=== PATIENT | female | born 1955 | race Caucasian/White ===

== ENCOUNTER → 2018-04-03 14:33 | Outpatient (CLI) | payer BC, SELFPAY ==
[2018-04-09 12:17] LABS: HPV Reflexed? NOT INDICATED
== END ==
PROVIDERS: PCP Family Medicine; Visit Provider Obstetrics & Gynecology
DX: Z12.4 Encounter for screening for malignant neoplasm of cervix (principal)
CPT/HCPCS: 88175; G0145

== ENCOUNTER → 2018-04-07 07:03 | Outpatient (CLI) | payer BC, SELFPAY ==
--- NOTE | 2018-04-07 07:07 | BI_ITS ---
MAMMOGRAPHY - BILATERAL SCREENING REASON FOR EXAM: Female, 63 years old. Routine annual screening examination. PERTINENT HISTORY: Non-contributory. TECHNIQUE: Digital bilateral breast qian (3D mammographic acquisition) in the CC and MLO projections. 2-D mediolateral oblique (MLO) and craniocaudad (CC) views of both breasts were obtained. CAD: Full Field Digital Mammography with Computer Added Detection was performed. COMPARISON: Comparison is made with prior study dated March 26, 2017. FINDINGS: Breast Composition: The breasts are almost entirely fatty. There are no dominant masses or suspicious calcifications. Stable 7.8 mm well-defined nodular density in the upper outer aspect of the No other significant abnormalities are identified. There has been no significant change since the prior study. BI/SCREENING MAMM (CAD), BILAT IMPRESSION: Stable bilateral screening mammogram. Yearly follow-up mammogram recommended. (A) ASSESSMENT CATEGORY: BIRADS Category 2: Benign. A letter regarding these results will be sent to the patient by the facility within 30 days. Approximately 10% of breast cancers are not detected by mammography. A normal mammogram should not delay biopsy of a clinically suspicious abnormality. [id number] Electronically Signed: Wicho Kay MD at 9:47 EST Tel [phone], Service support ,
== END ==
PROVIDERS: Family Provider Family Medicine; PCP Family Medicine; Referring Provider Family Medicine; Visit Provider Family Medicine
DX: Z12.31 Encounter for screening mammogram for malignant neoplasm of breast (principal)
CPT/HCPCS: 77063; 77067

== ENCOUNTER → 2018-04-18 13:27 | Outpatient (CLI) | payer BC, SELFPAY ==
[2018-04-18 14:21] LABS: Anion Gap 10 (5-15); BUN 22 mg/dL (7-18); BUN/Creat Ratio 24.7 RATIO (10-20); Calcium,Total 9.1 mg/dL (8.5-10.1); Chloride 105 mmol/L (98-107); Creatinine, Serum 0.89 mg/dL (0.55-1.02); EST Glomerular Filtration Rate 69 mL/min (>60); Est Glom Filt Rate - Afr Amer 83 mL/min (>60); Glucose 89 mg/dL (74-106); Potassium 4.7 mmol/L (3.5-5.1); Sodium Level 141 mmol/L (136-145); T4 Free Direct 1.08 ng/dL (0.76-1.46)
[2018-04-18 14:31] LABS: Vitamin D,25 Hydroxy 16.4 ng/mL (29.95-100.01)
[2018-04-19 11:48] LABS: Hep C Antibodies <0.1 s/co ratio (0.0-0.9)
== END ==
PROVIDERS: PCP Family Medicine; Visit Provider Family Medicine
DX: E03.9 Hypothyroidism, unspecified (principal); I10 Essential (primary) hypertension; Z82.62 Family history of osteoporosis; Z11.59 Encounter for screening for other viral diseases
CPT/HCPCS: 36415; 80048; 82306; 84439; 84443; 86803

== ENCOUNTER → 2019-03-02 | Outpatient (CLI) | payer OTHER, SELFPAY ==
[2019-03-02 13:07] LABS: Vitamin D,25 Hydroxy 24.6 ng/mL (29.95-100.01)
[2019-03-02 13:13] LABS: Anion Gap 7 (5-15); BUN 16 mg/dL (7-18); BUN/Creat Ratio 18.8 RATIO (10-20); Calcium,Total 9.1 mg/dL (8.5-10.1); Chloride 105 mmol/L (98-107); Cholesterol 184 mg/dL (200); Creatinine, Serum 0.85 mg/dL (0.55-1.02); EST Glomerular Filtration Rate 72 mL/min (>60); Est Glom Filt Rate - Afr Amer 87 mL/min (>60); Glucose 85 mg/dL (74-106); High Density Lipoprotein 52 mg/dL; Sodium Level 139 mmol/L (136-145); Thyroid Stim Hormone (TSH) 6.94 uIU/mL (0.358-3.74); Triglycerides 97 mg/dL; Very Low Density Lipoprotein 19 mg/dL (5-40)
== END | disposition home or self-care (01) ==
LOC: MFPLAB 10:22
PROVIDERS: Family Provider Family Medicine; PCP Family Medicine; Referring Provider Family Medicine; Visit Provider Family Medicine
DX: I10 Essential (primary) hypertension (principal); E55.9 Vitamin D deficiency, unspecified; E03.9 Hypothyroidism, unspecified
CPT/HCPCS: 36415; 80048; 80061; 82306; 84439; 84443

== ENCOUNTER → 2020-03-09 | Outpatient (CLI) | payer OTHER, SELFPAY ==
[2020-03-09 10:15] LABS: Vitamin D,25 Hydroxy 38.7 ng/mL
[2020-03-09 10:19] LABS: ALB/GLOB Ratio 0.9 RATIO (0.9-2.4); AST(SGOT) 16 U/L (15-37); Alanine Aminotransfer ALT/SGPT 23 U/L (13-56); Albumin, Serum 3.5 g/dL (3.2-5.0); Alkaline Phosphatase 101 U/L (45-117); Anion Gap 3 (5-15); BUN 14 mg/dL (7-18); BUN/Creat Ratio 18.6 RATIO (10-20); Chloride 109 mmol/L (98-107); Cholesterol 167 mg/dL (200); Creatinine, Serum 0.75 mg/dL (0.55-1.02); EST Glomerular Filtration Rate 83 mL/min (>60); Est Glom Filt Rate - Afr Amer 100 mL/min (>60); Globulin 3.7 g/dL (2.2-4.2); Glucose 89 mg/dL (74-106); High Density Lipoprotein 53 mg/dL; Potassium 4.3 mmol/L (3.5-5.1); Protein, Total 7.2 g/dL (6.4-8.2); Sodium Level 140 mmol/L (136-145); T4 Free Direct 0.95 ng/dL (0.76-1.46); Triglycerides 77 mg/dL; Very Low Density Lipoprotein 15 mg/dL (5-40)
== END | disposition home or self-care (01) ==
PROVIDERS: PCP Family Medicine; Referring Provider Family Medicine; Visit Provider Family Medicine
DX: Z00.00 Encounter for general adult medical examination without abnormal findings (principal); E03.9 Hypothyroidism, unspecified
CPT/HCPCS: 36415; 80053; 80061; 82306; 84439; 84443

== ENCOUNTER → 2020-03-23 | Outpatient (CLI) | payer OTHER, SELFPAY ==
--- NOTE | 2020-03-23 07:57 | BI_ITS ---
MAMMOGRAPHY - BILATERAL SCREENING REASON FOR EXAM: Female, 65 years old. Routine annual screening examination. PERTINENT HISTORY: Non-contributory. TECHNIQUE: Digital bilateral breast jarrett (3D mammographic acquisition) in the CC and MLO projections. 2-D mediolateral oblique (MLO) and craniocaudad (CC) views of both breasts were obtained. CAD: Full Field Digital Mammography with Computer Added Detection was performed. COMPARISON: Comparison is made with prior study dated 04/07/2018 and 03/26/2017. FINDINGS: Breast Composition: The breasts are almost entirely fatty. There are no dominant masses or suspicious calcifications. Stable 7.5 mm well-defined nodule in the upper lateral aspect of the right breast. This most likely represents a small lymph node. No other significant abnormalities are identified. There has been no significant change since the prior study. BI/SCREEN MAMM (CAD) W/JARRETT BILAT IMPRESSION: Stable bilateral screening mammogram. Yearly follow-up mammogram recommended. (A) ASSESSMENT CATEGORY: BIRADS Category 2: Benign. A letter regarding these results will be sent to the patient by the facility within 30 days. Approximately 10% of breast cancers are not detected by mammography. A normal mammogram should not delay biopsy of a clinically suspicious abnormality. [id number] Electronically Signed: Wicho Kay, at 10:05 EDT , Service support ,
== END | disposition home or self-care (01) ==
LOC: OPBI 07:55
PROVIDERS: PCP Family Medicine; Referring Provider Family Medicine; Visit Provider Family Medicine
DX: Z12.31 Encounter for screening mammogram for malignant neoplasm of breast (principal)
CPT/HCPCS: 77063; 77067

== ENCOUNTER → 2021-03-14 09:51 | Outpatient (CLI) | payer OTHER, SELFPAY ==
[2021-03-14 12:59] LABS: Vitamin D,25 Hydroxy 51.3 ng/mL
[2021-03-14 13:06] LABS: Anion Gap 7 (5-15); BUN 20 mg/dL (7-18); BUN/Creat Ratio 19.8 RATIO (10-20); Calcium,Total 9.4 mg/dL (8.5-10.1); Chloride 105 mmol/L (98-107); Cholesterol 198 mg/dL (200); Creatinine, Serum 1.01 mg/dL (0.55-1.02); EST Glomerular Filtration Rate 59 mL/min (>60); Est Glom Filt Rate - Afr Amer 71 mL/min (>60); Glucose 85 mg/dL (74-106); High Density Lipoprotein 53 mg/dL; Potassium 4.4 mmol/L (3.5-5.1); Sodium Level 140 mmol/L (136-145); T4 Free Direct 1.11 ng/dL (0.76-1.46); Thyroid Stim Hormone (TSH) 3.01 uIU/mL (0.358-3.74); Triglycerides 76 mg/dL; Very Low Density Lipoprotein 15 mg/dL (5-40)
== END ==
PROVIDERS: PCP Family Medicine; Referring Provider Family Medicine; Visit Provider Family Medicine
DX: Z00.00 Encounter for general adult medical examination without abnormal findings (principal); I10 Essential (primary) hypertension; E55.9 Vitamin D deficiency, unspecified; E03.9 Hypothyroidism, unspecified
CPT/HCPCS: 36415; 80048; 80061; 82306; 84439; 84443

== ENCOUNTER → 2021-03-24 08:44 | Outpatient (CLI) | payer OTHER, SELFPAY ==
--- NOTE | 2021-03-24 08:45 | BI_ITS ---
MAMMOGRAPHY - BILATERAL SCREENING REASON FOR EXAM: Female, 66 years old. Routine annual screening examination. PERTINENT HISTORY: Non-contributory. TECHNIQUE: Digital bilateral breast jarrett (3D mammographic acquisition) in the CC and MLO projections. 2-D mediolateral oblique (MLO) and craniocaudad (CC) views of both breasts were obtained. CAD: Full Field Digital Mammography with Computer Added Detection was performed. COMPARISON: Comparison is made with prior study dated 03/23/2020 and 04/07/2018. FINDINGS: Breast Composition: The breasts are almost entirely fatty. There are no dominant masses or suspicious calcifications. Stable 7 mm well-defined nodule in the upper lateral aspect of the right breast. This most likely represents a small lymph node. No other significant abnormalities are identified. There has been no significant change since the prior study. BI/SCRN MAMM (CAD)W/JARRETT BILAT IMPRESSION: Stable bilateral screening mammogram. Yearly follow-up mammogram recommended. (A) ASSESSMENT CATEGORY: BIRADS Category 2: Benign. A letter regarding these results will be sent to the patient by the facility within 30 days. Approximately 10% of breast cancers are not detected by mammography. A normal mammogram should not delay biopsy of a clinically suspicious abnormality. [id number] Electronically Signed: Wicho Kay MD at 9:41 EDT , Service support ,
== END ==
PROVIDERS: PCP Family Medicine; Referring Provider Family Medicine; Visit Provider Family Medicine
DX: Z12.31 Encounter for screening mammogram for malignant neoplasm of breast (principal)
CPT/HCPCS: 77063; 77067

== ENCOUNTER 2021-11-06 09:54 | Emergency (ER) | payer OTHER, SELFPAY ==
[2021-11-06 09:57] VITALS: BP 155/84; PULSE 89; RESP 17; TEMP 36.6; O2SAT 98; BMI 40.4
--- NOTE | 2021-11-06 10:21 | EDS_ITS ---
HPI HPI - GI History of Present Illness Chief Complaint: Constipation Informant: patient Abdominal Pain/Flank Pain Onset: Weeks (2) Context: Gradual Onset Timing: Continuous Current Severity: Moderate Maximum Severity: Moderate Worsened by: Nothing Relieved by: Nothing (Tried magnesium citrate and MiraLAX) Nausea/Vomiting/Emesis GI Symptom: Negative for Nausea and Vomiting Diarrhea/Melena/Hematochezia GI Symptom: Negative for Melena and Hematochezia Associated Symptoms Associated Symptoms: Negative for Dysuria, Hematuria and Urgency Narrative Narrative: Patient has had about 2 weeks of significant constipation, last time she had any type of productive bowel movement was over a week ago. She saw her doctor twice in the office, she states that she has tried the above and she was unable to do an enema at home because she is alone and too large to reach around there. She denies having any abdominal pain, nausea, vomiting or other systemic symptoms. [facility] Medical History (Updated 11/06/21 @ 14:[address] Juan A Croft MD) Hypertension Hypothyroidism Home Medications levothyroxine 200 mcg PO MOTUWETHFRSA 11/06/21 [History Last Taken Unknown] levothyroxine 400 mcg PO ROBERTS 11/06/21 [History Last Taken Unknown] lisinopril 20 mg PO BID 11/06/21 [History Last Taken Unknown] Allergy/AdvReac Type Severity Reaction Status Date / Time chlorhexidine Allergy Rash Verified 11/06/21 09:56 Penicillins Allergy CHILDHOOD Verified 11/06/21 09:56 ALLERGY psyllium [From Metamucil] Allergy Shortness Verified 11/06/21 09:56 of breath Social History Smoking Status: Never smoker ROS [facility] ED Constitutional Constitutional ED: Denies chills or fever(s) Eyes Eyes: Denies change in vision or diplopia ENT ENT ED: Denies rhinorrhea or sore throat Cardiovascular Cardiovascular: Denies chest pain or palpitations Respiratory/Chest Respiratory/Chest: Denies cough or dyspnea Gastrointestinal Gastrointestinal: Reports constipation; Denies abdominal pain, diarrhea, nausea or vomiting Genitourinary Genitourinary ED: Denies dysuria or hematuria Musculoskeletal Musculoskeletal: Denies back pain or neck pain Integumentary Denies abscess or rash Neurologic Neurologic: Denies headache(s), paresthesias or weakness Psychiatric Psychiatric: Denies anxiety or suicidal thoughts EXAM Physical Exam Const Vital Signs: 11/06/21 09:57 Temperature 97.9 F Temperature Source Temporal Pulse Rate 89 Respiratory Rate 17 Blood Pressure 155/84 H Blood Pressure Mean 107 Pulse Ox 98 Oxygen Delivery Method Room Air Positive well nourished, well developed and obese General Appearance ED: well developed and NAD Nutritional Appearance: obese HEENT Reports moist mucous membranes normocephalic and atraumatic Eyes PERRL and EOMs intact bilaterally Neck full ROM and supple Resp normal respiratory effort and clear to auscultation bilaterally Cardio regular rate, regular rhythm and no murmurs GI non-tender and non-distended Auscultation: normoactive bowel sounds Palpation: soft Rectal Exam: other Other Details: Obstipated, soft, brown nonbloody Back/Spine no CVA tenderness General Back: other FROM Extremity normal to inspection General Extremety ED: Negative for edema, pulses abnormal or tenderness General Extremity: Negative for edema or pulses abnormal Neuro oriented x3, CN's II-XII intact bilaterally and no sensory deficits noted Sensorium / Orientation: awake and alert Motor Exam: strength 5/5 throughout Skin no rashes or lesions noted and no wounds MDM MDM MDM Narrative Medical decision making narrative: After loosening up her impaction with digital rectal exam, she was given a soapsuds enema and had a large bowel movement and felt much better. I think this was a problem that she was impacted, I advised her to continue the MiraLAX, and follow-up with her doctor. She is comfortable with that plan. Discharge Plan Triage Chief Complaint: Constipation ED Provider: Juan A Croft Dx/Rx/DC Orders Clinical Impression: Fecal impaction Instructions: ED Fecal Impaction, Treated Prescriptions: No Action lisinopril 20 mg tablet 20 mg PO BID RF: 0 levothyroxine 200 mcg tablet 200 mcg PO MOTUWETHFRSA RF: 0 levothyroxine 200 mcg tablet 400 mcg PO ROBERTS RF: 0 Primary Care Provider: Bryan Kay Referrals: Bryan Kay MD [Primary Care Provider] - 1 Week if not improving Activity Restrictions/Additional Instructions: Continue with the MiraLAX, but stop the magnesium citrate unless you get obstipated again. Disposition Disposition: Home, Self Care
== END 2021-11-06 14:20 | disposition home or self-care (01) ==
PROVIDERS: Emergency Provider Emergency Medicine; PCP Family Medicine; Visit Provider Emergency Medicine
DX: K59.00 Constipation, unspecified (principal); Z68.41 Body mass index [BMI] 40.0-44.9, adult; I10 Essential (primary) hypertension; E03.9 Hypothyroidism, unspecified; E66.9 Obesity, unspecified; Z79.899 Other long term (current) drug therapy
CPT/HCPCS: 99284

== ENCOUNTER → 2022-03-28 | Outpatient (CLI) | payer OTHER, SELFPAY ==
--- NOTE | 2022-03-28 07:13 | BI_ITS ---
MAMMOGRAPHY - BILATERAL SCREENING REASON FOR EXAM: Female, 67 years old. Routine annual screening examination. PERTINENT HISTORY: Non-contributory. TECHNIQUE: Digital bilateral breast jarrett (3D mammographic acquisition) in the CC and MLO projections. 2-D mediolateral oblique (MLO) and craniocaudad (CC) views of both breasts were obtained. CAD: Full Field Digital Mammography with Computer Added Detection was performed. COMPARISON: Comparison is made with prior study 03/24/2021 and 03/23/2020. FINDINGS: Breast Composition: The breasts are almost entirely fatty. There are no dominant masses or suspicious calcifications. Stable 7 mm well-defined nodule in the anterior upper lateral aspect of the right breast. No other significant abnormalities are identified. There has been no significant change since the prior study. BI/SCRN MAMM (CAD)W/JARRETT BILAT IMPRESSION: Stable bilateral screening mammogram. Yearly follow-up mammogram recommended. (A) ASSESSMENT CATEGORY: BIRADS Category 2: Benign. A letter regarding these results will be sent to the patient by the facility within 30 days. Approximately 10% of breast cancers are not detected by mammography. A normal mammogram should not delay biopsy of a clinically suspicious abnormality. [id number] Electronically Signed: Wicho Kay MD at 9:13 EDT ,
== END | disposition home or self-care (01) ==
PROVIDERS: PCP Family Medicine; Visit Provider Family Medicine
DX: Z12.31 Encounter for screening mammogram for malignant neoplasm of breast (principal)
CPT/HCPCS: 77063; 77067

== ENCOUNTER 2024-03-26 04:55 | Inpatient (IN) | payer OTHER, MEDICARE, SELFPAY ==
[2024-03-26] VITALS (12 sets, daily range): BP systolic 100–120; BP diastolic 44–84; PULSE 79–94; RESP 15–17; TEMP 35.9–36.9; O2SAT 93–99; BMI 40.6
--- NOTE | 2024-03-26 04:26 | PCM.HP.STD ---
[facility] - General General Date of Admission: 03/26/24 Date of Service: 03/26/24 Chief Complaint: Right-sided Abdominal Pain and Constipation. HPI Narrative BHAVANI HALLMAN, is a 69 F with a past medical history of essential hypertension, hyperlipidemia, hypothyroidism, morbid obesity; with BMI of 40.6 this admission, history of vitamin D deficiency, listed allergy to PCN (rash), listed allergy to Metamucil (SOB), remote history of , history of D&C, history of fecal impaction (2021) and OA who initially presented to [facility] ER complaining of Right-sided abdominal pain and constipation. She informed them her symptoms began ~4-5 days prior to admission with pain in her RUQ that radiated down into her RLQ, epigastric area and upper back. She also admitted to associated nausea and loss of appetite followed by yellowing of her skin with pruritus. She initially attributed her symptoms to pulling weeds in her garden thinking she may have strained her abdominal muscles. She denies a history of similar previous episodes or any known previous problems with her gallbladder. She also admits to a worsening of her symptoms after eating a hoagie her bought for her. She states she did not take any OTC or prescription medications to manage her symptoms. She then under went a CT scan of the abdomen and pelvis that revealed evidence of choledocholithiasis with dilatation of of her CBD ~1.2 cm and a radiolucent stone in the mid common bile duct along with corroborating laboratory evidence of increased LFT's with AST 164 U/L, ALT 351 U/L, Alkaline Phosphatase of 364 U/L with Hyperbilirubinemia of 7.6 mg/dL with a normal lipase and no signs of pancreatic inflammation on CT so a call was placed to arrange transfer here for ERCP. She denies associated fever, chills, vomiting, or diarrhea but she does admit to constipation. She was then admitted to the general medical floor for ongoing care for a stay that is expected to extend beyond 2 midnights. [facility] Medical History Vitamin D deficiency Hypertension Hypothyroidism Home Medications ?Medication ?Instructions ?Recorded ?Last Taken ?Type levothyroxine 200 mcg tablet 200 mcg PO MOTUWETHFRSA thyroid 11/06/21 Unknown History levothyroxine 200 mcg tablet 400 mcg PO ROBERTS thyroid 11/06/21 Unknown History lisinopril 20 mg tablet 20 mg PO BID 11/06/21 Unknown History albuterol sulfate 90 mcg/actuation 2 inh inhalation Q4H PRN sob 03/26/24 Unknown History breath activated powder inhaler (ProAir RespiClick) cholecalciferol (vitamin D3) 125 5,000 unit PO DAILY 03/26/24 Unknown History mcg (5,000 unit) capsule Allergy/AdvReac Type Severity Reaction Status Date / Time chlorhexidine Allergy Rash Verified 11/06/21 09:56 Penicillins Allergy CHILDHOOD Verified 11/06/21 09:56 ALLERGY psyllium (From Metamucil) Allergy Shortness Verified 11/06/21 09:56 of breath Social History Smoking Status: Never smoker ROS ROS Narrative Review of Systems: Constitutional: Patient denies fever or chills. Eyes: Patient denies changes in vision or discharge from eyes. ENT: Patient denies runny nose, sore throat or ear pain. Resp: Patient denies SOB or cough. CV: Patient denies chest pain, palpitations or heart racing. GI: Patient admits to nausea and constipation as per HPI but she denies vomiting. : Patient denies dysuria or hematuria. MSK: Patient denies arthralgias and myalgias. Skin: Patient admits to jaundice and pruritus. Psych: Patient denies symptoms of uncontrolled depression or anxiety. Neuro: Patient denies headache, paresthesias or focal neurologic weakness. Allergy: Patient denies lip swelling, tongue swelling or urticaria. Hematology: Patient denies easy bleeding or easy bruisability. Endocrinology: Patient denies poluuria, polydipsia or polyphagia. 14 point ROS otherwise negative except for positives noted above. Vital Signs Vital Signs Vital Signs: 03/26/24 03:41 03/26/24 03:48 Temperature 98.2 F Temperature Source Oral Pulse Rate 93 Respiratory Rate 17 Respiratory Effort Normal Non-Labored Respiratory Depth Normal Respiratory Pattern Normal Blood Pressure 117/84 H Blood Pressure Mean 95 Blood Pressure Source Monitor Blood Pressure Position Semi-Fowlers Blood Pressure Location Left Forearm Pulse Ox 94 Oxygen Delivery Method Room Air Room Air Weight Weight: 236 lb 8.896 oz Body Mass Index (BMI) 40.6 Physical Exam Const alert, oriented x3, no apparent distress and healthy appearing Constitutional Narrative: Morbidly obese. General Appearance: cooperative HEENT normocephalic, head/scalp atraumatic and hearing grossly normal bilaterally HEENT Narrative: Mucous membranes dry. Eyes PERRL and EOMs intact bilaterally Eyes Narrative: Sclerae are icteric. Neck no lymphadenopathy and supple Resp normal respiratory effort, no retractions, no use of accessory muscles and clear to auscultation bilaterally Cardio regular rate and regular rhythm GI normal to inspection, nondistended, normoactive bowel sounds, soft to palpation and non-distended GI Narrative: TTP in RUQ and epigastrium. Extremity normal to inspection, full ROM and no clubbing, cyanosis or edema Skin Skin Narrative: Patient is jaundiced. Neuro oriented x3, CN's II-XII intact bilaterally, moves all extremities and no focal motor deficits Sensorium / Orientation: awake, alert, oriented to person, oriented to place and oriented to time Speech: speech normal Psych affect normal Results Medical Records Data Attestation: I reviewed the patient's medical records Lab / Micro Data Attestation: I reviewed the patient's lab results. 03/26/24 05:28 03/26/24 05:28 Assessment & Plan Assessment/Plan (1) Choledocholithiasis: (2) Transaminitis: (3) Morbid obesity with BMI of 40.0-44.9, adult: (4) Essential hypertension: PLAN: Plan 1. CT scan of the abdomen and pelvis that revealed evidence of choledocholithiasis with dilatation of of her CBD ~1.2 cm and a radiolucent stone in the mid common bile duct along with corroborating laboratory evidence of increased LFT's with AST 164 U/L, ALT 351 U/L, Alkaline Phosphatase of 364 U/L with Hyperbilirubinemia of 7.6 mg/dL with a normal lipase and no signs of pancreatic inflammation on CT - Admit to general medical floor. Keep strict NPO for impending ERCP. Start Protonix 40 mg IV daily plus give prn IV Zofran for nausea and vomiting. Start empiric IV Levaquin and IV Flagyl with listed allergy to PCN to prophylax against possible cholangitis. Finally, we will consult gastroenterology to see this patient on-rounds in the AM for further recommendations regarding ERCP with help appreciated in advance. 2. Morbid obesity; with BMI of 40.6 this admission complicating #1 - Weight loss will be recommended. Check TSH. This complicates her case and may hamper her recovery. 3. Essential hypertension - Give IV Hydralazine prn for systolic blood pressure > 160 mmHg until her home Lisinopril can be restarted. 4. Hyperlipidemia - Patient not on antihyperlipidemic agent at this time. Check Lipid Profile. 5. Hypothyroidism - Restart Synthroid when safe to do so after ERCP. Check TSH. 6. History of vitamin D deficiency - Noted. 7. Listed allergy to PCN (rash) - Noted. 8. Listed allergy to Metamucil (SOB) - Noted. 9. Remote history of - Noted for the sake of completeness. 10. History of D&C - Noted for the sake of completeness. 11. History of fecal impaction (2021) - Noted. 12. OA - Stable. 13. DVT/GI prophylaxis - SCD's only with impending ERCP. Protonix 40 mg IV daily. Total time: Approximately 55 minutes. Charges/Coding Visit Charges Inpatient E&M: 84263 Init Hosp L2
[2024-03-26 05:35] LABS: Absolute Lymphocyte Count 0.92 X10^3/uL (0.83-4.51); Absolute Neutrophil Count 3.4 X10^3/uL (2.0-7.7); Basophil# 0.05 X10^3/uL; Eosinophil# 0.11 X10^3/uL; Eosinophils% 2.2 % (0-5); Hematocrit 40.3 % (37-47); Hemoglobin 13.1 g/dL (12.0-15.0); Lymphocyte # 0.92 X10^3/ul (0.83-4.51); Lymphocyte % 18.3 % (19-41); Mean Corp Hgb Conc 32.5 g/dL (32-36); Mean Corpuscular Hgb 29.3 pg (27.0-32.0); Mean Corpuscular Volume 90.2 fL (81-99); Mean Platelet Vol. 10.2 fl (6.2-12.0); Monocyte# 0.59 X10^3/uL; Monocyte% 11.7 % (0-10); NRBC Flagged by Analyzer 0 % (0-5); Neutrophil # 3.36 X10^3/uL (2.7-7.7); Neutrophil % 66.6 % (47-70); Platelet Count 195 K/mm3 (150-450); RBC Distribution Width CV 13.7 % (11.6-14.6); RBC Distribution Width SD 45.4 fl (35.1-43.9); Red Blood Count 4.47 M/mm3 (4.2-5.4)
[2024-03-26] MEDS: 0.9% Normal Saline (1000mL) 1,000 ML 100 ML IV (05:49)
[2024-03-26] MEDS: Pantoprazole Sodium 40 MG in 0.9% Normal Saline (100mL MB+) 100 ML 330 MG IV (05:49)
--- NOTE | 2024-03-26 06:00 | EKG12_ITS ---
Test Reason : PRE-OP Blood Pressure : / mmHG Vent. Rate : 086 BPM Atrial Rate : 086 BPM P-R Int : 158 ms QRS Dur : 076 ms QT Int : 334 ms P-R-T Axes : 066 044 059 degrees QTc Int : 399 ms Normal sinus rhythm Normal ECG No previous ECGs available Confirmed by NENO ALMANZAR, VENESSA ([id number]), health editor MAT MARTE ([id number]) on 03/26/2024 2:11:30 PM Referred By: Confirmed By:VENESSA LAZCANO MD
[2024-03-26 06:03] LABS: ALB/GLOB Ratio 0.8 RATIO (0.9-2.4); AST(SGOT) 147 U/L (15-37); Alanine Aminotransfer ALT/SGPT 297 U/L (13-56); Albumin, Serum 3.2 g/dL (3.2-5.0); Alkaline Phosphatase 327 U/L (45-117); Anion Gap 6 (5-15); BUN 21 mg/dL (7-18); BUN/Creat Ratio 19.1 RATIO (10-20); Chloride 106 mmol/L (98-107); EST Glomerular Filtration Rate 53 mL/min (>60); Est Glom Filt Rate - Afr Amer 64 mL/min (>60); Estimated Creatinine Clearance 59.34 ml/min; Globulin 3.9 g/dL (2.2-4.2); Glucose 93 mg/dL (74-106); Potassium 4.1 mmol/L (3.5-5.1); Protein, Total 7.1 g/dL (6.4-8.2); Sodium Level 135 mmol/L (136-145)
[2024-03-26] MEDS: metroNIDAZOLE 500 MG/100 ML BAG 100 MG IV ×3 (06:19→21:12)
[2024-03-26 06:29] LABS: Cholesterol 193 mg/dL (200); High Density Lipoprotein 17 mg/dL; Phosphorus 3.5 mg/dL (2.5-4.9); Triglycerides 159 mg/dL; Very Low Density Lipoprotein 32 mg/dL (5-40)
--- NOTE | 2024-03-26 08:49 | PCM.PN.HOSP ---
Reason for Visit Reason for Visit: Constipation and abdominal pain Subjective Subjective Patient is a 69-year-old white female who presented to the emergency department at an outside hospital on 03/26/2024 early in the morning due to right sided abdominal pain and constipation. She reported the symptoms began about 4 to 5 days prior to presentation with right upper quadrant pain that radiated down to her right lower quadrant, epigastric pain and pain in her upper back. She had some associated nausea and loss of appetite followed by some yellowing of her skin and pruritus. She has not ever had this previously and denies any previous issues with her gallbladder. She admitted to worsening of her symptoms after she ate a hoagie that her got from her several days prior. Vital signs on presentation showed a temperature of 98.2, heart rate 93, respiratory rate 17, blood pressure 117/84, and pulse ox was 94% on room air. CBC was overtly unremarkable other than a mild monocytosis. Chemistry panel showed mild hyponatremia with a sodium of 135, mild serum creatinine elevation with a creatinine of 1.10. Baseline is unknown. Total bilirubin was 7.7 with an AST of 147 and an ALT of 294. Alk phos was 327. These are all new elevations. Triglyceride level was 159. Thyroid level was normal. CT at outside hospital of the abdomen pelvis showed choledocholithiasis with dilation of her common bile duct and a radiolucent stone in the mid common bile duct. She had no evidence of pancreatic inflammation and her lipase was normal. She was transferred here for ERCP. She was started on broad-spectrum antibiotics with upcoming ERCP and concern for possible developing ascending cholangitis. Gastroenterology has been consulted. She was placed on IV fluids and as needed pain medication. She is currently n.p.o. in preparation for ERCP. Patient seen after ERCP. She states she is just really tired but does not have any symptoms at this time. We did discuss possible discharge tomorrow depending on how she does. Objective Data Objective Data Vital Signs: Vital Signs Temp Pulse Resp BP Pulse Ox O2 Del Method 98.2 F 93 17 117/84 H 94 Room Air 03/26/24 03:41 03/26/24 03:41 03/26/24 03:41 03/26/24 03:41 03/26/24 03:41 03/26/24 03:48 Oxygen Delivery Method Room Air Weight: 107.3 kg Body Mass Index (BMI) 40.6 Intake & Output: Intake and Output for Last 24 Hours 03/24/24 03/25/24 03/26/24 23:59 23:59 23:59 Intake Total 210 / 210 Balance 210 / 210 Lab / Micro Data 03/26/24 05:28 03/26/24 05:28 Labs: Laboratory Results - last 24 hr 03/26/24 05:28: WBC 5.0, RBC 4.47, Hgb 13.1, Hct 40.3, MCV 90.2, MCH 29.3, MCHC 32.5, RDW Std Deviation 45.4 H, RDW Coeff of Ja 13.7, Plt Count 195, MPV 10.2, Immature Gran % (Auto) 0.200, Neut % (Auto) 66.6, Lymph % (Auto) 18.3 L, [place] % (Auto) 11.7 H, Eos % (Auto) 2.2, Baso % (Auto) 1.0, Absolute Neuts (auto) 3.4, Absolute Lymphs (auto) 0.92, Nucleated RBC % 0, Sodium 135 L, Potassium 4.1, Chloride 106, Carbon Dioxide 23.0, Anion Gap 6, BUN 21 H, Creatinine 1.10 H, Estim Creat Clear Calc 59.34, Est GFR (MDRD) Af Amer 64, Est GFR (MDRD) Non-Af 53 L, BUN/Creatinine Ratio 19.1, Glucose 93, Calcium 10.0, Phosphorus 3.5, Magnesium 2.0, Total Bilirubin 7.70 H, AST 147 H, ALT 297 H, Alkaline Phosphatase 327 H, Total Protein 7.1, Albumin 3.2, Globulin 3.9, Albumin/Globulin Ratio 0.8 L, Triglycerides 159, Cholesterol 193, LDL Cholesterol 144 H, VLDL Cholesterol 32, HDL Cholesterol 17 L, TSH 1.100 Assessment & Plan Assessment/Plan (1) Transaminitis: (2) Choledocholithiasis: PLAN: Plan Acute transaminitis/hyperbilirubinemia secondary to choledocholithiasis -N.p.o. -Continue IV fluids with normal saline -Continue fluoroquinolone and metronidazole -Continue IV as needed morphine -Continue IV Toradol as long as renal function is stable but monitor closely -Continue as needed antiemetics -Will likely need outpatient follow-up with general surgery for cholecystectomy -Consult pending for GI Abdominal pain/nausea and vomiting -secondary to the above -Should resolve with treatment of choledocholithiasis Hypothyroidism -Continue home levothyroxine Essential hypertension/hyperlipidemia -Restart home lisinopril -Continue as needed hydralazine -Patient has documented history of hyperlipidemia but not on medication -Management per outpatient primary care physician History of asthma -No signs of acute exacerbation -As needed albuterol and restart home albuterol inhaler at discharge Vitamin D deficiency -Continue home vitamin D supplementation Morbid obesity -BMI 40.6 -Recommend weight loss -Complicates treatment, prognosis, outcomes DVT prophylaxis -Start Lovenox tonight after ERCP 40 twice daily CODE STATUS Full code
[2024-03-26] MEDS: Ciprofloxacin 400 MG/200 ML BAG 200 MG IV ×2 (09:44→22:19)
--- NOTE | 2024-03-26 09:45 | CASEMGMT ---
AKASH NORMAN Assessment: Face to Face with pt for initial transition planning/care coordination assessment. RN EMERSON introduced self and role at [facility], pt voices understanding and consents to assessment. Pt is A&O x4 and answers all questions appropriately at this time. Pt sitting on edge of bed with nurse at bedside. Care providers, pharmacy, and demographics verified/updated. Admitting Dx: choledocholithiasis with transaminitis Strata Score: 0 PCP:Eliza Specialists:Denies Preferred Pharmacy:Pt wants rx written out, not sent to a pharmacy as she likes to shop around for the best vanessa. Insurance: [employer] A Prescription Benefit: yes LNOK: Av Burt, ; Carrie Low, sister Living Arrangements: Pt lives with in a two story home with 1 step to enter to the porch and 1/2 step to enter the home. Pt reports she is I in ADLs and denies concerns at home. Transportation: Pt drives self and denies concerns with transportation. DME:Denies HHC/SNF: Denies hx of Pt states no concerns with going home at time of dc. Pt states no further concerns/needs. CM to follow. Advised pt to ask CM if any further question/concerns/needs arise, voices understanding. Pt Goal: Home Plan: Home Handoff given to HIGINIO Orr RN, CM
--- NOTE | 2024-03-26 10:42 | NURSING ---
pot left for endo
[2024-03-26] MEDS: Lactated Ringers 1,000 ML 15 ML IV (10:55)
--- NOTE | 2024-03-26 11:09 | PRE.ANES_ITS ---
ASA Classification* ASA Classification ASA Classification: 3 and E Assessment & Plan Anesthesia* Anesthesia Assessment Anesthesia Assessment: Discussed sedation and/or anesthesia options, risks, benefits, and alternatives with patient/parents/legal guardian/POA. Questions invited. The patient/parents/legal guardian/POA seems to understand and agrees to proceed with anesthesia plan. Reviewed the physical assessment, medical history, allergy history and patient home medications list prior to surgery/procedure/anesthetic and documented any changes. Performed airway and anesthesia risk assessments. Anesthesia Type Anesthesia Type: General (see written pre anesthesia record for full assessment) Anesthesia Focused Assessment* Temperature: 98.1 F Pulse Rate: 91 Blood Pressure: 100/60 Respiratory Rate: 16 Pulse Ox: 95 Airway Assessment Mouth opens: >3 cm Mallampati Score: II Focused Labs Anesthesia Preop lab: CBC WBC 5.0 K/mm3 (4.4-11.0) 03/26/24 05:28 RBC 4.47 M/mm3 (4.2-5.4) 03/26/24 05:28 Hgb 13.1 g/dL (12.0-15.0) 03/26/24 05:28 Hct 40.3 % (37-47) 03/26/24 05:28 Plt Count 195 K/mm3 (150-450) 03/26/24 05:28 CHEMISTRY Potassium 4.1 mmol/L (3.5-5.1) 03/26/24 05:28 Sodium 135 mmol/L (136-145) L 03/26/24 05:28 Magnesium 2.0 mg/dL (1.6-2.6) 03/26/24 05:28 Phosphorus 3.5 mg/dL (2.5-4.9) 03/26/24 05:28 BUN 21 mg/dL (7-18) H 03/26/24 05:28 Creatinine 1.10 mg/dL (0.55-1.02) H 03/26/24 05:28 Glucose 93 mg/dL (74-106) 03/26/24 05:28 TSH 1.100 uIU/mL (0.358-3.740) 03/26/24 05:28 COAG Pre-Assessment Diagnosis/Proposed Procedure Planned Operative Procedure(s): ercp Anesthesia History 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 When Was Last Pacemaker Check QUESTION #4 FULL TEXT: You/Your Family Experience fever (hyperthermia) with Anesthesia Last Oral Intake Last Oral intake: Last Oral Intake NPO since 00:00 03/26/24 09:56 Meds taken in AM with sips of water? Meds patient instructed to take am of surgery PONV PONV - roll line operator: PONV - roll line operator Female HX of Motion Sickness HX of N/V After Surgery Non-Smoker Duration of Surgery greater than 60 minutes Number of Risk Factors PONV Score Height & Weight Height & Weight: Anesthesia: Height & Weight Height 5 ft 4 in 03/26/24 10:30 Weight: 107.3 kg 03/26/24 10:30 Body Mass Index (BMI) 40.6 03/26/24 09:56 Respiratory Assessment Respiratory Assessment - roll line operator: Respiratory Tract Infection Hx - roll line operator Hx Respiratory Tract Infection No 03/26/24 06:20 STOP Sleep Apnea STOP Sleep Apnea - roll line operator: STOP Sleep Apnea - roll line operator Hx Hypertension Yes 03/26/24 03:36 Hx Sleep Apnea No 03/26/24 03:36 CPAP BIPAP Do you snore loudly (louder No 03/26/24 03:36 than talking or can be heard Do you often feel tired/ No 03/26/24 03:36 fatigued/ sleepy during daytime? Has anyone observed you stop No 03/26/24 03:36 breathing during sleep? STOP Results Negative 03/26/24 03:36 QUESTION #5 FULL TEXT : Do you snore loudly (louder than talking or can be heard through closed doors)? 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 Specify any problems Hx of Preganancy in last 3 No 03/26/24 03:36 Months Nurse Filling Out Transfusion DREDICK 03/26/24 03:36 & Questions: Date: 03/26/24 03/26/24 03:36 Time: 03:36 03/26/24 03:36 Patient unable to answer at this time (ie. confused, unrespo /Reproduction History /Reproductive History - roll line operator: /Reproductive Hx- roll line operator Hx Now No 03/26/24 06:20 Gestational Age (in weeks): EDC: Hx Hx Para Hx Section SAB Active Medications Active Medications: Current Medications Generic Name Dose Route Start Last Admin Trade Name Freq PRN Reason Stop Dose Admin Albuterol Sulfate 2.5 mg 03/26/24 05:07 Albuterol 2.5 Mg/3 Ml Vial.Neb. INHALATION Q4H PRN PRN SHORTNESS OF BREATH Enoxaparin Sodium 40 mg 03/26/24 22:00 Enoxaparin 40 Mg/0.4 Ml Syringe SC BID LYRIC Hydralazine HCl 10 mg 03/26/24 05:09 Hydralazine 20 Mg/Ml Vial IV Q6H PRN PRN SBP GREATER THAN 160 Protocol Sodium Chloride 500 mls @ 15 mls/hr 03/26/24 03:31 IV .[id number] PRN Saline Flush Sodium Chloride 500 mls @ 15 mls/hr 03/26/24 03:31 IV .[id number] PRN Additional IVPB Infusion Pantoprazole Sodium 40 mg/ 110 mls @ 330 mls/hr 03/26/24 05:01 03/26/24 06:13 Sodium Chloride IV Infused Q24 LYRIC Infusion Metronidazole 500 mg in 100 mls @ 100 mls/hr 03/26/24 06:00 03/26/24 08:02 Flagyl IV Infused Q8 LYRIC Infusion Sodium Chloride 1,000 mls @ 100 mls/hr 03/26/24 05:01 03/26/24 09:46 IV 03/26/24 15:00 0 mls/hr .Q10H LYRIC Infusion Protocol Ciprofloxacin 400 mg in 200 mls @ 200 mls/hr 03/26/24 10:00 03/26/24 10:53 Cipro IV Infused Q12 LYRIC Infusion Lactated Ringer's 1,000 mls @ 15 mls/hr 03/26/24 11:00 03/26/24 10:55 IV 04/01/24 00:19 15 mls/hr .Q48H LYRIC Administration Protocol Ketorolac Tromethamine 15 mg 03/26/24 05:07 Ketorolac 15 Mg/Ml Vial IV 03/31/24 05:07 Q6H PRN PRN Pain 1-5/10 or Fever Morphine Sulfate 2 mg 03/26/24 05:07 Morphine 2 Mg/Ml Syringe IV Q4H PRN PRN Pain Score 6-10 Ondansetron HCl 4 mg 03/26/24 05:07 Ondansetron 4 Mg/2 Ml Vial IV Q6H PRN PRN NAUSEA/VOMITING Promethazine HCl 25 mg 03/26/24 05:07 Promethazine 25 Mg/Ml Syringe IM Q6H PRN PRN Breakthrough nausea/vomiting Sodium Chloride 10 - 40 ml 03/26/24 03:31 0.9% Saline Lock 10 Ml Syringe IV UD PRN SALINE FLUSH PFSH Medical History Vitamin D deficiency Hypertension Hypothyroidism Home Medications ?Medication ?Instructions ?Recorded ?Last Taken ?Type levothyroxine 200 mcg tablet 200 mcg PO MOTUWETHFRSA thyroid 11/06/21 Unknown History levothyroxine 200 mcg tablet 400 mcg PO ROBERTS thyroid 11/06/21 Unknown History lisinopril 20 mg tablet 20 mg PO BID 11/06/21 Unknown History albuterol sulfate 90 mcg/actuation 2 inh inhalation Q4H PRN sob 03/26/24 Unknown History breath activated powder inhaler (ProAir RespiClick) cholecalciferol (vitamin D3) 125 5,000 unit PO DAILY 03/26/24 Unknown History mcg (5,000 unit) capsule Allergy/AdvReac Type Severity Reaction Status Date / Time chlorhexidine Allergy Rash Verified 11/06/21 09:56 Penicillins Allergy CHILDHOOD Verified 11/06/21 09:56 ALLERGY psyllium (From Metamucil) Allergy Shortness Verified 11/06/21 09:56 of breath Social History Smoking Status: Never smoker Review of Systems (Anesthesia) ROS Narrative System reviewed and no additional complaints, except as documented.
--- NOTE | 2024-03-26 11:59 | CON.PCM.GI_ITS ---
HPI Consult Data Date of Consult: 03/26/24 HPI Narrative Reason for Consultation: Choledocholithiasis HPI Narrative: BHAVANI HALLMAN, is a 69 F with no significant past medical history presented to [facility] ER complaining of Right-sided abdominal pain.She initially attributed her symptoms to pulling weeds in her garden thinking she may have strained her abdominal muscles. She denies a history of similar previous episodes or any known previous problems with her gallbladder. She also admits to a worsening of her symptoms after eating a hoagie her bought for her. She states she did not take any OTC or prescription medications to manage her symptoms. She then under went a CT scan of the abdomen and pelvis that revealed evidence of choledocholithiasis with dilatation of of her CBD ~1.2 cm and a radiolucent stone in the mid common bile duct along with corroborating laboratory evidence of increased LFT's with AST 164 U/L, ALT 351 U/L, Alkaline Phosphatase of 364 U/L with Hyperbilirubinemia of 7.6 mg/dL with a normal lipase and no signs of pancreatic inflammation on CT so a call was placed to arrange transfer here for ERCP. She has a past medical history of essential hypertension, hyperlipidemia, hypothyroidism, morbid obesity, history of fecal impaction and constipation. She informed them her symptoms began ~4-5 days prior to admission with pain in her RUQ that radiated down into her RLQ, epigastric area and upper back. She also admitted to associated nausea and loss of appetite followed by yellowing of her skin with pruritus. [facility] Medical History Vitamin D deficiency Hypertension Hypothyroidism Home Medications ?Medication ?Instructions ?Recorded ?Last Taken ?Type levothyroxine 200 mcg tablet 200 mcg PO MOTUWETHFRSA thyroid 11/06/21 Unknown History levothyroxine 200 mcg tablet 400 mcg PO ROBERTS thyroid 11/06/21 Unknown History lisinopril 20 mg tablet 20 mg PO BID 11/06/21 Unknown History albuterol sulfate 90 mcg/actuation 2 inh inhalation Q4H PRN sob 03/26/24 Unknown History breath activated powder inhaler (ProAir RespiClick) cholecalciferol (vitamin D3) 125 5,000 unit PO DAILY 03/26/24 Unknown History mcg (5,000 unit) capsule Allergy/AdvReac Type Severity Reaction Status Date / Time chlorhexidine Allergy Rash Verified 11/06/21 09:56 Penicillins Allergy CHILDHOOD Verified 11/06/21 09:56 ALLERGY psyllium (From Metamucil) Allergy Shortness Verified 11/06/21 09:56 of breath Social History Smoking Status: Never smoker ROS ROS Narrative Review of Systems: Constitutional: Patient denies fever or chills. Eyes: Patient denies changes in vision or discharge from eyes. ENT: Patient denies runny nose, sore throat or ear pain. Resp: Patient denies SOB or cough. CV: Patient denies chest pain, palpitations or heart racing. GI: Patient admits to nausea and constipation as per HPI but she denies vomiting. : Patient denies dysuria or hematuria. MSK: Patient denies arthralgias and myalgias. Skin: Patient admits to jaundice and pruritus. Psych: Patient denies symptoms of uncontrolled depression or anxiety. Neuro: Patient denies headache, paresthesias or focal neurologic weakness. Allergy: Patient denies lip swelling, tongue swelling or urticaria. Hematology: Patient denies easy bleeding or easy bruisability. Endocrinology: Patient denies poluuria, polydipsia or polyphagia. 14 point ROS otherwise negative except for positives noted above. Physical Exam Const alert, oriented x3, no apparent distress and healthy appearing Constitutional Narrative: Morbidly obese. General Appearance: cooperative HEENT normocephalic, head/scalp atraumatic and hearing grossly normal bilaterally HEENT Narrative: Mucous membranes dry. Eyes PERRL and EOMs intact bilaterally Eyes Narrative: Sclerae are icteric. Neck no lymphadenopathy and supple Resp normal respiratory effort, no retractions, no use of accessory muscles and clear to auscultation bilaterally Cardio regular rate and regular rhythm GI normal to inspection, nondistended, normoactive bowel sounds, soft to palpation and non-distended GI Narrative: TTP in RUQ and epigastrium. Extremity normal to inspection, full ROM and no clubbing, cyanosis or edema Skin Skin Narrative: Patient is jaundiced. Neuro oriented x3, CN's II-XII intact bilaterally, moves all extremities and no focal motor deficits Sensorium / Orientation: awake, alert, oriented to person, oriented to place and oriented to time Speech: speech normal Psych affect normal Lab / Micro Data 03/26/24 05:28 03/26/24 05:28 Labs: Laboratory Results - last 24 hr 03/26/24 05:28: WBC 5.0, RBC 4.47, Hgb 13.1, Hct 40.3, MCV 90.2, MCH 29.3, MCHC 32.5, RDW Std Deviation 45.4 H, RDW Coeff of Ja 13.7, Plt Count 195, MPV 10.2, Immature Gran % (Auto) 0.200, Neut % (Auto) 66.6, Lymph % (Auto) 18.3 L, [place] % (Auto) 11.7 H, Eos % (Auto) 2.2, Baso % (Auto) 1.0, Absolute Neuts (auto) 3.4, Absolute Lymphs (auto) 0.92, Nucleated RBC % 0, Sodium 135 L, Potassium 4.1, Chloride 106, Carbon Dioxide 23.0, Anion Gap 6, BUN 21 H, Creatinine 1.10 H, Estim Creat Clear Calc 59.34, Est GFR (MDRD) Af Amer 64, Est GFR (MDRD) Non-Af 53 L, BUN/Creatinine Ratio 19.1, Glucose 93, Calcium 10.0, Phosphorus 3.5, Magnesium 2.0, Total Bilirubin 7.70 H, AST 147 H, ALT 297 H, Alkaline Phosphatase 327 H, Total Protein 7.1, Albumin 3.2, Globulin 3.9, A lbumin/Globulin Ratio 0.8 L, Triglycerides 159, Cholesterol 193, LDL Cholesterol 144 H, VLDL Cholesterol 32, HDL Cholesterol 17 L, TSH 1.100 Assessment & Plan Assessment/Plan (1) Choledocholithiasis: (2) Transaminitis: (3) Morbid obesity with BMI of 40.0-44.9, adult: (4) Essential hypertension: PLAN: Plan 69-year-old very pleasant woman with acute onset of right upper quadrant pain CT scan of the abdomen and pelvis that revealed evidence of choledocholithiasis with dilatation of of her CBD ~1.2 cm and a radiolucent stone in the mid common bile duct along with corroborating laboratory evidence of increased LFT's with AST 164 U/L, ALT 351 U/L, Alkaline Phosphatase of 364 U/L with Hyperbilirubinemia of 7.6 mg/dL with a normal lipase and no signs of pancreatic inflammation on CT -recommend ERCP. Charges/Coding Visit Charges Inpatient E&M: 26685 Init Hosp L3
--- NOTE | 2024-03-26 13:15 | RAD_ITS ---
EXAM: FL FLUOROSCOPY < 1 HOUR CLINICAL INDICATION: ERCP TECHNIQUE: Fluoroscopic images performed in multiple projections. Fluoroscopic guidance was provided during the procedure. COMPARISON: No relevant prior studies available. FINDINGS: 15 fluoroscopic spot views of the right upper quadrant obtained during ERCP. Subsequent images demonstrate an endobiliary stent catheter in place. See operative note for additional information. Total radiation dose: 345.7mGy. 6 minutes of fluoroscopy time. RAD/ERCP Biliary/Pancreas IMPRESSION: As above. Electronically Signed: Dami Piper MD at 16:54 EDT ,
--- NOTE | 2024-03-26 14:54 | OP.CCLET_ITS ---
03/26/2024 Bryan Kay [address] [place] [address] Re : ERCP procedure for Evonne Carmel Dear Dr. Kay This procedure was performed on March. My impressions and recommendations are as follows: Impressions : - The entire main bile duct and entire biliary tree were moderately dilated, with a stone causing an obstruction. - The entire biliary tree was dilated, with a stone causing an obstruction. - Choledocholithiasis was found. Partial removal was accomplished with biliary sphincterotomy; a stent was inserted. - A biliary sphincterotomy was performed. - The biliary tree was swept. - Lithotripsy was successful. - The biliary tree was swept. - Two temporary stents were placed into the common bile duct. - One temporary stent was placed into the common bile duct. Recommendations : My findings are described in the full procedure note, which is enclosed. If I can be of further assistance, please feel free to contact me at . Sincerely, John Orosco, 03/26/2024 2:54:04 PM This report has been signed electronically.
--- NOTE | 2024-03-26 14:54 | OP.ERCP_ITS ---
Patient Name: Evonne Burt Procedure Date: 03/26/2024 12:38 PM Date of : 1955 Age: 69 Procedure: ERCP Indications: Bile duct stone(s), For therapy of bile duct stone(s), Jaundice Providers: John Orosco DO Medicines: General Anesthesia Patient Profile: This is a 69 year old female. Refer to note in patient chart for documentation of history and physical. Patient has symptoms of acute jaundice. Complications: No immediate complications. Procedure: Pre-Anesthesia Assessment: - Prior to the procedure, a History and Physical was performed, and patient medications and allergies were reviewed. The patient is competent. The risks and benefits of the procedure and the sedation options and risks were discussed with the patient. All questions were answered and informed consent was obtained. Patient identification and proposed procedure were verified by the physician in the pre-procedure area. Mental Status Examination: alert and oriented. Airway Examination: normal oropharyngeal airway and neck mobility. Respiratory Examination: clear to auscultation. CV Examination: normal. ASA Grade Assessment: II - A patient with mild systemic disease. After reviewing the risks and benefits, the patient was deemed in satisfactory condition to undergo the procedure. The anesthesia plan was to use moderate sedation / analgesia (conscious sedation). Immediately prior to administration of medications, the patient was re-assessed for adequacy to receive sedatives. The heart rate, respiratory rate, oxygen saturations, blood pressure, adequacy of pulmonary ventilation, and response to care were monitored throughout the procedure. The physical status of the patient was re-assessed after the procedure. After obtaining informed consent, the scope was passed under direct vision. Throughout the procedure, the patient's blood pressure, pulse, and oxygen saturations were monitored continuously. The Duodenoscope was introduced through the mouth, and advanced to the duodenum and used to inject contrast into the bile duct and ventral pancreatic duct. The ERCP was accomplished without difficulty. The patient tolerated the procedure well. Scope In: 1:13:19 PM Scope Out: 2:41:52 PM Total Procedure Duration Time 1 hour 28 minutes 33 seconds Findings: The technical project coordinator film was normal. The esophagus was successfully intubated under direct vision. The scope was advanced to a normal major papilla in the descending duodenum without detailed examination of the pharynx, larynx and associated structures, and upper GI tract. The upper GI tract was grossly normal. A long 0.025 inch Jagwire was passed into the biliary tree. The short-nosed traction sphincterotome was passed over the guidewire and the bile duct was then deeply cannulated. Contrast was injected. I personally interpreted the bile duct images. There was brisk flow of contrast through the ducts. Image quality was adequate. Contrast extended to the entire biliary tree. Opacification of the entire biliary tree except for the gallbladder, main bile duct and entire biliary tree was successful. The maximum diameter of the ducts was 14 mm. The entire opacified area, common bile duct, left main hepatic duct and right main hepatic duct contained multiple stones, the largest of which was 10 mm in diameter. The main bile duct and entire biliary tree were moderately dilated and diffusely dilated, with a stone causing an obstruction. The largest diameter was 15 mm. A 5 mm biliary sphincterotomy was made with a traction (standard) sphincterotome using ERBE electrocautery. Moderate bleeding from the sphincterotomy stopped within 5 minutes. The biliary tree was swept with a 15 mm balloon starting at the bifurcation, left intrahepatic duct(s), left main hepatic duct, right intrahepatic duct(s) and right main hepatic duct. Sludge was swept from the duct. Many stones were removed. Three stones remained. The bile duct was explored endoscopically using the SpPolimax direct visualization system. The SpyScope was advanced to the right intrahepatic duct(s). Visibility with the scope was good. The entire biliary tree contained multiple stones, the largest of which was 8 mm in diameter. The entire biliary tree was diffusely dilated, with a stone causing an obstruction. The largest diameter was 13 mm. Electrohydraulic lithotripsy was successful. The biliary tree was swept with a 15 mm balloon starting at the bifurcation, left intrahepatic duct(s), right intrahepatic duct(s) and right main hepatic duct. Many stones were removed. Two stones remained. Two 10 Fr by 9 cm temporary stents were placed 5 cm into the common bile duct. Bile flowed through the stents. The stents were in good position. One 7 Fr by 12 cm temporary stent was placed 5 cm into the common bile duct. Bile flowed through the stent. The stent was in good position. Impression: - The entire main bile duct and entire biliary tree were moderately dilated, with a stone causing an obstruction. - The entire biliary tree was dilated, with a stone causing an obstruction. - Choledocholithiasis was found. Partial removal was accomplished with biliary sphincterotomy; a stent was inserted. - A biliary sphincterotomy was performed. - The biliary tree was swept. - Lithotripsy was successful. - The biliary tree was swept. - Two temporary stents were placed into the common bile duct. - One temporary stent was placed into the common bile duct. Procedure Code(s): --- Professional --- 20364, Endoscopic retrograde cholangiopancreatography (ERCP); with placement of endoscopic stent into biliary or pancreatic duct, including pre- and post-dilation and guide wire passage, when performed, including sphincterotomy, when performed, each stent 25620, 59, Endoscopic retrograde cholangiopancreatography (ERCP); with placement of endoscopic stent into biliary or pancreatic duct, including pre- and post-dilation and guide wire passage, when performed, including sphincterotomy, when performed, each stent [id number], 59, Endoscopic retrograde cholangiopancreatography (ERCP); with placement of endoscopic stent into biliary or pancreatic duct, including pre- and post-dilation and guide wire passage, when performed, including sphincterotomy, when performed, each stent [id number], Endoscopic retrograde cholangiopancreatography (ERCP); with destruction of calculi, any method (eg, mechanical, electrohydraulic, lithotripsy) 18521, Endoscopic cannulation of papilla with direct visualization of pancreatic/common bile duct(s) (List separately in addition to code(s) for primary procedure) 21116, 26, Endoscopic catheterization of the biliary ductal system, radiological supervision and interpretation CPT copyright 2021 [employer]. All rights reserved. The codes documented in this report are preliminary and upon front desk worker review may be revised to meet current compliance requirements. John Orosco DO 03/26/2024 2:54:04 PM This report has been signed electronically. Number of Addenda: 0 Note Initiated On: 03/26/2024 12:38 PM
--- NOTE | 2024-03-26 15:01 | PCM.POST.ANE ---
Anesthesia: Postop Eval I Current Vital Signs Temperature: 97 F Pulse Rate: 84 Blood Pressure: 120/78 Respiratory Rate: 16 Pulse Ox: 95 Oxygen Delivery Method: Room Air Assessment Airway patent: Yes Spontaneous unlabored respirations: Yes Mental status: Awake nausea: No Vomiting: No Anesthesia Complication: No Fluid Hydration Crystalloid volume administer (ml): 400 Total IV fluid infused: 400 Progress Note Anesthesia document: Postop Eval 1 completed: Yes
--- NOTE | 2024-03-26 15:27 | PCM.POSTANE2 ---
Anesthesia Postop Eval I Sum Postop Eval Completion status Anesthesia document: Postop Eval 1 completed: Yes Anesthesia Postop Eval I Summary Anesthesia Postop Eval I Summary: Anesthesia Postop Eval I: Assessment Summary Airway patent Yes 03/26/24 15:02 [email or web address] Spontaneous unlabored Yes 03/26/24 15:02 [email or web address] respirations Mental status Awake 03/26/24 15:02 [email or web address] nausea No 03/26/24 15:02 [email or web address] Vomiting No 03/26/24 15:02 [email or web address] Anesthesia Postop Eval I: Fluid Summary Crystalloid volume administer 400 03/26/24 15:02 [email or web address] (ml) Colloids volume administered ( ml) Blood Product volume administered (ml) Total IV fluid infused 400 03/26/24 15:02 [email or web address] Anesthesia Postop Eval I: Summary Notes Anesthesia Complication No 03/26/24 15:02 [email or web address] Anesthesia Complication Comment: Post-operative progress note Anesthesia: Postop Eval II Evaluation Mental status: Awake Pain Level: 0 nausea: No Vomiting: No
--- NOTE | 2024-03-26 18:03 | US_ITS ---
STUDY: ABDOMINAL ULTRASOUND - RIGHT UPPER QUADRANT REASON FOR VISIT: Female, 69 years old right upper quadrant pain TECHNIQUE: Ultrasound evaluation of the right upper quadrant was performed with real-time and static bashir-scale imaging. TECHNICAL QUALITY: Adequate. COMPARISON: None. FINDINGS: Liver: The liver measures 14.3 cm. There is increased echogenicity consistent with fatty infiltration. The bile ducts are within normal limits. There is hepatic color flow. The direction of portal flow is hepatopetal. There is no demonstrated mass lesion. Gallbladder: Normal distended gallbladder. The gallbladder wall measures 2 mm. There is a negative sonographic Justin''s sign. There is no pericholecystic fluid. There are multiple echogenic structures within the gallbladder, consistent with multiple gallstones. Common Bile Duct (C.B.D.): The common bile duct measures 8 mm. Pancreas: Normal size of the head, body and tail of the pancreas. There is increased echogenicity of the pancreas. There is no demonstrated pancreatic mass or cyst. Right Kidney: Normal size of the right kidney. The right kidney measures 8.7 x 5.0 x 4.2 cm. Normal renal cortex. The right cortex measures 1.5 cm. There is no demonstrated renal mass or cyst. There is no right hydronephrosis. US/Gallbladder IMPRESSION: Fatty liver, no discrete lesion Echogenic gallstones without gallbladder wall thickening or pericholecystic fluid. There is mild biliary dilatation at 8 mm Nonspecific echogenic pancreas Electronically Signed: Clint Mehta MD at 20:32 EDT ,
[2024-03-26] MEDS: Ondansetron 4 MG/2 ML Vial IV (19:03)
[2024-03-26] MEDS: Enoxaparin 40 MG/0.4 ML Syringe SC (22:18)
[2024-03-27] MEDS: 0.9% Saline Lock 10 ML Syringe IV ×3 (00:56→23:39)
[2024-03-27] MEDS: Ketorolac 15 MG/ML Vial IV ×2 (00:56→07:36)
[2024-03-27] MEDS: Ondansetron 4 MG/2 ML Vial IV ×2 (01:03→07:36)
[2024-03-27 03:00] VITALS: BP 116/68; PULSE 80; RESP 15; TEMP 37.2; O2SAT 93
[2024-03-27 05:22] VITALS: BMI 42.2
[2024-03-27 05:22] LABS: Absolute Lymphocyte Count 0.74 X10^3/uL (0.83-4.51); Absolute Neutrophil Count 7.2 X10^3/uL (2.0-7.7); Basophil# 0.02 X10^3/uL; Basophil% 0.2 % (0-1); Hematocrit 38.8 % (37-47); Hemoglobin 12.3 g/dL (12.0-15.0); Lymphocyte # 0.74 X10^3/ul (0.83-4.51); Lymphocyte % 8.4 % (19-41); Mean Corp Hgb Conc 31.7 g/dL (32-36); Mean Corpuscular Hgb 28.4 pg (27.0-32.0); Mean Corpuscular Volume 89.6 fL (81-99); Mean Platelet Vol. 10.8 fl (6.2-12.0); Monocyte# 0.86 X10^3/uL; Monocyte% 9.8 % (0-10); NRBC Flagged by Analyzer 0 % (0-5); Neutrophil # 7.16 X10^3/uL (2.7-7.7); Neutrophil % 81.3 % (47-70); Platelet Count 199 K/mm3 (150-450); RBC Distribution Width CV 13.7 % (11.6-14.6); RBC Distribution Width SD 45.2 fl (35.1-43.9); Red Blood Count 4.33 M/mm3 (4.2-5.4); White Blood Count 8.8 K/mm3 (4.4-11.0)
[2024-03-27 06:15] LABS: ALB/GLOB Ratio 0.8 RATIO (0.9-2.4); AST(SGOT) 141 U/L (15-37); Alanine Aminotransfer ALT/SGPT 271 U/L (13-56); Albumin, Serum 2.9 g/dL (3.2-5.0); Alkaline Phosphatase 321 U/L (45-117); Anion Gap 7 (5-15); BUN 27 mg/dL (7-18); BUN/Creat Ratio 20.3 RATIO (10-20); Calcium,Total 9.8 mg/dL (8.5-10.1); Chloride 105 mmol/L (98-107); Creatinine, Serum 1.33 mg/dL (0.55-1.02); EST Glomerular Filtration Rate 42 mL/min (>60); Est Glom Filt Rate - Afr Amer 51 mL/min (>60); Estimated Creatinine Clearance 50.19 ml/min; Globulin 3.8 g/dL (2.2-4.2); Glucose 162 mg/dL (74-106); Potassium 4.2 mmol/L (3.5-5.1); Protein, Total 6.7 g/dL (6.4-8.2); Sodium Level 134 mmol/L (136-145)
[2024-03-27] MEDS: metroNIDAZOLE 500 MG/100 ML BAG 100 MG IV ×3 (06:40→22:17)
[2024-03-27 08:11] VITALS: BP 114/65; PULSE 79; RESP 16; TEMP 36.4; O2SAT 94
[2024-03-27] MEDS: Pantoprazole Sodium 40 MG in 0.9% Normal Saline (100mL MB+) 100 ML 330 MG IV (09:10)
[2024-03-27 09:28] LABS: Lipase > 5000 U/L (13-75)
[2024-03-27] MEDS: Ciprofloxacin 400 MG/200 ML BAG 200 MG IV ×2 (09:41→21:09)
--- NOTE | 2024-03-27 10:20 | EX.PCM.CON.S ---
Assessment & Plan Assessment/Plan (1) Choledocholithiasis: (2) Pancreatitis: QUALIFIERS: Pancreatitis type: biliary Qualified Code(s): K85.10 - Biliary acute pancreatitis without necrosis or infection PLAN: The patient is a 69-year-old female who presented with biliary obstruction secondary to choledocholithiasis. She really did not have any significant history of symptomatic cholelithiasis prior to this admission. Patient underwent ERCP and stent placement yesterday with successful extraction of obstructing stones. Patient however has pancreatitis as evidenced by elevated lipase, and still has persistent elevated bilirubin. She would certainly benefit from cholecystectomy in the near future given the presence of gallstones. I would however recommend delaying surgery until after pancreatitis has resolved, and once her biliary tree has been had the opportunity to decompress further. Ultrasound reveals no evidence of acute cholecystitis. Would recommend continued supportive measures and antibiotics. Timing of cholecystectomy will be based on her clinical improvement. This could be performed either while hospitalized versus performed as an outpatient in the near future. HPI Consult Data Date of Consult: 03/27/24 HPI Narrative Reason for Consultation: Choledocholithiasis/cholelithiasis HPI Narrative: BHAVANI HALLMAN, is a 69 F who presents yesterday to [facility] with complaints of right-sided abdominal pain. She states that this pain was going on for several days prior to presenting to the emergency department. She stated the pain was right lower quadrant and right upper quadrant as well as upper back pain on the right. Her symptoms were also associated with nausea and decreased appetite. It was also noted that she developed some yellowing of her skin, generalized itching and she also noticed that her urine color became considerably darker. All these factors contributed to her presentation to the outside emergency department yesterday. She denied any previous issues with her gallbladder and denied any previous episodes of postprandial abdominal pain. Workup at the outside emergency department revealed significant elevation of her total bilirubin which was 7.7. AST and ALT were also elevated in the 200-300 range. Alkaline phosphatase was around 330. White count was normal. She also underwent a CT scan at the outside hospital which showed evidence of choledocholithiasis with dilatation of her common bile duct. Lipase at that time was normal. She was transferred to [facility] for ERCP. She was placed on antibiotics for treatment of potential cholangitis. GI was consulted and an ERCP was performed yesterday. Several stones were extracted. A stent was also placed. A general surgery consult was obtained. I spoke with Dr. Orosco last evening. This morning patient complains of more central abdominal pain. She admits that this seems different than her initial right sided abdominal pain. She really denies any right upper quadrant pain per se at the current time. She also admits to nausea and emesis this morning. Morning labs today show persistently elevated bilirubin at 7.9. Alkaline phosphatase is also still elevated. In order to further evaluate this new central abdominal pain, lipase was ordered and revealed a lipase greater than 5000 indicating pancreatitis. A right upper quadrant ultrasound was also performed last evening and showed no evidence of gallbladder wall thickening or pericholecystic fluid at this time. Certainly stones were noted within the gallbladder. [facility] Medical History (Updated 03/27/24 @ 10:[address] Husam Parra MD) Pancreatitis Vitamin D deficiency Hypertension Hypothyroidism Home Medications ?Medication ?Instructions ?Recorded ?Last Taken ?Type levothyroxine 200 mcg tablet 200 mcg PO MOTUWETHFRSA thyroid 11/06/21 Unknown History levothyroxine 200 mcg tablet 400 mcg PO ROBERTS thyroid 11/06/21 Unknown History lisinopril 20 mg tablet 20 mg PO BID 11/06/21 Unknown History albuterol sulfate 90 mcg/actuation 2 inh inhalation Q4H PRN sob 03/26/24 Unknown History breath activated powder inhaler (ProAir RespiClick) cholecalciferol (vitamin D3) 125 5,000 unit PO DAILY 03/26/24 Unknown History mcg (5,000 unit) capsule Allergy/AdvReac Type Severity Reaction Status Date / Time chlorhexidine Allergy Rash Verified 11/06/21 09:56 Penicillins Allergy CHILDHOOD Verified 11/06/21 09:56 ALLERGY psyllium (From Metamucil) Allergy Shortness Verified 11/06/21 09:56 of breath Social History Smoking Status: Never smoker ROS Eyes Eyes: Reports systems reviewed and no addt'l complaints, except as documented ENT HEENT: Reports systems reviewed and no addt'l complaints, except as documented Cardiovascular Cardiovascular: Reports systems reviewed and no addt'l complaints, except as documented Respiratory/Chest Respiratory/Chest: Reports systems reviewed and no addt'l complaints, except as documented Gastrointestinal Gastrointestinal: Reports systems reviewed and no addt'l complaints, except as documented Musculoskeletal Musculoskeletal: Reports systems reviewed and no addt'l complaints, except as documented Physical Exam Const alert, oriented x3 and no apparent distress General Appearance: cooperative Nutritional Appearance: obese HEENT normocephalic Eyes PERRL Resp normal respiratory effort GI GI Narrative: Examination of the abdomen reveals some mild central abdominal discomfort as well as some tenderness across the left upper quadrant. Really no significant tenderness to palpation in the right upper quadrant. Abdomen is obese. No rebound or guarding or other peritoneal signs. Lab / Micro Data 03/27/24 04:44 03/27/24 04:44 Labs: Laboratory Results - last 24 hr 03/27/24 04:44: WBC 8.8, RBC 4.33, Hgb 12.3, Hct 38.8, MCV 89.6, MCH 28.4, MCHC 31.7 L, RDW Std Deviation 45.2 H, RDW Coeff of Ja 13.7, Plt Count 199, MPV 10.8, Immature Gran % (Auto) 0.300, Neut % (Auto) 81.3 H, Lymph % (Auto) 8.4 L, [place] % (Auto) 9.8, Eos % (Auto) 0.0, Baso % (Auto) 0.2, Absolute Neuts (auto) 7.2, Absolute Lymphs (auto) 0.74 L, Nucleated RBC % 0, Sodium 134 L, Potassium 4.2, Chloride 105, Carbon Dioxide 22.0, Anion Gap 7, BUN 27 H, Creatinine 1.33 H, Estim Creat Clear Calc 50.19, Est GFR (MDRD) Af Amer 51 L, Est GFR (MDRD) Non-Af 42 L, BUN/Creatinine Ratio 20.3 H, Glucose 162 H, Calcium 9.8, Total Bilirubin 7.90 H, AST 141 H, ALT 271 H, Alkaline Phosphatase 321 H, Total Protein 6.7, Albumin 2.9 L, Globulin 3.8, Albumin/Globulin Ratio 0.8 L, Lipase > 5000 H Imaging Radiology Impression Endo Retro Cholangiopancreatogram 03/26/24 13:15 IMPRESSION: As above. Electronically Signed: Dami Piper MD at 16:54 EDT , Gallbladder Ultrasound 03/26/24 18:03 IMPRESSION: Fatty liver, no discrete lesion Echogenic gallstones without gallbladder wall thickening or pericholecystic fluid. There is mild biliary dilatation at 8 mm Nonspecific echogenic pancreas Electronically Signed: Clint Mehta MD at 20:32 EDT , Charges/Coding Visit Charges Inpatient E&M: 00462 Init Hosp L3
[2024-03-27] MEDS: Lactated Ringers 1,000 ML 200 ML IV (11:02)
[2024-03-27 11:18] VITALS: BP 98/51; PULSE 74; RESP 16; TEMP 36.5; O2SAT 92
[2024-03-27] MEDS: Enoxaparin 40 MG/0.4 ML Syringe SC ×2 (13:50→22:14)
[2024-03-27 15:06] VITALS: BP 109/72; PULSE 83; RESP 16; TEMP 36.6; O2SAT 94
[2024-03-27 16:08] LABS: Absolute Lymphocyte Count 0.91 X10^3/uL (0.83-4.51); Absolute Neutrophil Count 8.5 X10^3/uL (2.0-7.7); Basophil# 0.02 X10^3/uL; Basophil% 0.2 % (0-1); Erythrocyte Sedimentation Rate 42 mm/hr (0-30); Hematocrit 37.7 % (37-47); Hemoglobin 12.3 g/dL (12.0-15.0); Lymphocyte # 0.91 X10^3/ul (0.83-4.51); Lymphocyte % 8.8 % (19-41); Mean Corp Hgb Conc 32.6 g/dL (32-36); Mean Corpuscular Hgb 29.5 pg (27.0-32.0); Mean Corpuscular Volume 90.4 fL (81-99); Mean Platelet Vol. 10.7 fl (6.2-12.0); Monocyte# 0.88 X10^3/uL; Monocyte% 8.5 % (0-10); NRBC Flagged by Analyzer 0 % (0-5); Neutrophil # 8.52 X10^3/uL (2.7-7.7); Platelet Count 202 K/mm3 (150-450); RBC Distribution Width CV 13.9 % (11.6-14.6); RBC Distribution Width SD 46.5 fl (35.1-43.9); Red Blood Count 4.17 M/mm3 (4.2-5.4); White Blood Count 10.4 K/mm3 (4.4-11.0)
[2024-03-27] MEDS: Lactated Ringers 1,000 ML 300 ML IV ×2 (16:09→19:15)
[2024-03-27 16:19] LABS: Lactic Acid 0.9 mmol/L (0.4-1.9)
--- NOTE | 2024-03-27 16:25 | EX.PCM.PN.GI ---
Subjective Subjective Patient was noted to have nausea and vomiting this morning. She is doing little bit better currently. She is on 200 mL of lactated Ringer's per hour. Objective Data Objective Data Vital Signs: Vital Signs Temp Pulse Resp BP Pulse Ox O2 Del Method 97.8 F 83 16 109/72 94 Room Air 03/27/24 15:06 03/27/24 15:06 03/27/24 15:06 03/27/24 15:06 03/27/24 15:06 03/27/24 15:06 Oxygen Delivery Method Room Air Weight: 246 lb 0.574 oz Body Mass Index (BMI) 42.2 Intake & Output: Intake and Output for Last 24 Hours 03/25/24 03/26/24 03/27/24 23:59 23:59 23:59 Intake Total 2030 1691.67 / 1691.67 Balance 2030 1691.67 / 1691.67 Lab / Micro Data 03/27/24 15:35 03/27/24 04:44 Labs: Laboratory Results - last 24 hr 03/27/24 04:44: WBC 8.8, RBC 4.33, Hgb 12.3, Hct 38.8, MCV 89.6, MCH 28.4, MCHC 31.7 L, RDW Std Deviation 45.2 H, RDW Coeff of Ja 13.7, Plt Count 199, MPV 10.8, Immature Gran % (Auto) 0.300, Neut % (Auto) 81.3 H, Lymph % (Auto) 8.4 L, [place] % (Auto) 9.8, Eos % (Auto) 0.0, Baso % (Auto) 0.2, Absolute Neuts (auto) 7.2, Absolute Lymphs (auto) 0.74 L, Nucleated RBC % 0, Sodium 134 L, Potassium 4.2, Chloride 105, Carbon Dioxide 22.0, Anion Gap 7, BUN 27 H, Creatinine 1.33 H, Estim Creat Clear Calc 50.19, Est GFR (MDRD) Af Amer 51 L, Est GFR (MDRD) Non-Af 42 L, BUN/Creatinine Ratio 20.3 H, Glucose 162 H, Calcium 9.8, Total Bilirubin 7.90 H, AST 141 H, ALT 271 H, Alkaline Phosphatase 321 H, Total Protein 6.7, Albumin 2.9 L, Globulin 3.8, Albumin/Globulin Ratio 0.8 L, Lipase > 5000 H 03/27/24 15:35: WBC 10.4, RBC 4.17 L, Hgb 12.3, Hct 37.7, MCV 90.4, MCH 29.5, MCHC 32.6, RDW Std Deviation 46.5 H, RDW Coeff of Ja 13.9, Plt Count 202, MPV 10.7, Immature Gran % (Auto) 0.500, Neut % (Auto) 82.0 H, Lymph % (Auto) 8.8 L, [place] % (Auto) 8.5, Eos % (Auto) 0.0, Baso % (Auto) 0.2, Absolute Neuts (auto) 8.5 H, Absolute Lymphs (auto) 0.91, Nucleated RBC % 0, ESR 42 H, Lactic Acid 0.9 Radiography Diagnostic Testing: Radiology Impression Endo Retro Cholangiopancreatogram 03/26/24 13:15 IMPRESSION: As above. Electronically Signed: Dami Piper MD at 16:54 EDT , Gallbladder Ultrasound 03/26/24 18:03 IMPRESSION: Fatty liver, no discrete lesion Echogenic gallstones without gallbladder wall thickening or pericholecystic fluid. There is mild biliary dilatation at 8 mm Nonspecific echogenic pancreas Electronically Signed: Clint Mehta MD at 20:32 EDT , Physical Exam Const alert, oriented x3, no apparent distress and healthy appearing Constitutional Narrative: Morbidly obese. General Appearance: cooperative HEENT normocephalic, head/scalp atraumatic and hearing grossly normal bilaterally HEENT Narrative: Mucous membranes dry. Eyes PERRL and EOMs intact bilaterally Eyes Narrative: Sclerae are icteric. Neck no lymphadenopathy and supple Resp normal respiratory effort, no retractions, no use of accessory muscles and clear to auscultation bilaterally Cardio regular rate and regular rhythm GI normal to inspection, nondistended, normoactive bowel sounds, soft to palpation and non-distended GI Narrative: TTP in RUQ and epigastrium. Extremity normal to inspection, full ROM and no clubbing, cyanosis or edema Skin Skin Narrative: Patient is jaundiced. Neuro oriented x3, CN's II-XII intact bilaterally, moves all extremities and no focal motor deficits Sensorium / Orientation: awake, alert, oriented to person, oriented to place and oriented to time Speech: speech normal Psych affect normal Assessment & Plan Assessment/Plan (1) Pancreatitis: QUALIFIERS: Pancreatitis type: biliary Qualified Code(s): K85.10 - Biliary acute pancreatitis without necrosis or infection PLAN: Patient currently with pancreatitis status post ERCP with stone removal and stent placement postop day 1. I will increase her fluids to 300 mL an hour. I will also change her Toradol to 30 mL schedule. I would like to get a CT scan abdomen pelvis to help with the severity of the pancreatitis. I will repeat her amylase lipase tonight and also check ESR, CRP, lactate. She has been afebrile. I will advance her to full liquid diet. (2) Transaminitis: (3) Choledocholithiasis: PLAN: Patient had multiple stones removed. She had 2 stents placed yesterday. I suspect she still has stones in her bile duct. She will need repeat ERCP with lithotripsy. She has 2 stents placed. Hopefully her LFTs will start to come down. Charges/Coding Visit Charges Inpatient E&M: 57006 Subs Hosp L3
[2024-03-27 16:51] LABS: Amylase 1725 U/L (25-115); Lipase 3934 U/L (13-75)
[2024-03-27] MEDS: Ketorolac 30 MG/ML Syringe IV ×2 (17:05→23:39)
[2024-03-27] MEDS: Metoclopramide 10 MG/2 ML Vial 5 MG IV ×2 (17:06→23:41)
--- NOTE | 2024-03-27 17:57 | PN.HOSP_ITS ---
Reason for Visit Reason for Visit: Abdominal pain/nausea and vomiting Subjective Subjective Patient states she had a rough night with worsening abdominal pain lower in her abdomen and nausea and vomiting that recurred. She states she feels worse than she did before. Denies any specific epigastric tenderness or radiation to her back however her lipase is greater than 5000 and highly suspect post ERCP pancreatitis. Objective Data Objective Data Vital Signs: Vital Signs Temp Pulse Resp BP Pulse Ox O2 Del Method 97.8 F 83 16 109/72 94 Room Air 03/27/24 15:06 03/27/24 15:06 03/27/24 15:06 03/27/24 15:06 03/27/24 15:06 03/27/24 15:06 Oxygen Delivery Method Room Air Weight: 111.6 kg Body Mass Index (BMI) 42.2 Intake & Output: Intake and Output for Last 24 Hours 03/25/24 03/26/24 03/27/24 23:59 23:59 23:59 Intake Total 2030 1791.67 / 1791.67 Balance 2030 1791.67 / 1791.67 Lab / Micro Data 03/27/24 15:35 03/27/24 04:44 Labs: Laboratory Results - last 24 hr 03/27/24 04:44: WBC 8.8, RBC 4.33, Hgb 12.3, Hct 38.8, MCV 89.6, MCH 28.4, MCHC 31.7 L, RDW Std Deviation 45.2 H, RDW Coeff of Ja 13.7, Plt Count 199, MPV 10.8, Immature Gran % (Auto) 0.300, Neut % (Auto) 81.3 H, Lymph % (Auto) 8.4 L, [place] % (Auto) 9.8, Eos % (Auto) 0.0, Baso % (Auto) 0.2, Absolute Neuts (auto) 7.2, Absolute Lymphs (auto) 0.74 L, Nucleated RBC % 0, Sodium 134 L, Potassium 4.2, Chloride 105, Carbon Dioxide 22.0, Anion Gap 7, BUN 27 H, Creatinine 1.33 H , Estim Creat Clear Calc 50.19, Est GFR (MDRD) Af Amer 51 L, Est GFR (MDRD) Non- Af 42 L, BUN/Creatinine Ratio 20.3 H, Glucose 162 H, Calcium 9.8, Total Bilirubin 7.90 H, AST 141 H, ALT 271 H, Alkaline Phosphatase 321 H, Total Protein 6.7, Albumin 2.9 L, Globulin 3.8, Albumin/Globulin Ratio 0.8 L, Lipase > 5000 H 03/27/24 15:35: WBC 10.4, RBC 4.17 L, Hgb 12.3, Hct 37.7, MCV 90.4, MCH 29.5, MCHC 32.6, RDW Std Deviation 46.5 H, RDW Coeff of Ja 13.9, Plt Count 202, MPV 10.7, Immature Gran % (Auto) 0.500, Neut % (Auto) 82.0 H, Lymph % (Auto) 8.8 L, [place] % (Auto) 8.5, Eos % (Auto) 0.0, Baso % (Auto) 0.2, Absolute Neuts (auto) 8.5 H, Absolute Lymphs (auto) 0.91, Nucleated RBC % 0, ESR 42 H, Lactic Acid 0.9, C-React Prot Ext Range 27.40 H, Amylase 1725 H, Lipase 3934 H Radiography Diagnostic Testing: Radiology Impression Gallbladder Ultrasound 03/26/24 18:03 IMPRESSION: Fatty liver, no discrete lesion Echogenic gallstones without gallbladder wall thickening or pericholecystic fluid. There is mild biliary dilatation at 8 mm Nonspecific echogenic pancreas Electronically Signed: Clint Mehta MD at 20:32 EDT Reading Location ID and State: [address] [place] [address] , Service support , Physical Exam Const alert, oriented x3, no apparent distress and healthy appearing Constitutional Narrative: Morbidly obese, upper middle-aged, white female, lying in bed, appears as if she is not feeling well at all but not toxic General Appearance: cooperative HEENT normocephalic, head/scalp atraumatic and hearing grossly normal bilaterally HEENT Narrative: Mallampati 3, no thrush Resp normal respiratory effort, no retractions, no use of accessory muscles and clear to auscultation bilaterally Cardio regular rate, regular rhythm, S1 normal heart sound, S2 normal heart sound, no murmurs, no rub, no gallops and no clicks GI soft to palpation GI Narrative: No significant right upper quadrant tenderness, mild epigastric tenderness, diffuse lower abdominal tenderness, no distention, bowel sounds are hypoactive Extremity no clubbing, cyanosis or edema Extremity Narrative: Pedal pulses are 2+ Neuro oriented x3, moves all extremities and no focal motor deficits Speech: speech normal Psych Psych Narrative: Affect is somewhat flat today however consistent for current condition Assessment & Plan Assessment/Plan (1) Transaminitis: (2) Choledocholithiasis: PLAN: Plan Acute transaminitis/hyperbilirubinemia secondary to choledocholithiasis -Diet per GI -Transaminases still elevated -Continue IV fluids with LR -Continue fluoroquinolone and metronidazole -Continue IV as needed morphine -Continue IV Toradol as long as renal function is stable but monitor closely -Continue as needed antiemetics -General Surgery has evaluated the patient and we will plan for cholecystectomy in the future either as an inpatient but okay to discharge and follow-up as an outpatient -ERCP done yesterday with lithotripsy and stent placement x 2 -21 stones noted at that time -Highly suspect there may still be stones in the bile duct and will need repeat ERCP with lithotripsy Post ERCP pancreatitis -Restart IV fluids at 200 cc/h -As needed pain medication -Toradol added by GI will need to monitor renal function closely -Continue as needed antiemetics -Diet per GI -Lactic acid is within normal limits Abdominal pain/nausea and vomiting -Treatment as above BRAYDEN -Serum creatinine 1.33 -If trends up any further we will have to discontinue NSAIDs -Aggressive hydration with IV fluids utilizing LR at 300 cc/h Hypothyroidism -Continue home levothyroxine Essential hypertension/hyperlipidemia -Restart home lisinopril -Continue as needed hydralazine -Patient has documented history of hyperlipidemia but not on medication -Management per outpatient primary care physician History of asthma -No signs of acute exacerbation -As needed albuterol and restart home albuterol inhaler at discharge Vitamin D deficiency -Continue home vitamin D supplementation Morbid obesity -BMI 42.2 -Recommend weight loss -Complicates treatment, prognosis, outcomes DVT prophylaxis -Continue Lovenox CODE STATUS Full code Charges/Coding Visit Charges Inpatient E&M: 24001 Subs Hosp L2
[2024-03-27 22:37] VITALS: BP 111/54; PULSE 78; RESP 16; TEMP 36.7; O2SAT 94
[2024-03-28] VITALS (7 sets, daily range): BP systolic 97–129; BP diastolic 52–69; PULSE 78–85; RESP 14–18; TEMP 36.6–37.4; O2SAT 93–95; BMI 42.2
[2024-03-28] MEDS: Lactated Ringers 1,000 ML 300 ML IV ×3 (01:12→12:19)
[2024-03-28] MEDS: metroNIDAZOLE 500 MG/100 ML BAG 100 MG IV ×3 (05:11→20:38)
[2024-03-28 05:41] LABS: Absolute Lymphocyte Count 0.79 X10^3/uL (0.83-4.51); Absolute Neutrophil Count 5.8 X10^3/uL (2.0-7.7); Basophil# 0.03 X10^3/uL; Basophil% 0.4 % (0-1); Eosinophil# 0.05 X10^3/uL; Eosinophils% 0.7 % (0-5); Hematocrit 32.6 % (37-47); Hemoglobin 10.8 g/dL (12.0-15.0); Lymphocyte # 0.79 X10^3/ul (0.83-4.51); Lymphocyte % 10.6 % (19-41); Mean Corp Hgb Conc 33.1 g/dL (32-36); Mean Corpuscular Volume 90.6 fL (81-99); Mean Platelet Vol. 10.9 fl (6.2-12.0); Monocyte# 0.72 X10^3/uL; Monocyte% 9.7 % (0-10); NRBC Flagged by Analyzer 0 % (0-5); Neutrophil # 5.79 X10^3/uL (2.7-7.7); Neutrophil % 78.1 % (47-70); Platelet Count 151 K/mm3 (150-450); RBC Distribution Width CV 14.1 % (11.6-14.6); RBC Distribution Width SD 46.9 fl (35.1-43.9); White Blood Count 7.4 K/mm3 (4.4-11.0)
[2024-03-28 06:17] LABS: Anion Gap 4 (5-15); BUN 27 mg/dL (7-18); BUN/Creat Ratio 24.5 RATIO (10-20); Calcium,Total 9.3 mg/dL (8.5-10.1); Chloride 108 mmol/L (98-107); EST Glomerular Filtration Rate 53 mL/min (>60); Est Glom Filt Rate - Afr Amer 64 mL/min (>60); Estimated Creatinine Clearance 60.69 ml/min; Glucose 95 mg/dL (74-106); Potassium 4.1 mmol/L (3.5-5.1); Sodium Level 136 mmol/L (136-145)
[2024-03-28] MEDS: Metoclopramide 10 MG/2 ML Vial 5 MG IV ×4 (06:29→23:37)
[2024-03-28] MEDS: Ketorolac 30 MG/ML Syringe IV ×4 (06:29→23:38)
--- NOTE | 2024-03-28 09:17 | PN.SURG_ITS ---
Subjective Subjective Patient seen and examined during AM rounds. She is found sitting on the edge of the bed. She is happy to report that her abdominal pain is somewhat improved this morning. She also expresses surprise that she is not urinating as much as she would expect for the amount of fluid that she is being administered. To this end she does deny any shortness of breath or significant swelling. Lastly she reports resolution of her itching (pruritic symptoms). Objective Data Objective Data Vital Signs: Vital Signs Temp Pulse Resp BP Pulse Ox O2 Del Method 98.7 F 80 16 129/69 H 93 Room Air 03/28/24 04:15 03/28/24 08:18 03/28/24 04:15 03/28/24 04:15 03/28/24 04:15 03/28/24 04:15 Oxygen Delivery Method Room Air Weight: 246 lb 0.574 oz Body Mass Index (BMI) 42.2 Intake & Output: Intake and Output for Last 24 Hours 03/26/24 03/27/24 03/28/24 23:59 23:59 23:59 Intake Total 2031 / 2331 3601.67 / 3601.67 1530 / 1530 Output Total 600 / 600 Balance 2031 / 2331 3601.67 / 3301.67 930 / 930 Lab / Micro Data 03/28/24 05:19 03/28/24 05:19 Labs: Laboratory Results - last 24 hr 03/27/24 04:44: Lipase > 5000 H 03/27/24 15:35: WBC 10.4, RBC 4.17 L, Hgb 12.3, Hct 37.7, MCV 90.4, MCH 29.5, MCHC 32.6, RDW Std Deviation 46.5 H, RDW Coeff of Ja 13.9, Plt Count 202, MPV 10.7, Immature Gran % (Auto) 0.500, Neut % (Auto) 82.0 H, Lymph % (Auto) 8.8 L, [place] % (Auto) 8.5, Eos % (Auto) 0.0, Baso % (Auto) 0.2, Absolute Neuts (auto) 8.5 H, Absolute Lymphs (auto) 0.91, Nucleated RBC % 0, ESR 42 H, Lactic Acid 0.9, C-React Prot Ext Range 27.40 H, Amylase 1725 H, Lipase 3934 H 03/28/24 05:19: WBC 7.4, RBC 3.60 L, Hgb 10.8 L, Hct 32.6 L, MCV 90.6, MCH 30.0, MCHC 33.1, RDW Std Deviation 46.9 H, RDW Coeff of Ja 14.1, Plt Count 151, MPV 10.9, Immature Gran % (Auto) 0.500, Neut % (Auto) 78.1 H, Lymph % (Auto) 10.6 L, [place] % (Auto) 9.7, Eos % (Auto) 0.7, Baso % (Auto) 0.4, Absolute Neuts (auto) 5.8, Absolute Lymphs (auto) 0.79 L, Nucleated RBC % 0, Sodium 136, Potassium 4.1, Chloride 108 H, Carbon Dioxide 25.0, Anion Gap 4 L, BUN 27 H, Creatinine 1.10 H, Estim Creat Clear Calc 60.69, Est GFR (MDRD) Af Amer 64, Est GFR (MDRD) Non-Af 53 L, BUN/Creatinine Ratio 24.5 H, Glucose 95, Calcium 9.3 Physical Exam Const oriented x3 and no apparent distress Resp normal respiratory effort GI GI Narrative: Morbidly obese, nondistended, soft, minimally tender to the epigastrium with palpation. Nontender in the right upper quadrant. Negative Justin sign. Assessment & Plan Assessment/Plan (1) Choledocholithiasis: (2) Pancreatitis: QUALIFIERS: Pancreatitis type: biliary Qualified Code(s): K85.10 - Biliary acute pancreatitis without necrosis or infection PLAN: The patient is a 69-year-old female who presented with biliary obstruction secondary to choledocholithiasis. She is 2 days status post ERCP with lithotripsy, stone extraction, and stenting. Unfortunately, GI believes stones may persist in the biliary tree and patient has now developed pancreatitis. The latter appears to be spontaneously resolving with improvements in her pain reporting and a decrease in her lipase. There is no clinical evidence of cholecystitis on exam. Recommend monitoring her respiratory status closely as there seems to be a mismatch between the input of fluids and her urinary output. Would recommend continuing to trend her LFTs daily. Will follow-up GIs plans for repeat ERCP but tentatively looking at same?admission laparoscopic cholecystectomy with Dr. Wilkins on 03/31 or 04/01. Alexx Irvin MD General Surgery Endocrine Surgery Pager: [facility] [address] [place] [address], [facility], [address] [place] [address] Office: [phone] Charges/Coding Visit Charges Inpatient E&M: 41451 Subs Hosp L2
[2024-03-28] MEDS: Pantoprazole Sodium 40 MG in 0.9% Normal Saline (100mL MB+) 100 ML 330 MG IV (09:41)
[2024-03-28] MEDS: Enoxaparin 40 MG/0.4 ML Syringe SC ×2 (09:45→21:56)
[2024-03-28] MEDS: Ciprofloxacin 400 MG/200 ML BAG 200 MG IV ×2 (10:16→21:57)
[2024-03-28 10:55] LABS: ALB/GLOB Ratio 0.8 RATIO (0.9-2.4); AST(SGOT) 83 U/L (15-37); Alanine Aminotransfer ALT/SGPT 188 U/L (13-56); Albumin, Serum 2.5 g/dL (3.2-5.0); Alkaline Phosphatase 253 U/L (45-117); Anion Gap 4 (5-15); BUN 26 mg/dL (7-18); BUN/Creat Ratio 24.1 RATIO (10-20); Calcium,Total 9.3 mg/dL (8.5-10.1); Chloride 107 mmol/L (98-107); Creatinine, Serum 1.08 mg/dL (0.55-1.02); EST Glomerular Filtration Rate 54 mL/min (>60); Est Glom Filt Rate - Afr Amer 65 mL/min (>60); Estimated Creatinine Clearance 61.81 ml/min; Globulin 3.3 g/dL (2.2-4.2); Glucose 90 mg/dL (74-106); Potassium 4.1 mmol/L (3.5-5.1); Protein, Total 5.8 g/dL (6.4-8.2); Sodium Level 136 mmol/L (136-145)
--- NOTE | 2024-03-28 11:53 | PCM.PN.HOSP ---
Reason for Visit Reason for Visit: Nausea/vomiting/abdominal pain Subjective Subjective Patient states she is feeling so much better today than she was yesterday. Still using pain medication for abdominal pain but much improved. Is able to eat today and nausea and vomiting has resolved. Objective Data Objective Data Vital Signs: Vital Signs Temp Pulse Resp BP Pulse Ox O2 Del Method 98.7 F 80 16 129/69 H 93 Room Air 03/28/24 04:15 03/28/24 08:18 03/28/24 04:15 03/28/24 04:15 03/28/24 04:15 03/28/24 04:15 Oxygen Delivery Method Room Air Weight: 111.6 kg Body Mass Index (BMI) 42.2 Intake & Output: Intake and Output for Last 24 Hours 03/26/24 03/27/24 03/28/24 23:59 23:59 23:59 Intake Total 2030 / 2330 3601.67 / 3601.67 2795 / 2795 Output Total 600 / 600 Balance 2030 / 2331 3601.67 / 3301.67 2195 / 2195 Lab / Micro Data 03/28/24 05:19 03/28/24 09:15 Labs: Laboratory Results - last 24 hr 03/27/24 15:35: WBC 10.4, RBC 4.17 L, Hgb 12.3, Hct 37.7, MCV 90.4, MCH 29.5, MCHC 32.6, RDW Std Deviation 46.5 H, RDW Coeff of Ja 13.9, Plt Count 202, MPV 10.7, Immature Gran % (Auto) 0.500, Neut % (Auto) 82.0 H, Lymph % (Auto) 8.8 L, [place] % (Auto) 8.5, Eos % (Auto) 0.0, Baso % (Auto) 0.2, Absolute Neuts (auto) 8.5 H, Absolute Lymphs (auto) 0.91, Nucleated RBC % 0, ESR 42 H, Lactic Acid 0.9, C-React Prot Ext Range 27.40 H, Amylase 1725 H, Lipase 3934 H 03/28/24 05:19: WBC 7.4, RBC 3.60 L, Hgb 10.8 L, Hct 32.6 L, MCV 90.6, MCH 30.0, MCHC 33.1, RDW Std Deviation 46.9 H, RDW Coeff of Ja 14.1, Plt Count 151, MPV 10.9, Immature Gran % (Auto) 0.500, Neut % (Auto) 78.1 H, Lymph % (Auto) 10.6 L, [place] % (Auto) 9.7, Eos % (Auto) 0.7, Baso % (Auto) 0.4, Absolute Neuts (auto) 5.8, Absolute Lymphs (auto) 0.79 L, Nucleated RBC % 0, Sodium 136, Potassium 4.1, Chloride 108 H, Carbon Dioxide 25.0, Anion Gap 4 L, BUN 27 H, Creatinine 1.10 H, Estim Creat Clear Calc 60.69, Est GFR (MDRD) Af Amer 64, Est GFR (MDRD) Non-Af 53 L, BUN/Creatinine Ratio 24.5 H, Glucose 95, Calcium 9.3 03/28/24 09:15: Sodium 136, Potassium 4.1, Chloride 107, Carbon Dioxide 25.0, Anion Gap 4 L, BUN 26 H, Creatinine 1.08 H, Estim Creat Clear Calc 61.81, Est GFR (MDRD) Af Amer 65, Est GFR (MDRD) Non-Af 54 L, BUN/Creatinine Ratio 24.1 H, Glucose 90, Calcium 9.3, Total Bilirubin 7.10 H, AST 83 H, ALT 188 H, Alkaline Phosphatase 253 H, Total Protein 5.8 L, Albumin 2.5 L, Globulin 3.3, Albumin/Globulin Ratio 0.8 L Physical Exam Const alert, oriented x3, no apparent distress and well nourished; Negative for average body habitus or healthy appearing Constitutional Narrative: Morbidly obese, upper middle-aged, white female, sitting up on the edge of the bed, appears as if she is feeling much better today, nontoxic HEENT normocephalic, head/scalp atraumatic and hearing grossly normal bilaterally HEENT Narrative: Mallampati 3, no thrush Eyes Eyes Narrative: Resp normal respiratory effort, no retractions, no use of accessory muscles and clear to auscultation bilaterally Cardio regular rate, regular rhythm, S1 normal heart sound, S2 normal heart sound, no murmurs, no rub, no gallops and no clicks GI normal to inspection, nondistended, normoactive bowel sounds and soft to palpation GI Narrative: Mild epigastric tenderness Extremity no clubbing, cyanosis or edema Extremity Narrative: Pedal pulses are 2+ Neuro oriented x3, moves all extremities and no focal motor deficits Speech: speech normal Psych affect normal Psych Narrative: Very pleasant, interacts appropriately, appears as if she is much better today Assessment & Plan Assessment/Plan (1) Transaminitis: (2) Choledocholithiasis: PLAN: Plan Acute transaminitis/hyperbilirubinemia secondary to choledocholithiasis -Diet per GI -Transaminases still elevated but have now trended down in the last 24 hours -Continue IV fluids with LR with the 4 L at 300 cc/h and then transition to 150 cc -Continue fluoroquinolone and metronidazole -Continue IV as needed morphine -Continue IV Toradol as long as renal function is stable but monitor closely So far renal function is stable - -Continue as needed antiemetics -General Surgery has evaluated the patient and we will plan for cholecystectomy in the future either as an inpatient but okay to discharge and follow-up as an outpatient -ERCP done yesterday with lithotripsy and stent placement x 2 -21 stones noted at that time -Anticipate repeat ERCP with lithotripsy early next week once acute pancreatitis has resolved Post ERCP pancreatitis -Continue current IV fluids as ordered by GI and then transition to LR at 150 cc/h -As needed pain medication -Continue Toradol Renal function stable - -Continue as needed antiemetics -Tolerating full liquid diet at this time without worsening pain Abdominal pain/nausea and vomiting -Resolving BRAYDEN -Baseline serum creatinine appears to run between 0.7 and 1 -Serum creatinine down to 1.08 today -If trends up any further we will have to discontinue NSAIDs -Continue IV fluids but decrease to 150 cc/h after these boluses are completed Acute anemia -Likely related to hemodilution with significant IV fluids being utilized due to pancreatitis -No signs of acute blood loss -Repeat in a.m. for stability Hypothyroidism -Continue home levothyroxine Essential hypertension/hyperlipidemia -Continue home lisinopril -Continue as needed hydralazine -Patient has documented history of hyperlipidemia but not on medication -Management per outpatient primary care physician History of asthma -No signs of acute exacerbation -As needed albuterol and restart home albuterol inhaler at discharge Vitamin D deficiency -Continue home vitamin D supplementation Morbid obesity -BMI 42.2 -Recommend weight loss -Complicates treatment, prognosis, outcomes DVT prophylaxis -Continue Lovenox CODE STATUS Full code Charges/Coding Visit Charges Inpatient E&M: 02842 Subs Hosp L2
[2024-03-28] MEDS: 0.9% Saline Lock 10 ML Syringe IV ×3 (12:24→23:38)
[2024-03-28] MEDS: Lactated Ringers 1,000 ML 150 ML IV ×2 (14:45→20:37)
[2024-03-29 03:29] VITALS: BP 96/59; PULSE 76; RESP 15; TEMP 36.8; O2SAT 94
[2024-03-29 05:40] LABS: Absolute Lymphocyte Count 0.75 X10^3/uL (0.83-4.51); Absolute Neutrophil Count 3.7 X10^3/uL (2.0-7.7); Basophil# 0.03 X10^3/uL; Basophil% 0.6 % (0-1); Eosinophil# 0.15 X10^3/uL; Eosinophils% 2.9 % (0-5); Hematocrit 31.9 % (37-47); Hemoglobin 10.2 g/dL (12.0-15.0); Lymphocyte # 0.75 X10^3/ul (0.83-4.51); Lymphocyte % 14.4 % (19-41); Mean Corpuscular Hgb 29.3 pg (27.0-32.0); Mean Corpuscular Volume 91.7 fL (81-99); Monocyte# 0.53 X10^3/uL; Monocyte% 10.2 % (0-10); NRBC Flagged by Analyzer 0 % (0-5); Neutrophil # 3.74 X10^3/uL (2.7-7.7); Neutrophil % 71.5 % (47-70); Platelet Count 116 K/mm3 (150-450); RBC Distribution Width CV 14.6 % (11.6-14.6); RBC Distribution Width SD 49.3 fl (35.1-43.9); Red Blood Count 3.48 M/mm3 (4.2-5.4); White Blood Count 5.2 K/mm3 (4.4-11.0)
[2024-03-29 06:02] LABS: ALB/GLOB Ratio 0.7 RATIO (0.9-2.4); AST(SGOT) 43 U/L (15-37); Alanine Aminotransfer ALT/SGPT 129 U/L (13-56); Albumin, Serum 2.2 g/dL (3.2-5.0); Alkaline Phosphatase 230 U/L (45-117); Anion Gap 3 (5-15); BUN 22 mg/dL (7-18); BUN/Creat Ratio 21.2 RATIO (10-20); Calcium,Total 8.9 mg/dL (8.5-10.1); Chloride 109 mmol/L (98-107); Creatinine, Serum 1.04 mg/dL (0.55-1.02); EST Glomerular Filtration Rate 56 mL/min (>60); Est Glom Filt Rate - Afr Amer 68 mL/min (>60); Estimated Creatinine Clearance 64.19 ml/min; Globulin 3.2 g/dL (2.2-4.2); Glucose 106 mg/dL (74-106); Magnesium 1.8 mg/dL (1.6-2.6); Phosphorus 2.3 mg/dL (2.5-4.9); Potassium 3.9 mmol/L (3.5-5.1); Protein, Total 5.4 g/dL (6.4-8.2); Sodium Level 137 mmol/L (136-145)
[2024-03-29] MEDS: metroNIDAZOLE 500 MG/100 ML BAG 100 MG IV ×3 (06:16→20:53)
[2024-03-29] MEDS: Metoclopramide 10 MG/2 ML Vial 5 MG IV ×3 (06:16→17:45)
[2024-03-29] MEDS: Ketorolac 30 MG/ML Syringe IV ×3 (06:17→17:45)
[2024-03-29 08:05] VITALS: BP 116/67; PULSE 70; RESP 16; TEMP 36.8; O2SAT 97
[2024-03-29] MEDS: Lactated Ringers 1,000 ML 125 ML IV ×2 (08:11→19:06)
--- NOTE | 2024-03-29 09:41 | PCM.PN.SRG ---
Subjective Subjective Patient seen and examined during AM rounds. She is found sitting out of bed in chair. She states that she continues to do better from a pain standpoint. She reports that she is urinating more freely. She denies any difficulty with tolerating a diet. Objective Data Objective Data Vital Signs: Vital Signs Temp Pulse Resp BP Pulse Ox O2 Del Method 98.2 F 70 16 116/67 97 Room Air 03/29/24 08:05 03/29/24 08:05 03/29/24 08:05 03/29/24 08:05 03/29/24 08:05 03/29/24 08:07 Oxygen Delivery Method Room Air Weight: 246 lb 0.574 oz Body Mass Index (BMI) 42.2 Intake & Output: Intake and Output for Last 24 Hours 03/27/24 03/28/24 03/29/24 23:59 23:59 23:59 Intake Total 3601.67 / 3601.67 4632.5 / 4632.5 997.5 / 997.5 Output Total 600 / 600 Balance 3601.67 / 3301.67 4032.5 / 4032.5 997.5 / 997.5 Lab / Micro Data 03/29/24 05:02 03/29/24 05:02 Labs: Laboratory Results - last 24 hr 03/28/24 09:15: Sodium 136, Potassium 4.1, Chloride 107, Carbon Dioxide 25.0, Anion Gap 4 L, BUN 26 H, Creatinine 1.08 H, Estim Creat Clear Calc 61.81, Est GFR (MDRD) Af Amer 65, Est GFR (MDRD) Non-Af 54 L, BUN/Creatinine Ratio 24.1 H, Glucose 90, Calcium 9.3, Total Bilirubin 7.10 H, AST 83 H, ALT 188 H, Alkaline Phosphatase 253 H, Total Protein 5.8 L, Albumin 2.5 L, Globulin 3.3, Albumin/Globulin Ratio 0.8 L 03/29/24 05:02: WBC 5.2, RBC 3.48 L, Hgb 10.2 L, Hct 31.9 L, MCV 91.7, MCH 29.3, MCHC 32.0, RDW Std Deviation 49.3 H, RDW Coeff of Ja 14.6, Plt Count 116 L, MPV 11.0, Immature Gran % (Auto) 0.400, Neut % (Auto) 71.5 H, Lymph % (Auto) 14.4 L, [place] % (Auto) 10.2 H, Eos % (Auto) 2.9, Baso % (Auto) 0.6, Absolute Neuts (auto) 3.7, Absolute Lymphs (auto) 0.75 L, Nucleated RBC % 0, Sodium 137, Potassium 3.9, Chloride 109 H, Carbon Dioxide 25.0, Anion Gap 3 L, BUN 22 H, Creatinine 1.04 H, Estim Creat Clear Calc 64.19, Est GFR (MDRD) Af Amer 68, Est GFR (MDRD) Non-Af 56 L, BUN/Creatinine Ratio 21.2 H, Glucose 106, Calcium 8.9, Phosphorus 2.3 L, Magnesium 1.8, Total Bilirubin 6.00 H, AST 43 H, ALT 129 H, Alkaline Phosphatase 230 H, Total Protein 5.4 L, Albumin 2.2 L, Globulin 3.2, Albumin/Globulin Ratio 0.7 L Physical Exam Const oriented x3 and no apparent distress Resp normal respiratory effort GI GI Narrative: Nondistended, soft, nontender to palpation of the get the epigastrium and right upper quadrant specifically. Negative Justin sign. Assessment & Plan Assessment/Plan (1) Choledocholithiasis: (2) Pancreatitis: QUALIFIERS: Pancreatitis type: biliary Qualified Code(s): K85.10 - Biliary acute pancreatitis without necrosis or infection PLAN: The patient is a 69-year-old female who presented with biliary obstruction secondary to choledocholithiasis. She is 3 days status post ERCP with lithotripsy, stone extraction, and stenting. Unfortunately, GI believes stones may persist in the biliary tree and patient has now developed pancreatitis. The latter appears to be nearing complete resolution. Once again, there is no clinical evidence of cholecystitis on exam. Patient reporting improved urinary output and her IV fluid rate has been decreased to 125 mL/h. LFTs are slowly downtrending but given the slow rate of downtrend I am suspicious for persistent partial biliary obstruction. Will follow-up GI's plans for repeat ERCP but tentatively looking at same?admission laparoscopic cholecystectomy with Dr. Parra on 03/31 or 04/01. Alexx Irvin MD General Surgery Endocrine Surgery Pager: [facility] [address] [place] [address], [facility], [address] [place] [address] Office: [phone] Charges/Coding Visit Charges Inpatient E&M: 43779 Subs Hosp L2
--- NOTE | 2024-03-29 10:08 | PN.HOSP_ITS ---
Reason for Visit Reason for Visit: Abdominal pain/nausea/vomiting Subjective Subjective Patient without any specific complaints at time. Patient states she was able to eat without any significant increase in abdominal pain. States she has not needed any as needed pain medication and is only receiving the Toradol as ordered by Dr. Orosco. States she has some very mild intermittent nausea and notices it mostly when she gets up out of bed initially and then seems to subside. Objective Data Objective Data Vital Signs: Vital Signs Temp Pulse Resp BP Pulse Ox O2 Del Method 98.2 F 70 16 116/67 97 Room Air 03/29/24 08:05 03/29/24 08:05 03/29/24 08:05 03/29/24 08:05 03/29/24 08:05 03/29/24 08:07 Oxygen Delivery Method Room Air Weight: 111.6 kg Body Mass Index (BMI) 42.2 Intake & Output: Intake and Output for Last 24 Hours 03/27/24 03/28/24 03/29/24 23:59 23:59 23:59 Intake Total 3601.67 / 3601.67 4632.5 / 4632.5 997.5 / 997.5 Output Total 600 / 600 Balance 3601.67 / 3301.67 4032.5 / 4032.5 997.5 / 997.5 Lab / Micro Data 03/29/24 05:02 03/29/24 05:02 Labs: Laboratory Results - last 24 hr 03/28/24 09:15: Sodium 136, Potassium 4.1, Chloride 107, Carbon Dioxide 25.0, A nion Gap 4 L, BUN 26 H, Creatinine 1.08 H, Estim Creat Clear Calc 61.81, Est GFR (MDRD) Af Amer 65, Est GFR (MDRD) Non-Af 54 L, BUN/Creatinine Ratio 24.1 H, Glucose 90, Calcium 9.3, Total Bilirubin 7.10 H, AST 83 H, ALT 188 H, Alkaline Phosphatase 253 H, Total Protein 5.8 L, Albumin 2.5 L, Globulin 3.3, A lbumin/Globulin Ratio 0.8 L 03/29/24 05:02: WBC 5.2, RBC 3.48 L, Hgb 10.2 L, Hct 31.9 L, MCV 91.7, MCH 29.3, MCHC 32.0, RDW Std Deviation 49.3 H, RDW Coeff of Ja 14.6, Plt Count 116 L, MPV 11.0, Immature Gran % (Auto) 0.400, Neut % (Auto) 71.5 H, Lymph % (Auto) 14.4 L, [place] % (Auto) 10.2 H, Eos % (Auto) 2.9, Baso % (Auto) 0.6, Absolute Neuts (auto) 3.7, Absolute Lymphs (auto) 0.75 L, Nucleated RBC % 0, Sodium 137, Potassium 3.9, Chloride 109 H, Carbon Dioxide 25.0, Anion Gap 3 L, BUN 22 H, Creatinine 1.04 H, Estim Creat Clear Calc 64.19, Est GFR (MDRD) Af Amer 68, Est GFR (MDRD) Non-Af 56 L, BUN/Creatinine Ratio 21.2 H, Glucose 106, Calcium 8.9, Phosphorus 2.3 L, Magnesium 1.8, Total Bilirubin 6.00 H, AST 43 H, ALT 129 H, Alkaline Phosphatase 230 H, Total Protein 5.4 L, Albumin 2.2 L, Globulin 3.2, A lbumin/Globulin Ratio 0.7 L Physical Exam Const alert, oriented x3, no apparent distress and well nourished; Negative for average body habitus or healthy appearing Constitutional Narrative: Morbidly obese, upper middle-aged, white female, sitting up in a chair at the bedside eating breakfast, appears well today, nontoxic General Appearance: cooperative HEENT normocephalic, head/scalp atraumatic and hearing grossly normal bilaterally HEENT Narrative: Mallampati 3, no thrush Eyes Eyes Narrative: Resp normal respiratory effort, no retractions, no use of accessory muscles and clear to auscultation bilaterally Cardio regular rate, regular rhythm, S1 normal heart sound, S2 normal heart sound, no murmurs, no rub, no gallops and no clicks GI normal to inspection, nondistended, normoactive bowel sounds and soft to palpation GI Narrative: Very minimal epigastric tenderness Extremity no clubbing, cyanosis or edema Extremity Narrative: Pedal pulses are 2+ Skin Skin Narrative: Patient is jaundiced. Neuro oriented x3, moves all extremities and no focal motor deficits Speech: speech normal Psych affect normal Psych Narrative: Very pleasant, interacts appropriately Assessment & Plan Assessment/Plan (1) Transaminitis: (2) Choledocholithiasis: PLAN: Plan Acute transaminitis/hyperbilirubinemia secondary to choledocholithiasis -Diet per GI -Transaminases still elevated but have now trended down in the last 24 hours -Continue IV fluids with LR with the 4 L at 300 cc/h and then transition to 150 cc -Continue fluoroquinolone and metronidazole -Continue IV as needed morphine -Continue IV Toradol as long as renal function is stable but monitor closely So far renal function is stable - -Continue as needed antiemetics -General Surgery has evaluated the patient and we will plan for cholecystectomy in the future either as an inpatient but okay to discharge and follow-up as an outpatient -ERCP done yesterday with lithotripsy and stent placement x 2 -21 stones noted at that time -Anticipate repeat ERCP with lithotripsy early next week once acute pancreatitis has resolved Post ERCP pancreatitis -Continue current IV fluids as ordered by GI and then transition to LR at 150 cc/h -As needed pain medication -Continue Toradol Renal function stable - -Continue as needed antiemetics -Tolerating full liquid diet at this time without worsening pain Abdominal pain/nausea and vomiting -Resolving BRAYDEN -Baseline serum creatinine appears to run between 0.7 and 1 -Serum creatinine down to 1.08 today -If trends up any further we will have to discontinue NSAIDs -Continue IV fluids but decrease to 150 cc/h after these boluses are completed Acute anemia -Likely related to hemodilution with significant IV fluids being utilized due to pancreatitis -No signs of acute blood loss -Repeat in a.m. for stability Hypothyroidism -Continue home levothyroxine Essential hypertension/hyperlipidemia -Continue home lisinopril -Continue as needed hydralazine -Patient has documented history of hyperlipidemia but not on medication -Management per outpatient primary care physician History of asthma -No signs of acute exacerbation -As needed albuterol and restart home albuterol inhaler at discharge Vitamin D deficiency -Continue home vitamin D supplementation Morbid obesity -BMI 42.2 -Recommend weight loss -Complicates treatment, prognosis, outcomes DVT prophylaxis -Continue Lovenox CODE STATUS Full code Charges/Coding Visit Charges Inpatient E&M: 69835 Subs Hosp L2
[2024-03-29] MEDS: Pantoprazole Sodium 40 MG in 0.9% Normal Saline (100mL MB+) 100 ML 330 MG IV (10:14)
[2024-03-29] MEDS: Enoxaparin 40 MG/0.4 ML Syringe SC ×2 (10:18→20:57)
[2024-03-29] MEDS: Ciprofloxacin 400 MG/200 ML BAG 200 MG IV ×2 (10:53→23:04)
[2024-03-29 17:42] VITALS: BP 121/53; PULSE 73; RESP 17; TEMP 37.1; O2SAT 94
[2024-03-29 19:49] VITALS: BP 96/56; PULSE 75; RESP 14; TEMP 36.8; O2SAT 97
[2024-03-30] VITALS (15 sets, daily range): BP systolic 96–125; BP diastolic 58–80; PULSE 60–81; RESP 16; TEMP 36.1–37.2; O2SAT 92–96; BMI 42.8
[2024-03-30] MEDS: Ketorolac 30 MG/ML Syringe IV ×3 (00:39→17:34)
[2024-03-30] MEDS: Metoclopramide 10 MG/2 ML Vial 5 MG IV ×3 (00:43→17:33)
[2024-03-30] MEDS: metroNIDAZOLE 500 MG/100 ML BAG 100 MG IV ×3 (05:58→22:21)
[2024-03-30 06:43] LABS: Hematocrit 31.2 % (37-47); Hemoglobin 10.2 g/dL (12.0-15.0); Mean Corp Hgb Conc 32.7 g/dL (32-36); Mean Corpuscular Hgb 29.6 pg (27.0-32.0); Mean Corpuscular Volume 90.4 fL (81-99); Mean Platelet Vol. 11.2 fl (6.2-12.0); Platelet Count 158 K/mm3 (150-450); RBC Distribution Width CV 14.8 % (11.6-14.6); RBC Distribution Width SD 49.1 fl (35.1-43.9); Red Blood Count 3.45 M/mm3 (4.2-5.4); White Blood Count 5.1 K/mm3 (4.4-11.0)
[2024-03-30 07:34] LABS: ALB/GLOB Ratio 0.6 RATIO (0.9-2.4); AST(SGOT) 27 U/L (15-37); Alanine Aminotransfer ALT/SGPT 102 U/L (13-56); Albumin, Serum 2.2 g/dL (3.2-5.0); Alkaline Phosphatase 233 U/L (45-117); Anion Gap 8 (5-15); BUN 21 mg/dL (7-18); BUN/Creat Ratio 21.7 RATIO (10-20); Chloride 110 mmol/L (98-107); Creatinine, Serum 0.97 mg/dL (0.55-1.02); EST Glomerular Filtration Rate 61 mL/min (>60); Est Glom Filt Rate - Afr Amer 74 mL/min (>60); Estimated Creatinine Clearance 69.39 ml/min; Globulin 3.5 g/dL (2.2-4.2); Glucose 92 mg/dL (74-106); Protein, Total 5.7 g/dL (6.4-8.2); Sodium Level 142 mmol/L (136-145)
--- NOTE | 2024-03-30 08:06 | PCM.PN.SRG ---
Subjective Subjective Patient is evaluated resting comfortably in her chair. She notes intermittent epigastric discomfort and pain between her shoulder blades. She denies any nausea, vomiting, right upper quadrant pain. She is unsure if she will be going for a repeat ERCP today or not. Objective Data Objective Data Vital Signs: Vital Signs Temp Pulse Resp BP Pulse Ox O2 Del Method 98.2 F 71 16 114/69 95 Room Air 03/30/24 03:00 03/30/24 03:00 03/30/24 03:00 03/30/24 03:00 03/30/24 03:00 03/30/24 03:00 Oxygen Delivery Method Room Air Weight: 249 lb 9.012 oz Body Mass Index (BMI) 42.8 Intake & Output: Intake and Output for Last 24 Hours 03/28/24 03/29/24 03/30/24 23:59 23:59 23:59 Intake Total 4632.5 / 4632.5 3559.59 / 3559.59 935.41 / 935.41 Output Total 600 / 600 400 / 400 600 / 600 Balance 4032.5 / 4032.5 3159.59 / 3159.59 335.41 / 335.41 Lab / Micro Data 03/30/24 06:16 03/30/24 06:16 Labs: Laboratory Results - last 24 hr 03/30/24 06:16: WBC 5.1, RBC 3.45 L, Hgb 10.2 L, Hct 31.2 L, MCV 90.4, MCH 29.6, MCHC 32.7, RDW Std Deviation 49.1 H, RDW Coeff of Ja 14.8 H, Plt Count 158, MPV 11.2, Sodium 142, Potassium 4.0, Chloride 110 H, Carbon Dioxide 24.0, Anion Gap 8, BUN 21 H, Creatinine 0.97, Estim Creat Clear Calc 69.39, Est GFR (MDRD) Af Amer 74, Est GFR (MDRD) Non-Af 61, BUN/Creatinine Ratio 21.7 H, Glucose 92, Calcium 9.0, Total Bilirubin 3.90 H, AST 27, ALT 102 H, Alkaline Phosphatase 233 H, Total Protein 5.7 L, Albumin 2.2 L, Globulin 3.5, Albumin/Globulin Ratio 0.6 L Physical Exam GI GI Narrative: Abdomen- soft, tenderness in the epigastric region. Non-tender in the RUQ. Assessment & Plan Assessment/Plan (1) Pancreatitis: QUALIFIERS: Pancreatitis type: biliary Qualified Code(s): K85.10 - Biliary acute pancreatitis without necrosis or infection (2) Choledocholithiasis: PLAN: Plan I am following this patient in conjunction with Dr. Irvin. No lap dianne scheduled at this time await for pancreatitis to resolve and if Dr. Orosco will be repeating ERCP Will discuss with Dr. Parra upon his return tomorrow about scheduling procedure Labs reviewed. Liver enzymes are decreasing Charges/Coding Visit Charges Inpatient E&M: 29216 Subs Hosp L1
[2024-03-30] MEDS: Pantoprazole Sodium 40 MG in 0.9% Normal Saline (100mL MB+) 100 ML 330 MG IV (08:55)
[2024-03-30] MEDS: Ciprofloxacin 400 MG/200 ML BAG 200 MG IV ×2 (09:22→23:37)
--- NOTE | 2024-03-30 11:23 | NURSING ---
pt to endo
[2024-03-30] MEDS: Lactated Ringers 1,000 ML 15 ML IV (11:38)
--- NOTE | 2024-03-30 11:40 | PCM.PRE.AN2 ---
ASA Classification* ASA Classification ASA Classification: 2 Assessment & Plan Anesthesia* Anesthesia Assessment Anesthesia Assessment: Discussed sedation and/or anesthesia options, risks, benefits, and alternatives with patient/parents/legal guardian/POA. Questions invited. The patient/parents/legal guardian/POA seems to understand and agrees to proceed with anesthesia plan. Reviewed the physical assessment, medical history, allergy history and patient home medications list prior to surgery/procedure/anesthetic and documented any changes. Performed airway and anesthesia risk assessments. Anesthesia Type Anesthesia Type: General History Source History Obtained from:: Patient and Chart Anesthesia Focused Assessment* Temperature: 97.5 F Pulse Rate: 65 Blood Pressure: 116/68 Respiratory Rate: 16 Pulse Ox: 94 Oxygen Delivery Method: Room Air Airway Assessment Mouth opens: >3 cm Mallampati Score: II Teeth Condition: Caps/Crowns (Patient has a couple of crowns on her molars. They are tight) Neck Range of motion (ROM): Limited ROM (Slight decrease in extension) Pertinent Findings EKG Pertinent Findings:: March 26, 2024. Normal sinus rhythm. Focused Labs Anesthesia Preop lab: CBC WBC 5.1 K/mm3 (4.4-11.0) 03/30/24 06:16 RBC 3.45 M/mm3 (4.2-5.4) L 03/30/24 06:16 Hgb 10.2 g/dL (12.0-15.0) L 03/30/24 06:16 Hct 31.2 % (37-47) L 03/30/24 06:16 Plt Count 158 K/mm3 (150-450) 03/30/24 06:16 CHEMISTRY Potassium 4.0 mmol/L (3.5-5.1) 03/30/24 06:16 Sodium 142 mmol/L (136-145) 03/30/24 06:16 Magnesium 1.8 mg/dL (1.6-2.6) 03/29/24 05:02 Phosphorus 2.3 mg/dL (2.5-4.9) L 03/29/24 05:02 BUN 21 mg/dL (7-18) H 03/30/24 06:16 Creatinine 0.97 mg/dL (0.55-1.02) 03/30/24 06:16 Glucose 92 mg/dL (74-106) 03/30/24 06:16 TSH 1.100 uIU/mL (0.358-3.740) 03/26/24 05:28 COAG Pre-Assessment Diagnosis/Proposed Procedure Planned Operative Procedure(s): ercp Anesthesia History Anesthesia History - corporate health consultant: Anesthesia History - corporate health consultant Hx Hospitalization Any Problems With Anesthesia No 03/30/24 08:23 Cholinesterase deficiency No 03/30/24 08:23 You/Your Family Experience No 03/30/24 08:23 fever (hyperthermia) with Relationship Recent Exposure to Contagious No 03/30/24 08:23 Disease Does patient have nerve No 03/30/24 08:23 stimulator Patient instructed to have No 03/30/24 08:23 device shut off --Does patient have Pacemaker No 03/30/24 10:17 or ICD? When Was Last Pacemaker Check QUESTION #4 FULL TEXT: You/Your Family Experience fever (hyperthermia) with Anesthesia Last Oral Intake Last Oral intake: Last Oral Intake NPO since 00:00 03/30/24 10:17 Meds taken in AM with sips of water? Meds patient instructed to take am of surgery PONV PONV - corporate health consultant: PONV - corporate health consultant Female HX of Motion Sickness HX of N/V After Surgery Non-Smoker Duration of Surgery greater than 60 minutes Number of Risk Factors PONV Score Height & Weight Height & Weight: Anesthesia: Height & Weight Height 5 ft 4 in 03/30/24 10:17 Weight: 113.2 kg 03/30/24 10:17 Body Mass Index (BMI) 42.8 03/30/24 10:17 Respiratory Assessment Respiratory Assessment - corporate health consultant: Respiratory Tract Infection Hx - corporate health consultant Hx Respiratory Tract Infection No 03/30/24 08:23 STOP Sleep Apnea STOP Sleep Apnea - corporate health consultant: STOP Sleep Apnea - corporate health consultant Hx Hypertension Yes 03/26/24 03:36 Hx Sleep Apnea No 03/26/24 03:36 CPAP BIPAP Do you snore loudly (louder No 03/26/24 03:36 than talking or can be heard Do you often feel tired/ No 03/26/24 03:36 fatigued/ sleepy during daytime? Has anyone observed you stop No 03/26/24 03:36 breathing during sleep? STOP Results Negative 03/26/24 15:00 QUESTION #5 FULL TEXT : Do you snore loudly (louder than talking or can be heard through closed doors)? Tobacco Use History Tobacco Use History - corporate health consultant: Tobacco Use History - corporate health consultant Tobacco Use Smoking Status Never smoker 03/26/24 03:36 Hx Tobacco Use No 03/26/24 03:36 Years Smoking Packs Smoked per Day Smoking Cessation Date was within the last 15 years Hx Smoking Cessation Date Hx Smoking Cessation Counseling Hematologic Medial History Hematologic Hx - corporate health consultant: Hematologic Medical Hx - community affairs director Hx of Blood Transfusion No 03/26/24 03:36 Hx of Transfusion in last 3 No 03/26/24 03:36 Months Date of Last Transfusion (if within last 3 months) Ever experience any problems No 03/26/24 03:36 with transfusion(s)? Specify any problems Hx of Preganancy in last 3 No 03/26/24 03:36 Months Nurse Filling Out Transfusion DREDICK 03/26/24 03:36 & Questions: Date: 03/26/24 03/26/24 03:36 Time: 03:36 03/26/24 03:36 Patient unable to answer at this time (ie. confused, unrespo /Reproduction History /Reproductive History - corporate health consultant: /Reproductive Hx- corporate health consultant Hx Now No 03/30/24 08:23 Gestational Age (in weeks): EDC: Hx Hx Para Hx Section SAB No 03/30/24 08:23 Active Medications Active Medications: Current Medications Generic Name Dose Route Start Last Admin Trade Name Freq PRN Reason Stop Dose Admin Albuterol Sulfate 2.5 mg 03/26/24 05:07 Albuterol 2.5 Mg/3 Ml Vial.Neb. INHALATION Q4H PRN PRN SHORTNESS OF BREATH Enoxaparin Sodium 40 mg 03/26/24 22:00 03/30/24 08:27 Enoxaparin 40 Mg/0.4 Ml Syringe SC Not Given BID LYRIC Hydralazine HCl 10 mg 03/26/24 05:09 Hydralazine 20 Mg/Ml Vial IV Q6H PRN PRN SBP GREATER THAN 160 Protocol Sodium Chloride 500 mls @ 15 mls/hr 03/26/24 03:31 IV .[id number] PRN Saline Flush Sodium Chloride 500 mls @ 15 mls/hr 03/26/24 03:31 IV .[id number] PRN Additional IVPB Infusion Pantoprazole Sodium 40 mg/ 110 mls @ 330 mls/hr 03/26/24 05:01 03/30/24 09:23 Sodium Chloride IV Infused Q24 LYRIC Infusion Metronidazole 500 mg in 100 mls @ 100 mls/hr 03/26/24 06:00 03/30/24 07:13 Flagyl IV Infused Q8 LYRIC Infusion Ciprofloxacin 400 mg in 200 mls @ 200 mls/hr 03/26/24 10:00 03/30/24 10:26 Cipro IV Infused Q12 LYRIC Infusion Lactated Ringer's 1,000 mls @ 15 mls/hr 03/26/24 11:00 03/30/24 11:38 IV 04/01/24 00:19 15 mls/hr .Q48H LYRIC Administration Protocol Ketorolac Tromethamine 30 mg 03/27/24 18:00 03/30/24 06:05 Ketorolac 30 Mg/Ml Syringe IV 04/01/24 15:19 30 mg Q6 LYRIC Administration Metoclopramide HCl 5 mg 03/27/24 18:00 03/30/24 06:05 Metoclopramide 10 Mg/2 Ml Vial IV 5 mg Q6 LYRIC Administration Morphine Sulfate 2 mg 03/26/24 05:07 Morphine 2 Mg/Ml Syringe IV Q4H PRN PRN Pain Score 6-10 Ondansetron HCl 4 mg 03/26/24 05:07 03/27/24 07:36 Ondansetron 4 Mg/2 Ml Vial IV 4 mg Q6H PRN PRN Administration NAUSEA/VOMITING Promethazine HCl 25 mg 03/26/24 05:07 Promethazine 25 Mg/Ml Syringe IM Q6H PRN PRN Breakthrough nausea/vomiting Sodium Chloride 10 - 40 ml 03/26/24 03:31 03/28/24 23:38 0.9% Saline Lock 10 Ml Syringe IV 10 ml UD PRN Administration SALINE FLUSH [facility] Medical History (Updated 03/27/24 @ 10:[address] Husam Parra MD) Pancreatitis Vitamin D deficiency Hypertension Hypothyroidism Home Medications ?Medication ?Instructions ?Recorded ?Last Taken ?Type levothyroxine 200 mcg tablet 200 mcg PO MOTUWETHFRSA thyroid 11/06/21 Unknown History levothyroxine 200 mcg tablet 400 mcg PO ROBERTS thyroid 11/06/21 Unknown History lisinopril 20 mg tablet 20 mg PO BID 11/06/21 Unknown History albuterol sulfate 90 mcg/actuation 2 inh inhalation Q4H PRN sob 03/26/24 Unknown History breath activated powder inhaler (ProAir RespiClick) cholecalciferol (vitamin D3) 125 5,000 unit PO DAILY 03/26/24 Unknown History mcg (5,000 unit) capsule Allergy/AdvReac Type Severity Reaction Status Date / Time chlorhexidine Allergy Rash Verified 03/30/24 11:37 Penicillins Allergy CHILDHOOD Verified 03/30/24 11:37 ALLERGY psyllium (From Metamucil) Allergy Shortness Verified 03/30/24 11:37 of breath Surgical History (Updated 03/30/24 @ 11:[address] Arsen Jennings MD) S/P ERCP H/O section S/P dilatation and curettage Social History Smoking Status: Never smoker Review of Systems (Anesthesia) ROS Narrative System reviewed and no additional complaints, except as documented.
--- NOTE | 2024-03-30 12:30 | FLU_PTH ---
PATIENT: BHAVANI HALLMAN LOC: MS3 U#:[id number] AGE/SX: 69/F ROOM: MS309 RE03/26/[address]: Dr. Francie Davalos MD : 1955 BED: 1 DIS: 04/02/2024 SPEC #: [id number] RECD: 03/30/24 13:45 STATUS: KEVIN REMadi #: [id number] MILLIE: 03/30/24 12:[address]: Francie Davalos DEPT: CYTOLOGY RECD BY: Thelma Neri ENTERED: 03/31/24 09:58 SP TYPE: Fluid OTHR DR: MD Dr. Brennan Ricardo DO Dr. Kathryn Lee, DO Dr. Steven A Wanek, MD Tissues: Bile duct, NOS Procedures: Special Stain Group II Surgery Specimen Level IV Cytospin Fluid HEADER OPERATION: Balloon dilatation, biliary stent placement PRE-OP DIAGNOSIS: Pancreatitis TISSUE SUBMITTED: Biliary stents for cytology DIAGNOSIS CYTOLOGY Biliary stent fluid for cytology (cytospin and cellblock): Negative for malignant cells. See mayra. 04/01/2024 COMMENT Clinical correlation and appropriate follow up are necessary. CYTOLOGY STUDY Slides are reviewed. CYTOLOGY GROSS Received is one blue stent measuring 12cm in length and 0.3cm in diameter and second blue stent measuring 15cm in length and 0.2cm in diameter. Both stents contain 0.3 ml of yellow cloudy material labeled with the patient's name and and designated per the requisition as Biliary stent. Submitted for cytology preparation including cell block. 03/31/2024 TC:5 CPT: 06666,71040
--- NOTE | 2024-03-30 12:43 | EX.PCM.PN.GI ---
Subjective Subjective Patient is doing well is not having any more abdominal pain. She will be scheduled for repeat ERCP and further stone removal prior to cholecystectomy. Objective Data Objective Data Vital Signs: Vital Signs Temp Pulse Resp BP Pulse Ox O2 Del Method 97.5 F L 65 16 116/68 94 Room Air 03/30/24 11:56 03/30/24 11:56 03/30/24 11:56 03/30/24 11:56 03/30/24 11:56 03/30/24 11:56 Oxygen Delivery Method Room Air Weight: 249 lb 9.012 oz Body Mass Index (BMI) 42.8 Intake & Output: Intake and Output for Last 24 Hours 03/28/24 03/29/24 03/30/24 23:59 23:59 23:59 Intake Total 4632.5 / 4632.5 3559.59 / 3559.59 1245.41 / 1245.41 Output Total 600 / 600 400 / 400 800 / 800 Balance 4032.5 / 4032.5 3159.59 / 3159.59 445.41 / 445.41 Lab / Micro Data 03/30/24 06:16 03/30/24 06:16 Labs: Laboratory Results - last 24 hr 03/30/24 06:16: WBC 5.1, RBC 3.45 L, Hgb 10.2 L, Hct 31.2 L, MCV 90.4, MCH 29.6, MCHC 32.7, RDW Std Deviation 49.1 H, RDW Coeff of Ja 14.8 H, Plt Count 158, MPV 11.2, Sodium 142, Potassium 4.0, Chloride 110 H, Carbon Dioxide 24.0, Anion Gap 8, BUN 21 H, Creatinine 0.97, Estim Creat Clear Calc 69.39, Est GFR (MDRD) Af Amer 74, Est GFR (MDRD) Non-Af 61, BUN/Creatinine Ratio 21.7 H, Glucose 92, Calcium 9.0, Total Bilirubin 3.90 H, AST 27, ALT 102 H, Alkaline Phosphatase 233 H, Total Protein 5.7 L, Albumin 2.2 L, Globulin 3.5, Albumin/Globulin Ratio 0.6 L Physical Exam Const alert, oriented x3, no apparent distress and healthy appearing General Appearance: cooperative HEENT normocephalic, head/scalp atraumatic and hearing grossly normal bilaterally HEENT Narrative: Mucous membranes dry. Eyes PERRL and EOMs intact bilaterally Eyes Narrative: Sclerae are icteric. Neck no lymphadenopathy and supple Resp normal respiratory effort, no retractions, no use of accessory muscles and clear to auscultation bilaterally Cardio regular rate and regular rhythm GI normal to inspection, nondistended, normoactive bowel sounds, soft to palpation and non-distended GI Narrative: TTP in RUQ and epigastrium. Extremity normal to inspection, full ROM and no clubbing, cyanosis or edema Skin Skin Narrative: Patient is jaundiced. Neuro oriented x3, CN's II-XII intact bilaterally, moves all extremities and no focal motor deficits Sensorium / Orientation: awake, alert, oriented to person, oriented to place and oriented to time Speech: speech normal Psych affect normal Assessment & Plan Assessment/Plan (1) Pancreatitis: QUALIFIERS: Pancreatitis type: biliary Qualified Code(s): K85.10 - Biliary acute pancreatitis without necrosis or infection PLAN: Patient currently with pancreatitis status post ERCP with stone removal and stent placement postop day 1. I will increase her fluids to 300 mL an hour. I will also change her Toradol to 30 mL schedule. I would like to get a CT scan abdomen pelvis to help with the severity of the pancreatitis. I will repeat her amylase lipase tonight and also check ESR, CRP, lactate. She has been afebrile. I will advance her to full liquid diet. (2) Transaminitis: (3) Choledocholithiasis: PLAN: Patient had multiple stones removed. She had 2 stents placed yesterday. I suspect she still has stones in her bile duct. She will need repeat ERCP with lithotripsy. She has 2 stents placed. Hopefully her LFTs will start to come down. Charges/Coding Visit Charges Inpatient E&M: 03249 Subs Hosp L3
--- NOTE | 2024-03-30 13:10 | RAD_ITS ---
STUDY: ERCP. REASON FOR EXAM: Female, 69 years old. REPEAT SPYGLASS FLUOROSCOPY TIME (if supplied): ( 1 minute and 36 seconds ) minutes/seconds. 39.7 mGy. 10 fluoroscopic images were obtained. TECHNIQUE: An ERCP was performed by the automobile contract clerk. Fluoroscopic imaging was provided. COMPARISON: Comparison is made with prior study March 26, 2024. FINDINGS: Biliary stent is visualized. RAD/ERCP Biliary/Pancreas IMPRESSION: Fluoroscopic services provided for ERCP. Electronically Signed: Wicho Kay MD at 13:04 EDT ,
--- NOTE | 2024-03-30 13:30 | OP.CCLET_ITS ---
03/30/2024 Bryan Kay [address] [place] [address] Re : ERCP procedure for Evonne Newmangail Dear Dr. Kay This procedure was performed on Saturday, March 30, 2024. My impressions and recommendations are as follows: Impressions : - The entire biliary tree was dilated, with a stone causing an obstruction. - Choledocholithiasis was found. Complete removal was accomplished by biliary sphincterotomy and balloon extraction. - A biliary sphincterotomy was performed. - The biliary tree was swept. - Two stents were removed from the left hepatic duct and the right hepatic duct. - One temporary stent was placed into the left hepatic duct. Recommendations : My findings are described in the full procedure note, which is enclosed. If I can be of further assistance, please feel free to contact me at . Sincerely, John Orosco, 03/30/2024 1:29:55 PM This report has been signed electronically.
--- NOTE | 2024-03-30 13:30 | OP.ERCP_ITS ---
Patient Name: Evonne Burt Procedure Date: 03/30/2024 12:41 PM Date of : 1955 Age: 69 Procedure: ERCP Indications: Bile duct stone(s), Jaundice, Elevated liver enzymes, Acute pancreatitis Providers: John Orosco DO Medicines: General Anesthesia Patient Profile: This is a 69 year old female. Refer to note in patient chart for documentation of history and physical. Patient has symptoms of acute jaundice. Complications: No immediate complications. Procedure: Pre-Anesthesia Assessment: - Prior to the procedure, a History and Physical was performed, and patient medications and allergies were reviewed. The patient is competent. The risks and benefits of the procedure and the sedation options and risks were discussed with the patient. All questions were answered and informed consent was obtained. Patient identification and proposed procedure were verified by the physician in the pre-procedure area. Mental Status Examination: alert and oriented. Airway Examination: normal oropharyngeal airway and neck mobility. Respiratory Examination: clear to auscultation. CV Examination: normal. Prophylactic Antibiotics: The patient does not require prophylactic antibiotics. Prior Anticoagulants: The patient has taken no anticoagulant or antiplatelet agents except for NSAID medication. ASA Grade Assessment: II - A patient with mild systemic disease. After reviewing the risks and benefits, the patient was deemed in satisfactory condition to undergo the procedure. The anesthesia plan was to use general anesthesia. Immediately prior to administration of medications, the patient was re-assessed for adequacy to receive sedatives. The heart rate, respiratory rate, oxygen saturations, blood pressure, adequacy of pulmonary ventilation, and response to care were monitored throughout the procedure. The physical status of the patient was re-assessed after the procedure. After obtaining informed consent, the scope was passed under direct vision. Throughout the procedure, the patient's blood pressure, pulse, and oxygen saturations were monitored continuously. The Duodenoscope was introduced through the mouth, and advanced to the duodenum and used to inject contrast into the bile duct. The ERCP was accomplished without difficulty. The patient tolerated the procedure well. Scope In: 1:08:40 PM Scope Out: 1:21:34 PM Total Procedure Duration Time 0 hours 12 minutes 54 seconds Findings: The meter repair shop supervisor film was normal. A biliary stent was visible on the meter repair shop supervisor film. The esophagus was successfully intubated under direct vision. The scope was advanced to a normal major papilla in the descending duodenum without detailed examination of the pharynx, larynx and associated structures, and upper GI tract. The upper GI tract was grossly normal. A long 0.025 inch Jagwire was passed into the biliary tree. The short-nosed traction sphincterotome was passed over the guidewire and the bile duct was then deeply cannulated. Contrast was injected. I personally interpreted the bile duct images. There was brisk flow of contrast through the ducts. Image quality was adequate. Contrast extended to the entire biliary tree. Opacification of the entire biliary tree except for the cystic duct and gallbladder, entire biliary tree except for the gallbladder and entire biliary tree was successful. The maximum diameter of the ducts was 10 mm. The main bile duct contained multiple stones, the largest of which was 4 mm in diameter. The entire biliary tree was diffusely dilated, with a stone causing an obstruction. The largest diameter was 10 mm. A 5 mm biliary sphincterotomy was made with a traction (standard) sphincterotome using ERBE electrocautery. The sphincterotomy oozed blood. The biliary tree was swept with a 12 mm balloon starting at the bifurcation. All stones were removed. Two stents were removed from the left hepatic duct and the right hepatic duct using a snare and sent for cytology. The stents were found to be patent via the water column test. One 10 Fr by 12 cm transpapillary temporary stent was placed 5 cm into the left hepatic duct. Bile flowed through the stent. The stent was in good position. Impression: - The entire biliary tree was dilated, with a stone causing an obstruction. - Choledocholithiasis was found. Complete removal was accomplished by biliary sphincterotomy and balloon extraction. - A biliary sphincterotomy was performed. - The biliary tree was swept. - Two stents were removed from the left hepatic duct and the right hepatic duct. - One temporary stent was placed into the left hepatic duct. Procedure Code(s): --- Professional --- 46251, Endoscopic retrograde cholangiopancreatography (ERCP); with removal and exchange of stent(s), biliary or pancreatic duct, including pre- and post-dilation and guide wire passage, when performed, including sphincterotomy, when performed, each stent exchanged 90888, Endoscopic retrograde cholangiopancreatography (ERCP); with removal of calculi/debris from biliary/pancreatic duct(s) 68389, 59, Endoscopic retrograde cholangiopancreatography (ERCP); with sphincterotomy/papillotomy 97934, 26, Endoscopic catheterization of the biliary ductal system, radiological supervision and interpretation CPT copyright 2021 [employer]. All rights reserved. The codes documented in this report are preliminary and upon orthopedic coder review may be revised to meet current compliance requirements. John Orosco DO 03/30/2024 1:29:55 PM This report has been signed electronically. Number of Addenda: 0 Note Initiated On: 03/30/2024 12:41 PM
--- NOTE | 2024-03-30 13:41 | PCM.POST.ANE ---
Anesthesia: Postop Eval I Current Vital Signs Temperature: 97.6 F Pulse Rate: 81 Blood Pressure: 117/80 Respiratory Rate: 16 Pulse Ox: 95 Oxygen Delivery Method: Room Air Assessment Airway patent: Yes Spontaneous unlabored respirations: Yes Mental status: Asleep nausea: No Vomiting: No Anesthesia Complication: No Fluid Hydration Crystalloid volume administer (ml): 200 Total IV fluid infused: 200 Progress Note Anesthesia document: Postop Eval 1 completed: Yes
--- NOTE | 2024-03-30 14:33 | PN_ITS ---
Subjective Subjective Patient seen and examined. She had no active complaints. Review of systems is otherwise negative. She has remained hemodynamically stable. She is for EGD today. Objective Data Objective Data Vital Signs: Vital Signs Temp Pulse Resp BP Pulse Ox O2 Del Method 98.5 F 68 16 122/72 H 92 Room Air 03/30/24 14:28 03/30/24 14:28 03/30/24 14:28 03/30/24 14:28 03/30/24 14:28 03/30/24 14:28 Oxygen Delivery Method Room Air Weight: 249 lb 9.012 oz Body Mass Index (BMI) 42.8 Intake & Output: Intake and Output for Last 24 Hours 03/28/24 03/29/24 03/30/24 23:59 23:59 23:59 Intake Total 4632.5 / 4632.5 3559.59 / 3559.59 1288.41 / 1288.41 Output Total 600 / 600 400 / 400 800 / 800 Balance 4032.5 / 4032.5 3159.59 / 3159.59 488.41 / 488.41 Lab / Micro Data 03/30/24 06:16 03/30/24 06:16 Labs: Laboratory Results - last 24 hr 03/30/24 06:16: WBC 5.1, RBC 3.45 L, Hgb 10.2 L, Hct 31.2 L, MCV 90.4, MCH 29.6, MCHC 32.7, RDW Std Deviation 49.1 H, RDW Coeff of Ja 14.8 H, Plt Count 158, MPV 11.2, Sodium 142, Potassium 4.0, Chloride 110 H, Carbon Dioxide 24.0, Anion Gap 8, BUN 21 H, Creatinine 0.97, Estim Creat Clear Calc 69.39, Est GFR (MDRD) Af Amer 74, Est GFR (MDRD) Non-Af 61, BUN/Creatinine Ratio 21.7 H, Glucose 92, Calcium 9.0, Total Bilirubin 3.90 H, AST 27, ALT 102 H, Alkaline Phosphatase 233 H, Total Protein 5.7 L, Albumin 2.2 L, Globulin 3.5, Albumin/Globulin Ratio 0.6 L Physical Exam Const alert, oriented x3 and no apparent distress Constitutional Narrative: obese General Appearance: cooperative and well developed HEENT normocephalic, head/scalp atraumatic, moist oral mucous membranes and oropharynx normal Eyes PERRL and EOMs intact bilaterally Neck no lymphadenopathy, supple and no JVD Lymph Lymphatic: no lymphadenopathy noted and no lymphedema noted Resp normal respiratory effort, normal air movement and clear to auscultation bilaterally Cardio regular rate, regular rhythm, S1 normal heart sound, S2 normal heart sound and no murmurs GI normal to inspection, nondistended, normoactive bowel sounds, soft to palpation, non-tender and non-distended Extremity normal capillary refill, no clubbing, cyanosis or edema and no calf tenderness General Extremity: no tenderness to palpation of joints or extremities Skin General Skin Exam: no breakdown Neuro CN's II-XII intact bilaterally, no focal motor deficits, no sensory deficits noted and deep tendon reflexes 2+ bilaterally Motor Exam: strength 5/5 throughout and general weakness Psych thought process normal, cooperative and affect normal Appearance: appropriate Assessment & Plan Assessment/Plan (1) Pancreatitis: QUALIFIERS: Pancreatitis type: biliary Qualified Code(s): K85.10 - Biliary acute pancreatitis without necrosis or infection (2) Choledocholithiasis: PLAN: Plan #Acute choledocholithiasis * Had elevated liver enzymes but these are trending downwards. Abdominal pain is also improving. * She did have ERCP earlier during this admission with lithotripsy and stent placement x 2. 21 stones were noted at that time. * She did have repeat ERCP today which showed entire biliary tree being dilated with a stone causing an obstruction and there was complete removal of the stones by biliary sphincterotomy and balloon extraction and 2 stents removed from the left hepatic duct and right hepatic duct. 1 temporary stent was placed in the left hepatic duct * Management as per gastroenterology * Continue to trend liver enzymes. IV morphine and IV Toradol as needed. On ciprofloxacin and metronidazole * General surgery on board. For laparoscopic cholecystectomy tomorrow #iatrogenic pancreatitis due to ERCP: Management as above. Continue pain meds * #Transaminitis * Likely due to choledocholithiasis. Total bilirubin is down to 3.9 from 6 yesterday. AST and ALT are trending downwards. ALP is 233. Will continue to trend. And IV Zofran as needed #BRAYDEN: Resolved. Creatinine down to baseline #Hypothyroidism: On Synthroid #Benign essential hypertension: On lisinopril. IV hydralazine as needed #History of asthma: Not in exacerbation. Breathing treatments bronchodilators. #Vitamin D deficiency: On vitamin D supplementation #Thrombocytopenia: * Platelets were 116 yesterday but this was transient and likely dilutional. * Platelet up to 158 today. * I will monitor. * #Morbid obesity: BMI is 42.8. Complicates acute care, expected recovery and prognosis DVT prophylaxis: Lovenox Charges/Coding Visit Charges Inpatient E&M: 62301 Subs Hosp L3
[2024-03-30] MEDS: 0.9% Saline Lock 10 ML Syringe IV (22:21)
[2024-03-31] VITALS (7 sets, daily range): BP systolic 101–116; BP diastolic 57–83; PULSE 56–79; RESP 16–18; TEMP 36.6–37.2; O2SAT 94–97; BMI 43.7
[2024-03-31] MEDS: 0.9% Saline Lock 10 ML Syringe IV ×2 (01:06→06:57)
[2024-03-31] MEDS: Metoclopramide 10 MG/2 ML Vial 5 MG IV ×4 (01:06→17:46)
[2024-03-31] MEDS: Ketorolac 30 MG/ML Syringe IV ×4 (01:06→17:46)
[2024-03-31] MEDS: metroNIDAZOLE 500 MG/100 ML BAG 100 MG IV ×3 (06:58→21:51)
[2024-03-31 07:00] LABS: Absolute Lymphocyte Count 0.78 X10^3/uL (0.83-4.51); Absolute Neutrophil Count 4.1 X10^3/uL (2.0-7.7); Basophil# 0.01 X10^3/uL; Basophil% 0.2 % (0-1); Eosinophil# 0.01 X10^3/uL; Eosinophils% 0.2 % (0-5); Hematocrit 31.4 % (37-47); Hemoglobin 9.9 g/dL (12.0-15.0); Lymphocyte # 0.78 X10^3/ul (0.83-4.51); Lymphocyte % 14.8 % (19-41); Mean Corp Hgb Conc 31.5 g/dL (32-36); Mean Corpuscular Hgb 28.7 pg (27.0-32.0); Mean Platelet Vol. 11.3 fl (6.2-12.0); Monocyte# 0.38 X10^3/uL; Monocyte% 7.2 % (0-10); NRBC Flagged by Analyzer 0 % (0-5); Neutrophil # 4.08 X10^3/uL (2.7-7.7); Neutrophil % 77.4 % (47-70); Platelet Count 181 K/mm3 (150-450); RBC Distribution Width CV 14.7 % (11.6-14.6); RBC Distribution Width SD 49.6 fl (35.1-43.9); Red Blood Count 3.45 M/mm3 (4.2-5.4); White Blood Count 5.3 K/mm3 (4.4-11.0)
[2024-03-31 07:07] LABS: International Normalized Ratio 1.1; Prothrombin Time (Protime)PT. 14.2 SECONDS (11.7-14.9)
[2024-03-31 07:35] LABS: AST(SGOT) 32 U/L (15-37); Alanine Aminotransfer ALT/SGPT 81 U/L (13-56); Albumin, Serum 2.3 g/dL (3.2-5.0); Alkaline Phosphatase 217 U/L (45-117); Anion Gap 7 (5-15); BUN 29 mg/dL (7-18); BUN/Creat Ratio 25.2 RATIO (10-20); Calcium,Total 9.1 mg/dL (8.5-10.1); Chloride 111 mmol/L (98-107); Creatinine, Serum 1.15 mg/dL (0.55-1.02); EST Glomerular Filtration Rate 50 mL/min (>60); Est Glom Filt Rate - Afr Amer 61 mL/min (>60); Estimated Creatinine Clearance 59.19 ml/min; Globulin 3.6 g/dL (2.2-4.2); Glucose 115 mg/dL (74-106); Protein, Total 5.9 g/dL (6.4-8.2); Sodium Level 141 mmol/L (136-145)
[2024-03-31] MEDS: Pantoprazole Sodium 40 MG in 0.9% Normal Saline (100mL MB+) 100 ML 330 MG IV (09:55)
[2024-03-31] MEDS: Enoxaparin 40 MG/0.4 ML Syringe SC (09:56)
--- NOTE | 2024-03-31 10:05 | PCM.PN.SRG ---
Subjective Subjective Patient evaluated resting comfortably in bed. She notes she is able to belch without feeling nauseated. She notes her pain has improved. Objective Data Objective Data Vital Signs: Vital Signs Temp Pulse Resp BP Pulse Ox O2 Del Method 97.8 F 66 16 107/83 H 97 Room Air 03/31/24 09:07 03/31/24 09:07 03/31/24 09:07 03/31/24 09:07 03/31/24 09:07 03/31/24 09:07 Oxygen Delivery Method Room Air Weight: 254 lb 6.615 oz Body Mass Index (BMI) 43.7 Intake & Output: Intake and Output for Last 24 Hours 03/29/24 03/30/24 03/31/24 23:59 23:59 23:59 Intake Total 3559.59 / 3559.59 1638.41 / 1638.41 300.00 / 300.00 Output Total 400 / 400 800 / 800 Balance 3159.59 / 3159.59 838.41 / 838.41 300.00 / 300.00 Lab / Micro Data 03/31/24 06:38 03/31/24 06:38 Labs: Laboratory Results - last 24 hr 03/31/24 06:38: WBC 5.3, RBC 3.45 L, Hgb 9.9 L, Hct 31.4 L, MCV 91.0, MCH 28.7, MCHC 31.5 L, RDW Std Deviation 49.6 H, RDW Coeff of Ja 14.7 H, Plt Count 181, MPV 11.3, Immature Gran % (Auto) 0.200, Neut % (Auto) 77.4 H, Lymph % (Auto) 14.8 L, [place] % (Auto) 7.2, Eos % (Auto) 0.2, Baso % (Auto) 0.2, Absolute Neuts (auto) 4.1, Absolute Lymphs (auto) 0.78 L, Nucleated RBC % 0, PT 14.2, INR 1.1, APTT 27.0, Sodium 141, Potassium 4.0, Chloride 111 H, Carbon Dioxide 23.0, Anion Gap 7, BUN 29 H, Creatinine 1.15 H, Estim Creat Clear Calc 59.19, Est GFR (MDRD) Af Amer 61, Est GFR (MDRD) Non-Af 50 L, BUN/Creatinine Ratio 25.2 H, Glucose 115 H, Calcium 9.1, Total Bilirubin 2.70 H, Direct Bilirubin 2.20 H, AST 32, ALT 81 H, Alkaline Phosphatase 217 H, Total Protein 5.9 L, Albumin 2.3 L, Globulin 3.6, TSH 1.250 Assessment & Plan Assessment/Plan (1) Choledocholithiasis: PLAN: I am following this patient in conjunction with Dr. Parra. He will independently evaluate this patient. Labs reviewed. Liver enzymes continue to decrease Patient upset that her surgery was moved to tomorrow secondary to OR scheduling, once explained she was understanding Patient rescheduled to 1130 tomorrow for lap dianne with Dr. Parra Place on clear liquids. NPO at midnight We will continue to monitor this patient Charges/Coding Visit Charges Inpatient E&M: 24740 Subs Hosp L1
[2024-03-31] MEDS: Ciprofloxacin 400 MG/200 ML BAG 200 MG IV ×2 (10:28→23:06)
--- NOTE | 2024-03-31 10:36 | PCM.PROGNOTE ---
Subjective Subjective Patient seen and examined. She feels well today and has no complaints. She had repeat ERCP yesterday with removal of the stones and placement of new stents after removal of the old stents. She was due to have laparoscopic cholecystectomy today but says surgery has been rescheduled for tomorrow. Review of systems otherwise negative. She has remained hemodynamically stable. Objective Data Objective Data Vital Signs: Vital Signs Temp Pulse Resp BP Pulse Ox O2 Del Method 97.8 F 66 16 107/83 H 97 Room Air 03/31/24 09:07 03/31/24 09:07 03/31/24 09:07 03/31/24 09:07 03/31/24 09:07 03/31/24 09:07 Oxygen Delivery Method Room Air Weight: 254 lb 6.615 oz Body Mass Index (BMI) 43.7 Intake & Output: Intake and Output for Last 24 Hours 03/29/24 03/30/24 03/31/24 23:59 23:59 23:59 Intake Total 3559.59 / 3559.59 1638.41 / 1638.41 410.00 / 410.00 Output Total 400 / 400 800 / 800 Balance 3159.59 / 3159.59 838.41 / 838.41 410.00 / 410.00 Lab / Micro Data 03/31/24 06:38 03/31/24 06:38 Labs: Laboratory Results - last 24 hr 03/31/24 06:38: WBC 5.3, RBC 3.45 L, Hgb 9.9 L, Hct 31.4 L, MCV 91.0, MCH 28.7, MCHC 31.5 L, RDW Std Deviation 49.6 H, RDW Coeff of Ja 14.7 H, Plt Count 181, MPV 11.3, Immature Gran % (Auto) 0.200, Neut % (Auto) 77.4 H, Lymph % (Auto) 14.8 L, [place] % (Auto) 7.2, Eos % (Auto) 0.2, Baso % (Auto) 0.2, Absolute Neuts (auto) 4.1, Absolute Lymphs (auto) 0.78 L, Nucleated RBC % 0, PT 14.2, INR 1.1, APTT 27.0, Sodium 141, Potassium 4.0, Chloride 111 H, Carbon Dioxide 23.0, Anion Gap 7, BUN 29 H, Creatinine 1.15 H, Estim Creat Clear Calc 59.19, Est GFR (MDRD) Af Amer 61, Est GFR (MDRD) Non-Af 50 L, BUN/Creatinine Ratio 25.2 H, Glucose 115 H, Calcium 9.1, Total Bilirubin 2.70 H, Direct Bilirubin 2.20 H, AST 32, ALT 81 H, Alkaline Phosphatase 217 H, Total Protein 5.9 L, Albumin 2.3 L, Globulin 3.6, TSH 1.250 Physical Exam Const alert, oriented x3, no apparent distress and well nourished Constitutional Narrative: obese General Appearance: cooperative and well developed HEENT normocephalic, head/scalp atraumatic, hearing grossly normal bilaterally, moist oral mucous membranes and oropharynx normal Eyes PERRL and EOMs intact bilaterally Eyes Narrative: Neck no lymphadenopathy, supple and no JVD Lymph Lymphatic: no lymphadenopathy noted and no lymphedema noted Resp normal respiratory effort, normal air movement, no retractions, no use of accessory muscles and clear to auscultation bilaterally Cardio regular rate, regular rhythm, S1 normal heart sound, S2 normal heart sound and no murmurs GI normal to inspection, nondistended, normoactive bowel sounds, soft to palpation, non-tender and non-distended GI Narrative: obese abdomen Extremity normal to inspection, full ROM, normal capillary refill, no clubbing, cyanosis or edema and no calf tenderness Extremity Narrative: Pedal pulses are 2+ General Extremity: no tenderness to palpation of joints or extremities Skin Skin Narrative: Patient is jaundiced. General Skin Exam: no breakdown Neuro oriented x3, CN's II-XII intact bilaterally, moves all extremities, no focal motor deficits, no sensory deficits noted and deep tendon reflexes 2+ bilaterally Sensorium / Orientation: awake, alert, oriented to person, oriented to place and oriented to time Speech: speech normal Motor Exam: strength 5/5 throughout and general weakness Psych thought process normal, cooperative and affect normal Psych Narrative: Very pleasant, interacts appropriately Appearance: appropriate Assessment & Plan Assessment/Plan (1) Pancreatitis: QUALIFIERS: Pancreatitis type: biliary Qualified Code(s): K85.10 - Biliary acute pancreatitis without necrosis or infection (2) Choledocholithiasis: PLAN: Plan #Acute choledocholithiasis She did have ERCP earlier during this admission with lithotripsy and stent placement x 2. 21 stones were noted at that time. She did have repeat ERCP yesterday which showed entire biliary tree being dilated with a stone causing an obstruction and there was complete removal of the stones by biliary sphincterotomy and balloon extraction and 2 stents removed from the left hepatic duct and right hepatic duct. 1 temporary stent was placed in the left hepatic duct Management as per gastroenterology Continue to trend liver enzymes. Liver enzymes continue to trend downwards IV morphine and IV Toradol as needed. On ciprofloxacin and metronidazole General surgery on board. For laparoscopic cholecystectomy tomorrow. Was postop in today but was rescheduled by surgery #iatrogenic pancreatitis due to ERCP: Management as above. Continue pain meds #Transaminitis Likely due to choledocholithiasis. Liver enzymes continue to trend downwards and total bilirubin is down to 2.7 from 3.9 yesterday. AST and ALT as well as ALP also continue to trend downwards. #Elevated Cr: Creatinine has trended up slightly to 1.15 today. It was 0.97 yesterday. Does not meet the criteria for BRAYDEN. Encourage oral hydration and trend creatinine. #Hypothyroidism: On Synthroid #Benign essential hypertension: On lisinopril. IV hydralazine as needed #History of asthma: Not in exacerbation. Breathing treatments bronchodilators. #Vitamin D deficiency: On vitamin D supplementation #Thrombocytopenia: Resolved. Platelets 181 today. #Morbid obesity: BMI is 42.8. Complicates acute care, expected recovery and prognosis DVT prophylaxis: Lovenox Charges/Coding Visit Charges Inpatient E&M: 69293 Subs Hosp L2
--- NOTE | 2024-03-31 19:25 | EX.PCM.PN.GI ---
Subjective Subjective Patient is status post repeat ERCP with further stone removal and stent replacement. Objective Data Objective Data Vital Signs: Vital Signs Temp Pulse Resp BP Pulse Ox O2 Del Method 99 F 79 16 101/61 95 Room Air 03/31/24 15:26 03/31/24 15:26 03/31/24 15:26 03/31/24 15:26 03/31/24 15:26 03/31/24 15:26 Oxygen Delivery Method Room Air Weight: 254 lb 6.615 oz Body Mass Index (BMI) 43.7 Intake & Output: Intake and Output for Last 24 Hours 03/29/24 03/30/24 03/31/24 23:59 23:59 23:59 Intake Total 3559.59 / 3559.59 1638.41 / 1638.41 810.00 / 810.00 Output Total 400 / 400 800 / 800 Balance 3159.59 / 3159.59 838.41 / 838.41 810.00 / 810.00 Lab / Micro Data 03/31/24 06:38 03/31/24 06:38 Labs: Laboratory Results - last 24 hr 03/31/24 06:38: WBC 5.3, RBC 3.45 L, Hgb 9.9 L, Hct 31.4 L, MCV 91.0, MCH 28.7, MCHC 31.5 L, RDW Std Deviation 49.6 H, RDW Coeff of Ja 14.7 H, Plt Count 181, MPV 11.3, Immature Gran % (Auto) 0.200, Neut % (Auto) 77.4 H, Lymph % (Auto) 14.8 L, [place] % (Auto) 7.2, Eos % (Auto) 0.2, Baso % (Auto) 0.2, Absolute Neuts (auto) 4.1, Absolute Lymphs (auto) 0.78 L, Nucleated RBC % 0, PT 14.2, INR 1.1, APTT 27.0, Sodium 141, Potassium 4.0, Chloride 111 H, Carbon Dioxide 23.0, Anion Gap 7, BUN 29 H, Creatinine 1.15 H, Estim Creat Clear Calc 59.19, Est GFR (MDRD) Af Amer 61, Est GFR (MDRD) Non-Af 50 L, BUN/Creatinine Ratio 25.2 H, Glucose 115 H, Calcium 9.1, Total Bilirubin 2.70 H, Direct Bilirubin 2.20 H, AST 32, ALT 81 H, Alkaline Phosphatase 217 H, Total Protein 5.9 L, Albumin 2.3 L, Globulin 3.6, TSH 1.250 Physical Exam Const alert, oriented x3, no apparent distress and well nourished Constitutional Narrative: obese General Appearance: cooperative and well developed HEENT normocephalic, head/scalp atraumatic, hearing grossly normal bilaterally, moist oral mucous membranes and oropharynx normal Eyes PERRL and EOMs intact bilaterally Eyes Narrative: Neck no lymphadenopathy, supple and no JVD Lymph Lymphatic: no lymphadenopathy noted and no lymphedema noted Resp normal respiratory effort, normal air movement, no retractions, no use of accessory muscles and clear to auscultation bilaterally Cardio regular rate, regular rhythm, S1 normal heart sound, S2 normal heart sound and no murmurs GI normal to inspection, nondistended, normoactive bowel sounds, soft to palpation, non-tender and non-distended GI Narrative: obese abdomen Extremity normal to inspection, full ROM, normal capillary refill, no clubbing, cyanosis or edema and no calf tenderness Extremity Narrative: Pedal pulses are 2+ General Extremity: no tenderness to palpation of joints or extremities Skin Skin Narrative: Patient is jaundiced. General Skin Exam: no breakdown Neuro oriented x3, CN's II-XII intact bilaterally, moves all extremities, no focal motor deficits, no sensory deficits noted and deep tendon reflexes 2+ bilaterally Sensorium / Orientation: awake, alert, oriented to person, oriented to place and oriented to time Speech: speech normal Motor Exam: strength 5/5 throughout and general weakness Psych thought process normal, cooperative and affect normal Psych Narrative: Very pleasant, interacts appropriately Appearance: appropriate Assessment & Plan Assessment/Plan (1) Pancreatitis: QUALIFIERS: Pancreatitis type: biliary Qualified Code(s): K85.10 - Biliary acute pancreatitis without necrosis or infection PLAN: Patient currently with pancreatitis status post ERCP with stone removal and stent placement postop day 1. I will increase her fluids to 300 mL an hour. I will also change her Toradol to 30 mL schedule. I would like to get a CT scan abdomen pelvis to help with the severity of the pancreatitis. I will repeat her amylase lipase tonight and also check ESR, CRP, lactate. She has been afebrile. I will advance her to full liquid diet. (2) Transaminitis: (3) Choledocholithiasis: PLAN: Patient had multiple stones removed. She had 2 stents placed yesterday. I suspect she still has stones in her bile duct. She will need repeat ERCP with lithotripsy. She has 2 stents placed. Hopefully her LFTs will start to come down. PLAN: Plan 03/31/2024-patient is doing well and her LFTs continue to improve. She is not showing any residual problems from pancreatitis. She is scheduled to undergo cholecystectomy. Okay to advance diet as tolerated from GI standpoint. I will continue to follow. Charges/Coding Visit Charges Inpatient E&M: 06760 [facility] Hosp L3
[2024-04-01] VITALS (15 sets, daily range): BP systolic 98–127; BP diastolic 59–70; PULSE 65–89; RESP 16–18; TEMP 36.4–37.1; O2SAT 92–100; BMI 43.0; BMI 43.7
[2024-04-01] MEDS: Metoclopramide 10 MG/2 ML Vial 5 MG IV ×3 (00:41→18:09)
[2024-04-01] MEDS: Ketorolac 30 MG/ML Syringe IV ×2 (00:41→05:45)
[2024-04-01 04:20] LABS: Absolute Lymphocyte Count 1.27 X10^3/uL (0.83-4.51); Basophil# 0.05 X10^3/uL; Hematocrit 29.9 % (37-47); Hemoglobin 9.7 g/dL (12.0-15.0); Lymphocyte # 1.27 X10^3/ul (0.83-4.51); Lymphocyte % 25.1 % (19-41); Mean Corp Hgb Conc 32.4 g/dL (32-36); Mean Corpuscular Hgb 29.6 pg (27.0-32.0); Mean Corpuscular Volume 91.2 fL (81-99); Mean Platelet Vol. 11.4 fl (6.2-12.0); Monocyte# 0.49 X10^3/uL; Monocyte% 9.7 % (0-10); NRBC Flagged by Analyzer 0 % (0-5); Neutrophil # 3.02 X10^3/uL (2.7-7.7); Neutrophil % 59.8 % (47-70); Platelet Count 193 K/mm3 (150-450); RBC Distribution Width CV 14.9 % (11.6-14.6); RBC Distribution Width SD 49.7 fl (35.1-43.9); Red Blood Count 3.28 M/mm3 (4.2-5.4); White Blood Count 5.1 K/mm3 (4.4-11.0)
[2024-04-01 04:51] LABS: Anion Gap 4 (5-15); BUN 29 mg/dL (7-18); BUN/Creat Ratio 24.8 RATIO (10-20); Calcium,Total 8.9 mg/dL (8.5-10.1); Chloride 111 mmol/L (98-107); Creatinine, Serum 1.17 mg/dL (0.55-1.02); EST Glomerular Filtration Rate 49 mL/min (>60); Est Glom Filt Rate - Afr Amer 59 mL/min (>60); Estimated Creatinine Clearance 58.18 ml/min; Glucose 91 mg/dL (74-106); Potassium 3.7 mmol/L (3.5-5.1); Sodium Level 140 mmol/L (136-145)
[2024-04-01] MEDS: metroNIDAZOLE 500 MG/100 ML BAG 100 MG IV ×3 (05:45→21:21)
[2024-04-01] MEDS: 0.9% Saline Lock 10 ML Syringe IV (05:46)
[2024-04-01 07:38] LABS: AST(SGOT) 25 U/L (15-37); Alanine Aminotransfer ALT/SGPT 69 U/L (13-56); Albumin, Serum 2.3 g/dL (3.2-5.0); Alkaline Phosphatase 187 U/L (45-117); Bilirubin, Direct 1.67 mg/dL (0.00-0.30); Globulin 3.3 g/dL (2.2-4.2); Protein, Total 5.6 g/dL (6.4-8.2)
[2024-04-01] MEDS: Pantoprazole Sodium 40 MG in 0.9% Normal Saline (100mL MB+) 100 ML 330 MG IV (09:26)
[2024-04-01] MEDS: Ciprofloxacin 400 MG/200 ML BAG 200 MG IV ×2 (09:31→22:24)
--- NOTE | 2024-04-01 09:34 | PN.SURG_ITS ---
Subjective Subjective Patient is evaluated resting comfortably in bed. She notes some epigastric pain/discomfort and some shoulder pain intermittently. She denies any nausea, vomiting. She tolerated clear liquids. She denies nay questions or concerns with the upcoming surgery. Objective Data Objective Data Vital Signs: Vital Signs Temp Pulse Resp BP Pulse Ox O2 Del Method 97.5 F L 80 18 107/64 95 Room Air 04/01/24 05:36 04/01/24 08:23 04/01/24 05:36 04/01/24 05:36 04/01/24 05:36 04/01/24 05:36 Oxygen Delivery Method Room Air Weight: 254 lb 6.615 oz Body Mass Index (BMI) 43.7 Intake & Output: Intake and Output for Last 24 Hours 03/30/24 03/31/24 04/01/24 23:59 23:59 23:59 Intake Total 1638.41 / 1638.41 910.00 / 910.00 500 / 500 Output Total 800 / 800 Balance 838.41 / 838.41 910.00 / 910.00 500 / 500 Lab / Micro Data 04/01/24 04:00 04/01/24 04:00 Labs: Laboratory Results - last 24 hr 04/01/24 04:00: WBC 5.1, RBC 3.28 L, Hgb 9.7 L, Hct 29.9 L, MCV 91.2, MCH 29.6, MCHC 32.4, RDW Std Deviation 49.7 H, RDW Coeff of Ja 14.9 H, Plt Count 193, MPV 11.4, Immature Gran % (Auto) 0.400, Neut % (Auto) 59.8, Lymph % (Auto) 25.1, [place] % (Auto) 9.7, Eos % (Auto) 4.0, Baso % (Auto) 1.0, Absolute Neuts (auto) 3.0, Absolute Lymphs (auto) 1.27, Nucleated RBC % 0, Sodium 140, Potassium 3.7, Chloride 111 H, Carbon Dioxide 24.0, Anion Gap 4 L, BUN 29 H, Creatinine 1.17 H, Estim Creat Clear Calc 58.18, Est GFR (MDRD) Af Amer 59 L, Est GFR (MDRD) Non-Af 49 L, BUN/Creatinine Ratio 24.8 H, Glucose 91, Calcium 8.9, Total Bilirubin 2.10 H, Direct Bilirubin 1.67 H, AST 25, ALT 69 H, Alkaline Phosphatase 187 H, Total Protein 5.6 L, Albumin 2.3 L, Globulin 3.3 Physical Exam GI GI Narrative: Abdomen- slight tenderness to palpation in the epigastric region Assessment & Plan Assessment/Plan (1) Choledocholithiasis: PLAN: I am following this patient in conjunction with Dr. Parra. He will independently evaluate this patient. Scheduled for lap dianne later this morning No further questions about surgery Possible discharge later today or tomorrow Charges/Coding Visit Charges Inpatient E&M: 71118 Subs Hosp L1 (pre-op)
--- NOTE | 2024-04-01 10:01 | NURSING ---
spoke w/evy in Rx and asked her to send cleocin (o/c to OR) to OR since it is not on MS3 to send w/pt
--- NOTE | 2024-04-01 10:23 | PCM.POSTANE2 ---
Anesthesia Postop Eval I Sum Postop Eval Completion status Anesthesia document: Postop Eval 1 completed: Yes Anesthesia Postop Eval I Summary Anesthesia Postop Eval I Summary: Anesthesia Postop Eval I: Assessment Summary Airway patent Yes 03/30/24 13:42 [email or web address] Spontaneous unlabored Yes 03/30/24 13:42 [email or web address] respirations Mental status Asleep 03/30/24 13:42 [email or web address] nausea No 03/30/24 13:42 [email or web address] Vomiting No 03/30/24 13:42 [email or web address] Anesthesia Postop Eval I: Fluid Summary Crystalloid volume administer 200 03/30/24 13:42 [email or web address] (ml) Colloids volume administered ( ml) Blood Product volume administered (ml) Total IV fluid infused 200 03/30/24 13:42 [email or web address] Anesthesia Postop Eval I: Summary Notes Anesthesia Complication No 03/30/24 13:42 [email or web address] Anesthesia Complication Comment: Post-operative progress note Anesthesia: Postop Eval II Evaluation Mental status: Awake Pain Level: 0 nausea: No Vomiting: No
--- NOTE | 2024-04-01 10:23 | ANES.CONFIRM ---
Anesthesia: Confirm Documents Multiple Procedures on Account (2) Confirmed Documents: Yes
--- NOTE | 2024-04-01 10:24 | ANES.CONFIRM ---
Anesthesia: Confirm Documents Multiple Procedures on Account (2) Confirmed Documents: Yes
--- NOTE | 2024-04-01 10:24 | ANES.CONFIRM ---
Anesthesia: Confirm Documents Multiple Procedures on Account (2) Confirmed Documents: Yes
--- NOTE | 2024-04-01 10:24 | ANES.CONFIRM ---
Anesthesia: Confirm Documents Multiple Procedures on Account (2) Confirmed Documents: Yes
--- NOTE | 2024-04-01 10:28 | NURSING ---
pt taken by surgical staff to OR area-
--- NOTE | 2024-04-01 10:38 | PN_ITS ---
Subjective Subjective Patient seen and examined. She had no active complaints and had an uneventful night. She is due for laparoscopic cholecystectomy tomorrow. She is otherwise stable. Objective Data Objective Data Vital Signs: Vital Signs Temp Pulse Resp BP Pulse Ox O2 Del Method 98.2 F 66 18 124/70 H 95 Room Air 04/01/24 10:00 04/01/24 10:00 04/01/24 10:00 04/01/24 10:00 04/01/24 10:00 04/01/24 10:00 Oxygen Delivery Method Room Air Weight: 254 lb 6.615 oz Body Mass Index (BMI) 43.7 Intake & Output: Intake and Output for Last 24 Hours 03/30/24 03/31/24 04/01/24 23:59 23:59 23:59 Intake Total 1638.41 / 1638.41 910.00 / 910.00 500 / 500 Output Total 800 / 800 Balance 838.41 / 838.41 910.00 / 910.00 500 / 500 Lab / Micro Data 04/01/24 04:00 04/01/24 04:00 Labs: Laboratory Results - last 24 hr 04/01/24 04:00: WBC 5.1, RBC 3.28 L, Hgb 9.7 L, Hct 29.9 L, MCV 91.2, MCH 29.6, MCHC 32.4, RDW Std Deviation 49.7 H, RDW Coeff of Ja 14.9 H, Plt Count 193, MPV 11.4, Immature Gran % (Auto) 0.400, Neut % (Auto) 59.8, Lymph % (Auto) 25.1, [place] % (Auto) 9.7, Eos % (Auto) 4.0, Baso % (Auto) 1.0, Absolute Neuts (auto) 3.0, Absolute Lymphs (auto) 1.27, Nucleated RBC % 0, Sodium 140, Potassium 3.7, Chloride 111 H, Carbon Dioxide 24.0, Anion Gap 4 L, BUN 29 H, Creatinine 1.17 H, Estim Creat Clear Calc 58.18, Est GFR (MDRD) Af Amer 59 L, Est GFR (MDRD) Non-Af 49 L, BUN/Creatinine Ratio 24.8 H, Glucose 91, Calcium 8.9, Total Bilirubin 2.10 H, Direct Bilirubin 1.67 H, AST 25, ALT 69 H, Alkaline Phosphatase 187 H, Total Protein 5.6 L, Albumin 2.3 L, Globulin 3.3 Physical Exam Const alert, oriented x3, no apparent distress, average body habitus, healthy appearing and well nourished Constitutional Narrative: obese General Appearance: cooperative and well developed HEENT normocephalic, head/scalp atraumatic, hearing grossly normal bilaterally, moist oral mucous membranes and oropharynx normal Eyes PERRL and EOMs intact bilaterally Eyes Narrative: Neck no lymphadenopathy, supple and no JVD Lymph Lymphatic: no lymphadenopathy noted and no lymphedema noted Resp normal respiratory effort, normal air movement, no retractions, no use of accessory muscles and clear to auscultation bilaterally Cardio regular rate, regular rhythm, S1 normal heart sound, S2 normal heart sound, no murmurs, no rub, no gallops and no clicks GI normal to inspection, nondistended, normoactive bowel sounds, soft to palpation, non-tender and non-distended GI Narrative: obese abdomen Extremity normal to inspection, full ROM, normal capillary refill, no clubbing, cyanosis or edema and no calf tenderness Extremity Narrative: Pedal pulses are 2+ General Extremity: no tenderness to palpation of joints or extremities Skin Skin Narrative: Patient is jaundiced. General Skin Exam: no breakdown Neuro oriented x3, CN's II-XII intact bilaterally, moves all extremities, no focal motor deficits, no sensory deficits noted and deep tendon reflexes 2+ bilaterally Sensorium / Orientation: awake, alert, oriented to person, oriented to place and oriented to time Speech: speech normal Motor Exam: strength 5/5 throughout and general weakness Psych thought process normal, cooperative and affect normal Psych Narrative: Very pleasant, interacts appropriately Appearance: appropriate Assessment & Plan Assessment/Plan (1) Pancreatitis: QUALIFIERS: Pancreatitis type: biliary Qualified Code(s): K85.10 - Biliary acute pancreatitis without necrosis or infection (2) Choledocholithiasis: PLAN: Plan #Acute choledocholithiasis * She did have ERCP earlier during this admission with lithotripsy and stent placement x 2. 21 stones were noted at that time. * She did have repeat ERCP yesterday which showed entire biliary tree being dilated with a stone causing an obstruction and there was complete removal of the stones by biliary sphincterotomy and balloon extraction and 2 stents removed from the left hepatic duct and right hepatic duct. 1 temporary stent was placed in the left hepatic duct * Management as per gastroenterology * Continue to trend liver enzymes. Liver enzymes continue to trend downwards IV morphine and IV Toradol as needed. On ciprofloxacin and metronidazole * General surgery on board. For laparoscopic cholecystectomy today. * #Iatrogenic pancreatitis due to ERCP: Management as above. Continue pain meds * #Transaminitis * Likely due to choledocholithiasis. * Liver enzymes continue to trend downwards and total bilirubin is down to 2.10 from 2.7 yesterday. * AST and ALT as well as ALP also continue to trend downwards. * #Elevated Cr: * Creatinine has trended up slightly to 1.17 today. * It was 1.15 yesterday. * Does not meet the criteria for BRAYDEN. Encourage oral hydration and trend creatinine. #Hypothyroidism: On Synthroid #Benign essential hypertension: On lisinopril. IV hydralazine as needed #History of asthma: Not in exacerbation. Breathing treatments bronchodilators. #Vitamin D deficiency: On vitamin D supplementation #Thrombocytopenia: * Resolved. * #Morbid obesity: Complicates acute care, expected recovery and prognosis DVT prophylaxis: Lovenox Charges/Coding Visit Charges Inpatient E&M: 88334 Subs Hosp L2
[2024-04-01] MEDS: Lactated Ringers 1,000 ML 15 ML IV (10:45)
--- NOTE | 2024-04-01 11:19 | PRE.ANES_ITS ---
ASA Classification* ASA Classification ASA Classification: 3 (SEE WRITTEN PRE ANESTHESIA RECORD FOR FULL ASSESSMENT) Assessment & Plan Anesthesia* Anesthesia Assessment Anesthesia Assessment: Discussed sedation and/or anesthesia options, risks, benefits, and alternatives with patient/parents/legal guardian/POA. Questions invited. The patient/parents/legal guardian/POA seems to understand and agrees to proceed with anesthesia plan. Reviewed the physical assessment, medical history, allergy history and patient home medications list prior to surgery/procedure/anesthetic and documented any changes. Performed airway and anesthesia risk assessments. Anesthesia Type Anesthesia Type: General (SEE WRITTEN PRE ANESTHESIA RECORD FOR FULL ASSESSMENT) Anesthesia Focused Assessment* Temperature: 98.2 F Pulse Rate: 66 Blood Pressure: 124/70 Respiratory Rate: 18 Pulse Ox: 95 Airway Assessment Mouth opens: >3 cm Mallampati Score: III Focused Labs Anesthesia Preop lab: CBC WBC 5.1 K/mm3 (4.4-11.0) 04/01/24 04:00 RBC 3.28 M/mm3 (4.2-5.4) L 04/01/24 04:00 Hgb 9.7 g/dL (12.0-15.0) L 04/01/24 04:00 Hct 29.9 % (37-47) L 04/01/24 04:00 Plt Count 193 K/mm3 (150-450) 04/01/24 04:00 CHEMISTRY Potassium 3.7 mmol/L (3.5-5.1) 04/01/24 04:00 Sodium 140 mmol/L (136-145) 04/01/24 04:00 Magnesium 1.8 mg/dL (1.6-2.6) 03/29/24 05:02 Phosphorus 2.3 mg/dL (2.5-4.9) L 03/29/24 05:02 BUN 29 mg/dL (7-18) H 04/01/24 04:00 Creatinine 1.17 mg/dL (0.55-1.02) H 04/01/24 04:00 Glucose 91 mg/dL (74-106) 04/01/24 04:00 TSH 1.250 uIU/mL (0.358-3.740) 03/31/24 06:38 COAG PT 14.2 SECONDS (11.7-14.9) 03/31/24 06:38 Pre-Assessment Diagnosis/Proposed Procedure Planned Operative Procedure(s): ercp Anesthesia History Anesthesia History - event marketing representative: Anesthesia History - event marketing representative Hx Hospitalization Any Problems With Anesthesia No 03/30/24 08:23 Cholinesterase deficiency No 03/30/24 08:23 You/Your Family Experience No 03/30/24 08:23 fever (hyperthermia) with Relationship Recent Exposure to Contagious No 03/30/24 08:23 Disease Does patient have nerve No 03/30/24 08:23 stimulator Patient instructed to have No 03/30/24 08:23 device shut off --Does patient have Pacemaker No 04/01/24 10:00 or ICD? When Was Last Pacemaker Check QUESTION #4 FULL TEXT: You/Your Family Experience fever (hyperthermia) with Anesthesia Last Oral Intake Last Oral intake: Last Oral Intake NPO since 00:01 04/01/24 10:00 Meds taken in AM with sips of No 04/01/24 10:00 water? Meds patient instructed to take am of surgery PONV PONV - event marketing representative: PONV - event marketing representative Female HX of Motion Sickness HX of N/V After Surgery Non-Smoker Duration of Surgery greater than 60 minutes Number of Risk Factors PONV Score Height & Weight Height & Weight: Anesthesia: Height & Weight Height 5 ft 4 in 04/01/24 10:00 Weight: 115.4 kg 04/01/24 10:00 Body Mass Index (BMI) 43.7 04/01/24 10:00 Respiratory Assessment Respiratory Assessment - event marketing representative: Respiratory Tract Infection Hx - event marketing representative Hx Respiratory Tract Infection No 03/30/24 08:23 STOP Sleep Apnea STOP Sleep Apnea - event marketing representative: STOP Sleep Apnea - event marketing representative Hx Hypertension Yes 03/26/24 03:36 Hx Sleep Apnea No 03/30/24 14:01 CPAP BIPAP Do you snore loudly (louder No 03/26/24 03:36 than talking or can be heard Do you often feel tired/ No 03/26/24 03:36 fatigued/ sleepy during daytime? Has anyone observed you stop No 03/26/24 03:36 breathing during sleep? STOP Results Negative 03/30/24 13:35 QUESTION #5 FULL TEXT : Do you snore loudly (louder than talking or can be heard through closed doors)? Tobacco Use History Tobacco Use History - event marketing representative: Tobacco Use History - event marketing representative Tobacco Use Smoking Status Never smoker 03/26/24 03:36 Hx Tobacco Use No 03/26/24 03:36 Years Smoking Packs Smoked per Day Smoking Cessation Date was within the last 15 years Hx Smoking Cessation Date Hx Smoking Cessation Counseling Hematologic Medial History Hematologic Hx - event marketing representative: Hematologic Medical Hx - crm marketing executive Hx of Blood Transfusion No 03/26/24 03:36 Hx of Transfusion in last 3 No 03/26/24 03:36 Months Date of Last Transfusion (if within last 3 months) Ever experience any problems No 03/26/24 03:36 with transfusion(s)? Specify any problems Hx of Preganancy in last 3 No 03/26/24 03:36 Months Nurse Filling Out Transfusion DREDICK 03/26/24 03:36 & Questions: Date: 03/26/24 03/26/24 03:36 Time: 03:36 03/26/24 03:36 Patient unable to answer at this time (ie. confused, unrespo /Reproduction History /Reproductive History - event marketing representative: /Reproductive Hx- event marketing representative Hx Now No 03/30/24 08:23 Gestational Age (in weeks): EDC: Hx Hx Para Hx Section SAB No 03/30/24 08:23 Active Medications Active Medications: Current Medications Generic Name Dose Route Start Last Admin Trade Name Freq PRN Reason Stop Dose Admin Albuterol Sulfate 2.5 mg 03/26/24 05:07 Albuterol 2.5 Mg/3 Ml Vial.Neb. INHALATION Q4H PRN PRN SHORTNESS OF BREATH Cholecalciferol 125 mcg 03/31/24 10:00 04/01/24 09:31 Cholecalciferol (Vit D3) 125 Mcg Capsule (5,000 Units) PO Not Given DAILY LYRIC Enoxaparin Sodium 40 mg 03/26/24 22:00 04/01/24 09:30 Enoxaparin 40 Mg/0.4 Ml Syringe SC Not Given BID LYRIC Hydralazine HCl 10 mg 03/26/24 05:09 Hydralazine 20 Mg/Ml Vial IV Q6H PRN PRN SBP GREATER THAN 160 Protocol Sodium Chloride 500 mls @ 15 mls/hr 03/26/24 03:31 IV .[id number] PRN Saline Flush Sodium Chloride 500 mls @ 15 mls/hr 03/26/24 03:31 IV .[id number] PRN Additional IVPB Infusion Pantoprazole Sodium 40 mg/ 110 mls @ 330 mls/hr 03/26/24 05:01 04/01/24 09:26 Sodium Chloride IV 330 mls/hr Q24 LYRIC Administration Metronidazole 500 mg in 100 mls @ 100 mls/hr 03/26/24 06:00 04/01/24 05:45 Flagyl IV 100 mls/hr Q8 LYRIC Administration Ciprofloxacin 400 mg in 200 mls @ 200 mls/hr 03/26/24 10:00 04/01/24 09:31 Cipro IV 200 mls/hr Q12 LYRIC Administration Clindamycin Phosphate 900 mg in 50 mls @ 75 mls/hr 04/01/24 11:00 Cleocin IV 04/01/24 11:39 PREOP ONE Ketorolac Tromethamine 30 mg 03/27/24 18:00 04/01/24 05:45 Ketorolac 30 Mg/Ml Syringe IV 04/01/24 15:19 30 mg Q6 LYRIC Administration Levothyroxine Sodium 200 mcg 03/31/24 06:00 04/01/24 05:31 Levothyroxine 100 Mcg Tablet PO Not Given [email or web address] [facility] Levothyroxine Sodium 400 mcg 04/05/24 06:00 Levothyroxine 100 Mcg Tablet PO [email or web address] [facility] Lisinopril 20 mg 03/30/24 22:00 04/01/24 09:32 Lisinopril 20 Mg Tablet PO Not Given BID [facility] Protocol Metoclopramide HCl 5 mg 03/27/24 18:00 04/01/24 05:45 Metoclopramide 10 Mg/2 Ml Vial IV 5 mg Q6 LYRIC Administration Morphine Sulfate 2 mg 03/26/24 05:07 Morphine 2 Mg/Ml Syringe IV Q4H PRN PRN Pain Score 6-10 Ondansetron HCl 4 mg 03/26/24 05:07 03/27/24 07:36 Ondansetron 4 Mg/2 Ml Vial IV 4 mg Q6H PRN PRN Administration NAUSEA/VOMITING Promethazine HCl 25 mg 03/26/24 05:07 Promethazine 25 Mg/Ml Syringe IM Q6H PRN PRN Breakthrough nausea/vomiting Sodium Chloride 10 - 40 ml 03/26/24 03:31 04/01/24 05:46 0.9% Saline Lock 10 Ml Syringe IV 40 ml UD PRN Administration SALINE FLUSH PFSH Medical History Pancreatitis Vitamin D deficiency Hypertension Hypothyroidism Home Medications ?Medication ?Instructions ?Recorded ?Last Taken ?Type levothyroxine 200 mcg tablet 200 mcg PO MOTUWETHFRSA thyroid 11/06/21 Unknown History levothyroxine 200 mcg tablet 400 mcg PO CATALAN thyroid 11/06/21 Unknown History lisinopril 20 mg tablet 20 mg PO BID 11/06/21 Unknown History albuterol sulfate 90 mcg/actuation 2 inh inhalation Q4H PRN sob 03/26/24 Unknown History breath activated powder inhaler (ProAir RespiClick) cholecalciferol (vitamin D3) 125 5,000 unit PO DAILY 03/26/24 Unknown History mcg (5,000 unit) capsule Allergy/AdvReac Type Severity Reaction Status Date / Time chlorhexidine Allergy Rash Verified 03/30/24 11:37 Penicillins Allergy CHILDHOOD Verified 03/30/24 11:37 ALLERGY psyllium (From Metamucil) Allergy Shortness Verified 03/30/24 11:37 of breath Surgical History S/P ERCP H/O section S/P dilatation and curettage Social History Smoking Status: Never smoker Review of Systems (Anesthesia) ROS Narrative System reviewed and no additional complaints, except as documented.
[2024-04-01] MEDS: Clindamycin 900 MG/50 ML BAG 75 MG IV (11:49)
--- NOTE | 2024-04-01 11:54 | ANES.CONF2 ---
Anesthesia: Confirm Documents Multiple Procedures on Account (3) Confirmed Documents: Yes
--- NOTE | 2024-04-01 11:54 | ANES.CONF2 ---
Anesthesia: Confirm Documents Multiple Procedures on Account (3) Confirmed Documents: Yes
[2024-04-01] MEDS: Bupiv/Epi 0.25% 30 ML Vial (12:06)
--- NOTE | 2024-04-01 13:24 | OP.PCM_ITS ---
Problems Associated Problem List Diagnoses (1) Choledocholithiasis: (2) Pancreatitis: Operative Report (Standard) Operative Information Surgery/Procedure Performed: Diagnostic laparoscopy with attempted cholecystectomy Surgeon: Husam Parra Date of Procedure: 04/01/24 Procedure Start Time: 12:06 Procedure Stop Time: 13:17 Pre-Operative Diagnosis: Acute on chronic cholecystitis/cholelithiasis; recent choledocholithiasis Post-Operative Diagnosis: Same Select all DRAINS/GRAFTS/IMPLANTS that apply: Drains Drain details: 10 Lao flat HEIDI drain x 1 Type of Anesthesia: General Estimated Blood Loss: 30 mL Specimen collected: No Description of surgery: The patient is a 69-year-old female who was admitted about a week ago with abdominal pain and elevated bilirubin in the 8-9 range. She was found to have numerous common bile duct stones. She was transferred for ERCP. Not all of her stones were able to be evacuated and repeat ERCP was performed earlier this week. She developed significant pancreatitis after the initial ERCP. Her bilirubin has decreased considerably and pancreatitis is resolved. We offered her cholecystectomy. We discussed the details of the planned procedure inclu ding risks benefits and alternatives. She wished to proceed. Patient was brought to the operating room today following informed consent. She was already receiving antibiotics. A timeout was performed. She was placed supine on the operative table with arms outstretched on arm boards. The general anesthesia was induced. 5 mm incision was made just below the umbilicus which a 5 mm trocar was placed without difficulty. The abdomen is then fully insufflated with CO2 gas. A 5 mm 0 degree scope was inserted. There were no signs of bowel or vascular injury. Next a 10 mm trocar was placed under direct visualization in the epigastric area. Then two 5 mm trocars were placed under direct visualization in the right upper quadrant. The patient was placed in some head up and rolled to the left positioning. The gallbladder was identified. It was extremely contracted and severely thickened and fibrosed. In order to grasp the gallbladder, tooth graspers were utilized. The gallbladder was then able to be reflected in a cephalad direction. Another grasper was used in the mid gallbladder to provide further retraction. The peritoneum overlying the lateral aspects and medial aspects of the gallbladder were released which provided minimal mobility. I was able to identify the peritoneum overlying the infundibulum and was able to release this which allowed me to utilize a Kitner and a power suction parts consultant to do some blunt dissection. There was a thick band of tissue which I believe in retrospect also had a small blood vessel running in this region. This was clipped and transe cted. I clipped this on the gallbladder side first and did a small opening with scissors and there was really no blood return or return of bile so the other end was clipped as well. Further dissection was carried out near the region of the infundibulum however this was extremely dense and fibrotic. I utilized the liver sulcus to estimate where the infundibulum should be in this region was completely encased in hard fibrotic tissue. I attempted to appreciate a tissue plane however this was not able to be developed. At this point I decision was made to abort further attempts at cholecystectomy as I did not feel that the level of inflammation would allow for safe and appropriate identification of the cystic duct, cystic artery and common bile duct. In order to avoid any potential bile duct injury, the surgery ceased at this point. I made sure that hemostasis was achieved which it was. I placed a 10 flat HEIDI drain in the right upper quadrant this was brought out through one of the right sided 5 mm trocars and was sutured in place. The fascia at the 10 mm trocar site was closed using 0 PDS with the the pyloric guide. The remaining trocars were opened up. Insufflation was allowed to escape. Local anesthetic was injected each incisions and incisions were closed with 5-0 Vicryl. Skin glue was applied as dressing. She was awakened from anesthesia and taken the PACU in good condition. Surgical Findings: Severe fibrosis and scarring involving the infundibulum of the gallbladder which precluded safe identification of cystic duct, common bile duct and cystic artery. Attempted cholecystectomy was aborted Wrapping Machine Operator bushel worker: Yes Cuff Stitcher: Rocco Wisdom Tasks completed by certified surgical first assistant: Closing and Other (Gallbladder retraction ) Additional early childhood assistant?: No Complications Complications: No Admit VTE Documentation VTE Present on Admission: No VTE Mechan Device Prophylaxis: SCD's VTE Pharm Prophylaxis ordered?: Yes Procedures Digestive [id number]: Other Procedure See Notes (52805 - diagnostic laparoscopy)
--- NOTE | 2024-04-01 13:28 | PCM.POST.ANE ---
Anesthesia: Postop Eval I Current Vital Signs Temperature: 98.7 F Pulse Rate: 88 Blood Pressure: 112/62 Respiratory Rate: 18 Pulse Ox: 93 Oxygen Delivery Method: Room Air Assessment Airway patent: Yes Spontaneous unlabored respirations: Yes Mental status: Awake and Calm nausea: No Vomiting: No Anesthesia Complication: No Fluid Hydration Crystalloid volume administer (ml): 800 Total IV fluid infused: 800 Progress Note Anesthesia document: Postop Eval 1 completed: Yes
--- NOTE | 2024-04-01 19:36 | PN.GI_ITS ---
Subjective Subjective Patient is doing well without any complaints. She is scheduled for cholecystectomy tomorrow. Objective Data Objective Data Vital Signs: Vital Signs Temp Pulse Resp BP Pulse Ox O2 Del Method O2 Flow Rate 98.0 F 66 18 112/66 98 Room Air 2 04/01/24 18:15 04/01/24 18:15 04/01/24 18:15 04/01/24 18:15 04/01/24 18:15 04/01/24 18:15 04/01/24 14:20 Oxygen Flow Rate (L/min) 2 Oxygen Delivery Method Room Air Weight: 254 lb 6.615 oz Body Mass Index (BMI) 43.7 Intake & Output: Intake and Output for Last 24 Hours 03/30/24 03/31/24 04/01/24 23:59 23:59 23:59 Intake Total 1638.41 / 1638.41 910.00 / 910.00 1510 / 1510 Output Total 800 / 800 Balance 838.41 / 838.41 910.00 / 910.00 1485 / 1485 Lab / Micro Data 04/01/24 04:00 04/01/24 04:00 Labs: Laboratory Results - last 24 hr 04/01/24 04:00: WBC 5.1, RBC 3.28 L, Hgb 9.7 L, Hct 29.9 L, MCV 91.2, MCH 29.6, MCHC 32.4, RDW Std Deviation 49.7 H, RDW Coeff of Ja 14.9 H, Plt Count 193, MPV 11.4, Immature Gran % (Auto) 0.400, Neut % (Auto) 59.8, Lymph % (Auto) 25.1, [place] % (Auto) 9.7, Eos % (Auto) 4.0, Baso % (Auto) 1.0, Absolute Neuts (auto) 3.0, Absolute Lymphs (auto) 1.27, Nucleated RBC % 0, Sodium 140, Potassium 3.7, Chloride 111 H, Carbon Dioxide 24.0, Anion Gap 4 L, BUN 29 H, Creatinine 1.17 H, Estim Creat Clear Calc 58.18, Est GFR (MDRD) Af Amer 59 L, Est GFR (MDRD) Non-Af 49 L, BUN/Creatinine Ratio 24.8 H, Glucose 91, Calcium 8.9, Total Bilirubin 2.10 H, Direct Bilirubin 1.67 H, AST 25, ALT 69 H, Alkaline Phosphatase 187 H, Total Protein 5.6 L, Albumin 2.3 L, Globulin 3.3 Radiography Diagnostic Testing: Radiology Impression Endo Retro Cholangiopancreatogram 03/30/24 13:10 IMPRESSION: Fluoroscopic services provided for ERCP. Electronically Signed: Wicho Kay MD at 13:04 EDT , Physical Exam Const alert, oriented x3, no apparent distress, average body habitus, healthy appearing and well nourished General Appearance: cooperative and well developed HEENT normocephalic, head/scalp atraumatic, hearing grossly normal bilaterally, moist oral mucous membranes and oropharynx normal Eyes PERRL and EOMs intact bilaterally Eyes Narrative: Neck no lymphadenopathy, supple and no JVD Lymph Lymphatic: no lymphadenopathy noted and no lymphedema noted Resp normal respiratory effort, normal air movement, no retractions, no use of accessory muscles and clear to auscultation bilaterally Cardio regular rate, regular rhythm, S1 normal heart sound, S2 normal heart sound, no murmurs, no rub, no gallops and no clicks GI normal to inspection, nondistended, normoactive bowel sounds, soft to palpation, non-tender and non-distended GI Narrative: obese abdomen Extremity normal to inspection, full ROM, normal capillary refill, no clubbing, cyanosis or edema and no calf tenderness Extremity Narrative: Pedal pulses are 2+ General Extremity: no tenderness to palpation of joints or extremities Skin Skin Narrative: Patient is jaundiced. General Skin Exam: no breakdown Neuro oriented x3, CN's II-XII intact bilaterally, moves all extremities, no focal motor deficits, no sensory deficits noted and deep tendon reflexes 2+ bilaterally Sensorium / Orientation: awake, alert, oriented to person, oriented to place and oriented to time Speech: speech normal Motor Exam: strength 5/5 throughout and general weakness Psych thought process normal, cooperative and affect normal Psych Narrative: Very pleasant, interacts appropriately Appearance: appropriate Assessment & Plan Assessment/Plan (1) Pancreatitis: QUALIFIERS: Pancreatitis type: biliary Qualified Code(s): K85.10 - Biliary acute pancreatitis without necrosis or infection PLAN: Patient currently with pancreatitis status post ERCP with stone removal and stent placement postop day 1. I will increase her fluids to 300 mL an hour. I will also change her Toradol to 30 mL schedule. I would like to get a CT scan abdomen pelvis to help with the severity of the pancreatitis. I will repeat her amylase lipase tonight and also check ESR, CRP, lactate. She has been afebrile. I will advance her to full liquid diet. (2) Transaminitis: (3) Choledocholithiasis: PLAN: Patient had multiple stones removed. She had 2 stents placed yesterday. I suspect she still has stones in her bile duct. She will need repeat ERCP with lithotripsy. She has 2 stents placed. Hopefully her LFTs will start to come down. PLAN: Plan 03/31/2024-patient is doing well and her LFTs continue to improve. She is not showing any residual problems from pancreatitis. She is scheduled to undergo cholecystectomy. Okay to advance diet as tolerated from GI standpoint. I will continue to follow. 04/01/2024-LFTs continue to improve. She does not have any abdominal pain and is tolerating a diet. Patient for cholecystectomy tomorrow. Continue to trend LFTs. Charges/Coding Visit Charges Inpatient E&M: 57413 Subs Hosp L3
[2024-04-01] MEDS: Enoxaparin 40 MG/0.4 ML Syringe SC (21:21)
[2024-04-02] MEDS: Metoclopramide 10 MG/2 ML Vial 5 MG IV ×2 (00:22→05:35)
[2024-04-02 00:35] VITALS: BP 118/67; PULSE 69; RESP 18; TEMP 36.8; O2SAT 94
[2024-04-02 04:29] VITALS: BP 123/70; PULSE 68; RESP 18; TEMP 37.3; O2SAT 94
[2024-04-02] MEDS: metroNIDAZOLE 500 MG/100 ML BAG 100 MG IV ×2 (05:35→14:29)
[2024-04-02] MEDS: 0.9% Saline Lock 10 ML Syringe IV (05:35)
[2024-04-02 06:00] VITALS: BMI 44.8
[2024-04-02 07:10] LABS: Absolute Lymphocyte Count 1.09 X10^3/uL (0.83-4.51); Absolute Neutrophil Count 6.2 X10^3/uL (2.0-7.7); Basophil# 0.02 X10^3/uL; Basophil% 0.2 % (0-1); Eosinophil# 0.01 X10^3/uL; Eosinophils% 0.1 % (0-5); Hematocrit 31.6 % (37-47); Hemoglobin 10.2 g/dL (12.0-15.0); Lymphocyte # 1.09 X10^3/ul (0.83-4.51); Lymphocyte % 13.4 % (19-41); Mean Corp Hgb Conc 32.3 g/dL (32-36); Mean Corpuscular Hgb 29.2 pg (27.0-32.0); Mean Corpuscular Volume 90.5 fL (81-99); Monocyte# 0.77 X10^3/uL; Monocyte% 9.5 % (0-10); NRBC Flagged by Analyzer 0 % (0-5); Neutrophil # 6.19 X10^3/uL (2.7-7.7); Neutrophil % 76.3 % (47-70); Platelet Count 238 K/mm3 (150-450); RBC Distribution Width CV 14.8 % (11.6-14.6); RBC Distribution Width SD 48.9 fl (35.1-43.9); Red Blood Count 3.49 M/mm3 (4.2-5.4); White Blood Count 8.1 K/mm3 (4.4-11.0)
[2024-04-02 07:39] VITALS: BP 129/71; PULSE 66; RESP 16; TEMP 36.9; O2SAT 94
[2024-04-02 07:45] LABS: Anion Gap 6 (5-15); BUN 18 mg/dL (7-18); BUN/Creat Ratio 18.8 RATIO (10-20); Calcium,Total 8.7 mg/dL (8.5-10.1); Chloride 112 mmol/L (98-107); Creatinine, Serum 0.96 mg/dL (0.55-1.02); EST Glomerular Filtration Rate 62 mL/min (>60); Est Glom Filt Rate - Afr Amer 75 mL/min (>60); Estimated Creatinine Clearance 72.23 ml/min; Glucose 141 mg/dL (74-106); Sodium Level 142 mmol/L (136-145)
--- NOTE | 2024-04-02 07:48 | PCM.PN.SRG ---
Subjective Subjective Patient evaluated resting comfortably in bed. She notes epigastric discomfort. No right upper quadrant pain/discomfort. She denies any nausea, vomiting. She is tolerating full liquids. HEIDI drain put out 70 mL overnight of serosanguineous fluid. Objective Data Objective Data Vital Signs: Vital Signs Temp Pulse Resp BP Pulse Ox O2 Del Method O2 Flow Rate 98.5 F 66 16 129/71 H 94 Room Air 2 04/02/24 07:39 04/02/24 07:39 04/02/24 07:39 04/02/24 07:39 04/02/24 07:39 04/02/24 07:39 04/01/24 14:20 Oxygen Flow Rate (L/min) 2 Oxygen Delivery Method Room Air Weight: 262 lb 9.129 oz Body Mass Index (BMI) 44.8 Intake & Output: Intake and Output for Last 24 Hours 03/31/24 04/01/24 04/02/24 23:59 23:59 23:59 Intake Total 910.00 / 910.00 1810 / 1810 500 / 500 Output Total 870 / 870 Balance 910.00 / 910.00 1785 / 1785 -370 / -370 Lab / Micro Data 04/02/24 06:26 04/02/24 06:26 Labs: Laboratory Results - last 24 hr 04/02/24 06:26: WBC 8.1, RBC 3.49 L, Hgb 10.2 L, Hct 31.6 L, MCV 90.5, MCH 29.2, MCHC 32.3, RDW Std Deviation 48.9 H, RDW Coeff of Ja 14.8 H, Plt Count 238, MPV 12.0, Immature Gran % (Auto) 0.500, Neut % (Auto) 76.3 H, Lymph % (Auto) 13.4 L, [place] % (Auto) 9.5, Eos % (Auto) 0.1, Baso % (Auto) 0.2, Absolute Neuts (auto) 6.2, Absolute Lymphs (auto) 1.09, Nucleated RBC % 0, Sodium 142, Potassium 4.0, Chloride 112 H, Carbon Dioxide 24.0, Anion Gap 6, BUN 18, Creatinine 0.96, Estim Creat Clear Calc 72.23, Est GFR (MDRD) Af Amer 75, Est GFR (MDRD) Non-Af 62, BUN/Creatinine Ratio 18.8, Glucose 141 H, Calcium 8.7 Radiography Diagnostic Testing: Radiology Impression Endo Retro Cholangiopancreatogram 03/30/24 13:10 IMPRESSION: Fluoroscopic services provided for ERCP. Electronically Signed: Wicho Kay MD at 13:04 EDT , Physical Exam GI GI Narrative: Abdomen- soft, Slight tenderness of the epigastric region. Nontender to RUQ. Incisions c/d/i. No erythema or infection noted. HEIDI drain does not demonstrate any bile within. HEIDI drain was prepped with betadine, suture was trimmed, bulb was taken off suction and drain was removed with tip intact. 2 x 2 gauze was applied and secured with tape. Assessment & Plan Assessment/Plan (1) Choledocholithiasis: PLAN: I am seeing this patient in conjunction with Dr. Irvin in Dr. Parra's absence. I have discussed this patient with him. HEIDI drain removed successfully Labs reviewed Plan to refer patient to hepatobiliary as an outpatient to either [facility] or [facility] Recommend patient to follow-up with Dr. Parra in 1 week Reviewed incision care with the patient From a surgical standpoint, patient is ready for discharge. I will work on referring the patient. Charges/Coding Visit Charges Inpatient E&M: 71118 Subs Hosp L1 (post-op)
[2024-04-02 08:09] LABS: AST(SGOT) 25 U/L (15-37); Alanine Aminotransfer ALT/SGPT 58 U/L (13-56); Albumin, Serum 2.3 g/dL (3.2-5.0); Alkaline Phosphatase 182 U/L (45-117); Bilirubin, Direct 1.34 mg/dL (0.00-0.30); Globulin 3.3 g/dL (2.2-4.2); Protein, Total 5.6 g/dL (6.4-8.2)
--- NOTE | 2024-04-02 09:12 | CASEMGMT ---
Insurance review for hospitals In-network with?[facility] insurance if transfer is recommended is as follows: [facility], [place], [facility], [place], [facility], [facility], [facility], [facility], [place], [facility] ([facility]), and . Martha Baer, Discharge Planning Asst.
[2024-04-02] MEDS: Ciprofloxacin 400 MG/200 ML BAG 200 MG IV (10:34)
[2024-04-02] MEDS: Pantoprazole Sodium 40 MG Tablet PO (10:35)
[2024-04-02] MEDS: Enoxaparin 40 MG/0.4 ML Syringe SC (10:35)
--- NOTE | 2024-04-02 10:48 | DCINST_ITS ---
Discharge Instructions Diet Discharge Diet: - (Recommend low fat, bland diet) Activity Discharge Activity: May Drive May shower in (days): 2 Lifting Restrictions: No lifting greater than 20 pounds for 2 weeks Dressing / Incision Call your doctor if your incision/area has: Continuous Slow Oozing, Sudden Increased Bleeding, Increased Pain/ Swelling, Increased Redness, Foul Smelling Discharge and Swelling at the incision site Call your doctor if you observe: Fever of 101 or Higher Suture Line Care: Avoid Pulling/Pushing and Avoid Pinching/Bending Remove Dressing in: 2 days Cleanse incision/area with: Soap & Water Follow Up Care Please Follow Up With: Husam Parra MD When: Please contact our office to schedule a 1 week follow-up appointment with Dr. Parra at [phone], option #2 Test Results: Test results from this visit will be discussed in further detail at your follow- up appointment, if applicable. Discharge Plan Admission Admit Date/Time: 03/26/24 04:55 Attending Provider: Francie Davalos Primary Care Provider: Wiliam Kay Consulting Providers: Brennan Truong; Husam Parra; Funmi Willoughby Discharge Orders/Prescriptions Prescriptions: No Action lisinopril 20 mg tablet 20 mg PO BID Patient Comments: TAKE 1 TABLET BY MOUTH TWICE DAILY levothyroxine 200 mcg tablet 200 mcg PO MOTUWETHFRSA Patient Comments: TAKE 1 TABLET BY MOUTH ONCE DAILY SATURDAY THROUGH SATURDAY, THEN 2 ON SATURDAY levothyroxine 200 mcg tablet 400 mcg PO ROBERTS Patient Comments: TAKE 1 TABLET BY MOUTH ONCE DAILY SATURDAY THROUGH SATURDAY, THEN 2 ON SATURDAY cholecalciferol (vitamin D3) 125 mcg (5,000 unit) capsule 5,000 unit PO DAILY ProAir RespiClick 90 mcg/actuation aerosol powdr breath activated 2 inh inhalation Q4H PRN (Reason: sob) Referrals / Follow Up: Wiliam Kay MD [Primary Care Provider] -
--- NOTE | 2024-04-02 12:52 | CHAPLAIN ---
Type of Pastoral Visit _x__ Initial Visit ___ Follow-up Visit ___ On-call Visit ___ General Patient Visit ___ Spiritual Assessment ___ Family Conference ___ Bereavement ___ Rapid Response ___ Code Blue ___ Other (describe below) Pastoral Care Referral From _x__ Patient ___ Family ___ Nurse ___ Physician ___ Marketing Account Executive ___ Cutter Operator Tile ___ Other (describe below) Sacrament/Intervention _x__ Active listening ___ Anointing ___ Islam ___ Bereavement ___ Communion ___ Orquidea exploration ___ _x__ Life review _x__ Prayer ___ Reconciliation ___ Sacrament of Sick _x__ Supportive presence ___ Wedding ___ Other (describe below) Pastoral Comments a long visit with this patient who has been transferred to [facility] and will need another transfer to a hospital that can do her special surgery; exploration of her feelings and how she is handling the situation; some life review and consideration of her orquidea; presence and prayer welcomed
[2024-04-02 14:35] VITALS: BP 122/65; PULSE 74; RESP 16; TEMP 37.1; O2SAT 95
--- NOTE | 2024-04-02 15:49 | CASEMGMT ---
RN CM into pt room, pt denies any DC needs. Discussed pt referral to outside facility for specialized care. Pt would prefer going to a hospital in [place] if possible, notified pt that referrals have been sent to [facility] and [place]. Pt denied wanting to cancel referrals to [facility] until she sees if [facility] is able to accept. Notified PA of patient preference.
--- NOTE | 2024-04-02 15:52 | DS.PCM_ITS ---
Providers Date of Admission: 03/26/24 Date of Discharge: 04/02/24 Primary Care Physician: Dr. Wiliam Kay MD Consultations 03/26/24 05:07 Consult: Gastroenterology Routine Consulting Provider: [facility] Reason for Consult: Choledocholithiasis with Transaminitis and Hyperbilirubinemia. EMERGENT Consult: No Notified: Yes Date Notified: 03/26/24 Time Notified: 05:02 Method of Notification: ED Physician Initiated 03/27/24 08:45 Consult: Gastroenterology Routine Consulting Provider: Husam Parra Reason for Consult: gallbladder EMERGENT Consult: No Notified: Yes Date Notified: 03/27/24 Time Notified: 08:46 Method of Notification: Answering Service Reason For Visit: COLEDONCHOLITHIASIS WITH TRANSAMNITIS & Diagnosis Discharge Diagnosis (1) Choledocholithiasis: Status: Acute Code(s): K80.50 - Calculus of bile duct without cholangitis or cholecystitis without obstruction Plan #Acute choledocholithiasis * She did have ERCP earlier during this admission with lithotripsy and stent placement x 2. 21 stones were noted at that time. * She did have repeat ERCP yesterday which showed entire biliary tree being dilated with a stone causing an obstruction and there was complete removal of the stones by biliary sphincterotomy and balloon extraction and 2 stents removed from the left hepatic duct and right hepatic duct. 1 temporary stent was placed in the left hepatic duct * Management as per gastroenterology * Continue to trend liver enzymes. Liver enzymes continue to trend downwards IV morphine and IV Toradol as needed. On ciprofloxacin and metronidazole * General surgery on board. For laparoscopic cholecystectomy today. * #Iatrogenic pancreatitis due to ERCP: Management as above. Continue pain meds * #Transaminitis * Likely due to choledocholithiasis. * Liver enzymes continue to trend downwards and total bilirubin is down to 2.10 from 2.7 yesterday. * AST and ALT as well as ALP also continue to trend downwards. * #Elevated Cr: * Creatinine has trended up slightly to 1.17 today. * It was 1.15 yesterday. * Does not meet the criteria for BRAYDEN. Encourage oral hydration and trend creatinine. #Hypothyroidism: On Synthroid #Benign essential hypertension: On lisinopril. IV hydralazine as needed #History of asthma: Not in exacerbation. Breathing treatments bronchodilators. #Vitamin D deficiency: On vitamin D supplementation #Thrombocytopenia: * Resolved. * #Morbid obesity: Complicates acute care, expected recovery and prognosis DVT prophylaxis: Lovenox Medications at Discharge Home Medications levothyroxine 200 mcg tablet 200 mcg PO MOTUWETHFRSA thyroid 11/06/21 levothyroxine 200 mcg tablet 400 mcg PO ROBERTS thyroid 11/06/21 lisinopril 20 mg tablet 20 mg PO BID 11/06/21 albuterol sulfate 90 mcg/actuation breath activated powder inhaler (ProAir RespiClick) 2 inh inhalation Q4H PRN sob 03/26/24 cholecalciferol (vitamin D3) 125 mcg (5,000 unit) capsule 5,000 unit PO DAILY 03/26/24 Hospital Course Operations None Procedures - (ERCP) Summary of Care Provided Minutes Spent on Discharge: 55 Hospital Course: Patient is a 69-year-old female with a past medical history as outlined was admitted through the ED with a complaint of right-sided upper abdominal pain which radiated down to the right lower quadrant without state epigastric pain and pain in her back. She also complained of nausea and loss of appetite as well as yellowing of his skin and she also had generalized pruritus. She initially thought his symptoms were due to her pulling weeds in her garden. She had not had such symptoms before and did not have any known history of gallbladder disease. She had admitted to a worsening of his symptoms after eating a whole gave that her got for her. CT of the abdomen and pelvis done at outside hospital showed evidence of choledocholithiasis with dilatation of the CBD to approximately 1.2 cm and a radiolucent stone in the common bile duct along with cooperating lab evidence of increased LFTs and elevated bilirubin of 7.6. There was no sign of pancreatitis. She was transferred from the outside hospital to was documented to hospital for GI evaluation for ERCP. She was started on IV ciprofloxacin and metronidazole as well as IV PPI and kept NPO. GI and general surgery were consulted. She had ERCP on 03/26/2024 which showed dilatation of the biliary duct with a stone causing obstruction and evidence of choledocholithiasis with partial removal accomplished by biliary center read to me. A stent was inserted into the common bile duct. General surgery was also consulted. Since not all the stones were removed, she had a repeat ERCP on 03/30/2024 which showed dilatation of the entire biliary tree with a stone causing obstruction and there was complete removal with biliary sphincterotomy and balloon extraction and the 2 stents were removed from the left hepatic duct and right hepatic duct and 1 temporary stent was placed in the left hepatic duct. Her liver enzymes trended downwards. General surgery attempted laparoscopic cholecystectomy but this was unsuccessful due to severe fibrosis and scarring involving the infundibulum of the gallbladder which precluded safe identification of the cystic duct, common bile duct and cystic artery. She was therefore to be referred to a tertiary facility for evaluation by hepatobiliary surgery. Patient remained stable and liver enzymes rapidly normalized. She was discharged home on 04/02/2024. She is follow-up with her primary care doctor and follow-up with general surgeon outpatient basis for referral to hepatobiliary surgery. Patient seen and examined prior to discharge. She had no complaints and had an uneventful night. Review of systems is otherwise negative. Labs and vitals reviewed. Home meds reviewed and reconciled. Physical Exam Const alert, oriented x3, no apparent distress, average body habitus, healthy appearing and well nourished Constitutional Narrative: obese General Appearance: cooperative, comfortable, well kempt and well developed Orientation / Consciousness: awake HEENT normocephalic, head/scalp atraumatic, hearing grossly normal bilaterally, moist oral mucous membranes and oropharynx normal Mouth: oral and palatal mucosa normal Eyes PERRL, EOMs intact bilaterally and conjunctivae normal Eyes Narrative: Neck no lymphadenopathy, supple and no JVD Lymph Lymphatic: no lymphadenopathy noted and no lymphedema noted Resp normal respiratory effort, normal air movement, no retractions, no use of accessory muscles and clear to auscultation bilaterally Cardio regular rate, regular rhythm, S1 normal heart sound, S2 normal heart sound, no murmurs, no rub, no gallops and no clicks GI normal to inspection, nondistended, normoactive bowel sounds, soft to palpation, non-tender and non-distended GI Narrative: obese abdomen, intact dressing over laparoscopic sites Extremity normal to inspection, full ROM, normal capillary refill, no clubbing, cyanosis or edema and no calf tenderness Extremity Narrative: Pedal pulses are 2+ General Extremity: no tenderness to palpation of joints or extremities Skin Skin Narrative: jaundice has resolved. General Skin Exam: no breakdown Neuro oriented x3, CN's II-XII intact bilaterally, moves all extremities, no focal motor deficits, no sensory deficits noted and deep tendon reflexes 2+ bilaterally Sensorium / Orientation: awake, alert, oriented to person, oriented to place and oriented to time Speech: speech normal Motor Exam: strength 5/5 throughout and general weakness Psych thought process normal, cooperative and affect normal Appearance: appropriate Weight / BMI Weight Weight: 262 lb 9.129 oz Body Mass Index (BMI) 44.8 ABG / Lab / Microbiology Data 04/02/24 06:26 04/02/24 06:26 Laboratory: Laboratory Results - last 24 hr 04/02/24 06:26: WBC 8.1, RBC 3.49 L, Hgb 10.2 L, Hct 31.6 L, MCV 90.5, MCH 29.2, MCHC 32.3, RDW Std Deviation 48.9 H, RDW Coeff of Ja 14.8 H, Plt Count 238, MPV 12.0, Immature Gran % (Auto) 0.500, Neut % (Auto) 76.3 H, Lymph % (Auto) 13.4 L, [place] % (Auto) 9.5, Eos % (Auto) 0.1, Baso % (Auto) 0.2, Absolute Neuts (auto) 6.2, Absolute Lymphs (auto) 1.09, Nucleated RBC % 0, Sodium 142, Potassium 4.0, Chloride 112 H, Carbon Dioxide 24.0, Anion Gap 6, BUN 18, Creatinine 0.96, Estim Creat Clear Calc 72.23, Est GFR (MDRD) Af Amer 75, Est GFR (MDRD) Non-Af 62, BUN/Creatinine Ratio 18.8, Glucose 141 H, Calcium 8.7, Total Bilirubin 1.70 H, D irect Bilirubin 1.34 H, AST 25, ALT 58 H, Alkaline Phosphatase 182 H, Total Protein 5.6 L, Albumin 2.3 L, Globulin 3.3 D/C Instructions Discharge Diet: - (Recommend low fat, bland diet) Discharge Activity: Return to Normal Activity May shower in (days): 2 Weight Bearing Status: Weight bearing as tolerated Call your doctor if your incision/area has: Continuous Slow Oozing, Sudden Increased Bleeding, Increased Pain/ Swelling, Increased Redness, Foul Smelling Discharge and Swelling at the incision site Call your doctor if you observe: Fever of 101 or Higher Suture Line Care: Avoid Pulling/Pushing and Avoid Pinching/Bending Cleanse incision/area with: Soap & Water Please Follow Up With: Husam Parra MD When: Please contact our office to schedule a 1 week follow-up appointment with Dr. Parra at [phone], option #2 Meaningful Use Info Meaningful Use Meaningful Use Diagnoses (Choose all that apply): None applicable Ischemic Stroke Statin Dosing Therapy Reference: STATIN DOSE THERAPY REFERENCE: * Patients > 75 years receive moderate or high dose statin therapy. * Patients 75 years or YOUNGER should receive HIGH intensity statin dose unless contraindicated. You will be required to document reason for non-treatment if statin daily dose does not meet guidelines. HIGH DOSE STATIN THERAPY DAILY Atorvastatin > than or = to 40 mg Rosuvastatin > than or = to 20 mg Amlodipine + Atorvastatin > than or = to 2.5/40 mg Ezetimibe + Simvastatin 10/80 mg Simvastatin 80mg Discharge Plan Admission Admit Date/Time: 03/26/24 04:55 Primary Reason for Your Visit: acute choledocholithiasis Attending Provider: Francie Davalos Primary Care Provider: Wiliam Kay Consulting Providers: Brennan Truong; Husam Parra; Funmi Willoughby Instructions Patient Instructions: ED Gallstones with Biliary Colic Discharge Orders/Prescriptions Prescriptions: Continued lisinopril 20 mg tablet 20 mg PO BID Patient Comments: TAKE 1 TABLET BY MOUTH TWICE DAILY levothyroxine 200 mcg tablet 200 mcg PO MOTUWETHFRSA Patient Comments: TAKE 1 TABLET BY MOUTH ONCE DAILY SATURDAY THROUGH SATURDAY, THEN 2 ON SATURDAY levothyroxine 200 mcg tablet 400 mcg PO ROBERTS Patient Comments: TAKE 1 TABLET BY MOUTH ONCE DAILY SATURDAY THROUGH SATURDAY, THEN 2 ON SATURDAY cholecalciferol (vitamin D3) 125 mcg (5,000 unit) capsule 5,000 unit PO DAILY ProAir RespiClick 90 mcg/actuation aerosol powdr breath activated 2 inh inhalation Q4H PRN (Reason: sob) Referrals / Follow Up: Wiliam Kay MD [Primary Care Provider] - Within 1 Week Husam Parra MD [Med Staff - Active Staff] - Within 1 Week Disposition Disposition (needs filled in before D/C Order can be placed): Home, Self Care Charges/Coding Visit Charges Inpatient E&M: 39852 Disch Hosp >30min
--- NOTE | 2024-04-02 16:58 | EX.PCM.PN.GI ---
Subjective Subjective Patient underwent elective cholecystectomy. She is doing very well. Objective Data Objective Data Vital Signs: Vital Signs Temp Pulse Resp BP Pulse Ox O2 Del Method O2 Flow Rate 98.7 F 74 16 122/65 H 95 Room Air 2 04/02/24 14:35 04/02/24 14:35 04/02/24 14:35 04/02/24 14:35 04/02/24 14:35 04/02/24 14:35 04/01/24 14:20 Oxygen Flow Rate (L/min) 2 Oxygen Delivery Method Room Air Weight: 262 lb 9.129 oz Body Mass Index (BMI) 44.8 Intake & Output: Intake and Output for Last 24 Hours 03/31/24 04/01/24 04/02/24 23:59 23:59 23:59 Intake Total 910.00 / 910.00 1810 / 1810 700 / 700 Output Total 870 / 870 Balance 910.00 / 910.00 1785 / 1785 -170 / -170 Lab / Micro Data 04/02/24 06:26 04/02/24 06:26 Labs: Laboratory Results - last 24 hr 04/02/24 06:26: WBC 8.1, RBC 3.49 L, Hgb 10.2 L, Hct 31.6 L, MCV 90.5, MCH 29.2, MCHC 32.3, RDW Std Deviation 48.9 H, RDW Coeff of Ja 14.8 H, Plt Count 238, MPV 12.0, Immature Gran % (Auto) 0.500, Neut % (Auto) 76.3 H, Lymph % (Auto) 13.4 L, [place] % (Auto) 9.5, Eos % (Auto) 0.1, Baso % (Auto) 0.2, Absolute Neuts (auto) 6.2, Absolute Lymphs (auto) 1.09, Nucleated RBC % 0, Sodium 142, Potassium 4.0, Chloride 112 H, Carbon Dioxide 24.0, Anion Gap 6, BUN 18, Creatinine 0.96, Estim Creat Clear Calc 72.23, Est GFR (MDRD) Af Amer 75, Est GFR (MDRD) Non-Af 62, BUN/Creatinine Ratio 18.8, Glucose 141 H, Calcium 8.7, Total Bilirubin 1.70 H, Direct Bilirubin 1.34 H, AST 25, ALT 58 H, Alkaline Phosphatase 182 H, Total Protein 5.6 L, Albumin 2.3 L, Globulin 3.3 Physical Exam Const alert, oriented x3, no apparent distress, average body habitus, healthy appearing and well nourished Constitutional Narrative: obese General Appearance: cooperative, comfortable, well kempt and well developed Orientation / Consciousness: awake HEENT normocephalic, head/scalp atraumatic, hearing grossly normal bilaterally, moist oral mucous membranes and oropharynx normal Mouth: oral and palatal mucosa normal Eyes PERRL, EOMs intact bilaterally and conjunctivae normal Eyes Narrative: Neck no lymphadenopathy, supple and no JVD Lymph Lymphatic: no lymphadenopathy noted and no lymphedema noted Resp normal respiratory effort, normal air movement, no retractions, no use of accessory muscles and clear to auscultation bilaterally Cardio regular rate, regular rhythm, S1 normal heart sound, S2 normal heart sound, no murmurs, no rub, no gallops and no clicks GI normal to inspection, nondistended, normoactive bowel sounds, soft to palpation, non-tender and non-distended GI Narrative: obese abdomen, intact dressing over laparoscopic sites Extremity normal to inspection, full ROM, normal capillary refill, no clubbing, cyanosis or edema and no calf tenderness Extremity Narrative: Pedal pulses are 2+ General Extremity: no tenderness to palpation of joints or extremities Skin Skin Narrative: jaundice has resolved. General Skin Exam: no breakdown Neuro oriented x3, CN's II-XII intact bilaterally, moves all extremities, no focal motor deficits, no sensory deficits noted and deep tendon reflexes 2+ bilaterally Sensorium / Orientation: awake, alert, oriented to person, oriented to place and oriented to time Speech: speech normal Motor Exam: strength 5/5 throughout and general weakness Psych thought process normal, cooperative and affect normal Appearance: appropriate Assessment & Plan Assessment/Plan (1) Pancreatitis: QUALIFIERS: Pancreatitis type: biliary Qualified Code(s): K85.10 - Biliary acute pancreatitis without necrosis or infection PLAN: Patient currently with pancreatitis status post ERCP with stone removal and stent placement postop day 1. I will increase her fluids to 300 mL an hour. I will also change her Toradol to 30 mL schedule. I would like to get a CT scan abdomen pelvis to help with the severity of the pancreatitis. I will repeat her amylase lipase tonight and also check ESR, CRP, lactate. She has been afebrile. I will advance her to full liquid diet. (2) Transaminitis: (3) Choledocholithiasis: PLAN: Patient had multiple stones removed. She had 2 stents placed yesterday. I suspect she still has stones in her bile duct. She will need repeat ERCP with lithotripsy. She has 2 stents placed. Hopefully her LFTs will start to come down. PLAN: Plan 03/31/2024-patient is doing well and her LFTs continue to improve. She is not showing any residual problems from pancreatitis. She is scheduled to undergo cholecystectomy. Okay to advance diet as tolerated from GI standpoint. I will continue to follow. 04/01/2024-LFTs continue to improve. She does not have any abdominal pain and is tolerating a diet. Patient for cholecystectomy tomorrow. Continue to trend LFTs. 04/02/2024-LFTs continue to improve. She is not having any problems from her cholecystectomy. She will need to follow-up as an outpatient for stent removal. Charges/Coding Visit Charges Inpatient E&M: 76277 Subs Hosp L3
--- NOTE | 2024-04-06 15:14 | CASEMGMT ---
Received vm from last week from pt with questions regarding picking another hospital for her surgery. TC to pt, left vm requesting returned call if pt still needs the information as RN CM unavailable at end of last week.
== END 2024-04-02 18:27 | disposition home or self-care (01) | DRG 420 ==
PROVIDERS: Anesthesiology; Internal Medicine; Internal Medicine Gastroenterology; Physician Assistant; Surgery; Admitting Provider Internal Medicine; PCP Family Medicine; Visit Provider Student in an Organized Health Care Education/Training Program
PROC: 0FHB8DZ Insertion of Intraluminal Device into Hepatobiliary Duct, Via Natural or Artificial Opening Endoscopic (ICD-10-PCS; CPT 43260; principal; 2024-03-26 11:25)
PROC: 0DJW4ZZ Inspection of Peritoneum, Percutaneous Endoscopic Approach (ICD-10-PCS; CPT 47610; principal; 2024-04-01 11:10)
DX: K80.50 Calculus of bile duct without cholangitis or cholecystitis without obstruction (principal); K85.10 Biliary acute pancreatitis without necrosis or infection; N17.9 Acute kidney failure, unspecified; E87.1 Hypo-osmolality and hyponatremia; Z68.41 Body mass index [BMI] 40.0-44.9, adult; E03.9 Hypothyroidism, unspecified; I10 Essential (primary) hypertension; J45.909 Unspecified asthma, uncomplicated; E66.01 Morbid (severe) obesity due to excess calories; K83.8 Other specified diseases of biliary tract; L29.9 Pruritus, unspecified; D72.821 Monocytosis (symptomatic); E78.5 Hyperlipidemia, unspecified; E55.9 Vitamin D deficiency, unspecified; R74.01 Elevation of levels of liver transaminase levels; Z79.01 Long term (current) use of anticoagulants
CPT/HCPCS: 36415; 74330; 76000; 76705; 80048; 80053; 80061; 80076; 82150; 83605; 83690; 83735; 84100; 84443; 85025; 85027; 85610; 85652; 85730; 86140; 88108; 88305; 88313; 93005; J7030; J7120; A4216; C1769; J0744; J2405

== ENCOUNTER → 2024-04-06 | Outpatient (CLI) | payer OTHER, MEDICARE, SELFPAY ==
[2024-04-06 18:31] LABS: Absolute Lymphocyte Count 1.27 X10^3/uL (0.83-4.51); Absolute Neutrophil Count 3.2 X10^3/uL (2.0-7.7); Basophil# 0.07 X10^3/uL; Basophil% 1.3 % (0-1); Eosinophil# 0.38 X10^3/uL; Hematocrit 37.4 % (37-47); Hemoglobin 11.6 g/dL (12.0-15.0); Lymphocyte # 1.27 X10^3/ul (0.83-4.51); Lymphocyte % 23.4 % (19-41); Mean Corpuscular Hgb 28.8 pg (27.0-32.0); Mean Corpuscular Volume 92.8 fL (81-99); Mean Platelet Vol. 11.7 fl (6.2-12.0); Monocyte# 0.48 X10^3/uL; Monocyte% 8.8 % (0-10); NRBC Flagged by Analyzer 0 % (0-5); Neutrophil % 58.9 % (47-70); Platelet Count 370 K/mm3 (150-450); RBC Distribution Width CV 14.2 % (11.6-14.6); RBC Distribution Width SD 48.4 fl (35.1-43.9); Red Blood Count 4.03 M/mm3 (4.2-5.4); White Blood Count 5.4 K/mm3 (4.4-11.0)
[2024-04-06 19:00] LABS: ALB/GLOB Ratio 0.8 RATIO (0.9-2.4); AST(SGOT) 34 U/L (15-37); Alanine Aminotransfer ALT/SGPT 48 U/L (13-56); Albumin, Serum 2.8 g/dL (3.2-5.0); Alkaline Phosphatase 159 U/L (45-117); Amylase 93 U/L (25-115); Anion Gap 7 (5-15); BUN 11 mg/dL (7-18); BUN/Creat Ratio 11.3 RATIO (10-20); Calcium,Total 9.1 mg/dL (8.5-10.1); Chloride 108 mmol/L (98-107); Creatinine, Serum 0.98 mg/dL (0.55-1.02); EST Glomerular Filtration Rate 60 mL/min (>60); Est Glom Filt Rate - Afr Amer 73 mL/min (>60); Globulin 3.7 g/dL (2.2-4.2); Glucose 111 mg/dL (74-106); Lipase 185 U/L (13-75); Potassium 3.1 mmol/L (3.5-5.1); Protein, Total 6.5 g/dL (6.4-8.2); Sodium Level 141 mmol/L (136-145)
== END | disposition home or self-care (01) ==
LOC: MFPLAB 14:43
PROVIDERS: PCP Family Medicine; Visit Provider Family Medicine
DX: K85.90 Acute pancreatitis without necrosis or infection, unspecified (principal)
CPT/HCPCS: 36415; 80053; 82150; 83690; 85025

== ENCOUNTER → 2024-04-27 | Outpatient (CLI) | payer OTHER, MEDICARE, SELFPAY ==
--- NOTE | 2024-04-27 13:37 | BI_ITS ---
MAMMOGRAPHY - BILATERAL SCREENING 3-D TOMOSYNTHESIS REASON FOR EXAM: Female, 69 years old. screening PERTINENT HISTORY: No significant family history. TECHNIQUE: 2-D mammograms and 3-D Tomosynthesis of the breast (s) were performed. CAD was performed. COMPARISON: 03/28/2022 FINDINGS: The breast composition is composed of scattered fibroglandular density. Scattered benign calcifications are seen. No dense spiculated masses or suspicious microcalcifications are identified. No architectural distortion is identified. There is no skin thickening or retraction. There has been no significant change since the prior study. BI/SCRN MAMM (CAD)W/JARRETT BILAT IMPRESSION: No mammographic signs of malignancy. Routine yearly mammograms recommended. ASSESSMENT CATEGORY: BIRADS Category 1: Negative. A letter regarding these results will be sent to the patient by the facility within 30 days. FOLLOW UP RECOMMENDATION: Yearly follow up mammogram recommended. (A) Approximately 10% of breast cancers are not detected by mammography. A normal mammogram should not delay biopsy of a clinically suspicious abnormality. Electronically Signed: Miguelito Hatch MD at 16:23 EST ,
== END | disposition home or self-care (01) ==
LOC: OPBI 13:36
PROVIDERS: PCP Family Medicine; Referring Provider Family Medicine; Visit Provider Family Medicine
DX: Z12.31 Encounter for screening mammogram for malignant neoplasm of breast (principal)
CPT/HCPCS: 77063; 77067

== ENCOUNTER → 2024-05-22 | Outpatient (CLI) | payer OTHER, MEDICARE, SELFPAY ==
--- NOTE | 2024-05-22 09:52 | BD_ITS ---
STUDY: DUAL ENERGY X-RAY ABSORPTIOMETRY / DXA REASON FOR EXAM: Female, 69 years old. 733.00OsteoporosisBONE DENSITY REASON FOR EXAM TECHNIQUE: Bone Mineral Density (BMD) measurements of lumbar spine and bilateral hips were obtained. COMPARISON: None. FINDINGS: Lumbar Spine (L1-L4): g/cm2 (1.107) / T-score (0.5) / Z-score (2.5) Findings are suggestive of normal bone density with a low fracture risk. Left Femur Total: g/cm2 (0.832) / T-score (-0.9) / Z-score (0.5) Left Femoral Neck: g/cm2 (0.531) / T-score (-2.9) / Z-score (-1.2) Right Femur Total: g/cm2 (0.840) / T-score (-0.8) / Z-score (0.5) Right Femoral Neck: g/cm2 (0.623) / T-score (-2.0) / Z-score (-0.4) BD/Dexa Bone Density Study IMPRESSION: The patient is considered osteoporotic as outlined below according to World Dmitri Organization (WHO) criteria with a high fracture risk. Reference Information: The T-score is the number of standard deviations above or below the standard which is normal for young adults at their peak bone mineral density. The World Health Organization (WHO) interprets the T-scores as follows: Above -1 Normal bone density Between -1 and -2.5 Osteopenia Equal to / or below -2.5 Osteoporosis As a practical clinical guideline, osteopenia may be graded as follows: Mild -1 through -1.5 Moderate -1.6 through -2.0 Severe -2.1 through -2.4 The Z-score is the number of standard deviations above or below age-matched controls. A Z-score of less than -1.5 would be considered abnormal. References: 1. NIH Osteoporosis and Related Bone Diseases www osteo.org 2. International Society for Clinical Densitometry www iscd.org 3. National Osteoporosis Foundation www nof.org Electronically Signed: Wicho Kay MD at 11:53 EST ,
== END | disposition home or self-care (01) ==
LOC: OPBD 09:49
PROVIDERS: PCP Family Medicine; Referring Provider Family Medicine; Visit Provider Family Medicine
DX: M81.0 Age-related osteoporosis without current pathological fracture (principal); Z82.62 Family history of osteoporosis
CPT/HCPCS: 77080

== ENCOUNTER 2024-05-25 10:28 | Day surgery (SDC) | payer OTHER, SELFPAY ==
--- NOTE | 2024-05-21 07:17 | PAT.ANESEVAL ---
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 When Was Last Pacemaker Check QUESTION #4 FULL TEXT: You/Your Family Experience fever (hyperthermia) with Anesthesia Last Oral Intake Last Oral intake: Last Oral Intake NPO since Meds taken in AM with sips of water? Meds patient instructed to take am of surgery PONV PONV - content management specialist: PONV - content management specialist Female Yes 05/20/24 14:06 HX of Motion Sickness No 05/20/24 14:06 HX of N/V After Surgery No 05/20/24 14:06 Non-Smoker Yes 05/20/24 14:06 Duration of Surgery greater No 05/20/24 14:06 than 60 minutes Number of Risk Factors 2 05/20/24 14:06 PONV Score Moderate Risk 05/20/24 14:06 Height & Weight Height & Weight: Anesthesia: Height & Weight Height 5 ft 4 in 04/28/24 14:33 Respiratory Assessment Respiratory Assessment - content management specialist: Respiratory Tract Infection Hx - content management specialist Hx Respiratory Tract Infection No 05/20/24 14:06 STOP Sleep Apnea STOP Sleep Apnea - content management specialist: STOP Sleep Apnea - content management specialist Hx Hypertension Yes: CONTROLLED WITH MED 05/20/24 14:06 Hx Sleep Apnea No 05/20/24 14:06 CPAP BIPAP Do you snore loudly (louder No 05/20/24 14:06 than talking or can be heard Do you often feel tired/ No 05/20/24 14:06 fatigued/ sleepy during daytime? Has anyone observed you stop No 05/20/24 14:06 breathing during sleep? STOP Results Negative 05/20/24 14:06 QUESTION #5 FULL TEXT : Do you snore loudly (louder than talking or can be heard through closed doors)? 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 Specify any problems Hx of Preganancy in last 3 N/A 05/20/24 14:06 Months Nurse Filling Out Transfusion NBUCHER 05/20/24 14:06 & Questions: Date: 05/20/24 05/20/24 14:06 Time: 14:07 05/20/24 14:06 Patient unable to answer at this time (ie. confused, unrespo /Reproduction History /Reproductive History - content management specialist: /Reproductive Hx- content management specialist Hx Now No 05/20/24 14:06 Gestational Age (in weeks): EDC: Hx Hx Para Hx Section SAB No 05/20/24 14:06 [facility] Medical History (Updated 05/20/24 @ 14:12 by Niki Ruano) Post-menopausal Wears glasses Thyroid disease Pancreatitis Essential hypertension Morbid obesity with BMI of 40.0-44.9, adult Vitamin D deficiency Hypertension Hypothyroidism Home Medications ?Medication ?Instructions ?Recorded ?Last Taken ?Type levothyroxine 200 mcg tablet 200 mcg PO MOTUWETHFRSA thyroid 11/06/21 Unknown History levothyroxine 200 mcg tablet 400 mcg PO ROBERTS thyroid 11/06/21 Unknown History lisinopril 20 mg tablet 20 mg PO BID 11/06/21 Unknown History albuterol sulfate 90 mcg/actuation 2 inh inhalation Q4H PRN sob 03/26/24 Unknown History breath activated powder inhaler (ProAir RespiClick) cholecalciferol (vitamin D3) 125 5,000 unit PO DAILY 03/26/24 Unknown History mcg (5,000 unit) capsule Allergy/AdvReac Type Severity Reaction Status Date / Time chlorhexidine Allergy Rash Verified 05/20/24 14:04 Penicillins Allergy CHILDHOOD Verified 05/20/24 14:04 ALLERGY psyllium (From Metamucil) Allergy Shortness Verified 05/20/24 14:04 of breath Surgical History History of cholecystectomy (05/06/24) Hx of colonoscopy S/P ERCP H/O section S/P dilatation and curettage Social History (Updated 04/28/24 @ 14:29 by Angelica Gilman) household members: spouse current occupational status: employed Smoking Status: Never smoker alcohol intake: never substance use type: does not use Audit: Pertinent Findings Pertinent Findings EKG Perinent findings: nl ekg 03/26/24 Additional pertinent findings: k is 3.1 04/06/24 Recommendation Anesthesia Recommendation Anesthesia recommendation: OPTIMIZED for anesthesia
[2024-05-25] VITALS (7 sets, daily range): BP systolic 96–117; BP diastolic 58–82; PULSE 69–90; RESP 16–17; TEMP 36.2–36.9; O2SAT 97–100; BMI 39.5
--- NOTE | 2024-05-25 10:42 | EKG12_ITS ---
Test Reason : preop Blood Pressure : */* mmHG Vent. Rate : 90 BPM Atrial Rate : 90 BPM P-R Int : 168 ms QRS Dur : 72 ms QT Int : 340 ms P-R-T Axes : 57 42 61 degrees QTcB Int : 415 ms Sinus rhythm with occasional Premature ventricular complexes Otherwise normal ECG When compared with ECG of 26-Mar-2024 05:05, Premature ventricular complexes are now Present Confirmed by VENESSA LAZCANO MD ([id number]), editorial director AUBREY RUTLEDGE ([id number]) on 05/29/2024 6:15:06 AM Referred By: Wiliam Kay Confirmed By: VENESSA LAZCANO MD
--- NOTE | 2024-05-25 10:43 | PCM.HP.STD ---
HPI - General General Date of Admission: 05/25/24 Date of Service: 05/25/24 Chief Complaint: Stent removal HPI Narrative BHAVANI HALLMAN, is a 69 F who presents today after recent attempt at a laparoscopic cholecystectomy. She was admitted with a common bile duct stones and had a bilirubin of 9. She underwent 2 ERCPs to clear her bile duct of stones. Stent was placed in her common bile duct. Prior to discharge home a laparoscopic cholecystectomy was recommended.. Patient was brought to the operating room however it was quickly identified that she had very chronic appearing scarring to the gallbladder and this was very contracted. Since I could not readily identify the anatomy safely, I aborted the attempt at cholecystectomy. Clinically she was doing well prior to the surgery. She follows up today and states that she is actually doing quite well. She has no significant right upper quadrant pain. [facility] Medical History Post-menopausal Wears glasses Thyroid disease Pancreatitis Essential hypertension Morbid obesity with BMI of 40.0-44.9, adult Vitamin D deficiency Hypertension Hypothyroidism Home Medications ?Medication ?Instructions ?Recorded ?Last Taken ?Type levothyroxine 200 mcg tablet 200 mcg PO MOTUWETHFRSA thyroid 11/06/21 Unknown History levothyroxine 200 mcg tablet 400 mcg PO ROBERTS thyroid 11/06/21 Unknown History lisinopril 20 mg tablet 20 mg PO BID 11/06/21 Unknown History albuterol sulfate 90 mcg/actuation 2 inh inhalation Q4H PRN sob 03/26/24 Unknown History breath activated powder inhaler (ProAir RespiClick) cholecalciferol (vitamin D3) 125 5,000 unit PO DAILY 03/26/24 Unknown History mcg (5,000 unit) capsule Allergy/AdvReac Type Severity Reaction Status Date / Time chlorhexidine Allergy Rash Verified 05/25/24 10:44 Penicillins Allergy CHILDHOOD Verified 05/25/24 10:44 ALLERGY psyllium (From Metamucil) Allergy Shortness Verified 05/25/24 10:44 of breath Surgical History History of cholecystectomy (05/06/24) Hx of colonoscopy S/P ERCP H/O section S/P dilatation and curettage Social History household members: spouse current occupational status: employed Smoking Status: Never smoker alcohol intake: never substance use type: does not use ROS ROS Narrative Review of Systems: Constitutional: Patient denies fever or chills. Eyes: Patient denies changes in vision or discharge from eyes. ENT: Patient denies runny nose, sore throat or ear pain. Resp: Patient denies SOB or cough. CV: Patient denies chest pain, palpitations or heart racing. GI: Patient admits to nausea and constipation as per HPI but she denies vomiting. : Patient denies dysuria or hematuria. MSK: Patient denies arthralgias and myalgias. Skin: Patient admits to jaundice and pruritus. Psych: Patient denies symptoms of uncontrolled depression or anxiety. Neuro: Patient denies headache, paresthesias or focal neurologic weakness. Allergy: Patient denies lip swelling, tongue swelling or urticaria. Hematology: Patient denies easy bleeding or easy bruisability. Endocrinology: Patient denies poluuria, polydipsia or polyphagia. 14 point ROS otherwise negative except for positives noted above. Physical Exam Const alert, oriented x3, no apparent distress, average body habitus, healthy appearing and well nourished Constitutional Narrative: obese General Appearance: cooperative, comfortable, well kempt and well developed Orientation / Consciousness: awake HEENT normocephalic, head/scalp atraumatic, hearing grossly normal bilaterally, moist oral mucous membranes and oropharynx normal Mouth: oral and palatal mucosa normal Eyes PERRL, EOMs intact bilaterally and conjunctivae normal Eyes Narrative: Neck no lymphadenopathy, supple and no JVD Lymph Lymphatic: no lymphadenopathy noted and no lymphedema noted Resp normal respiratory effort, normal air movement, no retractions, no use of accessory muscles and clear to auscultation bilaterally Cardio regular rate, regular rhythm, S1 normal heart sound, S2 normal heart sound, no murmurs, no rub, no gallops and no clicks GI normal to inspection, nondistended, normoactive bowel sounds, soft to palpation, non-tender and non-distended GI Narrative: obese abdomen, intact dressing over laparoscopic sites Extremity normal to inspection, full ROM, normal capillary refill, no clubbing, cyanosis or edema and no calf tenderness Extremity Narrative: Pedal pulses are 2+ General Extremity: no tenderness to palpation of joints or extremities Skin Skin Narrative: jaundice has resolved. General Skin Exam: no breakdown Neuro oriented x3, CN's II-XII intact bilaterally, moves all extremities, no focal motor deficits, no sensory deficits noted and deep tendon reflexes 2+ bilaterally Sensorium / Orientation: awake, alert, oriented to person, oriented to place and oriented to time Speech: speech normal Motor Exam: strength 5/5 throughout and general weakness Psych thought process normal, cooperative and affect normal Appearance: appropriate Assessment & Plan Assessment/Plan (1) Pancreatitis: QUALIFIERS: Pancreatitis type: biliary Qualified Code(s): K85.10 - Biliary acute pancreatitis without necrosis or infection PLAN: Patient currently with pancreatitis status post ERCP with stone removal and stent placement postop day 1. I will increase her fluids to 300 mL an hour. I will also change her Toradol to 30 mL schedule. I would like to get a CT scan abdomen pelvis to help with the severity of the pancreatitis. I will repeat her amylase lipase tonight and also check ESR, CRP, lactate. She has been afebrile. I will advance her to full liquid diet. (2) Transaminitis: (3) Choledocholithiasis: PLAN: Patient had multiple stones removed. She had 2 stents placed in her . I suspect she still has stones in her bile duct. She will need repeat ERCP with lithotripsy. She has 2 stents placed. She will undergo ERCP with possible lithotripsy and stent removal. She was explained alternatives, risk and benefits include not withstanding bleeding, infection, sepsis, perforation, need for emergent urgent . She will have an ASA of 3.
--- NOTE | 2024-05-25 10:45 | RAD_ITS ---
EXAM: FL FLUOROSCOPY < 1 HOUR CLINICAL INDICATION: ERCP, STENT PULL TECHNIQUE: Fluoroscopic images performed in multiple projections. Fluoroscopic guidance was provided by a physician. 129.26mGy and 306.9 seconds COMPARISON: No relevant prior studies available. FINDINGS AND RAD/ERCP Biliary/Pancreas IMPRESSION: Intraoperative fluoroscopic images performed by the operative team. Refer to the operative note for complete details. Electronically Signed: Moisés Juarez DO at 23:27 EST ,
--- NOTE | 2024-05-25 11:02 | PRE.ANES_ITS ---
ASA Classification* ASA Classification ASA Classification: 3 Assessment & Plan Anesthesia* Anesthesia Assessment Anesthesia Assessment: Discussed sedation and/or anesthesia options, risks, benefits, and alternatives with patient/parents/legal guardian/POA. Questions invited. The patient/parents/legal guardian/POA seems to understand and agrees to proceed with anesthesia plan. Reviewed the physical assessment, medical history, allergy history and patient home medications list prior to surgery/procedure/anesthetic and documented any changes. Performed airway and anesthesia risk assessments. Anesthesia Type Anesthesia Type: MAC History Source History Obtained from:: Patient and Chart Anesthesia Focused Assessment* Temperature: 98.5 F Pulse Rate: 90 Blood Pressure: 117/82 Respiratory Rate: 17 Pulse Ox: 97 Airway Assessment Mouth opens: >3 cm Mallampati Score: I Teeth Condition: Intact Neck Range of motion (ROM): Full ROM Focused Labs Anesthesia Preop lab: CBC WBC 5.4 K/mm3 (4.4-11.0) 04/06/24 14:44 RBC 4.03 M/mm3 (4.2-5.4) L 04/06/24 14:44 Hgb 11.6 g/dL (12.0-15.0) L 04/06/24 14:44 Hct 37.4 % (37-47) 04/06/24 14:44 Plt Count 370 K/mm3 (150-450) 04/06/24 14:44 CHEMISTRY Potassium 3.1 mmol/L (3.5-5.1) L 04/06/24 14:44 Sodium 141 mmol/L (136-145) 04/06/24 14:44 Magnesium 1.8 mg/dL (1.6-2.6) 03/29/24 05:02 Phosphorus 2.3 mg/dL (2.5-4.9) L 03/29/24 05:02 BUN 11 mg/dL (7-18) 04/06/24 14:44 Creatinine 0.98 mg/dL (0.55-1.02) 04/06/24 14:44 Glucose 111 mg/dL (74-106) H 04/06/24 14:44 TSH 1.250 uIU/mL (0.358-3.740) 03/31/24 06:38 COAG PT 14.2 SECONDS (11.7-14.9) 03/31/24 06:38 Pre-Assessment Diagnosis/Proposed Procedure Planned Operative Procedure(s): ERCP, STENT PULL Anesthesia History 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 When Was Last Pacemaker Check QUESTION #4 FULL TEXT: You/Your Family Experience fever (hyperthermia) with Anesthesia Last Oral Intake Last Oral intake: Last Oral Intake NPO since 04:30 05/25/24 10:50 Meds taken in AM with sips of water? Meds patient instructed to take am of surgery Any additional information?: Yes NPO since: 04:30 (Patient took her Synthroid at 4:30 AM.) PONV PONV - field support engineer: PONV - field support engineer Female Yes 05/20/24 14:06 HX of Motion Sickness No 05/20/24 14:06 HX of N/V After Surgery No 05/20/24 14:06 Non-Smoker Yes 05/20/24 14:06 Duration of Surgery greater No 05/20/24 14:06 than 60 minutes Number of Risk Factors 2 05/20/24 14:06 PONV Score Moderate Risk 05/20/24 14:06 Height & Weight Height & Weight: Anesthesia: Height & Weight Height 5 ft 4 in 05/25/24 10:50 Weight: 104.6 kg 05/25/24 10:50 Body Mass Index (BMI) 39.5 05/25/24 10:50 Respiratory Assessment Respiratory Assessment - field support engineer: Respiratory Tract Infection Hx - field support engineer Hx Respiratory Tract Infection No 05/20/24 14:06 STOP Sleep Apnea STOP Sleep Apnea - field support engineer: STOP Sleep Apnea - field support engineer Hx Hypertension Yes: CONTROLLED WITH MED 05/20/24 14:06 Hx Sleep Apnea No 05/20/24 14:06 CPAP BIPAP Do you snore loudly (louder No 05/20/24 14:06 than talking or can be heard Do you often feel tired/ No 05/20/24 14:06 fatigued/ sleepy during daytime? Has anyone observed you stop No 05/20/24 14:06 breathing during sleep? STOP Results Negative 05/20/24 14:06 QUESTION #5 FULL TEXT : Do you snore loudly (louder than talking or can be heard through closed doors)? 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 Specify any problems Hx of Preganancy in last 3 N/A 05/20/24 14:06 Months Nurse Filling Out Transfusion NBUCHER 05/20/24 14:06 & Questions: Date: 05/20/24 05/20/24 14:06 Time: 14:07 05/20/24 14:06 Patient unable to answer at this time (ie. confused, unrespo /Reproduction History /Reproductive History - field support engineer: /Reproductive Hx- field support engineer Hx Now No 05/20/24 14:06 Gestational Age (in weeks): EDC: Hx Hx Para Hx Section SAB No 05/20/24 14:06 PFSH Medical History Post-menopausal Wears glasses Thyroid disease Pancreatitis Essential hypertension Morbid obesity with BMI of 40.0-44.9, adult Vitamin D deficiency Hypertension Hypothyroidism Home Medications ?Medication ?Instructions ?Recorded ?Last Taken ?Type levothyroxine 200 mcg tablet 200 mcg PO MOTUWETHFRSA thyroid 11/06/21 05/25/24 History levothyroxine 200 mcg tablet 400 mcg PO ROBERTS thyroid 11/06/21 05/24/24 History lisinopril 20 mg tablet 20 mg PO BID 11/06/21 05/24/24 History albuterol sulfate 90 mcg/actuation 2 inh inhalation Q4H PRN sob 03/26/24 05/23/24 History breath activated powder inhaler (ProAir RespiClick) cholecalciferol (vitamin D3) 125 5,000 unit PO DAILY 03/26/24 05/22/24 History mcg (5,000 unit) capsule Allergy/AdvReac Type Severity Reaction Status Date / Time chlorhexidine Allergy Rash Verified 05/25/24 10:48 Penicillins Allergy CHILDHOOD Verified 05/25/24 10:48 ALLERGY psyllium (From Metamucil) Allergy Shortness Verified 05/25/24 10:48 of breath Surgical History History of cholecystectomy (05/06/24) Hx of colonoscopy S/P ERCP H/O section S/P dilatation and curettage Social History household members: spouse current occupational status: employed Smoking Status: Never smoker alcohol intake: never substance use type: does not use Review of Systems (Anesthesia) ROS Narrative System reviewed and no additional complaints, except as documented.
--- NOTE | 2024-05-25 11:45 | FLU_PTH ---
PATIENT: BHAVANI HALLMAN LOC: EN U#:[id number] AGE/SX: 69/F ROOM: RE05/25/[address]: Dr. John Orosco DO : 1955 BED: DIS: 05/25/2024 SPEC #: [id number] RECD: 05/25/24 13:45 STATUS: KEVIN REQ #: [id number] MILLIE: 05/25/24 11:[address]: John Orosco DEPT: CYTOLOGY RECD BY: Thelma Neri ENTERED: 05/26/24 10:37 SP TYPE: Fluid OTHR DR: Dr. Wiliam Kay MD Tissues: Bile duct, NOS Procedures: Special Stain Group II Surgery Specimen Level III Surgery Specimen Level IV Cytospin Fluid HEADER OPERATION: ERCP with stent removal, balloon dilation and seep PRE-OP DIAGNOSIS: Pancreatitis, transaminitis, choledocholithiasis TISSUE SUBMITTED: Biliary stent DIAGNOSIS CYTOLOGY Biliary stent fluid (cytospin and cell block): Negative for malignant cells. See comment. CHAKA 05/28/2024 COMMENT Organisms consistent with bacteria are also noted. Correlation with clinical findings and appropriate follow up are necessary. CYTOLOGY STUDY Slides are reviewed. CYTOLOGY GROSS Received is a blue/black stent measuring 10 cm with 0.2 ml of yellow thick fluid labeled with the patient's name and and designated per the requisition as biliary stent. Submitted for cytology preparation including cell block. /CW:franny 05/26/24 TC: 5 CPT: 11396, 56022
--- NOTE | 2024-05-25 13:40 | OP.CCLET_ITS ---
05/25/2024 Bryan Kay [address] [place] [address] Re : ERCP procedure for Evonneamalia Burt Dear Dr. Kay This procedure was performed on Saturday, May 25, 2024. My impressions and recommendations are as follows: Impressions : - Choledocholithiasis was found. Partial removal was accomplished with biliary sphincterotomy; a stent was inserted. - A biliary sphincterotomy was performed. - The biliary tree was swept. - One stent was removed from the right hepatic duct. - One temporary stent was placed into the common bile duct. Recommendations : My findings are described in the full procedure note, which is enclosed. If I can be of further assistance, please feel free to contact me at . Sincerely, John Orosco, 05/25/2024 1:39:54 PM This report has been signed electronically.
--- NOTE | 2024-05-25 13:40 | OP.ERCP_ITS ---
Patient Name: Evonne Burt Procedure Date: 05/25/2024 11:39 AM Date of : 1955 Age: 69 Procedure: ERCP Indications: Bile duct stone(s), Stent change Providers: John Orosco DO Referring MD: Bryan Kay Medicines: Monitored Anesthesia Care Patient Profile: This is a 69 year old female. Refer to note in patient chart for documentation of history and physical. Patient has symptoms of chronic right upper quadrant abdominal pain and chronic jaundice. She is status post laparoscopic cholecystectomy within the past three months. Her most recent ERCP for stent and ERCP for stone removal was within the past three months. Complications: No immediate complications. Procedure: Pre-Anesthesia Assessment: - Prior to the procedure, a History and Physical was performed, and patient medications and allergies were reviewed. The patient is competent. The risks and benefits of the procedure and the sedation options and risks were discussed with the patient. All questions were answered and informed consent was obtained. Patient identification and proposed procedure were verified by the physician in the pre-procedure area. Mental Status Examination: alert and oriented. Airway Examination: normal oropharyngeal airway and neck mobility. Respiratory Examination: clear to auscultation. CV Examination: normal. Prophylactic Antibiotics: The patient does not require prophylactic antibiotics. Prior Anticoagulants: The patient has taken no anticoagulant or antiplatelet agents except for NSAID medication. ASA Grade Assessment: II - A patient with mild systemic disease. After reviewing the risks and benefits, the patient was deemed in satisfactory condition to undergo the procedure. The anesthesia plan was to use monitored anesthesia care (MAC). Immediately prior to administration of medications, the patient was re-assessed for adequacy to receive sedatives. The heart rate, respiratory rate, oxygen saturations, blood pressure, adequacy of pulmonary ventilation, and response to care were monitored throughout the procedure. The physical status of the patient was re-assessed after the procedure. After obtaining informed consent, the scope was passed under direct vision. Throughout the procedure, the patient's blood pressure, pulse, and oxygen saturations were monitored continuously. The Duodenoscope was introduced through the mouth, and advanced to the duodenum and used to inject contrast into the bile duct. The ERCP was technically difficult and complex due to abnormal anatomy. The patient tolerated the procedure fairly well. Scope In: 12:06:47 PM Scope Out: 1:27:00 PM Total Procedure Duration Time 1 hour 20 minutes 13 seconds Findings: The tour actor film was normal. The esophagus was successfully intubated under direct vision. The scope was advanced to a normal major papilla in the descending duodenum without detailed examination of the pharynx, larynx and associated structures, and upper GI tract. The upper GI tract was grossly normal. The bile duct was deeply cannulated with the short-nosed traction sphincterotome. Contrast was injected. I personally interpreted the bile duct images. Ductal flow of contrast was adequate. Image quality was adequate. Contrast extended to the entire biliary tree. Opacification of the entire biliary tree except for the cystic duct and gallbladder, entire biliary tree except for the gallbladder, left and right hepatic ducts and all intrahepatic branches and entire biliary tree was successful. The maximum diameter of the ducts was 15 mm. A long 0.025 inch Jagwire was passed into the biliary tree. A 5 mm biliary sphincterotomy was made with a traction (standard) sphincterotome using ERBE electrocautery. The sphincterotomy oozed blood. The biliary tree was swept with a 15 mm balloon starting at the bifurcation, left intrahepatic duct(s), left main hepatic duct, right intrahepatic duct(s) and right main hepatic duct. Sludge was swept from the duct. Many stones were removed. Two stones remained. One stent was removed from the right hepatic duct using a snare and sent for cytology. The stent was found to be partially occluded via the water column test. The bile duct was explored endoscopically using the SpSmart Patientslass direct visualization system. The SpyScope was advanced to the right intrahepatic duct(s). Visibility with the scope was good. The main bile duct, left main hepatic duct, right main hepatic duct and left and right hepatic ducts and all intrahepatic branches contained multiple stones, the largest of which was 6 mm in diameter. One 10 Fr by 7 cm temporary stent with two internal flaps was placed 5 cm into the common bile duct. Bile and clear fluid flowed through the stent. The stent was in good position. Impression: - Choledocholithiasis was found. Partial removal was accomplished with biliary sphincterotomy; a stent was inserted. - A biliary sphincterotomy was performed. - The biliary tree was swept. - One stent was removed from the right hepatic duct. - One temporary stent was placed into the common bile duct. Procedure Code(s): --- Professional --- 31376, Endoscopic retrograde cholangiopancreatography (ERCP); with placement of endoscopic stent into biliary or pancreatic duct, including pre- and post-dilation and guide wire passage, when performed, including sphincterotomy, when performed, each stent 61054, 59,51, Endoscopic retrograde cholangiopancreatography (ERCP); with removal of foreign body(s) or stent(s) from biliary/pancreatic duct(s) 02909, Endoscopic retrograde cholangiopancreatography (ERCP); with removal of calculi/debris from biliary/pancreatic duct(s) 59454, Endoscopic cannulation of papilla with direct visualization of pancreatic/common bile duct(s) (List separately in addition to code(s) for primary procedure) 73687, 26, Endoscopic catheterization of the biliary ductal system, radiological supervision and interpretation CPT copyright 2021 [employer]. All rights reserved. The codes documented in this report are preliminary and upon remote broadcast engineer review may be revised to meet current compliance requirements. John Orosco DO 05/25/2024 1:39:54 PM This report has been signed electronically. Number of Addenda: 0 Note Initiated On: 05/25/2024 11:39 AM
--- NOTE | 2024-05-25 13:53 | PCM.POST.ANE ---
Anesthesia: Postop Eval I Current Vital Signs Temperature: 97.1 F Pulse Rate: 77 Blood Pressure: 97/58 Respiratory Rate: 16 Pulse Ox: 100 Oxygen Delivery Method: Room Air Assessment Airway patent: Yes Spontaneous unlabored respirations: Yes Mental status: Asleep nausea: No Vomiting: No Anesthesia Complication: No Fluid Hydration Crystalloid volume administer (ml): 60 Total IV fluid infused: 60 Progress Note Anesthesia document: Postop Eval 1 completed: Yes
--- NOTE | 2024-05-25 15:00 | PCM.POSTANE2 ---
Anesthesia Postop Eval I Sum Postop Eval Completion status Anesthesia document: Postop Eval 1 completed: Yes Anesthesia Postop Eval I Summary Anesthesia Postop Eval I Summary: Anesthesia Postop Eval I: Assessment Summary Airway patent Yes 05/25/24 13:55 [email or web address] Spontaneous unlabored Yes 05/25/24 13:55 [email or web address] respirations Mental status Asleep 05/25/24 13:55 [email or web address] nausea No 05/25/24 13:55 [email or web address] Vomiting No 05/25/24 13:55 [email or web address] Anesthesia Postop Eval I: Fluid Summary Crystalloid volume administer 60 05/25/24 13:55 [email or web address] (ml) Colloids volume administered ( ml) Blood Product volume administered (ml) Total IV fluid infused 60 05/25/24 13:55 [email or web address] Anesthesia Postop Eval I: Summary Notes Anesthesia Complication No 05/25/24 13:55 [email or web address] Anesthesia Complication Comment: Post-operative progress note Anesthesia: Postop Eval II Evaluation Mental status: Awake and Calm Pain Level: 0 nausea: No Vomiting: No Complications Anesthesia Complication: No
== END 2024-05-25 15:23 | disposition home or self-care (01) ==
LOC: EN 10:30 → AC 10:32
PROVIDERS: PCP Family Medicine; Referring Provider Family Medicine; Visit Provider Internal Medicine Gastroenterology
PROC: (CPT 43260; principal; 2024-05-25 11:25)
DX: K80.50 Calculus of bile duct without cholangitis or cholecystitis without obstruction (principal); K85.10 Biliary acute pancreatitis without necrosis or infection; I10 Essential (primary) hypertension; R74.01 Elevation of levels of liver transaminase levels; Z79.899 Other long term (current) drug therapy; E03.9 Hypothyroidism, unspecified; Z79.890 Hormone replacement therapy
CPT/HCPCS: 43276; 43264; 74330; 76000; 88108; 88304; 88305; 88313; 93005; A4216; C1726; J2405

== ENCOUNTER 2024-05-30 08:45 | Observation (INO) | payer OTHER, MEDICARE, SELFPAY ==
[2024-05-30] VITALS (8 sets, daily range): BP systolic 112–140; BP diastolic 68–78; PULSE 78–100; RESP 16–29; TEMP 36.6–37.7; O2SAT 92–98; BMI 40.8
--- NOTE | 2024-05-30 09:19 | CT_ITS ---
HISTORY: chest pain, abdominal pain. Gallbladder surgery 05/06/2024, stent replacement 05/25/2024. TECHNIQUE: Helically acquired images were obtained of the chest, abdomen, and pelvis after the intravenous administration of 100 mL Isovue-300. No oral contrast was administered. 2-D reformatted images provided. A radiation dose optimization technique was used for this scan. 1250 images. COMPARISON: 03/25/2024 FINDINGS: ----Chest: LARGE AIRWAYS: Patent. LUNGS: Very mild right upper and lower lobe atelectasis. PLEURA: Mild right pleural effusion. HEART AND PERICARDIUM: Heart within normal limits in size. No significant pericardial effusion. VESSELS: No thoracic aortic aneurysm or dissection flap. Mild atherosclerosis. No large central central pulmonary embolism although study not performed with the pulmonary embolism protocol. MEDIASTINUM AND JONY: No pathologically enlarged lymph nodes. BONES: Degenerative change. ----Abdomen/Pelvis: BOWEL: Bowel including appendix nondilated. Colonic diverticulosis without focal inflammatory change. LIVER: 4 x 5 cm rim-enhancing air-fluid collection indenting the right hepatic dome. GALLBLADDER/BILIARY TREE: Surgical clips 1.2 x 2.7 cm air-fluid collection, and trace edema in the gallbladder fossa. Mild extrahepatic and left intrahepatic pneumobilia with stent in the common bile duct. SPLEEN/PANCREAS: Homogeneous and nonenlarged. KIDNEYS/ADRENAL GLANDS: Unremarkable. VESSELS: No abdominal aortic aneurysm or dissection flap. Mild atherosclerosis. PELVIC ORGANS: Unremarkable. BONES: Degenerative change. Mild anterolisthesis of L4-5. CT/CT Chest, Abd, Pel w/Contrast IMPRESSION: Mild right pleural effusion. 4 x 5 cm rim-enhancing air-fluid collection at the hepatic dome, concerning for subdiaphragmatic/perihepatic postoperative abscess. Additional small postoperative air-fluid collection in the gallbladder fossa. Cholecystectomy and biliary stent with mild pneumobilia. Colonic diverticulosis without acute diverticulitis. Electronically Signed: Kiana Sears MD at 10:48 EST ,
--- NOTE | 2024-05-30 09:19 | EKG12_ITS ---
Test Reason : Blood Pressure : */* mmHG Vent. Rate : 80 BPM Atrial Rate : 80 BPM P-R Int : 166 ms QRS Dur : 78 ms QT Int : 340 ms P-R-T Axes : 48 42 47 degrees QTcB Int : 392 ms Normal sinus rhythm Normal ECG Confirmed by NENO ALMANZAR, VENESSA ([id number]), editorial project manager AUBREY RUTLEDGE ([id number]) on 06/01/2024 8:37:38 AM Referred By: Confirmed By: VENESSA LAZCANO MD
--- NOTE | 2024-05-30 09:20 | EDS_ITS ---
HPI History of Present Illness Chief Complaint: General Illness Detail of Chief Complaint: Not feeling well Informant: patient Narrative Narrative: Patient presents the emergency department complaining of feeling well for last 6 days. Patient states that she just had a bile duct stent replaced by Dr. Orosco 5 days ago. Since that time she has been having some discomfort in her right shoulder and right chest especially with breathing. She complains of exertional dyspnea. Denies significant abdominal pain. She gives history of gallstones in March that required bile duct stent and then referral to tertiary care center at [facility] where she had a cholecystectomy done laparoscopically. Patient currently denies fever. She denies nausea or vomiting. She describes some dark urine but no dysuria urgency or frequency. [facility] Medical History Post-menopausal Wears glasses Thyroid disease Pancreatitis Essential hypertension Morbid obesity with BMI of 40.0-44.9, adult Vitamin D deficiency Hypertension Hypothyroidism Home Medications ?Medication ?Instructions ?Recorded ?Last Taken ?Type levothyroxine 200 mcg tablet 200 mcg PO MOTUWETHFRSA thyroid 11/06/21 05/25/24 History levothyroxine 200 mcg tablet 400 mcg PO ROBERTS thyroid 11/06/21 05/24/24 History lisinopril 20 mg tablet 20 mg PO BID 11/06/21 05/24/24 History albuterol sulfate 90 mcg/actuation 2 inh inhalation Q4H PRN sob 03/26/24 05/23/24 History breath activated powder inhaler (ProAir RespiClick) cholecalciferol (vitamin D3) 125 5,000 unit PO DAILY 03/26/24 05/22/24 History mcg (5,000 unit) capsule Allergy/AdvReac Type Severity Reaction Status Date / Time chlorhexidine Allergy Rash Verified 05/30/24 08:46 Penicillins Allergy CHILDHOOD Verified 05/30/24 08:46 ALLERGY psyllium (From Metamucil) Allergy Shortness Verified 05/30/24 08:46 of breath Surgical History History of cholecystectomy (05/06/24) Hx of colonoscopy S/P ERCP H/O section S/P dilatation and curettage Social History household members: spouse current occupational status: employed Smoking Status: Never smoker alcohol intake: never substance use type: does not use ROS ROS ED Review of Systems ROS Unobtainable: other Constitutional Constitutional ED: Reports lethargy; Denies chills, fever(s), sweats or weight loss Eyes Eyes: Denies blurry vision, change in vision or diplopia ENT ENT ED: Denies rhinorrhea or sore throat Cardiovascular Cardiovascular: Reports chest pain; Denies orthopnea or racing heartbeat Respiratory/Chest Respiratory/Chest: Reports dyspnea and dyspnea on exertion; Denies cough, orthopnea or sputum Gastrointestinal Gastrointestinal: Denies abdominal pain, diarrhea, nausea or vomiting Genitourinary Genitourinary ED: Denies dysuria, hematuria or urinary frequency Musculoskeletal Musculoskeletal: Denies arthralgias, back pain, myalgias or neck pain Integumentary Denies abscess, Abrasions or rash Neurologic Neurologic: Denies headache(s) or weakness Psychiatric Psychiatric: Denies anxiety, depression or suicidal thoughts Endocrine Endocrinology: Denies polydipsia, polyphagia or polyuria Hematologic/Lymphatic Hematologic/Lymphatic: Denies easy bleeding, easy bruising or lymphadenopathy Allergic/Immunologic Allergic/Immunologic ED: Denies mouth swelling, tongue swelling or urticaria EXAM Physical Exam Const Vital Signs: 05/30/24 08:46 05/30/24 08:51 05/30/24 11:51 Temperature 98.4 F 98 F 98.7 F Temperature Source Oral Oral Oral Pulse Rate 100 78 86 Respiratory Rate 18 16 18 Blood Pressure 122/78 H 140/68 H 121/74 H Blood Pressure Mean 92 92 89 Pulse Ox 95 98 96 Oxygen Delivery Method Room Air Room Air Room Air 05/30/24 14:00 05/30/24 15:02 Temperature 99.6 F H Temperature Source Pulse Rate 84 93 Respiratory Rate 25 H 29 H Blood Pressure 123/77 H 138/78 H Blood Pressure Mean 92 98 Pulse Ox 95 92 Oxygen Delivery Method Room Air Positive well nourished and well developed General Appearance ED: well developed and NAD HEENT Reports TM's clear and moist mucous membranes normocephalic and atraumatic; Negative for trauma or tenderness Tympanic Membrane ED: Yes TM's clear Eyes PERRL and EOMs intact bilaterally General Eye ED: Negative for pale conjunctiva or scleral icterus Neck no lymphadenopathy, supple and no JVD General: Negative for tenderness Chest Wall inspection of chest normal and palpation of chest normal Chest: Negative for tenderness Resp normal respiratory effort and clear to auscultation bilaterally Effort and Inspection: Negative for respiratory distress or pain with movement Auscultation: Negative for rhonchi, wheezes or diminished lung sounds Cardio regular rate, regular rhythm, S1 normal heart sound, S2 normal heart sound and no murmurs Peripheral Pulses: pulses 2+ throughout GI normal to inspection, nondistended, normoactive bowel sounds, soft to palpation, non-tender, non-distended and no masses Back/Spine no CVA tenderness and no thoracic nor lumbar tenderness Extremity normal to inspection General Extremety ED: Negative for edema General Extremity: Negative for edema Neuro oriented x3, CN's II-XII intact bilaterally, no sensory deficits noted and gait normal Sensorium / Orientation: awake, alert, oriented to person, oriented to place and oriented to time Motor Exam: strength 5/5 throughout and strength abnormal Psych mental status grossly normal Skin no rashes or lesions noted and no wounds MDM MDM MDM Narrative Medical decision making narrative: Patient presents with complaint of not feeling well. Recent surgery at [facility] to remove her gallbladder and had recent stenting to her common bile duct. Patient had a CBC with differential obtained on arrival showed a white count of 10.0 with hemoglobin 12 and platelet count of 194. Chemistry is unremarkable. LFTs showed a bilirubin of 1.9 with AST of 30 and ALT of 48 and alkaline phosphatase of 261. Lipase was normal at 17. Urinalysis unremarkable. CT scan of the abdomen pelvis obtained read by radiology as concerning for postop abscess to the dome of liver measuring 4 x 5 cm. Discussed case with general surgeon on-call who recommended transfer to [facility] where she had her surgery given that we do not have interventional radiology for the next 7 days. I did discuss case with [facility] and they accepted transfer the patient however they do not currently have beds available. I did start her on Levaquin IV. I will discuss with hospitalist evaluate for admission until bed becomes available at [facility] as she is clinically stable. Lab Data Attestation: I reviewed the patient's lab results. Labs: Laboratory Results - last 24 hr 05/30/24 05/30/24 05/30/24 09:32 10:40 11:35 WBC 10.0 RBC 4.27 Hgb 12.0 Hct 37.2 MCV 87.1 MCH 28.1 MCHC 32.3 RDW Std Deviation 43.7 RDW Coeff of Ja 13.8 Plt Count 194 MPV 11.4 Immature Gran % (Auto) 1.100 H Neut % (Auto) 76.8 H Lymph % (Auto) 9.4 L Otero % (Auto) 11.5 H Eos % (Auto) 0.5 Baso % (Auto) 0.7 Absolute Neuts (auto) 7.7 Absolute Lymphs (auto) 0.94 Nucleated RBC % 0 Sodium Cancelled 129 L Potassium Cancelled 3.8 Chloride Cancelled 99 Carbon Dioxide Cancelled 22.0 Anion Gap Cancelled 9 BUN Cancelled 19 H Creatinine Cancelled 0.82 Estim Creat Clear Calc Cancelled 79.90 Est GFR (MDRD) Af Amer Cancelled 89 Est GFR (MDRD) Non-Af Cancelled 74 BUN/Creatinine Ratio Cancelled 23.1 H Glucose Cancelled 106 Calcium Cancelled 9.1 Total Bilirubin Cancelled 1.90 H AST Cancelled 30 ALT Cancelled 48 Alkaline Phosphatase Cancelled 261 H Troponin I High Sens Cancelled 5 Total Protein Cancelled 7.1 Albumin Cancelled 2.1 L Globulin Cancelled 5.0 H Albumin/Globulin Ratio Cancelled 0.4 L Lipase Cancelled 17 Urine Color Yellow Urine Clarity Clear Urine pH 6.5 Ur Specific [place] 1.010 Urine Protein 30 H Urine Glucose (UA) Normal Urine Ketones Negative Urine Occult Blood Negative Urine Nitrite Negative Urine Bilirubin Negative Urine Urobilinogen 4 H Ur Leukocyte Esterase 25 H Urine RBC 0 SEEN Urine WBC 0-5 SEEN Ur Squamous Epith Cells 0-5 SEEN Urine Bacteria 1+ Urine Mucus 0 SEEN 05/30/24 12:58 WBC RBC Hgb Hct MCV MCH MCHC RDW Std Deviation RDW Coeff of Ja Plt Count MPV Immature Gran % (Auto) Neut % (Auto) Lymph % (Auto) Otero % (Auto) Eos % (Auto) Baso % (Auto) Absolute Neuts (auto) Absolute Lymphs (auto) Nucleated RBC % Sodium Potassium Chloride Carbon Dioxide Anion Gap BUN Creatinine Estim Creat Clear Calc Est GFR (MDRD) Af Amer Est GFR (MDRD) Non-Af BUN/Creatinine Ratio Glucose Calcium Total Bilirubin AST ALT Alkaline Phosphatase Troponin I High Sens 3 Total Protein Albumin Globulin Albumin/Globulin Ratio Lipase Urine Color Urine Clarity Urine pH Ur Specific [place] Urine Protein Urine Glucose (UA) Urine Ketones Urine Occult Blood Urine Nitrite Urine Bilirubin Urine Urobilinogen Ur Leukocyte Esterase Urine RBC Urine WBC Ur Squamous Epith Cells Urine Bacteria Urine Mucus Radiography Diagnostic Testing: Clinical Impression(s) from Imaging Studies Chest/Abdomen/Pelvis CT 05/30/24 09:19 IMPRESSION: Mild right pleural effusion. 4 x 5 cm rim-enhancing air-fluid collection at the hepatic dome, concerning for subdiaphragmatic/perihepatic postoperative abscess. Additional small postoperative air-fluid collection in the gallbladder fossa. Cholecystectomy and biliary stent with mild pneumobilia. Colonic diverticulosis without acute diverticulitis. Electronically Signed: Kiana Sears MD at 10:48 EST , EKG Initial EKG: Attestation: I personally reviewed and interpreted this EKG as follows: Comments: Sinus rhythm with ventricular rate 80 bpm with no acute ST segment change Discharge Plan Dx/Rx/DC Orders Clinical Impression: Postoperative abscess, History of hypertension, History of hypothyroidism Disposition Disposition: Acute Care [facility]
[2024-05-30] MEDS: 0.9% Normal Saline (1000mL) 1,000 ML 1000 ML IV (09:31)
[2024-05-30 10:06] LABS: Absolute Lymphocyte Count 0.94 X10^3/uL (0.83-4.51); Absolute Neutrophil Count 7.7 X10^3/uL (2.0-7.7); Basophil# 0.07 X10^3/uL; Basophil% 0.7 % (0-1); Eosinophil# 0.05 X10^3/uL; Eosinophils% 0.5 % (0-5); Hematocrit 37.2 % (37-47); Lymphocyte # 0.94 X10^3/ul (0.83-4.51); Lymphocyte % 9.4 % (19-41); Mean Corp Hgb Conc 32.3 g/dL (32-36); Mean Corpuscular Hgb 28.1 pg (27.0-32.0); Mean Corpuscular Volume 87.1 fL (81-99); Mean Platelet Vol. 11.4 fl (6.2-12.0); Monocyte# 1.15 X10^3/uL; Monocyte% 11.5 % (0-10); NRBC Flagged by Analyzer 0 % (0-5); Neutrophil # 7.66 X10^3/uL (2.7-7.7); Neutrophil % 76.8 % (47-70); Platelet Count 194 K/mm3 (150-450); RBC Distribution Width CV 13.8 % (11.6-14.6); RBC Distribution Width SD 43.7 fl (35.1-43.9); Red Blood Count 4.27 M/mm3 (4.2-5.4)
[2024-05-30 11:06] LABS: ALB/GLOB Ratio 0.4 RATIO (0.9-2.4); AST(SGOT) 30 U/L (15-37); Alanine Aminotransfer ALT/SGPT 48 U/L (13-56); Albumin, Serum 2.1 g/dL (3.2-5.0); Alkaline Phosphatase 261 U/L (45-117); Anion Gap 9 (5-15); BUN 19 mg/dL (7-18); BUN/Creat Ratio 23.1 RATIO (10-20); Calcium,Total 9.1 mg/dL (8.5-10.1); Chloride 99 mmol/L (98-107); Creatinine, Serum 0.82 mg/dL (0.55-1.02); EST Glomerular Filtration Rate 74 mL/min (>60); Est Glom Filt Rate - Afr Amer 89 mL/min (>60); Glucose 106 mg/dL (74-106); Lipase 17 U/L (13-75); Potassium 3.8 mmol/L (3.5-5.1); Protein, Total 7.1 g/dL (6.4-8.2); Sodium Level 129 mmol/L (136-145); Troponin-I HS (w/2H Reflex) 5 pg/mL (3.0-54.0)
[2024-05-30 11:47] LABS: Mucous, Urine 0 SEEN /hpf (<or=2+); Red Blood Cells-Urine 0 SEEN /hpf (0-5)
[2024-05-30 11:51] LABS: Color, Urine Yellow (Yellow); Glucose, Dipstick Normal (Normal); Ketone-Dipstick Negative (Negative); Leukocyte Esterase-Dipstick 25 /ul (Negative); Nitrite-Dipstick Negative (Negative); Occult Blood-Urine Negative /ul (Negative); Protein-Dipstick 30 mg/dl (Negative); Urine Bilirubin Dipstick Negative (Negative); Urine Clarity Clear (Clear); Urine Urobilinogen 4 mg/dl (Normal); Urine pH 6.5 (5.0 - 8.0)
[2024-05-30 11:58] LABS: Bacteria 1+ /hpf (None Seen); Squamous Epithelial Cells - UA 0-5 SEEN /hpf (5-10); White Blood Cells 0-5 SEEN /hpf (0-5)
[2024-05-30 12:41] LABS: Reflex Troponin-HS? (from REC) Y
[2024-05-30 13:38] LABS: Troponin-I HS 3 pg/mL (3.0-54.0)
--- NOTE | 2024-05-30 13:55 | ED.RN ---
CALLED [employer] [facility] STILL WAITING FOR AN UPDATE FROM THEN [id number]
--- NOTE | 2024-05-30 14:54 | PCM.HP.STD ---
[facility] Date of Admission: 05/30/24 Date of Service: 05/30/24 Chief Complaint: Worsening abdominal pain HPI Narrative BHAVANI HALLMAN, is a 69 F who presented to [facility] ED on 05/30/2024 with worsening abdominal pain. Patient was initially hospitalized here from 03/26-04/02 for choledocholithiasis. Had ERCP x 2 done during that hospitalization with stone removal both times and temporary stents placed in the common bile duct and the right and left hepatic ducts. Notably did have post ERCP pancreatitis after the first ERCP. Laparoscopic cholecystectomy was attempted here by Dr. Parra on 04/01 but she was found to have severe fibrosis and scarring along the infundibulum of the gallbladder which precluded safe identification of the cystic duct, common bile duct and cystic artery, so the procedure was aborted. Patient then had a lap dianne done with a hepatobiliary surgeon at [facility] On 05/06; per note in [facility] there were no complications during that procedure. She then had another ERCP done with Dr. Orosco on 05/25 with further gallstones removed, biliary sphincterotomy performed and 2 other stents placed. Patient presented today with some abdominal pain and generally not feeling well since the ERCP with Dr. Orosco. She has had some discomfort in her right shoulder and right chest as well as some exertional dyspnea. She denies any fevers or chills. Denies any nausea or vomiting but has not had much of an appetite. In the ED she had a low-grade fever to 99.9F but was otherwise hemodynamically stable on room air. Labs notable for sodium 129, T. bili 1.90, alk phos 261, otherwise unremarkable. CT chest abdomen pelvis with contrast showed a 4 x 5 cm rim-enhancing air-fluid collection at the hepatic dome concerning for subdiaphragmatic/perihepatic postoperative abscess. ED physician discussed with [facility] And patient was accepted for transfer there. However there was no bed available after 6 hours so hospitalist was contacted for admission. I saw the patient at bedside in the ED, was present. Patient was mildly fatigued appearing but otherwise sitting up comfortably in bed and in no acute distress. She reported mild to moderate abdominal pain currently. Denied any fevers or chills. No other acute concerns at this time. [facility] Medical History Post-menopausal Wears glasses Thyroid disease Pancreatitis Essential hypertension Morbid obesity with BMI of 40.0-44.9, adult Vitamin D deficiency Hypertension Hypothyroidism Home Medications ?Medication ?Instructions ?Recorded ?Last Taken ?Type levothyroxine 200 mcg tablet 200 mcg PO MOTUWETHFRSA thyroid 11/06/21 05/25/24 History levothyroxine 200 mcg tablet 400 mcg PO ROBERTS thyroid 11/06/21 05/24/24 History lisinopril 20 mg tablet 20 mg PO BID 11/06/21 05/24/24 History albuterol sulfate 90 mcg/actuation 2 inh inhalation Q4H PRN sob 03/26/24 05/23/24 History breath activated powder inhaler (ProAir RespiClick) cholecalciferol (vitamin D3) 125 5,000 unit PO DAILY 03/26/24 05/22/24 History mcg (5,000 unit) capsule Allergy/AdvReac Type Severity Reaction Status Date / Time chlorhexidine Allergy Rash Verified 05/30/24 08:46 Penicillins Allergy CHILDHOOD Verified 05/30/24 08:46 ALLERGY psyllium (From Metamucil) Allergy Shortness Verified 05/30/24 08:46 of breath Surgical History History of cholecystectomy (05/06/24) Hx of colonoscopy S/P ERCP H/O section S/P dilatation and curettage Social History household members: spouse current occupational status: employed Smoking Status: Never smoker alcohol intake: never substance use type: does not use ROS Constitutional Constitutional: Reports fatigue; Denies chills, fever(s) or weakness Cardiovascular Cardiovascular: Denies chest pain Respiratory/Chest Respiratory/Chest: Reports shortness of breath with exertion; Denies cough, productive cough or shortness of breath at rest Gastrointestinal Gastrointestinal: Reports abdominal pain and nausea; Denies constipation, diarrhea or vomiting Genitourinary Genitourinary: Denies dysuria Musculoskeletal Musculoskeletal: Denies arthralgias or myalgias Neurologic Neurologic: Denies dizziness or focal weakness Vital Signs Vital Signs Vital Signs: 05/30/24 08:46 05/30/24 08:51 05/30/24 11:51 Temperature 98.4 F 98 F 98.7 F Temperature Source Oral Oral Oral Pulse Rate 100 78 86 Respiratory Rate 18 16 18 Blood Pressure 122/78 H 140/68 H 121/74 H Blood Pressure Mean 92 92 89 Pulse Ox 95 98 96 Oxygen Delivery Method Room Air Room Air Room Air 05/30/24 14:00 Temperature Temperature Source Pulse Rate 84 Respiratory Rate 25 H Blood Pressure 123/77 H Blood Pressure Mean 92 Pulse Ox 95 Oxygen Delivery Method Room Air Weight Weight: 108 kg Body Mass Index (BMI) 40.8 Physical Exam Const alert, oriented x3 and no apparent distress Constitutional Narrative: Elderly female, class III obesity, mildly fatigued appearing, otherwise sitting up comfortably in bed, conversing normally, no acute distress. General Appearance: cooperative and comfortable HEENT normocephalic, head/scalp atraumatic, hearing grossly normal bilaterally, nasal mucous membranes and turbinates normal and moist oral mucous membranes Eyes PERRL, EOMs intact bilaterally and conjunctivae normal Neck full ROM Chest inspection of chest normal Resp normal respiratory effort, normal air movement, no use of accessory muscles and clear to auscultation bilaterally Cardio regular rate, regular rhythm, no murmurs and peripheral pulses 2+ throughout GI GI Narrative: Mild tenderness to palpation in right upper quadrant and epigastric areas. Otherwise abdomen soft and nondistended. Back/Spine normal ROM Extremity normal to inspection, full ROM and no pedal edema Skin no rashes or lesions noted Psych mental status grossly normal Results Lab / Micro Data 05/30/24 09:32 05/30/24 10:40 Labs: Laboratory Results - last 24 hr 05/30/24 09:32: WBC 10.0, RBC 4.27, Hgb 12.0, Hct 37.2, MCV 87.1, MCH 28.1, MCHC 32.3, RDW Std Deviation 43.7, RDW Coeff of Ja 13.8, Plt Count 194, MPV 11.4, Immature Gran % (Auto) 1.100 H, Neut % (Auto) 76.8 H, Lymph % (Auto) 9.4 L, Cataño % (Auto) 11.5 H, Eos % (Auto) 0.5, Baso % (Auto) 0.7, Absolute Neuts (auto) 7.7, Absolute Lymphs (auto) 0.94, Nucleated RBC % 0, Sodium Cancelled, Potassium Cancelled, Chloride Cancelled, Carbon Dioxide Cancelled, Anion Gap Cancelled, BUN Cancelled, Creatinine Cancelled, Estim Creat Clear Calc Cancelled, Est GFR (MDRD) Af Amer Cancelled, Est GFR (MDRD) Non-Af Cancelled, BUN/Creatinine Ratio Cancelled, Glucose Cancelled, Calcium Cancelled, Total Bilirubin Cancelled, AST Cancelled, ALT Cancelled, Alkaline Phosphatase Cancelled, Troponin I High Sens Cancelled, Total Protein Cancelled, Albumin Cancelled, Globulin Cancelled, Albumin/Globulin Ratio Cancelled, Lipase Cancelled 05/30/24 10:40: Sodium 129 L, Potassium 3.8, Chloride 99, Carbon Dioxide 22.0, Anion Gap 9, BUN 19 H, Creatinine 0.82, Estim Creat Clear Calc 79.90, Est GFR (MDRD) Af Amer 89, Est GFR (MDRD) Non-Af 74, BUN/Creatinine Ratio 23.1 H, Glucose 106, Calcium 9.1, Total Bilirubin 1.90 H, AST 30, ALT 48, Alkaline Phosphatase 261 H, Troponin I High Sens 5, Total Protein 7.1, Albumin 2.1 L, Globulin 5.0 H, Albumin/Globulin Ratio 0.4 L, Lipase 17 05/30/24 11:35: Urine Color Yellow, Urine Clarity Clear, Urine pH 6.5, Ur Specific Jensen 1.010, Urine Protein 30 H, Urine Glucose (UA) Normal, Urine Ketones Negative, Urine Occult Blood Negative, Urine Nitrite Negative, Urine Bilirubin Negative, Urine Urobilinogen 4 H, Ur Leukocyte Esterase 25 H, Urine RBC 0 SEEN, Urine WBC 0-5 SEEN, Ur Squamous Epith Cells 0-5 SEEN, Urine Bacteria 1+, Urine Mucus 0 SEEN 05/30/24 12:58: Troponin I High Sens 3 Imaging Radiology Impression Chest/Abdomen/Pelvis CT 05/30/24 09:19 IMPRESSION: Mild right pleural effusion. 4 x 5 cm rim-enhancing air-fluid collection at the hepatic dome, concerning for subdiaphragmatic/perihepatic postoperative abscess. Additional small postoperative air-fluid collection in the gallbladder fossa. Cholecystectomy and biliary stent with mild pneumobilia. Colonic diverticulosis without acute diverticulitis. Electronically Signed: Kiana Sears MD at 10:48 EST Reading Location ID and State: [id number] / [place] Tel , Service support , Assessment & Plan Assessment/Plan (1) Postoperative abscess: PLAN: Plan Patient is a 69-year-old female who presented [facility] ED on 05/30/2024 with worsening abdominal pain. 1. Recent laparoscopic cholecystectomy with postoperative abscess, recent history of choledocholithiasis s/p multiple ERCP procedures with stenting ? Admit under inpatient status to [facility]. See HPI for further details on recent history. Notably had lap dianne done at [facility] on 05/06. CT abdomen pelvis on admit showed a 4 x 5 cm air?fluid collection at the hepatic dome concerning for postoperative abscess. Accepted for transfer to [facility] and will transfer once bed is available. Will treat with IV cefepime while here. Pain control with Tylenol as needed and IV Toradol as needed. She notably did not want to be treated with opiates; has never been on them and is fearful of the effects they could have on her. Okay for clear liquid diet for now but will keep n.p.o. at midnight. Can consider surgery consult here as needed. 2. Hyponatremia ? Sodium 129 on admit, baseline 135-140. Chloride borderline low. Suspect due to mild dehydration from recent poor p.o. intake. No mental status changes. Given 1 L normal saline in the ED, follow-up a.m. sodium level. Chronic medical conditions: ? Class III obesity: BMI 40 on admit. Complicates hospital course, care and prognosis. ? Hypothyroidism: Continue home Synthroid. ? Hypertension: Continue home lisinopril. ? History of asthma: Stable on room air, not in acute exacerbation. Continue home albuterol as needed. DVT prophylaxis: Lovenox CODE STATUS: Full code, verified Expected disposition: Transfer to [facility] Total clinical time spent by myself addressing the patient's medical issues, reviewing all the data, and collaborating with patient's care team: 75 minutes. Charges/Coding Visit Charges Inpatient E&M: 38993 Init Hosp L3
[2024-05-30] MEDS: levoFLOXacin IV 750 MG/150 ML BAG 100 MG IV (15:04)
[2024-05-30] MEDS: Ketorolac 15 MG/ML Vial IV (18:15)
[2024-05-30] MEDS: 0.9% Saline Lock 10 ML Syringe IV (21:11)
[2024-05-30] MEDS: Cefepime HCl 2 GM in 0.9% Normal Saline (100mL MB+) 100 ML IV (21:11)
[2024-05-30] MEDS: Ondansetron 4 MG/2 ML Vial IV (22:57)
[2024-05-31] VITALS (7 sets, daily range): BP systolic 113–141; BP diastolic 66–82; PULSE 78–93; RESP 16–17; TEMP 36.8–37.5; O2SAT 93–95
[2024-05-31] MEDS: Ketorolac 15 MG/ML Vial IV ×3 (00:17→21:30)
--- NOTE | 2024-05-31 00:17 | CPS ---
Patient refused IS/PEP, order stopped by this SCHOLARSHIP COUNSELOR
[2024-05-31 05:21] LABS: Hematocrit 32.8 % (37-47); Hemoglobin 10.5 g/dL (12.0-15.0); Mean Corpuscular Hgb 28.1 pg (27.0-32.0); Mean Corpuscular Volume 87.7 fL (81-99); Platelet Count 198 K/mm3 (150-450); RBC Distribution Width CV 14.2 % (11.6-14.6); RBC Distribution Width SD 45.3 fl (35.1-43.9); Red Blood Count 3.74 M/mm3 (4.2-5.4); White Blood Count 8.3 K/mm3 (4.4-11.0)
[2024-05-31] MEDS: Cefepime HCl 2 GM in 0.9% Normal Saline (100mL MB+) 100 ML IV ×3 (05:39→21:35)
[2024-05-31] MEDS: 0.9% Saline Lock 10 ML Syringe IV ×4 (05:39→23:18)
[2024-05-31] MEDS: Levothyroxine 100 MCG Tablet 400 MCG PO (05:45)
[2024-05-31 06:46] LABS: ALB/GLOB Ratio 0.4 RATIO (0.9-2.4); AST(SGOT) 38 U/L (15-37); Alanine Aminotransfer ALT/SGPT 51 U/L (13-56); Alkaline Phosphatase 292 U/L (45-117); Anion Gap 5 (5-15); BUN 21 mg/dL (7-18); BUN/Creat Ratio 23.9 RATIO (10-20); Calcium,Total 9.7 mg/dL (8.5-10.1); Chloride 103 mmol/L (98-107); Creatinine, Serum 0.88 mg/dL (0.55-1.02); EST Glomerular Filtration Rate 68 mL/min (>60); Est Glom Filt Rate - Afr Amer 83 mL/min (>60); Estimated Creatinine Clearance 74.45 ml/min; Globulin 4.7 g/dL (2.2-4.2); Glucose 98 mg/dL (74-106); Potassium 3.9 mmol/L (3.5-5.1); Protein, Total 6.7 g/dL (6.4-8.2); Sodium Level 134 mmol/L (136-145)
--- NOTE | 2024-05-31 07:03 | PCM.PN.HOSP ---
Reason for Visit Reason for Visit: Diagnoses Infection following a procedure, other surgical site, initial encounter (05/30/24) Subjective Subjective Patient with persistent abdominal discomfort, worse with palpation with mild nausea without emesis but she is requesting at least clears. She notes abdominal discomfort currently 5-6 out of 10 in severity but worse with palpation. Did discuss at length her course over the last several weeks and unfortunately she notes dissatisfaction with her medical care. She notes she would like all the information she is able to have. Patient also notes intention to transition to [facility] Once bed is available via private vehicle. Discussed with her that I would allow the charge nurse to contact [facility] And make them aware of this preference. Also offered patient CT scan results impression which she wanted and was provided for her. Patient denies fevers, chills, chest pain or dyspnea. Objective Data Objective Data Vital Signs: Vital Signs Temp Pulse Resp BP Pulse Ox O2 Del Method 98.4 F 80 16 119/70 94 Room Air 05/31/24 05:48 05/31/24 05:48 05/31/24 05:48 05/31/24 05:48 05/31/24 05:48 05/31/24 05:48 Oxygen Delivery Method Room Air Weight: 238 lb 1.6 oz Body Mass Index (BMI) 40.8 Intake & Output: Intake and Output for Last 24 Hours 05/29/24 05/30/24 05/31/24 23:59 23:59 23:59 Intake Total 1650 / 1650 125 / 125 Balance 1650 / 1650 125 / 125 Lab / Micro Data 05/31/24 03:49 05/31/24 03:49 Labs: Laboratory Results - last 24 hr 05/30/24 09:32: WBC 10.0, RBC 4.27, Hgb 12.0, Hct 37.2, MCV 87.1, MCH 28.1, MCHC 32.3, RDW Std Deviation 43.7, RDW Coeff of Ja 13.8, Plt Count 194, MPV 11.4, Immature Gran % (Auto) 1.100 H, Neut % (Auto) 76.8 H, Lymph % (Auto) 9.4 L, [place] % (Auto) 11.5 H, Eos % (Auto) 0.5, Baso % (Auto) 0.7, Absolute Neuts (auto) 7.7, Absolute Lymphs (auto) 0.94, Nucleated RBC % 0, Sodium Cancelled, Potassium Cancelled, Chloride Cancelled, Carbon Dioxide Cancelled, Anion Gap Cancelled, BUN Cancelled, Creatinine Cancelled, Estim Creat Clear Calc Cancelled, Est GFR (MDRD) Af Amer Cancelled, Est GFR (MDRD) Non-Af Cancelled, BUN/Creatinine Ratio Cancelled, Glucose Cancelled, Calcium Cancelled, Total Bilirubin Cancelled, AST Cancelled, ALT Cancelled, Alkaline Phosphatase Cancelled, Troponin I High Sens Cancelled, Total Protein Cancelled, Albumin Cancelled, Globulin Cancelled, Albumin/Globulin Ratio Cancelled, Lipase Cancelled 05/30/24 10:40: Sodium 129 L, Potassium 3.8, Chloride 99, Carbon Dioxide 22.0, Anion Gap 9, BUN 19 H, Creatinine 0.82, Estim Creat Clear Calc 79.90, Est GFR (MDRD) Af Amer 89, Est GFR (MDRD) Non-Af 74, BUN/Creatinine Ratio 23.1 H, Glucose 106, Calcium 9.1, Total Bilirubin 1.90 H, AST 30, ALT 48, Alkaline Phosphatase 261 H, Troponin I High Sens 5, Total Protein 7.1, Albumin 2.1 L, Globulin 5.0 H, Albumin/Globulin Ratio 0.4 L, Lipase 17 05/30/24 11:35: Urine Color Yellow, Urine Clarity Clear, Urine pH 6.5, Ur Specific [place] 1.010, Urine Protein 30 H, Urine Glucose (UA) Normal, Urine Ketones Negative, Urine Occult Blood Negative, Urine Nitrite Negative, Urine Bilirubin Negative, Urine Urobilinogen 4 H, Ur Leukocyte Esterase 25 H, Urine RBC 0 SEEN, Urine WBC 0-5 SEEN, Ur Squamous Epith Cells 0-5 SEEN, Urine Bacteria 1+, Urine Mucus 0 SEEN 05/30/24 12:58: Troponin I High Sens 3 05/31/24 03:49: WBC 8.3, RBC 3.74 L, Hgb 10.5 L, Hct 32.8 L, MCV 87.7, MCH 28.1, MCHC 32.0, RDW Std Deviation 45.3 H, RDW Coeff of Ja 14.2, Plt Count 198, MPV 11.0, Sodium 134 L, Potassium 3.9, Chloride 103, Carbon Dioxide 26.0, Anion Gap 5, BUN 21 H, Creatinine 0.88, Estim Creat Clear Calc 74.45, Est GFR (MDRD) Af Amer 83, Est GFR (MDRD) Non-Af 68, BUN/Creatinine Ratio 23.9 H, Glucose 98, Calcium 9.7, Total Bilirubin 1.40 H, AST 38 H, ALT 51, Alkaline Phosphatase 292 H, Total Protein 6.7, Albumin 2.0 L, Globulin 4.7 H, Albumin/Globulin Ratio 0.4 L Radiography Diagnostic Testing: Radiology Impression Chest/Abdomen/Pelvis CT 05/30/24 09:19 IMPRESSION: Mild right pleural effusion. 4 x 5 cm rim-enhancing air-fluid collection at the hepatic dome, concerning for subdiaphragmatic/perihepatic postoperative abscess. Additional small postoperative air-fluid collection in the gallbladder fossa. Cholecystectomy and biliary stent with mild pneumobilia. Colonic diverticulosis without acute diverticulitis. Electronically Signed: Kiana Sears MD at 10:48 EST Reading Location ID and State: [facility] / [place] Tel , Service support , Physical Exam Narrative Physical Examination: General: Awake, alert, oriented x 3 and cooperative, laying in the MS bed, fatigued, no acute distress, still having pain however. Skin: Normal color, normal turgor, no icterus, no cyanosis except occasional stage ecchymoses. HEENT: AT/NC, EOMI, PERRLA, mildly dry MM. Lungs: Diminished, greater bases, appropriate effort, no rales, ronchi or wheezing. Heart: Regular rate and rhythm; no gallop, rub audible. Abdomen: Soft, primarily discomfort to palpation of the right lateral flank and deep right upper quadrant, no marked distention, decreased bowel sounds. Extremities: No cyanosis, no clubbing, mild pedal to mid herrera trace edema. Neurological: Patient awake, alert, oriented as noted, cognitive function intact; pupils equally reactive to light and accommodation, cranial nerves gross normal, moving all 4 extremities, no focal deficits, strength moderately globally decreased. Psychiatric: Affect appears fatigued, no acute evidence of depressive or anxiety feelings. Assessment & Plan Assessment/Plan (1) Postoperative abscess: PLAN: Plan The patient is a 69 y/o F w/ PMHx: Chronic anemia, Asthma, HTN, Morbid obesity, Hypothyroidism, Hx recurrent choledocholithiasis with initial ERCP 03/30/2024, follow-up attempt for OR 04/01/2024 which was aborted secondary to severity of inflammation and concern for potential bile duct injury with eventual 05/06/2024 laparoscopic cholecystectomy at [facility] with repeat follow-up 05/25/2024 ERCP with recurrent choledocholithiasis evident with partial removal with stent insertion into the common bile duct who presents to the [facility] ED on 05/30/2024 secondary to general fatigue, legs and worsening abdominal pain. #1. Status post recent laparoscopic cholecystectomy with postoperative abscess in addition to recent ERCP with choledocholithiasis status post ERCP with stenting: Unfortunately patient unable to be transferred from the ED, given prolonged timeline awaiting bed admitted to medical surgical floor, maintained on IV Flagyl and cefepime, maintain on IV PPI, continue as needed pain regimen, given currently no plan for transfer allow clears currently and repeat n.p.o. status at midnight in case transfer occurs to maximize potential for surgical intervention 06/01/2024, trend CBC, CMP. #2. Hyponatremia, acute mild, hypovolemic component: Admission CMP with sodium 129, suspected highly hypovolemic presentation given acute presentation as noted #1, hydrated overnight, repeat 05/31/2024 sodium 134, improved, continue to trend CMP. #3. Chronic normocytic anemia: Admission hemoglobin 12, MCV 87.1, baseline hemoglobin primarily 9-10, likely falsely elevated given dehydration, 05/31/2024 hemoglobin 10.5, continue to trend. #4. Hypertension: Continue home regimen including lisinopril with hold Primus as needed, PRN hydralazine. #5. Hypothyroidism: Continue patient on levothyroxine regimen. #6. Morbid Obesity: Weight loss and lifestyle changes encouraged. #7. Asthma: No recent exacerbations, not on chronic regimen, will have as needed albuterol, encourage head of bed and I-S #8. DVT prophylaxis: SCDs, defer chemoprophylaxis given unclear timeline for possible OR. Charges/Coding Visit Charges Inpatient E&M: 11884 Subs Hosp L2
[2024-05-31] MEDS: metroNIDAZOLE 500 MG/100 ML BAG 100 MG IV (23:19)
[2024-06-01] MEDS: Ketorolac 15 MG/ML Vial IV ×3 (05:10→21:37)
[2024-06-01] MEDS: 0.9% Saline Lock 10 ML Syringe IV ×3 (05:10→21:37)
[2024-06-01] MEDS: metroNIDAZOLE 500 MG/100 ML BAG 100 MG IV ×3 (05:10→22:29)
[2024-06-01] MEDS: Levothyroxine 100 MCG Tablet 200 MCG PO (05:11)
[2024-06-01 05:17] VITALS: BP 122/74; PULSE 82; RESP 16; TEMP 37.3; O2SAT 95
[2024-06-01] MEDS: Cefepime HCl 2 GM in 0.9% Normal Saline (100mL MB+) 100 ML IV ×3 (06:20→21:38)
[2024-06-01 06:28] LABS: Absolute Lymphocyte Count 1.23 X10^3/uL (0.83-4.51); Absolute Neutrophil Count 5.6 X10^3/uL (2.0-7.7); Basophil# 0.07 X10^3/uL; Basophil% 0.9 % (0-1); Eosinophil# 0.09 X10^3/uL; Eosinophils% 1.1 % (0-5); Hematocrit 32.9 % (37-47); Hemoglobin 10.6 g/dL (12.0-15.0); Lymphocyte # 1.23 X10^3/ul (0.83-4.51); Lymphocyte % 15.6 % (19-41); Mean Corp Hgb Conc 32.2 g/dL (32-36); Mean Corpuscular Hgb 28.1 pg (27.0-32.0); Mean Corpuscular Volume 87.3 fL (81-99); Mean Platelet Vol. 10.9 fl (6.2-12.0); Monocyte# 0.87 X10^3/uL; NRBC Flagged by Analyzer 0 % (0-5); Neutrophil # 5.56 X10^3/uL (2.7-7.7); Neutrophil % 70.4 % (47-70); POSITIVE MORPHOLOGY YES; Platelet Count 232 K/mm3 (150-450); RBC Distribution Width CV 14.2 % (11.6-14.6); RBC Distribution Width SD 45.3 fl (35.1-43.9); Red Blood Count 3.77 M/mm3 (4.2-5.4); White Blood Count 7.9 K/mm3 (4.4-11.0)
[2024-06-01 06:55] LABS: Differential Indicated SCAN CRITERIA MET
[2024-06-01 07:02] LABS: ALB/GLOB Ratio 0.4 RATIO (0.9-2.4); AST(SGOT) 32 U/L (15-37); Alanine Aminotransfer ALT/SGPT 44 U/L (13-56); Albumin, Serum 2.1 g/dL (3.2-5.0); Alkaline Phosphatase 304 U/L (45-117); Anion Gap 8 (5-15); BUN 22 mg/dL (7-18); BUN/Creat Ratio 29.9 RATIO (10-20); Calcium,Total 9.8 mg/dL (8.5-10.1); Chloride 106 mmol/L (98-107); Creatinine, Serum 0.74 mg/dL (0.55-1.02); EST Glomerular Filtration Rate 84 mL/min (>60); Est Glom Filt Rate - Afr Amer 101 mL/min (>60); Estimated Creatinine Clearance 81.89 ml/min; Globulin 4.9 g/dL (2.2-4.2); Glucose 94 mg/dL (74-106); Potassium 3.8 mmol/L (3.5-5.1); Sodium Level 136 mmol/L (136-145)
[2024-06-01 07:31] LABS: Differential Comment SCANNED
[2024-06-01 08:25] VITALS: BP 127/81; PULSE 90; RESP 16; TEMP 36.5; O2SAT 94
[2024-06-01] MEDS: Lisinopril 20 MG Tablet PO (08:26)
--- NOTE | 2024-06-01 10:27 | CASEMGMT ---
RN CM NOTE: Plan is for pt to be transferred to [facility]. Initial RN CM assessment not completed at this time. RN CM will be available, should any needs arise. Ashley ANDREN RN CM
--- NOTE | 2024-06-01 12:13 | NURSING ---
talked with bed coordinator at [facility] aware still no bed at this time, states still at capacity, unsure if it will happen today.
--- NOTE | 2024-06-01 12:21 | PCM.PN.HOSP ---
Reason for Visit Reason for Visit: Diagnoses Infection following a procedure, other surgical site, initial encounter (05/30/24) Subjective Subjective Saw patient at bedside this morning. Patient was laying back comfortably in bed and in no acute distress. Continues to have mild lateral abdominal pain with decreased appetite this morning. Denies any fevers or chills. Denies any other new concerns today. Objective Data Objective Data Vital Signs: Vital Signs Temp Pulse Resp BP Pulse Ox O2 Del Method 97.7 F L 90 16 127/81 H 94 Room Air 06/01/24 08:25 06/01/24 08:25 06/01/24 08:25 06/01/24 08:25 06/01/24 08:25 06/01/24 08:25 Oxygen Delivery Method Room Air Weight: 108 kg Body Mass Index (BMI) 40.8 Intake & Output: Intake and Output for Last 24 Hours 05/30/24 05/31/24 06/01/24 23:59 23:59 23:59 Intake Total 1650 / 1650 575 / 575 300 / 300 Balance 1650 / 1650 575 / 575 300 / 300 Lab / Micro Data 06/01/24 05:37 06/01/24 05:37 Labs: Laboratory Results - last 24 hr 06/01/24 05:37: WBC 7.9, RBC 3.77 L, Hgb 10.6 L, Hct 32.9 L, MCV 87.3, MCH 28.1, MCHC 32.2, RDW Std Deviation 45.3 H, RDW Coeff of Ja 14.2, Plt Count 232, MPV 10.9, Immature Gran % (Auto) 1.000 H, Neut % (Auto) 70.4 H, Lymph % (Auto) 15.6 L, Wilkin % (Auto) 11.0 H, Eos % (Auto) 1.1, Baso % (Auto) 0.9, Absolute Neuts (auto) 5.6, Absolute Lymphs (auto) 1.23, Nucleated RBC % 0, Differential Comment SCANNED, Sodium 136, Potassium 3.8, Chloride 106, Carbon Dioxide 22.0, Anion Gap 8, BUN 22 H, Creatinine 0.74, Estim Creat Clear Calc 81.89, Est GFR (MDRD) Af Amer 101, Est GFR (MDRD) Non-Af 84, BUN/Creatinine Ratio 29.9 H, Glucose 94, Calcium 9.8, Total Bilirubin 1.40 H, AST 32, ALT 44, Alkaline Phosphatase 304 H, Total Protein 7.0, Albumin 2.1 L, Globulin 4.9 H, Albumin/Globulin Ratio 0.4 L Physical Exam Const alert, oriented x3 and no apparent distress Constitutional Narrative: Elderly female, class III obesity, mildly fatigued appearing, otherwise sitting up comfortably in bed, conversing normally, no acute distress. General Appearance: cooperative and comfortable HEENT normocephalic, head/scalp atraumatic, hearing grossly normal bilaterally, nasal mucous membranes and turbinates normal and moist oral mucous membranes Eyes PERRL, EOMs intact bilaterally and conjunctivae normal Neck full ROM Chest inspection of chest normal Resp normal respiratory effort, normal air movement, no use of accessory muscles and clear to auscultation bilaterally Cardio regular rate, regular rhythm, no murmurs and peripheral pulses 2+ throughout GI GI Narrative: Mild tenderness to palpation in right upper quadrant to lateral abdominal area, stable. Otherwise abdomen soft and nondistended. Back/Spine normal ROM Extremity normal to inspection, full ROM and no pedal edema Skin no rashes or lesions noted Psych mental status grossly normal Assessment & Plan Assessment/Plan (1) Postoperative abscess: PLAN: Plan Patient is a 69-year-old female who presented [facility] ED on 05/30/2024 with worsening abdominal pain. 1. Recent laparoscopic cholecystectomy with postoperative abscess, recent history of choledocholithiasis s/p multiple ERCP procedures with stenting ? See HPI for further details on recent history. Notably had lap dianne done at [facility] on 05/06. CT abdomen pelvis on admit showed a 4 x 5 cm air?fluid collection at the hepatic dome concerning for postoperative abscess. Accepted for transfer to [facility] and will transfer once bed is available. Continue treatment with IV cefepime and IV Flagyl while here. Pain control with Tylenol as needed and IV Toradol as needed. She notably did not want to be treated with opiates; has never been on them and is fearful of the effects they could have on her. Okay for regular diet today and will again keep n.p.o. at midnight for possible transfer and procedure tomorrow. 2. Hyponatremia, resolved ? Sodium 129 on admit, baseline 135-140. Chloride borderline low. Presume secondary to mild dehydration. Resolved with IV fluid resuscitation. Chronic medical conditions: ? Class III obesity: BMI 40 on admit. Complicates hospital course, care and prognosis. ? Hypothyroidism: Continue home Synthroid. ? Hypertension: Continue home lisinopril. ? History of asthma: Stable on room air, not in acute exacerbation. Continue home albuterol as needed. DVT prophylaxis: Lovenox CODE STATUS: Full code, verified Expected disposition: Transfer to [facility] Total clinical time spent by myself addressing the patient's medical issues, reviewing all the data, and collaborating with patient's care team: 35 minutes. Charges/Coding Visit Charges Inpatient E&M: 14029 Subs Hosp L2
[2024-06-01 14:40] VITALS: BP 100/58; PULSE 93; RESP 18; TEMP 37.2; O2SAT 94
--- NOTE | 2024-06-01 19:17 | CT_ITS ---
INDICATION: hepatic abscess EXAMINATION: CT Abdomen And Pelvis W/ Contrast Injection TECHNIQUE: Helically acquired images were obtained of the abdomen and pelvis with sagittal and coronal reconstructed images. Individualized dose optimization techniques were used for this CT. IV contrast dosage and agent: 100 mL of Isovue-370. Oral contrast: None. COMPARISON: 05/30/2024 CT. FINDINGS: VESSELS: No abdominal aortic aneurysm or dissection. LIVER: The common duct stent is in place. No intrahepatic duct dilation. Mild pneumobilia. 7.7 x 4.6 x 5.6 cm rim-enhancing fluid collection with an air-fluid level in the dome of the liver, previously measuring 5.4 x 4.0 x 4.9 cm. GALLBLADDER: No calcified stones. No evidence of cholecystitis. PANCREAS: No focal solid or cystic mass. No evidence of pancreatitis. SPLEEN: Normal. ADRENAL GLANDS: Normal. KIDNEYS AND URETERS: No urinary tract stone. No hydronephrosis or hydroureter. No significant asymmetric perinephric stranding. URINARY BLADDER: Unremarkable. BOWEL: No evidence of diverticulosis or diverticulitis. Appendix not identified. No evidence of bowel obstruction. REPRODUCTIVE ORGANS: No evidence of a pelvic mass. PERITONEUM: No intraabdominal free fluid or free air. LYMPH NODES: No pathologically enlarged mesenteric or retroperitoneal lymph nodes. ABDOMINAL WALL: No abdominal or pelvic wall hernia. BONES: No acute abnormality. LOWER CHEST: Small right pleural effusion. Right basilar atelectasis. CT/Abdomen/Pelvis W IV Cont ONLY IMPRESSION: 1. Hepatic abscess in the dome of the liver, increased in size as compared to 05/30/2024. 2. Small right pleural effusion. Electronically Signed: Robb Licea DO at 22:28 EST ,
[2024-06-01 21:44] VITALS: BP 104/66; PULSE 79; RESP 16; TEMP 37.4; O2SAT 95
[2024-06-02 06:00] VITALS: BP 113/74; PULSE 77; RESP 16; TEMP 37.1; O2SAT 96
[2024-06-02] MEDS: metroNIDAZOLE 500 MG/100 ML BAG 100 MG IV ×3 (06:00→22:11)
[2024-06-02] MEDS: 0.9% Saline Lock 10 ML Syringe IV ×3 (06:00→18:19)
[2024-06-02] MEDS: Cefepime HCl 2 GM in 0.9% Normal Saline (100mL MB+) 100 ML IV ×3 (07:19→21:05)
--- NOTE | 2024-06-02 10:48 | CASEMGMT ---
Per rounds with hospitalist, plan is for pt to still be trf'd to [facility], [place], awaiting a bed.
[2024-06-02 11:15] VITALS: BP 115/68; PULSE 80; RESP 16; TEMP 36.8; O2SAT 94
--- NOTE | 2024-06-02 13:09 | PCM.PN.HOSP ---
Reason for Visit Reason for Visit: Diagnoses Infection following a procedure, other surgical site, initial encounter (05/30/24) Subjective Subjective Saw patient at bedside this morning. Patient appeared similar today to yesterday. Denied any new concerns this morning. Objective Data Objective Data Vital Signs: Vital Signs Temp Pulse Resp BP Pulse Ox O2 Del Method 98.2 F 80 16 115/68 94 Room Air 06/02/24 11:15 06/02/24 11:15 06/02/24 11:15 06/02/24 11:15 06/02/24 11:15 06/02/24 11:15 Oxygen Delivery Method Room Air Weight: 108 kg Body Mass Index (BMI) 40.8 Intake & Output: Intake and Output for Last 24 Hours 05/31/24 06/01/24 06/02/24 23:59 23:59 23:59 Intake Total 575 / 575 700 / 700 100 / 100 Balance 575 / 575 700 / 700 100 / 100 Lab / Micro Data 06/01/24 05:37 06/01/24 05:37 Radiography Diagnostic Testing: Radiology Impression Abdomen/Pelvis CT 06/01/24 19:17 IMPRESSION: 1. Hepatic abscess in the dome of the liver, increased in size as compared to 05/30/2024. 2. Small right pleural effusion. Electronically Signed: Robb Licea, at 22:28 EST , Physical Exam Const alert, oriented x3 and no apparent distress Constitutional Narrative: Elderly female, class III obesity, mildly fatigued appearing, otherwise sitting up comfortably in bed, conversing normally, no acute distress. Stable. General Appearance: cooperative and comfortable HEENT normocephalic, head/scalp atraumatic, hearing grossly normal bilaterally, nasal mucous membranes and turbinates normal and moist oral mucous membranes Eyes PERRL, EOMs intact bilaterally and conjunctivae normal Neck full ROM Chest inspection of chest normal Resp normal respiratory effort, normal air movement, no use of accessory muscles and clear to auscultation bilaterally Cardio regular rate, regular rhythm, no murmurs and peripheral pulses 2+ throughout GI GI Narrative: Mild tenderness to palpation in right upper quadrant to lateral abdominal area, stable. Otherwise abdomen soft and nondistended. Back/Spine normal ROM Extremity normal to inspection, full ROM and no pedal edema Skin no rashes or lesions noted Psych mental status grossly normal Assessment & Plan Assessment/Plan (1) Postoperative abscess: PLAN: Plan Patient is a 69-year-old female who presented [facility] ED on 05/30/2024 with worsening abdominal pain. 1. Recent laparoscopic cholecystectomy with postoperative abscess, recent history of choledocholithiasis s/p multiple ERCP procedures with stenting ? See HPI for further details on recent history. Notably had lap dianne done at [facility] on 05/06. CT abdomen pelvis on admit showed a 4 x 5 cm air?fluid collection at the hepatic dome concerning for postoperative abscess. Accepted for transfer to [facility] on 05/30 and will transfer once bed is available. Continue treatment with IV cefepime and IV Flagyl while here. Pain control with Tylenol as needed and IV Toradol as needed. She notably stone not want to be treated with opiates; has never been on them and is fearful of the effects they could have on her. Okay for regular diet as we unfortunately have no timeframe on transfer at this point. 2. Hyponatremia, resolved ? Sodium 129 on admit, baseline 135-140. Chloride borderline low. Presume secondary to mild dehydration. Resolved with IV fluid resuscitation. Chronic medical conditions: ? Class III obesity: BMI 40 on admit. Complicates hospital course, care and prognosis. ? Hypothyroidism: Continue home Synthroid. ? Hypertension: Continue home lisinopril. ? History of asthma: Stable on room air, not in acute exacerbation. Continue home albuterol as needed. DVT prophylaxis: Lovenox CODE STATUS: Full code, verified Expected disposition: Transfer to [facility] Total clinical time spent by myself addressing the patient's medical issues, reviewing all the data, and collaborating with patient's care team: 35 minutes. Charges/Coding Visit Charges Inpatient E&M: 76414 Subs Hosp L2
[2024-06-02 18:11] VITALS: BP 113/65; PULSE 84; RESP 16; TEMP 36.6; O2SAT 95
[2024-06-02] MEDS: Ondansetron 4 MG/2 ML Vial IV (18:20)
[2024-06-02 21:00] VITALS: BP 111/62; PULSE 84; RESP 18; TEMP 36.9; O2SAT 93
[2024-06-03 05:00] VITALS: BP 106/63; PULSE 75; RESP 16; TEMP 36.9; O2SAT 97
[2024-06-03] MEDS: metroNIDAZOLE 500 MG/100 ML BAG 100 MG IV ×3 (05:15→22:31)
[2024-06-03 06:14] LABS: Hematocrit 31.4 % (37-47); Hemoglobin 10.1 g/dL (12.0-15.0); Mean Corp Hgb Conc 32.2 g/dL (32-36); Mean Corpuscular Hgb 28.1 pg (27.0-32.0); Mean Corpuscular Volume 87.2 fL (81-99); Mean Platelet Vol. 10.1 fl (6.2-12.0); Platelet Count 303 K/mm3 (150-450); RBC Distribution Width CV 14.2 % (11.6-14.6); RBC Distribution Width SD 45.5 fl (35.1-43.9); White Blood Count 10.6 K/mm3 (4.4-11.0)
[2024-06-03] MEDS: Cefepime HCl 2 GM in 0.9% Normal Saline (100mL MB+) 100 ML IV ×3 (06:25→21:56)
[2024-06-03 06:31] LABS: ALB/GLOB Ratio 0.4 RATIO (0.9-2.4); AST(SGOT) 19 U/L (15-37); Alanine Aminotransfer ALT/SGPT 27 U/L (13-56); Albumin, Serum 2.1 g/dL (3.2-5.0); Alkaline Phosphatase 260 U/L (45-117); Anion Gap 6 (5-15); BUN 17 mg/dL (7-18); Calcium,Total 9.5 mg/dL (8.5-10.1); Chloride 106 mmol/L (98-107); Creatinine, Serum 0.71 mg/dL (0.55-1.02); EST Glomerular Filtration Rate 87 mL/min (>60); Est Glom Filt Rate - Afr Amer 106 mL/min (>60); Estimated Creatinine Clearance 81.89 ml/min; Globulin 4.8 g/dL (2.2-4.2); Glucose 98 mg/dL (74-106); Potassium 3.8 mmol/L (3.5-5.1); Protein, Total 6.9 g/dL (6.4-8.2); Sodium Level 136 mmol/L (136-145)
[2024-06-03] MEDS: Ondansetron 4 MG/2 ML Vial IV ×2 (07:01→21:56)
[2024-06-03 07:37] VITALS: BP 93/47; PULSE 70; RESP 16; TEMP 36.9; O2SAT 93
[2024-06-03] MEDS: 0.9% Normal Saline (1000mL) 1,000 ML 500 ML IV (07:48)
--- NOTE | 2024-06-03 11:04 | PN.HOSP_ITS ---
Reason for Visit Reason for Visit: Diagnoses Infection following a procedure, other surgical site, initial encounter (05/30/24) Subjective Subjective Saw patient at bedside this morning. Patient was resting comfortably in bed in no acute distress. [place] similar today to previous days. Denies any new concerns this morning. Objective Data Objective Data Vital Signs: Vital Signs Temp Pulse Resp BP Pulse Ox O2 Del Method 98.4 F 70 16 93/47 L 93 Room Air 06/03/24 07:37 06/03/24 07:37 06/03/24 07:37 06/03/24 07:37 06/03/24 07:37 06/03/24 07:37 Oxygen Delivery Method Room Air Weight: 108 kg Body Mass Index (BMI) 40.8 Intake & Output: Intake and Output for Last 24 Hours 06/01/24 06/02/24 06/03/24 23:59 23:59 23:59 Intake Total 700 / 700 1000 / 1350 650 / 650 Output Total 450 / 450 Balance 700 / 700 550 / 900 650 / 650 Lab / Micro Data 06/03/24 05:55 06/03/24 05:00 Labs: Laboratory Results - last 24 hr 06/03/24 05:00: Sodium 136, Potassium 3.8, Chloride 106, Carbon Dioxide 24.0, Anion Gap 6, BUN 17, Creatinine 0.71, Estim Creat Clear Calc 81.89, Est GFR (MDRD) Af Amer 106, Est GFR (MDRD) Non-Af 87, BUN/Creatinine Ratio 24.0 H, Glucose 98, Calcium 9.5, Total Bilirubin 1.00, AST 19, ALT 27, Alkaline Phosphatase 260 H, Total Protein 6.9, Albumin 2.1 L, Globulin 4.8 H, A lbumin/Globulin Ratio 0.4 L 06/03/24 05:55: WBC 10.6, RBC 3.60 L, Hgb 10.1 L, Hct 31.4 L, MCV 87.2, MCH 28.1, MCHC 32.2, RDW Std Deviation 45.5 H, RDW Coeff of Ja 14.2, Plt Count 303, MPV 10.1 Physical Exam Const alert, oriented x3 and no apparent distress Constitutional Narrative: Elderly female, class III obesity, mildly fatigued appearing, otherwise sitting up comfortably in bed, conversing normally, no acute distress. Stable. General Appearance: cooperative and comfortable HEENT normocephalic, head/scalp atraumatic, hearing grossly normal bilaterally, nasal mucous membranes and turbinates normal and moist oral mucous membranes Eyes PERRL, EOMs intact bilaterally and conjunctivae normal Neck full ROM Chest inspection of chest normal Resp normal respiratory effort, normal air movement, no use of accessory muscles and clear to auscultation bilaterally Cardio regular rate, regular rhythm, no murmurs and peripheral pulses 2+ throughout GI GI Narrative: Mild tenderness to palpation in right upper quadrant to lateral abdominal area, stable. Otherwise abdomen soft and nondistended. Back/Spine normal ROM Extremity normal to inspection, full ROM and no pedal edema Skin no rashes or lesions noted Psych mental status grossly normal Assessment & Plan Assessment/Plan (1) Postoperative abscess: PLAN: Plan Patient is a 69-year-old female who presented [facility] ED on 05/30/2024 with worsening abdominal pain. 1. Recent laparoscopic cholecystectomy with postoperative abscess, recent history of choledocholithiasis s/p multiple ERCP procedures with stenting ? GI following. See HPI for further details on recent history. Notably had lap dianne done at [facility] on 05/06. CT abdomen pelvis on admit showed a 4 x 5 cm air?fluid collection at the hepatic dome concerning for postoperative abscess. Patient was accepted for transfer to [facility] on 05/30 but unfortunately they still do not have a bed available. Discussed with Dr. Orosco on 06/02 and if patient is still here on 06/04, can consider having radiology HEALTH AND PHYSICAL EDUCATION PROFESSOR see the patient to have abscess drained here with tube placement, as the abscess is quite peripheral. Continue treatment with IV cefepime and IV Flagyl for now. Pain control with Tylenol as needed. She notably does not want to be treated with opiates; has never been on them and is fearful of the effects they could have on her. Okay for regular diet today but will keep n.p.o. at midnight for possible procedure tomorrow. 2. Hyponatremia, resolved ? Sodium 129 on admit, baseline 135-140. Chloride borderline low. Presume secondary to mild dehydration. Resolved with IV fluid resuscitation. Chronic medical conditions: ? Class III obesity: BMI 40 on admit. Complicates hospital course, care and prognosis. ? Hypothyroidism: Continue home Synthroid. ? Hypertension: Continue home lisinopril. ? History of asthma: Stable on room air, not in acute exacerbation. Continue home albuterol as needed. DVT prophylaxis: Lovenox CODE STATUS: Full code, verified Expected disposition: Transfer to [facility] Total clinical time spent by myself addressing the patient's medical issues, reviewing all the data, and collaborating with patient's care team: 35 minutes. Charges/Coding Visit Charges Inpatient E&M: 91858 Subs Hosp L2
[2024-06-03 16:00] VITALS: BP 111/68; PULSE 74; RESP 16; TEMP 37.2; O2SAT 93
[2024-06-03 21:58] VITALS: BP 109/67; PULSE 76; RESP 14; TEMP 36.9; O2SAT 97
[2024-06-04 05:15] VITALS: BP 120/70; PULSE 73; RESP 16; TEMP 36.5; O2SAT 95
[2024-06-04] MEDS: Cefepime HCl 2 GM in 0.9% Normal Saline (100mL MB+) 100 ML IV ×3 (05:20→22:27)
[2024-06-04] MEDS: metroNIDAZOLE 500 MG/100 ML BAG 100 MG IV ×3 (06:08→21:03)
[2024-06-04] MEDS: Ondansetron 4 MG/2 ML Vial IV ×4 (06:09→21:02)
[2024-06-04 06:34] LABS: Hematocrit 32.6 % (37-47); Hemoglobin 10.1 g/dL (12.0-15.0); Mean Corpuscular Hgb 27.8 pg (27.0-32.0); Mean Corpuscular Volume 89.8 fL (81-99); Mean Platelet Vol. 11.5 fl (6.2-12.0); Platelet Count 276 K/mm3 (150-450); RBC Distribution Width CV 14.4 % (11.6-14.6); RBC Distribution Width SD 47.6 fl (35.1-43.9); Red Blood Count 3.63 M/mm3 (4.2-5.4)
[2024-06-04 07:06] LABS: ALB/GLOB Ratio 0.4 RATIO (0.9-2.4); AST(SGOT) 20 U/L (15-37); Alanine Aminotransfer ALT/SGPT 23 U/L (13-56); Albumin, Serum 1.9 g/dL (3.2-5.0); Alkaline Phosphatase 231 U/L (45-117); Anion Gap 8 (5-15); BUN 15 mg/dL (7-18); BUN/Creat Ratio 23.1 RATIO (10-20); Calcium,Total 9.3 mg/dL (8.5-10.1); Chloride 105 mmol/L (98-107); Creatinine, Serum 0.65 mg/dL (0.55-1.02); EST Glomerular Filtration Rate 97 mL/min (>60); Est Glom Filt Rate - Afr Amer 117 mL/min (>60); Estimated Creatinine Clearance 81.89 ml/min; Globulin 4.6 g/dL (2.2-4.2); Glucose 81 mg/dL (74-106); Potassium 4.2 mmol/L (3.5-5.1); Protein, Total 6.5 g/dL (6.4-8.2); Sodium Level 134 mmol/L (136-145)
--- NOTE | 2024-06-04 08:48 | NURSING ---
[facility] called at this time for bed update. They currently have no beds available and transfer line stated they are at max capacity at this point.
[2024-06-04 08:49] VITALS: BP 112/71; PULSE 76; RESP 16; TEMP 36.9; O2SAT 97
--- NOTE | 2024-06-04 12:09 | CASEMGMT ---
Per charge nurse, [facility] still remains at max capacity with no anticipated date for trf. Hospitalist aware and may consider other facilities although pt had initial surgery at [facility]. DC mechanic assistant requested to place list of other tertiary facilities for pt.
--- NOTE | 2024-06-04 12:10 | PCM.PROGNOTE ---
Subjective Subjective Patient seen and examined. She had no active complaints this morning. She still awaiting transfer to [facility]. Review of systems otherwise negative. Objective Data Objective Data Vital Signs: Vital Signs Temp Pulse Resp BP Pulse Ox O2 Del Method 98.4 F 76 16 112/71 97 Room Air 06/04/24 08:49 06/04/24 08:49 06/04/24 08:49 06/04/24 08:49 06/04/24 08:49 06/04/24 08:50 Oxygen Delivery Method Room Air Weight: 238 lb 1.6 oz Body Mass Index (BMI) 40.8 Intake & Output: Intake and Output for Last 24 Hours 06/02/24 06/03/24 06/04/24 23:59 23:59 23:59 Intake Total 1000 / 1350 0 / 2200 300 / 300 Output Total 450 / 450 Balance 550 / 900 0 / 2200 300 / 300 Lab / Micro Data 06/04/24 05:17 06/04/24 05:17 Labs: Laboratory Results - last 24 hr 06/04/24 05:17: WBC 11.0, RBC 3.63 L, Hgb 10.1 L, Hct 32.6 L, MCV 89.8, MCH 27.8, MCHC 31.0 L, RDW Std Deviation 47.6 H, RDW Coeff of Ja 14.4, Plt Count 276, MPV 11.5, Sodium 134 L, Potassium 4.2, Chloride 105, Carbon Dioxide 20.0 L, Anion Gap 8, BUN 15, Creatinine 0.65, Estim Creat Clear Calc 81.89, Est GFR (MDRD) Af Amer 117, Est GFR (MDRD) Non-Af 97, BUN/Creatinine Ratio 23.1 H, Glucose 81, Calcium 9.3, Total Bilirubin 0.90, AST 20, ALT 23, Alkaline Phosphatase 231 H, Total Protein 6.5, Albumin 1.9 L, Globulin 4.6 H, Albumin/Globulin Ratio 0.4 L Physical Exam Const alert, oriented x3, no apparent distress and well nourished Constitutional Narrative: obese General Appearance: cooperative HEENT normocephalic, head/scalp atraumatic and moist oral mucous membranes Eyes PERRL and EOMs intact bilaterally Neck no lymphadenopathy, supple and no JVD Lymph Lymphatic: no lymphadenopathy noted and no lymphedema noted Resp normal respiratory effort, normal air movement and clear to auscultation bilaterally Cardio regular rate, regular rhythm, S1 normal heart sound, S2 normal heart sound and no murmurs GI normal to inspection, nondistended, normoactive bowel sounds, soft to palpation, non-tender and non-distended Extremity normal capillary refill, no clubbing, cyanosis or edema and no calf tenderness General Extremity: no tenderness to palpation of joints or extremities Skin General Skin Exam: no breakdown Neuro CN's II-XII intact bilaterally and no focal motor deficits Motor Exam: strength 5/5 throughout and general weakness Psych thought process normal Appearance: appropriate Assessment & Plan Assessment/Plan (1) Postoperative abscess: PLAN: Plan #Post operative liver abscess GI on board. Patient had a recent laparoscopic cholecystectomy on 05/06/2024 and subsequently came in with worsening abdominal pain CT of the abdomen and pelvis showed a 4 cm x 5 cm air-fluid collection of the hepatic dome concerning for postoperative abscess she is awaiting transfer to [facility]. On IV cefepime and IV Flagyl. GI on board. Per Progress note from yesterday, previous hospitalist discussed with GI that if patient was still here by 06/04/2023 to have radiology review patient to see if she could have the abscess drained. I did speak to the radiology nurse practitioner today to review the images to see if they could do access. Radiology MARKETING TRAINEE spoke to patient about draining the abscess but patient refused because she would prefer to go to [facility]. Plan remains transferred to [facility] Pending bed availability. #Hyponatremia: Resolved #Hypothyroidism: On Synthroid #Hypertension: On lisinopril #History of asthma: Not in exacerbation. On room air. DVT prophylaxis: lovenox Charges/Coding Visit Charges Inpatient E&M: 76600 Subs Hosp L2
--- NOTE | 2024-06-04 12:20 | CASEMGMT ---
Insurance review for hospitals In-network with?[facility] Choice Plan insurance if transfer is recommended is as follows: [facility], [place], [facility], [place], [facility], [facility], [facility], [facility], [place], [facility]), and . Martha Baer, Discharge Planning Asst.
[2024-06-04] MEDS: 0.9% Saline Lock 10 ML Syringe IV ×3 (13:11→21:03)
[2024-06-04 15:30] VITALS: BP 131/70; PULSE 85; RESP 16; TEMP 36.5; O2SAT 96
[2024-06-04 20:54] VITALS: BP 127/73; PULSE 80; RESP 16; TEMP 36.8; O2SAT 95
[2024-06-05 05:27] VITALS: BP 123/71; PULSE 71; RESP 18; TEMP 36.8; O2SAT 95
[2024-06-05] MEDS: Cefepime HCl 2 GM in 0.9% Normal Saline (100mL MB+) 100 ML IV (05:35)
[2024-06-05] MEDS: Ondansetron 4 MG/2 ML Vial IV (05:36)
[2024-06-05] MEDS: 0.9% Saline Lock 10 ML Syringe IV (05:36)
[2024-06-05 06:22] LABS: Absolute Lymphocyte Count 1.14 X10^3/uL (0.83-4.51); Absolute Neutrophil Count 8.6 X10^3/uL (2.0-7.7); Basophil# 0.07 X10^3/uL; Basophil% 0.6 % (0-1); Eosinophil# 0.06 X10^3/uL; Eosinophils% 0.6 % (0-5); Hematocrit 32.3 % (37-47); Hemoglobin 10.1 g/dL (12.0-15.0); Lymphocyte # 1.14 X10^3/ul (0.83-4.51); Lymphocyte % 10.6 % (19-41); Mean Corp Hgb Conc 31.3 g/dL (32-36); Mean Corpuscular Hgb 27.5 pg (27.0-32.0); Mean Platelet Vol. 10.3 fl (6.2-12.0); Monocyte% 7.4 % (0-10); NRBC Flagged by Analyzer 0 % (0-5); Neutrophil # 8.64 X10^3/uL (2.7-7.7); Neutrophil % 80.2 % (47-70); Platelet Count 345 K/mm3 (150-450); RBC Distribution Width CV 14.1 % (11.6-14.6); RBC Distribution Width SD 45.1 fl (35.1-43.9); Red Blood Count 3.67 M/mm3 (4.2-5.4); White Blood Count 10.8 K/mm3 (4.4-11.0)
[2024-06-05] MEDS: metroNIDAZOLE 500 MG/100 ML BAG 100 MG IV (06:33)
[2024-06-05 06:43] LABS: ALB/GLOB Ratio 0.4 RATIO (0.9-2.4); AST(SGOT) 18 U/L (15-37); Alanine Aminotransfer ALT/SGPT 18 U/L (13-56); Alkaline Phosphatase 224 U/L (45-117); Anion Gap 6 (5-15); BUN 16 mg/dL (7-18); BUN/Creat Ratio 25.7 RATIO (10-20); Calcium,Total 9.4 mg/dL (8.5-10.1); Chloride 103 mmol/L (98-107); Creatinine, Serum 0.62 mg/dL (0.55-1.02); EST Glomerular Filtration Rate 101 mL/min (>60); Est Glom Filt Rate - Afr Amer 123 mL/min (>60); Estimated Creatinine Clearance 81.89 ml/min; Globulin 4.8 g/dL (2.2-4.2); Glucose 82 mg/dL (74-106); Potassium 3.8 mmol/L (3.5-5.1); Protein, Total 6.8 g/dL (6.4-8.2); Sodium Level 133 mmol/L (136-145)
[2024-06-05 08:02] VITALS: BP 122/72; PULSE 73; RESP 16; TEMP 36.9; O2SAT 95
--- NOTE | 2024-06-05 08:31 | NURSING ---
[facility] called, still no beds available for transfer at time.
--- NOTE | 2024-06-05 10:17 | CASEMGMT ---
Hospitalist spoke with pt regarding trf to [facility]. Plan remains to await a bed at [facility].
--- NOTE | 2024-06-05 12:56 | PCM.DC.SUM ---
Providers Date of Admission: 05/30/24 Date of Discharge: 06/05/24 Primary Care Physician: Dr. Wiliam Kay MD Reason For Visit: POST CHOLECYSTECTOMY LIVER ABSCESS Diagnosis Discharge Diagnosis (1) Postoperative abscess: Status: Acute Code(s): T81.49XA - Infection following a procedure, other surgical site, initial encounter Plan #Post operative liver abscess GI on board. Patient had a recent laparoscopic cholecystectomy on 05/06/2024 and subsequently came in with worsening abdominal pain CT of the abdomen and pelvis showed a 4 cm x 5 cm air-fluid collection of the hepatic dome concerning for postoperative abscess she is awaiting transfer to [facility]. On IV cefepime and IV Flagyl. GI on board. Per Progress note from yesterday, previous hospitalist discussed with GI that if patient was still here by 06/04/2023 to have radiology review patient to see if she could have the abscess drained. I did speak to the radiology nurse practitioner today to review the images to see if they could do access. Radiology CUSTOMER QUALITY SPECIALIST spoke to patient about draining the abscess but patient refused because she would prefer to go to [facility]. Plan remains transferred to [facility] Pending bed availability. #Hyponatremia: Resolved #Hypothyroidism: On Synthroid #Hypertension: On lisinopril #History of asthma: Not in exacerbation. On room air. DVT prophylaxis: lovenox Medications at Discharge Home Medications levothyroxine 200 mcg tablet 200 mcg PO MOTUWETHFRSA thyroid 11/06/21 levothyroxine 200 mcg tablet 400 mcg PO ROBERTS thyroid 11/06/21 lisinopril 20 mg tablet 20 mg PO BID 11/06/21 albuterol sulfate 90 mcg/actuation breath activated powder inhaler (ProAir RespiClick) 2 inh inhalation Q4H PRN sob 03/26/24 cholecalciferol (vitamin D3) 125 mcg (5,000 unit) capsule 5,000 unit PO DAILY 03/26/24 Hospital Course Operations None Procedures None Summary of Care Provided Minutes Spent on Discharge: 55 Hospital Course: Patient is a 69-year-old female with a past medical history as outlined was admitted to the ED on 05/30/2024 with a complaint of worsening abdominal pain. She had previously been admitted at [facility] in March 2024 for choledocholithiasis and he had ERCP x 2 with removal of stones and temporary stent insertion in the common bile duct as well as the right and left hepatic ducts. Hospital course at that time was complicated by post ERCP pancreatitis after the first ERCP. There was an attempt at laparoscopic cholecystectomy by general surgery here on 04/01/2024 but she was found to have severe fibrosis and scarring along the infundibulum of the gallbladder which precluded safe identification of the cystic duct, common bile duct and cystic artery so procedure was stopped and patient was transferred to [facility]. She subsequently had a laparoscopic cholecystectomy done by hepatobiliary surgeon at [facility] on 05/06/2024 and there were no complications noted. She subsequently had an ERCP done on 05/25/2024 by gastroenterology at [facility] for further gallstone removal and she also had biliary sphincterotomy and 2 stents were inserted. On admission during this index admission she complained of abdominal pain and says had not been feeling well since she had the ERCP on May 25, 2024. She denied any fever or chills but she was found to have a low-grade fever in the ED. CT of the abdomen and pelvis showed a 4 x 5 cm rim-enhancing fluid collection at the hepatic dome concerning for subdiaphragmatic perihepatic postoperative abscess. This was discussed with [facility] and patient was accepted there pending bed availability. Patient had a protracted hospital course here was awaiting availability of a bed at [facility]. Per discussion with GI it was recommended that patient could have the abscess drained here by interventional radiology. Patient refused to have this done as she did not want it done by nurse practitioner wanted to go see physicians at [facility]. She got a bed at [facility] on 06/05/2024 and was transferred on 06/05/2024. Patient seen and examined prior to discharge. She had no complaints and felt well. Patient was upset because the radiology CUSTOMER QUALITY SPECIALIST has come to speak to her about the procedure yesterday and she has stated that she did not want it done an CUSTOMER QUALITY SPECIALIST. I explained to patient that I had requested for review of the images to see if the abscess could be drained whilst here. I expressed understanding and appreciation of her wish to see her doctors at [facility]. Patient was grateful that I had taken time to explain things to her. Labs and vitals reviewed. Home Medication reviewed and reconciled. Physical Exam Const alert, oriented x3, no apparent distress and well nourished Constitutional Narrative: obese General Appearance: cooperative, comfortable and well kempt Orientation / Consciousness: awake Exam Limitations: no limitations HEENT normocephalic, head/scalp atraumatic, hearing grossly normal bilaterally, nasal mucous membranes and turbinates normal and moist oral mucous membranes Mouth: oral and palatal mucosa normal Eyes PERRL, EOMs intact bilaterally and conjunctivae normal Neck full ROM, no lymphadenopathy, supple and no JVD Lymph Lymphatic: no lymphadenopathy noted and no lymphedema noted Chest inspection of chest normal Resp normal respiratory effort, normal air movement, no retractions, no use of accessory muscles and clear to auscultation bilaterally Cardio regular rate, regular rhythm, S1 normal heart sound, S2 normal heart sound, no murmurs and peripheral pulses 2+ throughout GI normal to inspection, nondistended, normoactive bowel sounds, soft to palpation, non-tender and non-distended Back/Spine normal ROM Extremity normal to inspection, full ROM, normal capillary refill, no clubbing, cyanosis or edema, no calf tenderness and no pedal edema General Extremity: no tenderness to palpation of joints or extremities Skin no rashes or lesions noted General Skin Exam: no breakdown Neuro oriented x3, CN's II-XII intact bilaterally, moves all extremities and no focal motor deficits Sensorium / Orientation: awake and alert Motor Exam: strength 5/5 throughout and general weakness Psych mental status grossly normal and thought process normal Appearance: appropriate Weight / BMI Weight Weight: 238 lb 1.6 oz Body Mass Index (BMI) 40.8 ABG / Lab / Microbiology Data 06/05/24 05:34 06/05/24 05:34 Laboratory: Laboratory Results - last 24 hr 06/05/24 05:34: WBC 10.8, RBC 3.67 L, Hgb 10.1 L, Hct 32.3 L, MCV 88.0, MCH 27.5, MCHC 31.3 L, RDW Std Deviation 45.1 H, RDW Coeff of Ja 14.1, Plt Count 345, MPV 10.3, Immature Gran % (Auto) 0.600, Neut % (Auto) 80.2 H, Lymph % (Auto) 10.6 L, [place] % (Auto) 7.4, Eos % (Auto) 0.6, Baso % (Auto) 0.6, Absolute Neuts (auto) 8.6 H, Absolute Lymphs (auto) 1.14, Nucleated RBC % 0, Sodium 133 L, Potassium 3.8, Chloride 103, Carbon Dioxide 24.0, Anion Gap 6, BUN 16, Creatinine 0.62, Estim Creat Clear Calc 81.89, Est GFR (MDRD) Af Amer 123, Est GFR (MDRD) Non-Af 101, BUN/Creatinine Ratio 25.7 H, Glucose 82, Calcium 9.4, Total Bilirubin 0.80, AST 18, ALT 18, Alkaline Phosphatase 224 H, Total Protein 6.8, Albumin 2.0 L, Globulin 4.8 H, Albumin/Globulin Ratio 0.4 L D/C Instructions Discharge Diet: No restrictions Weight Bearing Status: Weight bearing as tolerated DC O2, CPAP, BIPAP Needs Home O2 Discharge instructions: No Meaningful Use Info Meaningful Use Meaningful Use Diagnoses (Choose all that apply): None applicable Ischemic Stroke Statin Dosing Therapy Reference: STATIN DOSE THERAPY REFERENCE: * Patients > 75 years receive moderate or high dose statin therapy. * Patients 75 years or YOUNGER should receive HIGH intensity statin dose unless contraindicated. You will be required to document reason for non-treatment if statin daily dose does not meet guidelines. HIGH DOSE STATIN THERAPY DAILY Atorvastatin > than or = to 40 mg Rosuvastatin > than or = to 20 mg Amlodipine + Atorvastatin > than or = to 2.5/40 mg Ezetimibe + Simvastatin 10/80 mg Simvastatin 80mg Discharge Plan Admission Admit Date/Time: 05/30/24 15:08 Primary Reason for Your Visit: hepatic abscess Attending Provider: Francie Davalos Primary Care Provider: Wiliam Kay Consulting Providers: Jake Gilbert; Kelli Dykes Instructions Patient Instructions: Liver Abscess Tx Discharge Orders/Prescriptions Prescriptions: Continued lisinopril 20 mg tablet 20 mg PO BID Patient Comments: TAKE 1 TABLET BY MOUTH TWICE DAILY levothyroxine 200 mcg tablet 200 mcg PO MOTUWETHFRSA Patient Comments: TAKE 1 TABLET BY MOUTH ONCE DAILY SATURDAY THROUGH SATURDAY, THEN 2 ON SATURDAY levothyroxine 200 mcg tablet 400 mcg PO ROBERTS Patient Comments: TAKE 1 TABLET BY MOUTH ONCE DAILY SATURDAY THROUGH SATURDAY, THEN 2 ON SATURDAY cholecalciferol (vitamin D3) 125 mcg (5,000 unit) capsule 5,000 unit PO DAILY ProAir RespiClick 90 mcg/actuation aerosol powdr breath activated 2 inh inhalation Q4H PRN (Reason: sob) Referrals / Follow Up: Wiliam Kay MD [Primary Care Provider] - Within 1 Week Disposition Disposition (needs filled in before D/C Order can be placed): Acute Care Hospital Charges/Coding Visit Charges Inpatient E&M: 51462 Disch Hosp >30min
[2024-06-05 13:17] VITALS: BP 118/94; PULSE 88; RESP 16; TEMP 37.3; O2SAT 97
== END 2024-06-05 14:49 | disposition short-term general hospital (02) | DRG 862 ==
LOC: ED 15:03 → MS3 05-31 06:54
PROVIDERS: Family Medicine; Admitting Provider Hospitalist; Emergency Provider Emergency Medicine; PCP Family Medicine; Visit Provider Student in an Organized Health Care Education/Training Program
DX: T81.43XA Infection following a procedure, organ and space surgical site, initial encounter (principal); K65.1 Peritoneal abscess; Z68.41 Body mass index [BMI] 40.0-44.9, adult; E87.1 Hypo-osmolality and hyponatremia; E03.9 Hypothyroidism, unspecified; I10 Essential (primary) hypertension; J45.909 Unspecified asthma, uncomplicated; E55.9 Vitamin D deficiency, unspecified; E66.813 Obesity, class 3; Y83.8 Other surgical procedures as the cause of abnormal reaction of the patient, or of later complication, without mention of misadventure at the time of the procedure; Z87.19 Personal history of other diseases of the digestive system; Z79.890 Hormone replacement therapy; Z90.49 Acquired absence of other specified parts of digestive tract; Z79.899 Other long term (current) drug therapy
CPT/HCPCS: 36415; 71260; 74177; 80053; 81001; 83690; 84484; 85025; 85027; 93005; 96361; 96365; 96366; 96367; 96368; 96375; 96376; 99221; 99285; Q9967; A4216; G0378; J2405

== ENCOUNTER → 2024-06-22 | Outpatient (CLI) | payer OTHER, SELFPAY ==
[2024-06-22 11:59] LABS: Absolute Lymphocyte Count 1.07 X10^3/uL (0.83-4.51); Absolute Neutrophil Count 5.1 X10^3/uL (2.0-7.7); Basophil# 0.07 X10^3/uL; Eosinophil# 0.08 X10^3/uL; Eosinophils% 1.2 % (0-5); Hematocrit 38.4 % (37-47); Hemoglobin 12.1 g/dL (12.0-15.0); Lymphocyte # 1.07 X10^3/ul (0.83-4.51); Lymphocyte % 15.6 % (19-41); Mean Corp Hgb Conc 31.5 g/dL (32-36); Mean Corpuscular Hgb 27.1 pg (27.0-32.0); Mean Corpuscular Volume 85.9 fL (81-99); Mean Platelet Vol. 9.3 fl (6.2-12.0); Monocyte# 0.56 X10^3/uL; Monocyte% 8.2 % (0-10); NRBC Flagged by Analyzer 0 % (0-5); Neutrophil # 5.05 X10^3/uL (2.7-7.7); Neutrophil % 73.7 % (47-70); Platelet Count 442 K/mm3 (150-450); RBC Distribution Width CV 14.2 % (11.6-14.6); Red Blood Count 4.47 M/mm3 (4.2-5.4); White Blood Count 6.9 K/mm3 (4.4-11.0)
[2024-06-22 12:31] LABS: ALB/GLOB Ratio 0.5 RATIO (0.9-2.4); AST(SGOT) 17 U/L (15-37); Alanine Aminotransfer ALT/SGPT 8 U/L (13-56); Albumin, Serum 2.8 g/dL (3.2-5.0); Alkaline Phosphatase 116 U/L (45-117); Anion Gap 10 (5-15); BUN 9 mg/dL (7-18); BUN/Creat Ratio 9.9 RATIO (10-20); Calcium,Total 9.9 mg/dL (8.5-10.1); Chloride 98 mmol/L (98-107); Creatinine, Serum 0.91 mg/dL (0.55-1.02); EST Glomerular Filtration Rate 65 mL/min (>60); Est Glom Filt Rate - Afr Amer 79 mL/min (>60); Globulin 5.8 g/dL (2.2-4.2); Glucose 106 mg/dL (74-106); Potassium 3.3 mmol/L (3.5-5.1); Protein, Total 8.6 g/dL (6.4-8.2); Sodium Level 135 mmol/L (136-145)
== END | disposition home or self-care (01) ==
PROVIDERS: PCP Family Medicine; Referring Provider Family Medicine; Visit Provider Family Medicine
DX: R10.9 Unspecified abdominal pain (principal)
CPT/HCPCS: 36415; 80053; 85025

== ENCOUNTER 2024-07-02 16:03 | Inpatient (IN) | payer OTHER, MEDICARE, SELFPAY ==
[2024-07-02] VITALS (11 sets, daily range): BP systolic 95–130; BP diastolic 57–89; PULSE 94–122; RESP 16–27; TEMP 36.3–36.7; O2SAT 88–96; BMI 36.0; BMI 34.8
--- NOTE | 2024-07-02 16:06 | EKG12_ITS ---
Test Reason : Blood Pressure : */* mmHG Vent. Rate : 108 BPM Atrial Rate : 108 BPM P-R Int : 156 ms QRS Dur : 80 ms QT Int : 324 ms P-R-T Axes : 54 34 -1 degrees QTcB Int : 434 ms Sinus tachycardia Nonspecific T wave abnormality Abnormal ECG Confirmed by NENO ALMANZAR, VENESSA ([id number]), legal editor MAT MARTE ([id number]) on 07/06/2024 6:04:57 AM Referred By: BARRY Confirmed By: VENESSA LAZCANO MD
--- NOTE | 2024-07-02 16:29 | CT_ITS ---
PROCEDURE: CTA CHEST W/WO CONTRAST REASON FOR EXAM: Shortness of breath. TECHNIQUE: Chest CTA with intravenous contrast and 3D reconstructions. Abdomen and pelvis CT using the same contrast dose. COMPARISON: 05/30/2024. FINDINGS: CHEST: Lines and tubes: None. Mediastinum: No evidence of mediastinal hemorrhage. Heart: Mild bowing of the interventricular septum suggestive of heart strain. There is also reflux of contrast into the infrarenal IVC. Thoracic Aorta: No evidence of acute traumatic aortic injury. Filling defect straddling the pulmonary artery bifurcation and extending throughout the entirety of the bilateral lower lobes and minimally through the right middle and upper lobes. Dilated pulmonary artery. Lungs and Airways: [id number] right pleural effusion with mild pleural enhancement which may represent infection. Mild associated atelectasis. Bones: No acute osseous abnormality identified. Pneumobilia. CT/CTA Chest W/WO Contrast IMPRESSION: Saddle pulmonary embolus which extends through out the lungs. Findings suggest eloy of right heart strain. Mild to moderate right pleural effusion with mild pleural enhancement which may represent infection. Pneumobilia which was present on the prior CT. Critical results were communicated to Dr. Chamorro at 7:05 p.m. One or more dose reduction techniques were used (e.g., Automated exposure contr ol, adjustment of the mA and/or kV according to patient size, use of iterative reconstruction technique). Reading Location: [id number]
--- NOTE | 2024-07-02 16:30 | ED.VIS.DYS ---
HPI History of Present Illness Chief Complaint: Shortness of Breath Informant: patient and spouse/S.O. Narrative Narrative: 69-year-old female presenting to the emergency room with dyspnea. Patient states that around noon she began experience dyspnea particularly with exertion but now also at rest. She states that at the end of last year she came into the hospital for a cholecystectomy but it was unable to be performed because it was encapsulated. She states that she had several ERCPs and eventually had a cholecystectomy at [facility]. This was complicated postoperatively by wound infection as well as liver abscess and is status post interventional radiology drain and antibiotics. She has finished her antibiotics. She states that she was hypokalemic and is recently also started her Synthroid again. She had been doing well the past several days. She denies any chest pain or palpitations. No back pain shoulder pain. She notes no leg swelling. PFSH PFS Medical History Postoperative abscess Post-menopausal Wears glasses Thyroid disease Pancreatitis Essential hypertension Morbid obesity with BMI of 40.0-44.9, adult Vitamin D deficiency Hypertension Hypothyroidism Home Medications ?Medication ?Instructions ?Recorded ?Last Taken ?Type levothyroxine 200 mcg tablet 200 mcg PO MOTUWETHFRSA thyroid 11/06/21 05/25/24 History levothyroxine 200 mcg tablet 400 mcg PO ROBERTS thyroid 11/06/21 05/24/24 History lisinopril 20 mg tablet 20 mg PO BID 11/06/21 05/24/24 History albuterol sulfate 90 mcg/actuation 2 inh inhalation Q4H PRN sob 03/26/24 05/23/24 History breath activated powder inhaler (ProAir RespiClick) cholecalciferol (vitamin D3) 125 5,000 unit PO DAILY 03/26/24 05/22/24 History mcg (5,000 unit) capsule Allergy/AdvReac Type Severity Reaction Status Date / Time chlorhexidine Allergy Rash Verified 07/02/24 16:04 Penicillins Allergy CHILDHOOD Verified 07/02/24 16:04 ALLERGY psyllium (From Metamucil) Allergy Shortness Verified 07/02/24 16:04 of breath Family History no significant family his Surgical History History of cholecystectomy (05/06/24) Hx of colonoscopy S/P ERCP H/O section S/P dilatation and curettage Social History household members: spouse current occupational status: employed Smoking Status: Never smoker alcohol intake: never substance use type: does not use ROS ROS ED Constitutional Constitutional ED: Denies chills, fever(s) or weight loss Eyes Eyes: Denies change in vision or diplopia ENT ENT ED: Denies ear pain, rhinorrhea or sore throat Cardiovascular Cardiovascular: Denies chest pain, orthopnea, palpitations or racing heartbeat Respiratory/Chest Respiratory/Chest: Reports dyspnea and dyspnea on exertion; Denies cough or orthopnea Gastrointestinal Gastrointestinal: Denies abdominal pain, diarrhea, nausea or vomiting Genitourinary Genitourinary ED: Denies dysuria, hematuria or urinary frequency Musculoskeletal Musculoskeletal: Denies arthralgias or myalgias Integumentary Denies abscess or rash Neurologic Neurologic: Denies headache(s) or weakness Psychiatric Psychiatric: Denies anxiety, depression, suicidal ideation or suicidal thoughts Endocrine Endocrinology: Denies polydipsia, polyphagia or polyuria Allergic/Immunologic Allergic/Immunologic ED: Denies mouth swelling, tongue swelling or urticaria EXAM Physical Exam Const Vital Signs: 07/02/24 16:04 07/02/24 16:06 07/02/24 16:20 Temperature 97.6 F L Temperature Source Temporal Pulse Rate 122 H Respiratory Rate 16 Respiratory Effort Blood Pressure 115/89 H Blood Pressure Mean 97 Pulse Ox 96 88 Oxygen Delivery Method Room Air Nasal Cannula Room Air Oxygen Flow Rate (L/min) 2 07/02/24 16:22 07/02/24 16:22 07/02/24 16:23 Temperature Temperature Source Pulse Rate Respiratory Rate Respiratory Effort Short of Breath Blood Pressure Blood Pressure Mean Pulse Ox 92 93 Oxygen Delivery Method Nasal Cannula Nasal Cannula Nasal Cannula Oxygen Flow Rate (L/min) 2 2 2 07/02/24 16:25 07/02/24 17:22 07/02/24 18:01 Temperature 97.3 F L 97.3 F L 97.3 F L Temperature Source Oral Oral Oral Pulse Rate 119 H 110 H 106 H Respiratory Rate 24 H 27 H 26 H Respiratory Effort Blood Pressure 117/87 H 130/73 H 105/87 H Blood Pressure Mean 97 92 93 Pulse Ox 94 94 95 Oxygen Delivery Method Nasal Cannula Nasal Cannula Room Air Oxygen Flow Rate (L/min) 3 2 2 07/02/24 18:01 Temperature Temperature Source Pulse Rate Respiratory Rate Respiratory Effort Blood Pressure 105/87 H Blood Pressure Mean 93 Pulse Ox Oxygen Delivery Method Oxygen Flow Rate (L/min) Positive well nourished, well developed and obese General Appearance ED: well developed and NAD Nutritional Appearance: obese HEENT Reports normocephalic, head/scalp atraumatic and moist mucous membranes Eyes PERRL and EOMs intact bilaterally Neck no lymphadenopathy, supple and no JVD Resp clear to auscultation bilaterally Resp Narrative: Patient is slightly tachypneic at rest but not in distress Cardio regular rate, regular rhythm and no murmurs GI normal to inspection, nondistended, normoactive bowel sounds and non-tender GI Narrative: Healing surgical incisions clean dry intact with no obvious infection Palpation: soft Back/Spine no CVA tenderness and normal ROM Extremity normal to inspection General Extremety ED: Negative for edema General Extremity: Negative for edema Neuro oriented x3 and CN's II-XII intact bilaterally Sensorium / Orientation: alert Motor Exam: strength 5/5 throughout Psych mental status grossly normal Mood & Affect: Negative for depressed or tearful Skin no rashes or lesions noted and no wounds MDM MDM MDM Narrative Medical decision making narrative: Differential diagnosis would include but not limited to pneumonia pleural effusion congestive heart failure acute coronary syndrome cardiac dysrhythmia pulmonary embolism bronchospasm CTA of the chest was obtained which on my review reveals a saddle pulmonary embolism. EKG shows sinus tachycardia. She was placed on supplemental oxygen because when she exerts herself she does drop into the 80s. White count 6.6 hemoglobin 12.8 platelet count is 223. Troponin is elevated at 165. BMP lactic acid are currently pending. INR 1.3 PTT 36.3. Patient denies any history of adverse reactions to heparin. Patient was started on a heparin drip. I spoke with vascular surgery Dr. Yeboah here. Our plan will be to admit the patient to the hospital obtain echocardiogram tomorrow and possible thrombectomy. I will speak with our hospitalist regarding admission. Patient and her were updated on plan are comfortable with admission. History & Record Review Discussion w/independent historian: Patient and Significant other Lab Data Attestation: I reviewed the patient's lab results. Labs: Laboratory Results - last 24 hr 07/02/24 07/02/24 16:15 17:20 WBC 6.6 RBC 4.75 Hgb 12.8 Hct 40.0 MCV 84.2 MCH 26.9 L MCHC 32.0 RDW Std Deviation 46.4 H RDW Coeff of Ja 15.2 H Plt Count 223 MPV 10.0 Immature Gran % (Auto) 0.800 Neut % (Auto) 65.7 Lymph % (Auto) 25.3 [place] % (Auto) 7.4 Eos % (Auto) 0.2 Baso % (Auto) 0.6 Absolute Neuts (auto) 4.3 Absolute Lymphs (auto) 1.67 Nucleated RBC % 0 PT 16.1 H INR 1.3 APTT 36.3 H Sodium 133 L Potassium 3.4 L Chloride 100 Carbon Dioxide 25.0 Anion Gap 9 BUN 9 Creatinine 0.86 Estim Creat Clear Calc 71.09 Est GFR (MDRD) Af Amer 84 Est GFR (MDRD) Non-Af 70 BUN/Creatinine Ratio 10.4 Glucose 126 H Calcium 9.8 Total Bilirubin 0.60 Direct Bilirubin 0.27 AST 20 ALT 10 L Alkaline Phosphatase 88 Troponin I High Sens 165 H* Total Protein 7.0 Albumin 2.3 L Globulin 4.7 H Radiography Diagnostic Testing: Clinical Impression(s) from Imaging Studies Chest CTA 07/02/24 16:29 IMPRESSION: Saddle pulmonary embolus which extends through out the lungs. Findings suggestive of right heart strain. Mild to moderate right pleural effusion with mild pleural enhancement which may represent infection. Pneumobilia which was present on the prior CT. Critical results were communicated to Dr. Chamorro at 7:05 p.m. One or more dose reduction techniques were used (e.g., Automated exposure control, adjustment of the mA and/or kV according to patient size, use of iterative reconstruction technique). Reading Location: [facility] EKG Initial EKG: Attestation: I personally reviewed and interpreted this EKG as follows: Comments: Sinus tachycardia ventricular rate of 108 bpm Management Discussion w/another healthcare provider: Hospitalist (Dr Gilbert) and Parking Regulation Enforcement Officer (Dr Yeboah (Vascular)) Critical Care Time Critical Care Time: Yes Critical care time (excluding procedures): 30-74 minutes (35 min), Including time spent:, Discussing w/Patient &/or Family/Leathersmith, Discussing w/Consultants, Arranging Admission or Transfer and Performing Direct Patient Care at Bedside Discharge Plan Triage Chief Complaint: Shortness of Breath ED Provider: Toni Jean Dx/Rx/DC Orders Clinical Impression: Acute saddle pulmonary embolism, Acute hypoxemic respiratory failure Prescriptions: No Action lisinopril 20 mg tablet 20 mg PO BID Patient Comments: TAKE 1 TABLET BY MOUTH TWICE DAILY levothyroxine 200 mcg tablet 200 mcg PO MOTUWETHFRSA Patient Comments: TAKE 1 TABLET BY MOUTH ONCE DAILY SATURDAY THROUGH SATURDAY, THEN 2 ON SATURDAY levothyroxine 200 mcg tablet 400 mcg PO ROBERTS Patient Comments: TAKE 1 TABLET BY MOUTH ONCE DAILY SATURDAY THROUGH SATURDAY, THEN 2 ON SATURDAY cholecalciferol (vitamin D3) 125 mcg (5,000 unit) capsule 5,000 unit PO DAILY ProAir RespiClick 90 mcg/actuation aerosol powdr breath activated 2 inh inhalation Q4H PRN (Reason: sob) Primary Care Provider: Wiliam Kay Referrals: Wiliam Kay MD [Primary Care Provider] - Print Language: Kazakh
[2024-07-02 16:35] LABS: Absolute Lymphocyte Count 1.67 X10^3/uL (0.83-4.51); Absolute Neutrophil Count 4.3 X10^3/uL (2.0-7.7); Basophil# 0.04 X10^3/uL; Basophil% 0.6 % (0-1); Eosinophil# 0.01 X10^3/uL; Eosinophils% 0.2 % (0-5); Hemoglobin 12.8 g/dL (12.0-15.0); Lymphocyte # 1.67 X10^3/ul (0.83-4.51); Lymphocyte % 25.3 % (19-41); Mean Corpuscular Hgb 26.9 pg (27.0-32.0); Mean Corpuscular Volume 84.2 fL (81-99); Monocyte# 0.49 X10^3/uL; Monocyte% 7.4 % (0-10); NRBC Flagged by Analyzer 0 % (0-5); Neutrophil # 4.34 X10^3/uL (2.7-7.7); Neutrophil % 65.7 % (47-70); Platelet Count 223 K/mm3 (150-450); RBC Distribution Width CV 15.2 % (11.6-14.6); RBC Distribution Width SD 46.4 fl (35.1-43.9); Red Blood Count 4.75 M/mm3 (4.2-5.4); White Blood Count 6.6 K/mm3 (4.4-11.0)
[2024-07-02] MEDS: Heparin Injection (Vial) 5,000 UNIT/ML VIAL 7500 UNIT IV (17:26)
[2024-07-02] MEDS: HEPARIN/D5w 25,000 UNITS 25,000 UNITS/250 ML IV.SOLN. 14 UNITS CONT INF (17:28)
[2024-07-02 17:48] LABS: AST(SGOT) 20 U/L (15-37); Alanine Aminotransfer ALT/SGPT 10 U/L (13-56); Albumin, Serum 2.3 g/dL (3.2-5.0); Alkaline Phosphatase 88 U/L (45-117); Bilirubin, Direct 0.27 mg/dL (0.00-0.30); Globulin 4.7 g/dL (2.2-4.2)
[2024-07-02 18:03] LABS: International Normalized Ratio 1.3; Prothrombin Time (Protime)PT. 16.1 SECONDS (11.7-14.9)
[2024-07-02 18:14] LABS: Partial Thromboplast Time 36.3 Seconds (24.1-36.2)
[2024-07-02 18:20] LABS: Anion Gap 9 (5-15); BUN 9 mg/dL (7-18); BUN/Creat Ratio 10.4 RATIO (10-20); Calcium,Total 9.8 mg/dL (8.5-10.1); Chloride 100 mmol/L (98-107); Creatinine, Serum 0.86 mg/dL (0.55-1.02); EST Glomerular Filtration Rate 70 mL/min (>60); Est Glom Filt Rate - Afr Amer 84 mL/min (>60); Estimated Creatinine Clearance 71.09 ml/min; Glucose 126 mg/dL (74-106); Potassium 3.4 mmol/L (3.5-5.1); Sodium Level 133 mmol/L (136-145); Troponin-I HS 165 pg/mL (3.0-54.0)
--- NOTE | 2024-07-02 18:23 | PCM.HP.STD ---
[facility] - General General Date of Admission: 07/02/24 Date of Service: 07/02/24 Chief Complaint: Worsening shortness of breath with exertion HPI Narrative BHAVANI HALLMAN, is a 69 F who presented to [facility] ED on 07/02/2024 with worsening shortness of breath with exertion. Patient has complex recent GI and surgical history, see my H&P from 05/30/2024 for further details. In short, patient had choledocholithiasis requiring multiple ERCPs here in March. Had complex anatomy so cholecystectomy was done at [facility] in early May. She unfortunately developed a postop liver abscess. She was hospitalized here in late May for this and was then transferred to [facility] In early June. Reviewed [facility] records and patient had IR drain placed there with good output and clinical improvement. She completed 2-week course of antibiotics and ultimately had drain removed on 06/25. Patient noted that over this past week she still did not have much appetite and had mild to moderate nausea, similar to the last few months for her. Over the past few days she noticed worsening shortness of breath with exertion, and today she became very winded with any exertion so she came in for further evaluation. On arrival to the ED, heart rate was sinus tachycardia to around 120, blood pressure was borderline low and she was hypoxic to the high 80s on room air. CTA chest showed a saddle pulmonary embolus extending throughout the lungs, findings suggestive of right heart strain and mild to moderate right pleural effusion with mild pleural enhancement. ED discussed with Dr. Yeboah who was agreeable to admission here with tentative plan for thrombectomy tomorrow. Hospitalist was then contacted for admission. I saw the patient at bedside in the ED, was present. Patient was sitting up comfortably in bed, conversing normally, in no acute distress. She is breathing comfortably on 2 L nasal cannula at rest. Noted that at rest she has no chest pain or shortness of breath but with much movement she does become short of breath. She reports mild nausea currently but states it is manageable. She denies any lower extremity pain or swelling now or recently. No other acute concerns at this time. [facility] Medical History (Updated 07/02/24 @ 21:[address] Jake Gilbert, DO) Pulmonary embolism Postoperative abscess Post-menopausal Wears glasses Thyroid disease Pancreatitis Essential hypertension Morbid obesity with BMI of 40.0-44.9, adult Vitamin D deficiency Hypertension Hypothyroidism Home Medications ?Medication ?Instructions ?Recorded ?Last Taken ?Type levothyroxine 200 mcg tablet 200 mcg PO MOTUWETHFRSA thyroid 11/06/21 07/02/24 History levothyroxine 200 mcg tablet 400 mcg PO WE thyroid 11/06/21 06/24/24 History lisinopril 20 mg tablet 20 mg PO BID BP 11/06/21 05/24/24 History Held on 07/02/24. Instructions: PCP TOLD PT TO HOLD DUE TO LBP albuterol sulfate 90 mcg/actuation 2 inh inhalation Q4H PRN sob 03/26/24 05/23/24 History breath activated powder inhaler (ProAir RespiClick) cholecalciferol (vitamin D3) 125 5,000 unit PO DAILY supplement 03/26/24 07/01/24 History mcg (5,000 unit) capsule Lactobacillus acidophilus 10 100 mmu cells PO DAILY G[facility]ALTH 07/02/24 07/01/24 History billion cell capsule (NewFlora) Allergy/AdvReac Type Severity Reaction Status Date / Time chlorhexidine Allergy Rash Verified 07/02/24 16:04 Penicillins Allergy CHILDHOOD Verified 07/02/24 16:04 ALLERGY psyllium (From Metamucil) Allergy Shortness Verified 07/02/24 16:04 of breath Family History no significant family his Surgical History History of cholecystectomy (05/06/24) Hx of colonoscopy S/P ERCP H/O section S/P dilatation and curettage Social History household members: spouse current occupational status: employed Smoking Status: Never smoker alcohol intake: never substance use type: does not use ROS Constitutional Constitutional: Denies chills, fatigue, fever(s) or weakness Eyes Eyes: Denies change in vision Cardiovascular Cardiovascular: Reports chest pain and dyspnea on exertion; Denies edema, lightheadedness, orthopnea or palpitations Respiratory/Chest Respiratory/Chest: Reports shortness of breath with exertion; Denies cough, shortness of breath at rest or wheezing Gastrointestinal Gastrointestinal: Reports nausea; Denies abdominal pain, constipation, diarrhea or vomiting Musculoskeletal Musculoskeletal: Denies arthralgias or myalgias Neurologic Neurologic: Denies dizziness or headache(s) Vital Signs Vital Signs Vital Signs: 07/02/24 16:04 07/02/24 16:06 07/02/24 16:20 Temperature 97.6 F L Temperature Source Temporal Pulse Rate 122 H Respiratory Rate 16 Respiratory Effort Blood Pressure 115/89 H Blood Pressure Mean 97 Pulse Ox 96 88 Oxygen Delivery Method Room Air Nasal Cannula Room Air Oxygen Flow Rate (L/min) 2 07/02/24 16:22 07/02/24 16:22 07/02/24 16:23 Temperature Temperature Source Pulse Rate Respiratory Rate Respiratory Effort Short of Breath Blood Pressure Blood Pressure Mean Pulse Ox 92 93 Oxygen Delivery Method Nasal Cannula Nasal Cannula Nasal Cannula Oxygen Flow Rate (L/min) 2 2 2 07/02/24 16:25 07/02/24 17:22 07/02/24 18:01 Temperature 97.3 F L 97.3 F L 97.3 F L Temperature Source Oral Oral Oral Pulse Rate 119 H 110 H 106 H Respiratory Rate 24 H 27 H 26 H Respiratory Effort Blood Pressure 117/87 H 130/73 H 105/87 H Blood Pressure Mean 97 92 93 Pulse Ox 94 94 95 Oxygen Delivery Method Nasal Cannula Nasal Cannula Room Air Oxygen Flow Rate (L/min) 3 2 2 07/02/24 18:01 Temperature Temperature Source Pulse Rate Respiratory Rate Respiratory Effort Blood Pressure 105/87 H Blood Pressure Mean 93 Pulse Ox Oxygen Delivery Method Oxygen Flow Rate (L/min) Weight Weight: 95.3 kg Body Mass Index (BMI) 36.0 Physical Exam Const alert, oriented x3 and no apparent distress Constitutional Narrative: Upper middle-aged female, class I obesity, mildly fatigued appearing but otherwise sitting up fairly comfortably in bed, conversing normally, in no acute distress. General Appearance: cooperative and comfortable HEENT normocephalic, head/scalp atraumatic, hearing grossly normal bilaterally, nasal mucous membranes and turbinates normal and moist oral mucous membranes Eyes PERRL, EOMs intact bilaterally and conjunctivae normal Neck full ROM Chest inspection of chest normal Resp normal respiratory effort and no use of accessory muscles Resp Narrative: Breathing comfortably on 2 L nasal cannula at rest. Diminished breath sounds in bilateral lung bases but otherwise good air movement throughout, no wheezing or crackles noted. Cardio no murmurs and peripheral pulses 2+ throughout Cardio Narrative: Tachycardic, regular rhythm. GI normal to inspection, nondistended, normoactive bowel sounds, soft to palpation, non-tender and non-distended Back/Spine normal ROM Extremity normal to inspection, full ROM and no pedal edema Skin no rashes or lesions noted Neuro moves all extremities and no focal motor deficits Speech: speech normal Motor Exam: strength 5/5 throughout Psych mental status grossly normal Results Lab / Micro Data 07/02/24 16:15 07/02/24 16:15 Labs: Laboratory Results - last 24 hr 07/02/24 16:15: WBC 6.6, RBC 4.75, Hgb 12.8, Hct 40.0, MCV 84.2, MCH 26.9 L, MCHC 32.0, RDW Std Deviation 46.4 H, RDW Coeff of Ja 15.2 H, Plt Count 223, MPV 10.0, Immature Gran % (Auto) 0.800, Neut % (Auto) 65.7, Lymph % (Auto) 25.3, [place] % (Auto) 7.4, Eos % (Auto) 0.2, Baso % (Auto) 0.6, Absolute Neuts (auto) 4.3, Absolute Lymphs (auto) 1.67, Nucleated RBC % 0, Sodium 133 L, Potassium 3.4 L, Chloride 100, Carbon Dioxide 25.0, Anion Gap 9, BUN 9, Creatinine 0.86, Estim Creat Clear Calc 71.09, Est GFR (MDRD) Af Amer 84, Est GFR (MDRD) Non-Af 70, BUN/Creatinine Ratio 10.4, Glucose 126 H, Calcium 9.8, Troponin I High Sens 165 H* 07/02/24 17:20: PT 16.1 H, INR 1.3, APTT 36.3 H, Total Bilirubin 0.60, Direct Bilirubin 0.27, AST 20, ALT 10 L, Alkaline Phosphatase 88, Total Protein 7.0, Albumin 2.3 L, Globulin 4.7 H Imaging Radiology Impression Chest CTA 07/02/24 16:29 IMPRESSION: Saddle pulmonary embolus which extends through out the lungs. Findings suggestive of right heart strain. Mild to moderate right pleural effusion with mild pleural enhancement which may represent infection. Pneumobilia which was present on the prior CT. Critical results were communicated to Dr. Chamorro at 7:05 p.m. One or more dose reduction techniques were used (e.g., Automated exposure control, adjustment of the mA and/or kV according to patient size, use of iterative reconstruction technique). Reading Location: [id number] Assessment & Plan Assessment/Plan (1) Acute saddle pulmonary embolism: (2) Hypoxia: PLAN: Plan Patient is a 69-year-old female who presented [facility] ED on 07/02/2024 with worsening shortness of breath on exertion. 1. Acute saddle PE, intermediate risk with acute hypoxia ? Admit under inpatient status to PCU. Vascular surgery consulted. CTA chest on admit showed a saddle pulmonary embolus extending throughout the lungs, findings suggestive of right heart strain and mild to moderate right pleural effusion with mild pleural enhancement. No prior history of clots. Seems consistent with provoked VTE in setting of recent surgical procedures with immobility. N.p.o. at midnight with plan for thrombectomy tomorrow. Continue heparin drip. Echo ordered. Venous duplex ultrasound ordered. Wean supplemental oxygen as able. 2. Generalized weakness ? PT/OT/case management consulted. Patient lives at home with and previously had good functional status. Has had several hospital stays in the last 3 months and has developed some debility due to this. Likely okay for home on discharge but may need home health care. 3. Recent cholecystectomy complicated by postoperative hepatic abscess ? See HPI for further details. Complete antibiotics and IR drain removed on 06/25. No further intervention needed. Chronic medical conditions: ? Class I obesity: BMI 34 on admit. Complicates hospital course, care and prognosis. ? Hypothyroidism: Continue home Synthroid. ? Hypertension: Holding home lisinopril. ? History of asthma: Stable, continue home inhaler as needed. DVT prophylaxis: Not indicated, on heparin drip CODE STATUS: Full code, verified Expected disposition: TBD Total clinical time spent by myself addressing the patient's medical issues, reviewing all the data, and collaborating with patient's care team: 55 minutes. Charges/Coding Visit Charges Inpatient E&M: 85119 Init Hosp L2
[2024-07-02 18:44] LABS: Lactic Acid 1.8 mmol/L (0.4-1.9)
[2024-07-02 19:14] LABS: Magnesium 2.2 mg/dL (1.6-2.6); Phosphorus 2.4 mg/dL (2.5-4.9)
[2024-07-02 19:21] LABS: BNP,B-Type NATRIURETIC PEPTIDE 305.9 pg/mL (0-100)
--- NOTE | 2024-07-02 21:11 | ECHOD_ITS ---
Version 2 Reason For Study: Saddle PE Left Ventricle Normal LV size. D shaped septum in diastole. Left ventricular systolic function is normal. The left ventricular ejection fraction is 50 %. Stage 1 diastolic dysfunction. No regional wall motion abnormalities noted. Right Ventricle Moderately dilated right ventricle. Apical sparing noted with RV strain of -12. Mild to moderate global right ventricular systolic dysfunction. Atria Normal left atrium. Normal right atrium. Mitral Valve Normal mitral valve. Tricuspid Valve Normal tricuspid valve. Mild to moderate (1-2+) tricuspid valve insufficiency. Pulmonary artery systolic pressure is 48 mmHg. Pulmonic Valve Normal pulmonic valve. Great Vessels Normal aortic root. The pulmonary artery is normal size. Normal inferior vena cava. Pericardium/Pleural No pericardial effusion. MMode/2D Measurements & Calculations LVIDd: 4.0 cm IVSd: 0.79 cm Ao root diam: 3.4 cm LVIDs: 2.0 cm LVPWd: 0.94 cm RVDd: 4.1 cm FS: 49.3 % _ LAV(MOD-sp4): 20.7 ml SV(MOD-sp4): 13.0 ml LVAd ap4: 13.6 cm2 LVLd ap4: 6.2 cm SI(MOD-sp4): 6.6 ml/m2 EDV(MOD-sp4): 24.7 ml EDV(sp4-el): 25.3 ml LVAs ap4: 8.7 cm2 LVLs ap4: 5.6 cm ESV(MOD-sp4): 11.8 ml ESV(sp4-el): 11.3 ml EF(MOD-sp4): 52.4 % EF(sp4-el): 55.2 % _ SV(sp4-el): 13.9 ml LA dimension(2D): 2.5 cm LA A4 area: 10.8 cm2 _ RA A4 area: 8.8 cm2 Doppler Measurements & Calculations MV E max adan: 49.6 cm/sec Lat Peak E' Adan: 9.2 cm/sec Med Peak E' Adan: 6.0 cm/sec MV A max adan: 77.5 cm/sec E/E' lat: 5.4 E/E' med: 8.3 MV E/A: 0.64 _ Ao V2 max: 101.1 cm/sec LV V1 max: 80.3 cm/sec PA V2 max: 44.3 cm/sec Ao max P.1 mmHg LV V1 max P.6 mmHg Ao V2 mean: 70.5 cm/sec LV V1 mean P.3 mmHg Ao mean P.2 mmHg LV V1 mean: 53.2 cm/sec Ao V2 VTI: 14.5 cm LV V1 VTI: 11.3 cm AV (velocity ratio): 0.78 _ TR max adan: 329.9 cm/sec TR max P.5 mmHg ECHO/Echo Complete Interpretation Summary Normal LV size. Left ventricular systolic function is normal. The left ventricular ejection fraction is 50 %. D shaped septum in diastole. Stage 1 diastolic dysfunction. Moderately dilated right ventricle. Mild to moderate global right ventricular systolic dysfunction. Apical RV sparing noted Above consitent with PE Apical sparing noted with RV strain of -12 Ordering Physician: Jake Gilbert Referring Physician: Wiliam Kay MD Performed By: Maira Johnson RDCS
[2024-07-03] VITALS (14 sets, daily range): BP systolic 101–117; BP diastolic 68–81; PULSE 86–93; RESP 16–18; TEMP 36.3–36.7; O2SAT 93–96
[2024-07-03 01:54] LABS: Partial Thromboplast Time > 200.0 Seconds (24.1-36.2)
[2024-07-03] MEDS: Levothyroxine 100 MCG Tablet 200 MCG PO (05:38)
[2024-07-03 07:31] LABS: Hematocrit 33.5 % (37-47); Hemoglobin 10.8 g/dL (12.0-15.0); Mean Corp Hgb Conc 32.2 g/dL (32-36); Mean Corpuscular Hgb 26.9 pg (27.0-32.0); Mean Corpuscular Volume 83.3 fL (81-99); Mean Platelet Vol. 10.5 fl (6.2-12.0); Platelet Count 162 K/mm3 (150-450); RBC Distribution Width CV 15.2 % (11.6-14.6); RBC Distribution Width SD 46.1 fl (35.1-43.9); Red Blood Count 4.02 M/mm3 (4.2-5.4); White Blood Count 4.9 K/mm3 (4.4-11.0)
[2024-07-03 08:03] LABS: Anion Gap 9 (5-15); BUN 9 mg/dL (7-18); BUN/Creat Ratio 14.3 RATIO (10-20); Chloride 101 mmol/L (98-107); Creatinine, Serum 0.63 mg/dL (0.55-1.02); EST Glomerular Filtration Rate 100 mL/min (>60); Est Glom Filt Rate - Afr Amer 121 mL/min (>60); Estimated Creatinine Clearance 75.04 ml/min; Glucose 87 mg/dL (74-106); Potassium 3.4 mmol/L (3.5-5.1); Sodium Level 136 mmol/L (136-145)
--- NOTE | 2024-07-03 10:12 | CON.PCM.SX_ITS ---
Assessment & Plan Assessment/Plan (1) Acute saddle pulmonary embolism: QUALIFIERS: Acute cor pulmonale presence: unspecified Qualified Code(s): I26.92 - Saddle embolus of pulmonary artery without acute cor pulmonale PLAN: -CTA images reviewed, saddle embolus with RV strain, ratio >1 -elevated troponin, BNP -echo confirms RV strain -continues to require O2; HR and BP improved overnight -meets criteria to consider thrombectomy -D/W patient and her family, risks/benefits/alternatives -agreeable to proceed HPI Consult Data Date of Consult: 07/03/24 HPI Narrative HPI Narrative: BHAVANI HALLMAN, is a 69 F who presents with acute onset SOB yesterday at noon. Presented to ED where CTA showed saddle embolism, RV strain. She was admitted and put on heparin. She has some minimal improvement but continues to have chest pressure worse with deep breath. She continues to require 2 L O2 at rest. Her HR was initially elevated to 120s, now 80-90s. No prior VTE. She has had an eventful last few months medically speaking; presented initially with choledocholithiasis and required multiple ERCP, lap dianne attempted though unable to safely complete here, transferred to [facility]. Safely underwent lap dianne by hepatobiliary surgeon there and later developed hepatic abscess that required peprc drainage. That drain was removed about 1 week ago. [facility] Medical History (Updated 07/03/24 @ 10:[address] Bartolo Yeboah MD) Pulmonary embolism Postoperative abscess Post-menopausal Wears glasses Thyroid disease Pancreatitis Essential hypertension Morbid obesity with BMI of 40.0-44.9, adult Vitamin D deficiency Hypertension Hypothyroidism Home Medications ?Medication ?Instructions ?Recorded ?Last Taken ?Type levothyroxine 200 mcg tablet 200 mcg PO MOTUWETHFRSA t hyroid 11/06/21 07/02/24 History levothyroxine 200 mcg tablet 400 mcg PO WE thyroid 11/2206/24/24 History lisinopril 20 mg tablet 20 mg PO BID BP 11/06/21 History Held on 07/02/24. Instructions: PCP TOLD PT TO HOLD DUE TO LBP albuterol sulfate 90 mcg/actuation 2 inh inhalation Q4 H PRN sob 03/26/24 05/23/24 History breath activated powder inhaler (ProAir RespiClick) cholecalciferol (vitamin D3) 125 5,000 unit PO DAILY s upplement 03/26/24 07/01/24 History mcg (5,000 unit) capsule Lactobacillus acidophilus 10 100 mmu cells PO DAILY T HEALTH 07/02/24 07/01/24 History billion cell capsule (NewFlora) Allergy/AdvReac Type Severity Reaction Status Date / Time chlorhexidine Allergy Rash Verified 07/02/24 16:04 Penicillins Allergy CHILDHOOD Verified 07/02/24 16:04 ALLERGY psyllium (From Metamucil) Allergy Shortness Verified 07/02/24 16:04 of breath Family History no significant family his Surgical History History of cholecystectomy (05/06/24) Hx of colonoscopy S/P ERCP H/O section S/P dilatation and curettage Social History household members: spouse current occupational status: employed Smoking Status: Never smoker alcohol intake: never substance use type: does not use ROS Constitutional Constitutional: Denies chills, fever(s), frequent falls, lethargy or weakness Eyes Eyes: Denies blind spots, change in vision or loss of vision ENT HEENT: Denies bleeding gums, hoarseness or sore throat Cardiovascular Cardiovascular: Reports chest pain, dyspnea at rest and dyspnea on exertion; Denies abdominal pain, bluish discoloration of hand/feet, chest pain with activity, claudication, cold extremities, cyanosis, erythema on extremities, irregular heart rhythm, leg edema, leg ulcers, numbness in extremities or weakness in extremities Respiratory/Chest Respiratory/Chest: Denies cough, excessive phlegm production, shortness of breath at rest, shortness of breath with exertion or wheezing Gastrointestinal Gastrointestinal: Denies anorexia, change in stool character, constipation, diarrhea, melena or rectal bleeding Genitourinary Genitourinary: Denies dysuria or hematuria Musculoskeletal Musculoskeletal: Denies abnormal gait Integumentary Integumentary: Denies erythema, non-healing lesions or wounds Neurologic Neurologic: Denies abnormal speech, focal weakness, headache(s), loss of vision, numbness, paresthesias or sensory deficit Hematologic/Lymphatic Hematologic/Lymphatic: Denies easy bleeding, easy bruising or lymphadenopathy Physical Exam Const alert, oriented x3, no apparent distress and healthy appearing General Appearance: cooperative; Negative for combative or lethargic Orientation / Consciousness: awake Exam Limitations: no limitations HEENT Head and Scalp: normocephalic and atraumatic Eyes EOMs intact bilaterally General Eye: normal appearance of both eyes Neck full ROM General: trachea midline Resp normal respiratory effort and no use of accessory muscles Effort and Inspection: Negative for labored, stridor or audible wheezes Cardio regular rate and regular rhythm Peripheral Pulses: brachial pulses present and radial pulses present Back/Spine Cervical Spine: cervical ROM normal Extremity full ROM, normal capillary refill and no clubbing, cyanosis or edema Skin no rashes or lesions noted and no wounds Neuro oriented x3, CN's II-XII intact bilaterally, no focal motor deficits and no sensory deficits noted Psych thought process normal, cooperative, affect normal, speech normal and activity/motor behavior normal Lab / Micro Data 07/03/24 06:20 07/03/24 06:20 Labs: Laboratory Results - last 24 hr 07/02/24 16:15: WBC 6.6, RBC 4.75, Hgb 12.8, Hct 40.0, MCV 84.2, MCH 26.9 L, MCHC 32.0, RDW Std Deviation 46.4 H, RDW Coeff of Ja 15.2 H, Plt Count 223, MPV 10.0, Immature Gran % (Auto) 0.800, Neut % (Auto) 65.7, Lymph % (Auto) 25.3, [place] % (Auto) 7.4, Eos % (Auto) 0.2, Baso % (Auto) 0.6, Absolute Neuts (auto) 4.3, Absolute Lymphs (auto) 1.67, Nucleated RBC % 0, Sodium 133 L, Potassium 3.4 L, Chloride 100, Carbon Dioxide 25.0, Anion Gap 9, BUN 9, Creatinine 0.86, Estim Creat Clear Calc 71.09, Est GFR (MDRD) Af Amer 84, Est GFR (MDRD) Non-Af 70, BUN/Creatinine Ratio 10.4, Glucose 126 H, Calcium 9.8, Troponin I High Sens 165 H* 07/02/24 17:20: PT 16.1 H, INR 1.3, APTT 36.3 H, Phosphorus 2.4 L, Magnesium 2.2, Total Bilirubin 0.60, Direct Bilirubin 0.27, AST 20, ALT 10 L, Alkaline Phosphatase 88, Total Protein 7.0, Albumin 2.3 L, Globulin 4.7 H 07/02/24 18:00: Lactic Acid 1.8, B-Natriuretic Peptide 305.9 H 07/02/24 23:29: APTT Cancelled 07/03/24 01:20: APTT > 200.0 H* 07/03/24 06:20: WBC 4.9, RBC 4.02 L, Hgb 10.8 L, Hct 33.5 L, MCV 83.3, MCH 26.9 L, MCHC 32.2, RDW Std Deviation 46.1 H, RDW Coeff of Ja 15.2 H, Plt Count 162, MPV 10.5, Sodium 136, Potassium 3.4 L, Chloride 101, Carbon Dioxide 26.0, Anion Gap 9, BUN 9, Creatinine 0.63, Estim Creat Clear Calc 75.04, Est GFR (MDRD) Af Amer 121, Est GFR (MDRD) Non-Af 100, BUN/Creatinine Ratio 14.3, Glucose 87, Calcium 9.0, TSH 17.200 H Imaging Radiology Impression Chest CTA 07/02/24 16:29 IMPRESSION: Saddle pulmonary embolus which extends through out the lungs. Findings suggestive of right heart strain. Mild to moderate right pleural effusion with mild pleural enhancement which may represent infection. Pneumobilia which was present on the prior CT. Critical results were communicated to Dr. Chamorro at 7:05 p.m. One or more dose reduction techniques were used (e.g., Automated exposure control, adjustment of the mA and/or kV according to patient size, use of iterative reconstruction technique). Reading Location: [id number] Echocardiogram 07/02/24 21:11 Interpretation Summary Normal LV size. Left ventricular systolic function is normal. The left ventricular ejection fraction is 50 %. D shaped septum in diastole. Stage 1 diastolic dysfunction. Moderately dilated right ventricle. Mild to moderate global right ventricular systolic dysfunction. Apical RV sparing noted Above consitent with PE Apical sparing noted with RV strain of -12 Ordering Physician: Jake Gilbert Referring Physician: Wiliam Kay MD Performed By: Maira Johnson RDCS Charges/Coding Visit Charges Inpatient E&M: 29323 Init Hosp L3
[2024-07-03 10:14] LABS: Partial Thromboplast Time 76.5 Seconds (24.1-36.2)
[2024-07-03 12:50] LABS: ACT Activated Clotting Time 239 sec (74-137)
[2024-07-03 12:50] LABS: ACT Activated Clotting Time 291 sec (74-137)
--- NOTE | 2024-07-03 13:10 | OP.PCM_ITS ---
Operative Report (Standard) Operative Information Date of Procedure: 07/03/24 Pre-Operative Diagnosis: Saddle pulmonary embolism with right ventricular strain Post-Operative Diagnosis: Same Surgery/Procedure Performed: Inferior vena cava venogram Bilateral selective pulmonary angiogram Bilateral pulmonary artery embolectomy natural resources technician: No Type of Anesthesia: Local and Sedation,Conscious Procedure Start Time: 11:00 Procedure Stop Time: 12:30 Select all DRAINS/GRAFTS/IMPLANTS that apply: None Estimated Blood Loss: 75 Specimen collected: No Description of surgery: HPI: Patient is a 69-year-old female with significant recent medical comorbid conditions including recent choledocholithiasis and pancreatitis, liver abscess, and multiple recent hospitalizations who presented with acute onset of chest pain and shortness of breath. She was found to have saddle pulmonary emboli with significant clot burden in the main right and left pulmonary arteries as well as in the segmental branches. She had hemodynamic effect from the clot burden including tachycardia and mild hypotension as well as hypoxia requiring oxygen supplementation. She felt to be appropriate for intervention so she is taken now for percutaneous aspiration thrombectomy. Procedure performed to co- physicians Dr. Bartolo Cruz Description of procedure: Upon obtaining form consent and verification correct patient procedure site the patient was taken to the [employer] where she was positioned prepped and draped in usual sterile fashion. Time was performed and conscious sedation administered Versed and fentanyl. Skin overlying the right common femoral vein was anesthetized and the vessel accessed with a standard needle and wire. This was exchanged for an 8 Greenlandic sheath. Through this hand- injection right iliac vein and inferior vena cava venogram was performed which revealed patent vessels with brisk contrast transit and no thrombus between the access site in the right atrium. Through this a J-wire was advanced and a pigtail catheter which were then used to navigate the inferior vena cava into the right atrium, right ventricle and ultimately into the main pulmonary artery. We initially attempted navigated to the right pulmonary artery however due to clot burden the wire deflected despite multiple attempts. Ultimately we were able to navigate into the distal left pulmonary artery and advance our catheter. The J-wire was then exchanged for a Idalia wire which was advanced into the distal subsegmental branches. The catheter was then advanced and the Idalia wire exchanged for a short tipped Amplatz wire. The catheter was then withdrawn and the 8 Greenlandic sheath exchanged for the 24 Greenlandic Inari sheath advanced under fluoroscopic guidance to the inferior vena cava just below the atrial junction. The patient was then heparinized allowed circulate for 3 minutes with subsequent heparinization doses based on ACT results. The T24 suction aspiration device was then advanced over the wire and navigated into the left pulmonary artery distally and into the lobar branches. Multiple aspirations were then performed both at this location and with gradual pullback with significant thrombus return. After no further thrombus was performed hand-injection subtraction pulmonary angiogram was performed which revealed 1 small remnant area of thrombus. Next the T20 curve aspiration catheter was advanced through the T24 in position of the thrombus with multiple further aspirations performed. Repeat imaging revealed resolution of thrombus with no significant residual thrombus in any of the left pulmonary artery branches. We then navigated back into the main pulmonary artery and directed our equipment into the right pulmonary artery advancing the T20 and T24 into position. Multiple aspirations were performed first through the T20 curve. This was then withdrawn and further aspirations performed at the T24. Once no further thrombus was returned completion the right pulmonary angiogram was performed which revealed no significant residual thrombus. The wire and aspiration catheter were then withdrawn. A 2-0 silk pursestring suture was then placed at the skin and secured as the T24 sheath was withdrawn. Manual pressure was then held until hemostasis was obtained. The patient was then returned to the PCU for bedrest and recovery. Surgical Findings: See above Complications Complications: No
--- NOTE | 2024-07-03 14:00 | CASEMGMT ---
N CM Face to Face with patient for initial transition planning/care coordination assessment. RN CM introduced self and role at [facility]. Patient lying in bed, alert and oriented, and sister at bedside. Patient willing to participate in assessment and is able to answer all questions appropriately. Care providers, pharmacy, and demographics verified. Strata: 2 PCP: Eliza Specialists: surgeon Alice Crystal Preferred Pharmacy: [facility] Retail at discharge. Insurance: [facility], [facility] Prescription Benefit: yes, [employer] savings card provided to patient Living Will/HPOA: none LNOK: Living Arrangements: Patient lives with in a 2 story home with bed and bath available on first floor. Patient is independent at home. P Transportation: self, DME/HHC: Patient denies DME in the home. No previous HHC or SNF. Will monitor for home oxygen, prefers [employer], green sheet on chart. Patient wishes to discharge home, denies need for home health at this time. Patient states she has no further needs or concerns at this time. CM to follow for discharge planning needs that may arise. Disposition Plan: Patient to discharge home with family support and follow-up plans in place. Shivani LARES, RN, CM
[2024-07-03 16:27] LABS: Partial Thromboplast Time 151.7 Seconds (24.1-36.2)
[2024-07-03] MEDS: Cholecalciferol (Vit D3) 125 MCG CAPSULE (5,000 UNITS) PO (17:15)
--- NOTE | 2024-07-03 17:35 | PN.HOSP_ITS ---
Reason for Visit Reason for Visit: Shortness of breath with exertion Subjective Subjective Patient is a 69-year-old white female who presented to the emergency department at [facility] on 07/02/2024 complaining of worsening shortness of breath with exertion. She has recently had some extensive medical history with choledocholithiasis requiring multiple ERCPs in March and then post ERCP pancreatitis. She had complex anatomy with regards to her gallbladder as her cholecystectomy was done at [facility] In early May and unfortunately she developed a postoperative liver abscess. This hospitalization occurred in early June. An IR drain was placed there with clinical improvement and she was discharged with a 2-week course of antibiotics. The drain was ultimately removed on 06/25/2024. Patient reported that over the last week prior to presentation she had decreased appetite with some mild nausea but it has been persistent. She noticed that over the few days prior to presentation she was becoming short of breath with exertion and on the day of presentation she became very winded without exertion so she came in for further evaluation. Vital signs on presentation showed a temperature of 97.6, heart rate 122, respiratory rate 16, blood pressure was 115/89 and pulse ox was 88% on room air. She was placed on supplemental oxygen at 2 L and oxygen saturations improved to 92 to 93%. CBC was unimpressive. Chemistry panel showed mild hyponatremia with sodium of 133, hypokalemia potassium of 3.4 and was otherwise unremarkable. Initial troponin was 165 and her BNP was 305.9. CTA of the chest showed a saddle pulmonary embolus with extended throughout the lungs bilaterally and evidence of right heart strain with mild to moderate right pleural effusion and mild pleural enhancement. Pneumobilia was noted on the CT which was there previously. She was placed on a heparin drip with consultation to vascular surgery and echocardiogram. Echocardiogram showed moderate right ventricular dilation with apical sparing and mild to moderate right global ventricular systolic dysfunction and a pulmonary pressure of 48 mmHg consistent with PE and a normal LVEF and stage I diastolic function. She was evaluated by vascular surgery and taken for thrombectomy with hemodynamic improvement and resolution of hypoxia following procedure. Heparin was restarted and per discussion with vascular surgery as long as she does well we can start Eliquis tomorrow and plan for discharge. Patient states she feels much better now after procedure. Objective Data Objective Data Vital Signs: Vital Signs Temp Pulse Resp BP Pulse Ox O2 Del Method O2 Flow Rate 97.9 F 86 18 105/76 94 Room Air 2 07/03/24 16:00 07/03/24 17:00 07/03/24 17:00 07/03/24 17:00 07/03/24 17:00 07/03/24 17:00 07/03/24 13:22 Oxygen Flow Rate (L/min) 2 Oxygen Delivery Method Room Air Weight: 92.1 kg Body Mass Index (BMI) 34.8 Intake & Output: Intake and Output for Last 24 Hours 07/01/24 07/02/24 07/03/24 23:59 23:59 23:59 Intake Total 310.00 / 310.00 Balance 310.00 / 310.00 Lab / Micro Data 07/03/24 06:20 07/03/24 06:20 Labs: Laboratory Results - last 24 hr 07/02/24 16:15: Sodium 133 L, Potassium 3.4 L, Chloride 100, Carbon Dioxide 25.0, Anion Gap 9, BUN 9, Creatinine 0.86, Estim Creat Clear Calc 71.09, Est GFR (MDRD) Af Amer 84, Est GFR (MDRD) Non-Af 70, BUN/Creatinine Ratio 10.4, Glucose 126 H, Calcium 9.8, Troponin I High Sens 165 H* 07/02/24 17:20: PT 16.1 H, INR 1.3, APTT 36.3 H, Phosphorus 2.4 L, Magnesium 2.2, Total Bilirubin 0.60, Direct Bilirubin 0.27, AST 20, ALT 10 L, Alkaline Phosphatase 88, Total Protein 7.0, Albumin 2.3 L, Globulin 4.7 H 07/02/24 18:00: Lactic Acid 1.8, B-Natriuretic Peptide 305.9 H 07/02/24 23:29: APTT Cancelled 07/03/24 01:20: APTT > 200.0 H* 07/03/24 06:20: WBC 4.9, RBC 4.02 L, Hgb 10.8 L, Hct 33.5 L, MCV 83.3, MCH 26.9 L, MCHC 32.2, RDW Std Deviation 46.1 H, RDW Coeff of Ja 15.2 H, Plt Count 162, MPV 10.5, Sodium 136, Potassium 3.4 L, Chloride 101, Carbon Dioxide 26.0, Anion Gap 9, BUN 9, Creatinine 0.63, Estim Creat Clear Calc 75.04, Est GFR (MDRD) Af Amer 121, Est GFR (MDRD) Non-Af 100, BUN/Creatinine Ratio 14.3, Glucose 87, Calcium 9.0, TSH 17.200 H 07/03/24 09:50: APTT 76.5 H 07/03/24 11:59: Activated Clotting Time 291 H 07/03/24 12:34: Activated Clotting Time 239 H 07/03/24 15:48: APTT 151.7 H* Radiography Diagnostic Testing: Radiology Impression Chest CTA 07/02/24 16:29 IMPRESSION: Saddle pulmonary embolus which extends through out the lungs. Findings suggestive of right heart strain. Mild to moderate right pleural effusion with mild pleural enhancement which may represent infection. Pneumobilia which was present on the prior CT. Critical results were communicated to Dr. Chamorro at 7:05 p.m. One or more dose reduction techniques were used (e.g., Automated exposure control, adjustment of the mA and/or kV according to patient size, use of iterative reconstruction technique). Reading Location: [facility] Echocardiogram 07/02/24 21:11 Interpretation Summary Normal LV size. Left ventricular systolic function is normal. The left ventricular ejection fraction is 50 %. D shaped septum in diastole. Stage 1 diastolic dysfunction. Moderately dilated right ventricle. Mild to moderate global right ventricular systolic dysfunction. Apical RV sparing noted Above consitent with PE Apical sparing noted with RV strain of -12 Ordering Physician: Jake Gilbert Referring Physician: Wiliam Kay MD Performed By: Maira Johnson RDCS Physical Exam Const alert, oriented x3, no apparent distress and well nourished Constitutional Narrative: Obese, upper middle-aged, white female, lying in bed flat postprocedurally, appears comfortable and well, nontoxic, at bedside HEENT head/scalp atraumatic and moist oral mucous membranes HEENT Narrative: Mallampati 2, no thrush Head and Scalp: normocephalic Resp normal respiratory effort, no retractions, no use of accessory muscles and clear to auscultation bilaterally Auscultation: Negative for rales, rhonchi or wheezes Cardio regular rate, regular rhythm, S1 normal heart sound, S2 normal heart sound, no murmurs, no rub, no gallops and no clicks GI normal to inspection, nondistended, normoactive bowel sounds, soft to palpation and non-tender Extremity no clubbing, cyanosis or edema Extremity Narrative: Right groin with postoperative dressing in place, bandages clean dry and intact, no significant tenderness Neuro moves all extremities and no focal motor deficits Speech: speech normal Psych affect normal Psych Narrative: Very pleasant, interacts appropriately Assessment & Plan Assessment/Plan (1) Hypoxia: (2) Acute saddle pulmonary embolism: QUALIFIERS: Acute cor pulmonale presence: unspecified Qualified Code(s): I26.92 - Saddle embolus of pulmonary artery without acute cor pulmonale PLAN: Plan Acute hypoxia secondary to acute saddle pulmonary embolus -Status post thrombectomy due to pulmonary hypertension and RV strain acutely -Postprocedural hemodynamics are excellent with resolution of tachycardia and hypoxia -Continue heparin drip overnight -If remains stable will transition to oral Eliquis 10 mg p.o. twice daily x 7 days then 5 mg p.o. twice daily until further notified -Will refer to vascular surgery after discharge -Plan is for repeat echocardiogram in 6 to 12 weeks to reassess RV Generalized weakness -PT/OT following -Case management following -Debility is likely related to recurrent hospitalizations -Will assess for home health needs Choledocholithiasis with subsequent cholecystectomy complicated by postoperative hepatic abscess -Resolved Hypothyroidism -Continue home levothyroxine -TSH is 17 -Check free T4 Essential hypertension/hyperlipidemia -Hold home lisinopril and reassess tomorrow for reinitiation -Patient has documented history of hyperlipidemia but not on medication History of asthma -No signs of acute exacerbation -Continue home inhaler Vitamin D deficiency -Continue home vitamin D supplementation Obesity -BMI 34.9 -Recommend weight loss -Complicates treatment, prognosis, outcomes DVT prophylaxis -Continue heparin drip CODE STATUS -Full code verified Charges/Coding Visit Charges Inpatient E&M: 98567 Subs Hosp L2
[2024-07-03] MEDS: HEPARIN/D5w 25,000 UNITS 25,000 UNITS/250 ML IV.SOLN. 8 UNITS CONT INF (18:44)
[2024-07-03] MEDS: 0.9% Saline Lock 10 ML Syringe IV (20:59)
--- NOTE | 2024-07-03 21:44 | CPS ---
pt declined use of pep and I.S. 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
[2024-07-04 01:17] LABS: Partial Thromboplast Time 57.3 Seconds (24.1-36.2)
[2024-07-04 02:05] VITALS: BP 117/73; PULSE 88; RESP 16; TEMP 36.6; O2SAT 93
[2024-07-04 05:50] VITALS: BP 132/75; PULSE 81; RESP 18; TEMP 36.7; O2SAT 94
[2024-07-04] MEDS: Levothyroxine 100 MCG Tablet 200 MCG PO (05:57)
[2024-07-04 07:11] LABS: Hematocrit 31.5 % (37-47); Hemoglobin 9.7 g/dL (12.0-15.0); Mean Corp Hgb Conc 30.8 g/dL (32-36); Mean Corpuscular Hgb 26.5 pg (27.0-32.0); Mean Corpuscular Volume 86.1 fL (81-99); Mean Platelet Vol. 10.7 fl (6.2-12.0); Platelet Count 148 K/mm3 (150-450); RBC Distribution Width CV 15.2 % (11.6-14.6); RBC Distribution Width SD 48.1 fl (35.1-43.9); Red Blood Count 3.66 M/mm3 (4.2-5.4); White Blood Count 3.8 K/mm3 (4.4-11.0)
[2024-07-04 07:25] LABS: Partial Thromboplast Time 43.2 Seconds (24.1-36.2)
[2024-07-04 07:47] LABS: Anion Gap 9 (5-15); BUN 13 mg/dL (7-18); BUN/Creat Ratio 20.1 RATIO (10-20); Calcium,Total 8.8 mg/dL (8.5-10.1); Chloride 104 mmol/L (98-107); Creatinine, Serum 0.65 mg/dL (0.55-1.02); EST Glomerular Filtration Rate 97 mL/min (>60); Est Glom Filt Rate - Afr Amer 118 mL/min (>60); Estimated Creatinine Clearance 75.04 ml/min; Glucose 85 mg/dL (74-106); Magnesium 2.3 mg/dL (1.6-2.6); Phosphorus 2.9 mg/dL (2.5-4.9); Potassium 3.6 mmol/L (3.5-5.1); Sodium Level 138 mmol/L (136-145)
[2024-07-04] MEDS: Heparin Injection (Vial) 5,000 UNIT/ML VIAL IV (09:09)
[2024-07-04] MEDS: Cholecalciferol (Vit D3) 125 MCG CAPSULE (5,000 UNITS) PO (09:15)
[2024-07-04 09:16] VITALS: BP 115/69; PULSE 95; RESP 16; TEMP 36.6; O2SAT 94
[2024-07-04 09:27] VITALS: O2SAT 95
[2024-07-04 10:27] VITALS: O2SAT 92; O2SAT 95
[2024-07-04] MEDS: APIXABAN 5 MG TABLET 10 MG PO (11:16)
[2024-07-04 11:54] LABS: Hemoglobin 10.6 g/dL (12.0-15.0)
--- NOTE | 2024-07-04 12:02 | CASEMGMT ---
Addendum entered by Tatiana Abad 07/04/24 12:25: AKASH NORMAN Noted Eliquis order placed for [facility] pharmacy, called pharmacy and had them apply Eliquis card. Asked pharmacy to deliver to Pt room. Notified Pt. Original Note: AKASH NORMAN into pt room, provided Pt with Eliquis card. Denies any further questions or concerns at this time.
--- NOTE | 2024-07-04 12:03 | PCM.DC.SUM ---
Providers Date of Admission: 07/02/24 Primary Care Physician: Dr. Wiliam Kay MD Consultations 07/02/24 20:09 Consult: Vascular Surgery Routine Consulting Provider: Bartolo Yeboah Reason for Consult: saddle PE EMERGENT Consult: No MD Notified: Yes Date Notified: 07/03/24 Time Notified: 09:59 Method of Notification: Verbal Reason For Visit: ACUTE SADDLE PE Diagnosis Discharge Diagnosis (1) Hypoxia: Status: Acute Code(s): R09.02 - Hypoxemia (2) Acute saddle pulmonary embolism: Status: Acute Code(s): I26.92 - Saddle embolus of pulmonary artery without acute cor pulmonale Qualifiers: Acute cor pulmonale presence: unspecified Qualified Code(s): I26.92 - Saddle embolus of pulmonary artery without acute cor pulmonale Medications at Discharge Home Medications levothyroxine 200 mcg tablet 200 mcg PO MOTUWETHFRSA thyroid 11/06/21 levothyroxine 200 mcg tablet 400 mcg PO WE thyroid 11/06/21 lisinopril 20 mg tablet 20 mg PO BID BP 11/06/21 Held on 07/04/24. Instructions: Until told to restart albuterol sulfate 90 mcg/actuation breath activated powder inhaler (ProAir RespiClick) 2 inh inhalation Q4H PRN sob 03/26/24 cholecalciferol (vitamin D3) 125 mcg (5,000 unit) capsule 5,000 unit PO DAILY supplement 03/26/24 Lactobacillus acidophilus 10 billion cell capsule (NewFlora) 100 mmu cells PO DAILY [employer] 07/02/24 apixaban 5 mg (74 tabs) tablets in a dose pack (Eliquis DVT-PE Treat 30D Start) See Rx Instructions PO .COMPLEX #74 tabs 07/04/24 Hospital Course Summary of Care Provided Minutes Spent on Discharge: 38 Hospital Course: Mrs. Burt is a 69-year-old white female who presented to the emergency department at [facility] on 07/02/2024 complaining of worsening shortness of breath with exertion. She has recently had some extensive medical history with choledocholithiasis requiring multiple ERCPs in March and then post ERCP pancreatitis. She had complex anatomy with regards to her gallbladder as her cholecystectomy was done at [facility] In early May and unfortunately she developed a postoperative liver abscess. This hospitalization occurred in early June. An IR drain was placed there with clinical improvement and she was discharged with a 2-week course of antibiotics. The drain was ultimately removed on 06/25/2024. Patient reported that over the last week prior to presentation she had decreased appetite with some mild nausea but it has been persistent. She noticed that over the few days prior to presentation she was becoming short of breath with exertion and on the day of presentation she became very winded without exertion so she came in for further evaluation. Vital signs on presentation showed a temperature of 97.6, heart rate 122, respiratory rate 16, blood pressure was 115/89 and pulse ox was 88% on room air. She was placed on supplemental oxygen at 2 L and oxygen saturations improved to 92 to 93%. CBC was unimpressive. Chemistry panel showed mild hyponatremia with sodium of 133, hypokalemia potassium of 3.4 and was otherwise unremarkable. Initial troponin was 165 and her BNP was 305.9. CTA of the chest showed a saddle pulmonary embolus with extended throughout the lungs bilaterally and evidence of right heart strain with mild to moderate right pleural effusion and mild pleural enhancement. Pneumobilia was noted on the CT which was there previously. She was placed on a heparin drip with consultation to vascular surgery and echocardiogram. Echocardiogram showed moderate right ventricular dilation with apical sparing and mild to moderate right global ventricular systolic dysfunction and a pulmonary pressure of 48 mmHg consistent with PE and a normal LVEF and stage I diastolic function. She was evaluated by vascular surgery and taken for thrombectomy with hemodynamic improvement and resolution of hypoxia following procedure. Plan is for follow-up echocardiogram in the upcoming weeks to months for reassessment of her RV status post thrombectomy. Patient did well overnight post procedurally and I was able to transition her off the heparin to Eliquis. Hemoglobin is stable with initial hemoglobin on the a.m. of 07/04/2024 at 9.7 and a repeat done 6 hours later at 10.6. Prescription for Eliquis 10 mg p.o. twice daily for a total of 7 days was written then she will transition to 5 mg p.o. twice daily indefinitely. Will have her follow-up with vascular surgery within the next 2 weeks. We did assess an ambulatory pulse ox prior to discharge and she did well not requiring any supplemental oxygen. She has follow-up with her primary care physician within the next week and with vascular surgery as noted above. Her TSH and free T4 were both elevated-would recommend Discharge diagnoses: Acute hypoxia-resolved Acute saddle pulmonary emboli status post thrombectomy Generalized weakness-resolved Shortness of breath-resolved Anemia-mild and stable Thrombocytopenia-suspect related to consumption with extensive clot--> outpatient follow-up for stabilization Choledocholithiasis with subsequent cholecystectomy complicated by postoperative hepatic abscess Hypothyroidism History of asthma Essential hypertension Hyperlipidemia Vitamin D deficiency Obesity Physical Exam Narrative Patient states she is feeling well. Was able to get up and ambulate did not have any problems. Const alert, oriented x3, no apparent distress, no limitations and well nourished; Negative for average body habitus Constitutional Narrative: Obese, upper middle-aged, white female, lying in bed flat postprocedurally, appears comfortable and well, nontoxic, at bedside General Appearance: cooperative, comfortable, well kempt and well developed Exam Limitations: no limitations Nutritional Appearance: obese HEENT normocephalic, head/scalp atraumatic and hearing grossly normal bilaterally HEENT Narrative: Mallampati 2, no thrush Eyes PERRL, EOMs intact bilaterally and conjunctivae normal Eyes Narrative: No scleral icterus Resp normal respiratory effort, no retractions, no use of accessory muscles and clear to auscultation bilaterally Resp Narrative: Now on room air, no conversational dyspnea Auscultation: Negative for rales, rhonchi or wheezes Cardio regular rate, regular rhythm, S1 normal heart sound, S2 normal heart sound, no murmurs, no rub, no gallops and no clicks GI normal to inspection, nondistended, normoactive bowel sounds, soft to palpation and non-tender Extremity no clubbing, cyanosis or edema Extremity Narrative: Right groin with postoperative dressing in place, bandages clean dry and intact, no significant tenderness Skin no rashes or lesions noted Neuro moves all extremities and no focal motor deficits Speech: speech normal Motor Exam: strength 5/5 throughout Psych mental status grossly normal and affect normal Psych Narrative: Very pleasant, interacts appropriately Weight / BMI Weight Weight: 92.1 kg Body Mass Index (BMI) 34.8 ABG / Lab / Microbiology Data 07/04/24 11:40 07/04/24 07:01 Laboratory: Laboratory Results - last 24 hr 07/03/24 06:20: Free T4 1.70 H 07/03/24 11:59: Activated Clotting Time 291 H 07/03/24 12:34: Activated Clotting Time 239 H 07/03/24 15:48: APTT 151.7 H* 07/04/24 00:50: APTT 57.3 H 07/04/24 07:01: WBC 3.8 L, RBC 3.66 L, Hgb 9.7 L, Hct 31.5 L, MCV 86.1, MCH 26.5 L, MCHC 30.8 L, RDW Std Deviation 48.1 H, RDW Coeff of Ja 15.2 H, Plt Count 148 L, MPV 10.7, APTT 43.2 H, Sodium 138, Potassium 3.6, Chloride 104, Carbon Dioxide 26.0, Anion Gap 9, BUN 13, Creatinine 0.65, Estim Creat Clear Calc 75.04, Est GFR (MDRD) Af Amer 118, Est GFR (MDRD) Non-Af 97, BUN/Creatinine Ratio 20.1 H, Glucose 85, Calcium 8.8, Phosphorus 2.9, Magnesium 2.3 07/04/24 11:40: Hgb 10.6 L D/C Instructions Discharge Diet: Low fat / Low cholesterol Discharge Activity: Return to Normal Activity DC O2, CPAP, BIPAP Needs RN Home O2 Qualification: Home O2 Qualification: Is the patient on home oxygen No 07/04/24 10:27 Home O2 Qualification: AT REST 1- Pulse Ox at rest 95 07/04/24 10:27 Home O2 Qualification: WITH AMBULATION 1- Pulse Ox with ambulation 92 07/04/24 10:27 1- Oxygen Flow Rate with 0 07/04/24 10:27 ambulation Home O2 Discharge instructions: No Meaningful Use Info Meaningful Use Meaningful Use Diagnoses (Choose all that apply): VTE Ischemic Stroke Statin Dosing Therapy Reference: STATIN DOSE THERAPY REFERENCE: * Patients > 75 years receive moderate or high dose statin therapy. * Patients 75 years or YOUNGER should receive HIGH intensity statin dose unless contraindicated. You will be required to document reason for non-treatment if statin daily dose does not meet guidelines. HIGH DOSE STATIN THERAPY DAILY Atorvastatin > than or = to 40 mg Rosuvastatin > than or = to 20 mg Amlodipine + Atorvastatin > than or = to 2.5/40 mg Ezetimibe + Simvastatin 10/80 mg Simvastatin 80mg VTE Anticoag overlap given w/in hospital stay or rx'd at ok?: Yes Pt receive overlap for 5 days?: No Reason overlap not ordered, prescribed, or given for 5 days: Treatment Not Indicated Discharge Plan Admission Admit Date/Time: 07/02/24 18:39 Primary Reason for Your Visit: Shortness of breath Attending Provider: Funmi Willoughby Primary Care Provider: Wiliam Kay Consulting Providers: Jake Gilbert; Bartolo Yeboah Discharge Orders/Prescriptions Prescriptions: New Eliquis DVT-PE Treat 30D Start 5 mg (74 tabs) tablets,dose pack See Rx Instructions .ROUTE .COMPLEX Qty: 74 0RF Rx Instructions: orally per package directions Continued levothyroxine 200 mcg tablet 200 mcg PO MOTUWETHFRSA levothyroxine 200 mcg tablet 400 mcg PO WE NewFlora 10 billion cell capsule 100 mmu cells PO DAILY cholecalciferol (vitamin D3) 125 mcg (5,000 unit) capsule 5,000 unit PO DAILY ProAir RespiClick 90 mcg/actuation aerosol powdr breath activated 2 inh inhalation Q4H PRN (Reason: sob) Held lisinopril 20 mg tablet 20 mg PO BID Hold Instructions: Until told to restart Patient Comments: TAKE 1 TABLET BY MOUTH TWICE DAILY Referrals / Follow Up: Wiliam Kay MD [Primary Care Provider] - In 1 Week Bartolo Yeboah MD [Med Staff - Active Staff] - Within 2 Weeks (Call Saturday to set up an appointment) Disposition Disposition (needs filled in before D/C Order can be placed): Home, Self Care Charges/Coding Visit Charges Inpatient E&M: 80254 Disch Hosp >30min
[2024-07-04 12:18] VITALS: BP 112/97; PULSE 106; RESP 18; TEMP 36.6; O2SAT 96
== END 2024-07-04 14:59 | disposition home or self-care (01) | DRG 164 ==
LOC: ED 18:42 → PCU 19:57
PROVIDERS: Internal Medicine; Surgery Trauma Surgery; Admitting Provider Hospitalist; Emergency Provider Emergency Medicine; PCP Family Medicine; Visit Provider Internal Medicine
DX: I26.02 Saddle embolus of pulmonary artery with acute cor pulmonale (principal); E87.1 Hypo-osmolality and hyponatremia; E03.9 Hypothyroidism, unspecified; I10 Essential (primary) hypertension; J45.909 Unspecified asthma, uncomplicated; D64.9 Anemia, unspecified; E66.811 Obesity, class 1; E55.9 Vitamin D deficiency, unspecified; E87.6 Hypokalemia; E78.5 Hyperlipidemia, unspecified; I95.9 Hypotension, unspecified; R09.02 Hypoxemia; R53.81 Other malaise; R53.1 Weakness; Z88.0 Allergy status to penicillin; Z68.34 Body mass index [BMI] 34.0-34.9, adult; Z87.19 Personal history of other diseases of the digestive system; Z90.49 Acquired absence of other specified parts of digestive tract; Z79.890 Hormone replacement therapy; Z79.899 Other long term (current) drug therapy
CPT/HCPCS: 36010; 36014; 36415; 37184; 37185; 71275; 75825; 80048; 80076; 83605; 83735; 83880; 84100; 84439; 84443; 84484; 85018; 85025; 85027; 85347; 85610; 85730; 93005; 93306; 93970; 94760; 97802; 99152; 99153; 99285; C1757; C1769; C1887; C1894; Q9967; A4216

== ENCOUNTER 2024-07-06 11:57 | Inpatient (IN) | payer OTHER, MEDICARE, SELFPAY ==
[2024-07-06] VITALS (12 sets, daily range): BP systolic 113–148; BP diastolic 78–94; PULSE 85–113; RESP 16–26; TEMP 36.3–36.8; O2SAT 4–100; BMI 35.6; BMI 34.9
--- NOTE | 2024-07-06 12:00 | ED.RN ---
PT STATES SHE CAN'T BREATH AND FEELS SOB AND DOESN'T WANT TO ANSWER ANYMORE QUESTIONS TIL SHE GETS HELP. PT IS ANSWERING EVERYTHING IN FULL SESNTENCES AND NO BREATHING DISTRESS NOTED. STATES THE PAPERWORK CAN WAIT AND SHE NEEDS TAKEN CARE OF NOW. THIS NURSE EXPLAINED THAT HER OXYGEN LEVEL IS GOOD EVEN IF SHE DOESN'T FEEL LIKE SHE'S BREATHING WELL. ALSO EXPLAINED THESE ARE QUESTIONS NEEDED TO GET HER CHECKED IN TO BE SEEN. THEN STATES THAT IF THE PT DIES WHILE WE ARE DOING THIS IT WOULD BE THIS NURSE PROBLEM. AT THIS TIME PT TOLD THE TO STOP AND JUST GET THROUGH THE BS BECAUSE MAYBE SHE'S HAVING A HEART ATTACK. PT DENIES ANY CP. STOPPED ASKING QUESTIONS AT THIS TIME AND SENT PT BACK TO A ROOM D/T THE ANGER OF BOTH THE PT AND HER .
--- NOTE | 2024-07-06 12:21 | EKG12_ITS ---
Test Reason : SOB Blood Pressure : */* mmHG Vent. Rate : 130 BPM Atrial Rate : 130 BPM P-R Int : 164 ms QRS Dur : 72 ms QT Int : 292 ms P-R-T Axes : 65 42 0 degrees QTcB Int : 429 ms Poor data quality, interpretation may be adversely affected Sinus tachycardia Low voltage QRS Borderline ECG Confirmed by NENO ALMANZAR, VENESSA ([id number]), purchase request editor MAT MARTE ([id number]) on 07/07/2024 8:47:17 AM Referred By: JASWANT Confirmed By: VENESSA LAZCANO MD
--- NOTE | 2024-07-06 12:23 | EDS_ITS ---
HPI History of Present Illness Chief Complaint: Shortness of Breath Informant: patient Onset/Context/Timing Onset: Today (Acute recurrence of shortness of breath) Context: sudden Timing: Continuous Quality: Positive for Dyspnea on exertion and Wheezing; Negative for Orthopnea or PND Current Severity: Severe Maximum Severity: Severe Worsened by: Exertion Relieved by: Nothing Associated Symptoms Negative for cough, rhinorrhea, post nasal drip, ear pain, fever, sore throat, subjective, chills or sweats Chest Pain: Positive for None Narrative Narrative: Patient is a 69-year-old woman. She has history of hypothyroidism, hypertension and was admitted on July 02 for saddle pulmonary embolus who underwent thrombectomy by Dr. Bartolo Yeboah. She was discharged to home on July 04. Patient presents because of abrupt onset of shortness of breath. She arrived tachypneic, tachycardic and she was hypoxic. Patient was also found to have bilateral DVTs. She is present Eliquis 10 mg twice daily. PE Risk Factors: Positive for Prior DVT or PE, Recent immobilization and Recent surgery; Negative for Cancer, OCP + Smoking + > 35 or Recent travel Prior similar symptoms: Yes Recent Illness/Hospitalization: Yes [facility] Medical History Pulmonary embolism Postoperative abscess Post-menopausal Wears glasses Thyroid disease Pancreatitis Essential hypertension Morbid obesity with BMI of 40.0-44.9, adult Vitamin D deficiency Hypertension Hypothyroidism Home Medications ?Medication ?Instructions ?Recorded ?Last Taken ?Type levothyroxine 200 mcg tablet 200 mcg PO SUMOTUTHFRSA t hyroid 11/06/21 07/06/24 History levothyroxine 200 mcg tablet 400 mcg PO WE thyroid 11/2207/01/24 History lisinopril 20 mg tablet 20 mg PO BID BP 11/06/21 History Held on 07/04/24. Instructions: Until told to restart albuterol sulfate 90 mcg/actuation 2 inh inhalation Q4 H PRN sob 03/26/24 05/23/24 History breath activated powder inhaler (ProAir RespiClick) cholecalciferol (vitamin D3) 125 5,000 unit PO DAILY s upplement 03/26/24 07/05/24 History mcg (5,000 unit) capsule Lactobacillus acidophilus 10 100 mmu cells PO DAILY [employer] 07/02/24 07/06/24 History billion cell capsule (NewFlora) apixaban 5 mg (74 tabs) tablets in See Rx Instructions PO .COMPLEX 07/04/24 07/06/24 Rx a dose pack (Eliquis DVT-PE Treat #74 tabs 30D Start) Allergy/AdvReac Type Severity Reaction Status Date / Time chlorhexidine Allergy Rash Verified 07/06/24 12:16 Penicillins Allergy CHILDHOOD Verified 07/06/24 12:16 ALLERGY psyllium (From Metamucil) Allergy Shortness Verified 07/06/24 12:16 of breath Surgical History History of cholecystectomy (05/06/24) Hx of colonoscopy S/P ERCP H/O section S/P dilatation and curettage Social History household members: spouse current occupational status: employed Smoking Status: Never smoker alcohol intake: never substance use type: does not use ROS ROS ED Constitutional Constitutional ED: Denies chills, fever(s), sweats or weight loss Eyes Eyes: Denies blurry vision or change in vision ENT ENT ED: Denies ear pain, rhinorrhea or sore throat Cardiovascular Cardiovascular: Reports palpitations and racing heartbeat; Denies chest pain, orthopnea or paroxysmal nocturnal dyspnea Respiratory/Chest Respiratory/Chest: Reports dyspnea and dyspnea on exertion; Denies cough, orthopnea or paroxysmal nocturnal dyspnea Gastrointestinal Gastrointestinal: Denies abdominal pain, melena, nausea or vomiting Genitourinary Genitourinary ED: Denies dysuria, hematuria or urinary frequency Musculoskeletal Musculoskeletal: Denies back pain Integumentary Denies rash Neurologic Neurologic: Denies weakness Psychiatric Psychiatric: Reports anxiety Hematologic/Lymphatic Hematologic/Lymphatic: Denies easy bleeding or easy bruising EXAM Physical Exam Const Vital Signs: 07/06/24 11:58 07/06/24 12:10 07/06/24 12:11 Temperature 97.4 F L Temperature Source Temporal Pulse Rate 113 H Respiratory Rate 17 Respiratory Effort Respiratory Depth Respiratory Pattern Blood Pressure 148/91 H Blood Pressure Mean 110 Pulse Ox 96 80 88 Oxygen Delivery Method Room Air Nasal Cannula Oxygen Flow Rate (L/min) 2 07/06/24 12:14 07/06/24 12:19 07/06/24 12:21 Temperature Temperature Source Pulse Rate Respiratory Rate Respiratory Effort Short of Breath Respiratory Depth Shallow Respiratory Pattern Tachypnea Blood Pressure Blood Pressure Mean Pulse Ox 94 94 Oxygen Delivery Method Nasal Cannula Nasal Cannula Nasal Cannula Oxygen Flow Rate (L/min) 93 4 4 07/06/24 13:04 Temperature Temperature Source Pulse Rate 110 H Respiratory Rate 26 H Respiratory Effort Respiratory Depth Respiratory Pattern Tachypnea Blood Pressure Blood Pressure Mean Pulse Ox Oxygen Delivery Method Oxygen Flow Rate (L/min) Patient appears anxious. She is tachypneic and tachycardic heart rate is much greater than 113 that is documented. She is breathing 25-30 times a minute not 17. In her room air pulse ox was 80%. She did appear cyanotic. Positive well nourished and well developed General Appearance ED: well developed HEENT Reports moist mucous membranes atraumatic; Negative for tenderness Eyes PERRL and EOMs intact bilaterally General Eye ED: Negative for pale conjunctiva or scleral icterus Neck no lymphadenopathy, supple and no meningeal signs Neck Narrative: Trachea is midline. There is no in-store expiratory stridor. Resp No normal respiratory effort and No clear to auscultation bilaterally Resp Narrative: Patient does have use of accessory muscles. There is increased x-ray phase with high-pitched wheezing noted. Breath sounds were noted bilaterally. Auscultation: wheezes expiratory wheezes and throughout Cardio regular rhythm, S1 normal heart sound, S2 normal heart sound and no murmurs Rate: tachycardic GI non-tender, non-distended and no masses Palpation: soft Extremity General Extremety ED: Yes edema General Extremity: edema Neuro oriented x3, CN's II-XII intact bilaterally and no sensory deficits noted Sensorium / Orientation: alert Speech: speech normal Psych mental status grossly normal Skin no wounds and skin turgor normal Rashes: no rashes Trauma: abrasion MDM MDM MDM Narrative Medical decision making narrative: With history of bilateral DVT and saddle pulmonary embolus and abrupt onset of shortness of breath with tachycardia tachypnea and hypoxia concern for recurrent pulmonary embolus. Will obtain appropriate blood work to assess for anemia, w tammy count, renal function lactic acidosis. CTA of the chest was ordered. Patient will require admission to the hospital. History & Record Review Additional record(s) reviewed:: Prior inpatient record (Dr. Kiana Willoughby's discharge summary was reviewed for most recent admission for saddle pulmonary embolus requiring thrombectomy by Dr. Bartolo Yeboah.), Prior ED visit and Prior labs Lab Data Labs: Laboratory Results - last 24 hr 07/06/24 12:22 WBC 5.2 RBC 4.23 Hgb 11.1 L Hct 36.5 L MCV 86.3 MCH 26.2 L MCHC 30.4 L RDW Std Deviation 47.6 H RDW Coeff of Aj 15.2 H Plt Count 244 MPV 10.7 Immature Gran % (Auto) 0.400 Neut % (Auto) 48.0 Lymph % (Auto) 41.9 H Atkinson % (Auto) 8.1 Eos % (Auto) 1.4 Baso % (Auto) 0.2 Absolute Neuts (auto) 2.5 Absolute Lymphs (auto) 2.16 Nucleated RBC % 0 Sodium 137 Potassium 3.4 L Chloride 102 Carbon Dioxide 25.0 Anion Gap 10 BUN 10 Creatinine 0.81 Estim Creat Clear Calc 75.05 Est GFR (MDRD) Af Amer 91 Est GFR (MDRD) Non-Af 75 BUN/Creatinine Ratio 12.4 Glucose 124 H Lactic Acid 2.0 Calcium 9.9 Troponin I High Sens 18 B-Natriuretic Peptide 40.3 Lactate is 2.0. Troponin and BNP are both normal. Radiography Diagnostic Testing: CTA reveals bilateral pulmonary embolus. There is an effusion noted on the right. Patient and effusion noted on CTA performed May 02. I believe there are new clots. Awaiting formal read by radiologist. Will contact Dr. Yeboah since he did a thrombectomy on her. EKG Initial EKG: Attestation: I personally reviewed and interpreted this EKG as follows: Interpretation: Sinus Tachycardia (Suboptimal due to respiratory distress. Rate is 130. ND interval is under 64 ms. QS duration 72 ms. QT duration 292 ms. Voltage is low.) Management Discussion w/another healthcare provider: Hospitalist (Spoke with Dr. Betancourt. Patient to be full admit PCU.) and [place] Machine Operator (Dr. Bartolo Yeboah was paged in light of CT findings by me. Patient will be anticoagulated with heparin. She will will not receive a bolus. She is to be admitted to hospitalist service. Dr. 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
--- NOTE | 2024-07-06 12:31 | CT_ITS ---
PROCEDURE: CTA CHEST W/WO CONTRAST REASON FOR EXAM: History of pulmonary embolism. Bilateral deep VT. Status post thrombectomy. TECHNIQUE: CTA imaging of the chest with intravenous contrast. 3D reconstructions. CONTRAST: 100 cc of Isovue 370. COMPARISON: Comparison is made with prior study dated July 02, 2024. FINDINGS: Hardware: None. Lymph nodes: No mediastinal hilar or axillary lymphadenopathy. Heart: Normal heart size. No pericardial effusion. No coronary artery calcification is seen. RV/LV Diameter Ratio: N/A Thoracic Aorta: No thoracic aortic aneurysm or dissection. Minimal plaque at the level of the aortic arch. Pulmonary Vessels: Residual intraluminal filling defect is seen in the main right pulmonary artery extending into the right interlobar artery and branches of the right lower lobe pulmonary artery distribution. Small filling defects are also seen in branches of the left lower lobe pulmonary arterial branches. Scattered emboli are seen in both upper lobe pulmonary arteries. There has been a decrease in the load of the pulmonary emboli as compared to prior study. Lungs and Airways: Small right pleural effusion with basilar atelectasis at the right lung base. This is essentially unchanged. Pleura: No pneumothorax. Upper Abdomen: Stable appearance of the pneumobilia in the left biliary ducts. Bones: Degenerative changes of the thoracic spine. CT/CTA Chest W/WO Contrast IMPRESSION: Interval decrease in the amount of bilateral pulmonary embolism as described al though residual changes persist. Small right pleural effusion with right basilar atelectasis. One or more dose reduction techniques were used (e.g., Automated exposure contr ol, adjustment of the mA and/or kV according to patient size, use of iterative reconstruction technique). Reading Location: [facility]
[2024-07-06 12:35] LABS: Absolute Lymphocyte Count 2.16 X10^3/uL (0.83-4.51); Absolute Neutrophil Count 2.5 X10^3/uL (2.0-7.7); Basophil# 0.01 X10^3/uL; Basophil% 0.2 % (0-1); Eosinophil# 0.07 X10^3/uL; Eosinophils% 1.4 % (0-5); Hematocrit 36.5 % (37-47); Hemoglobin 11.1 g/dL (12.0-15.0); Lymphocyte # 2.16 X10^3/ul (0.83-4.51); Lymphocyte % 41.9 % (19-41); Mean Corp Hgb Conc 30.4 g/dL (32-36); Mean Corpuscular Hgb 26.2 pg (27.0-32.0); Mean Corpuscular Volume 86.3 fL (81-99); Mean Platelet Vol. 10.7 fl (6.2-12.0); Monocyte# 0.42 X10^3/uL; Monocyte% 8.1 % (0-10); NRBC Flagged by Analyzer 0 % (0-5); Neutrophil # 2.48 X10^3/uL (2.7-7.7); Platelet Count 244 K/mm3 (150-450); RBC Distribution Width CV 15.2 % (11.6-14.6); RBC Distribution Width SD 47.6 fl (35.1-43.9); Red Blood Count 4.23 M/mm3 (4.2-5.4); White Blood Count 5.2 K/mm3 (4.4-11.0)
[2024-07-06 13:00] LABS: Anion Gap 10 (5-15); BUN 10 mg/dL (7-18); BUN/Creat Ratio 12.4 RATIO (10-20); Calcium,Total 9.9 mg/dL (8.5-10.1); Chloride 102 mmol/L (98-107); Creatinine, Serum 0.81 mg/dL (0.55-1.02); EST Glomerular Filtration Rate 75 mL/min (>60); Est Glom Filt Rate - Afr Amer 91 mL/min (>60); Estimated Creatinine Clearance 75.05 ml/min; Glucose 124 mg/dL (74-106); Potassium 3.4 mmol/L (3.5-5.1); Sodium Level 137 mmol/L (136-145); Troponin-I HS (w/2H Reflex) 18 pg/mL (3.0-54.0)
[2024-07-06 13:02] LABS: BNP,B-Type NATRIURETIC PEPTIDE 40.3 pg/mL (0-100)
[2024-07-06] MEDS: Albuterol 2.5 MG/3 ML VIAL.NEB. INHALATION (13:04)
[2024-07-06 14:11] LABS: International Normalized Ratio 2.1
[2024-07-06 14:12] LABS: Partial Thromboplast Time 40.8 Seconds (24.1-36.2)
--- NOTE | 2024-07-06 14:16 | PCM.HP.STD ---
HPI - General General Date of Service: 07/06/24 Chief Complaint: SOB HPI Narrative BHAVANI HALLMAN, is a 69-year-old female with history of hypothyroidism, hypertension, recent saddle PE with thrombectomy who presented [facility] ED 07/06/2024 for shortness of breath. She was admitted July 02 for saddle PE and underwent thrombectomy with Dr. Yeboah and was discharged home 07/04. She has abrupt onset of shortness of breath and was tachypneic, tachycardic, hypoxic. She is taking her Eliquis 10 mg twice daily. In ED repeat CTA appeared to have new PE?s. Dr. Yeboah contacted and recommended heparin drip and admission. Hospitalist contacted for admission. Patient evaluated bedside and reports she has been feeling fair until around 11 AM when she was weeding she developed nausea and vomited some yellow liquid and also became short of breath around that time and felt that something was different on the right side but not the left. No swelling lower extremities. Denies any cough or fever. Did note some flushing in face and arms which is slowly improving. Reports sitting forward did seem to help her a little bit with her breathing. Now that she is on O2 in the ED her tachycardia is better and she overall is feeling better though not back to how she had been. Additionally reports she will get some muscle tremors in her legs intermittently and is noted she has been getting them today as well. Patient denies any chest pain or abdominal pain, no diarrhea, not actively nauseous with vomiting at this time [facility] Medical History Pulmonary embolism Postoperative abscess Post-menopausal Wears glasses Thyroid disease Pancreatitis Essential hypertension Morbid obesity with BMI of 40.0-44.9, adult Vitamin D deficiency Hypertension Hypothyroidism Home Medications ?Medication ?Instructions ?Recorded ?Last Taken ?Type levothyroxine 200 mcg tablet 200 mcg PO SUMOTUTHFRSA thyroid 11/06/21 07/06/24 History levothyroxine 200 mcg tablet 400 mcg PO WE thyroid 11/06/21 07/01/24 History lisinopril 20 mg tablet 20 mg PO BID BP 11/06/21 05/24/24 History Held on 07/04/24. Instructions: Until told to restart albuterol sulfate 90 mcg/actuation 2 inh inhalation Q4H PRN sob 03/26/24 05/23/24 History breath activated powder inhaler (ProAir RespiClick) cholecalciferol (vitamin D3) 125 5,000 unit PO DAILY supplement 03/26/24 07/05/24 History mcg (5,000 unit) capsule Lactobacillus acidophilus 10 100 mmu cells PO DAILY [facility] 07/02/24 07/06/24 History billion cell capsule (NewFlora) apixaban 5 mg (74 tabs) tablets in See Rx Instructions PO .COMPLEX 07/04/24 07/06/24 Rx a dose pack (Eliquis DVT-PE Treat #74 tabs 30D Start) Allergy/AdvReac Type Severity Reaction Status Date / Time chlorhexidine Allergy Rash Verified 07/06/24 12:16 Penicillins Allergy CHILDHOOD Verified 07/06/24 12:16 ALLERGY psyllium (From Metamucil) Allergy Shortness Verified 07/06/24 12:16 of breath Surgical History History of cholecystectomy (05/06/24) Hx of colonoscopy S/P ERCP H/O section S/P dilatation and curettage Social History household members: spouse current occupational status: employed Smoking Status: Never smoker alcohol intake: never substance use type: does not use ROS ROS Narrative General: Denies fever/chills HENT: Denies headache, denies stuffy nose, denies sore throat EYES: Denies changes in vision Resp: Denies cough, more shortness of breath since this morning, feels like something is different on the right side Cardiac: Denies chest pain GI: Denies abdominal pain, denies changes in bowel, had nausea with emesis earlier : Denies changes in urination Extremity: Denies swelling in legs MSK: Denies weakness Neuro: Denies any numbness/tingling Heme: Denies any bleeding or bruising Skin: Did report some flushing of face and arms which is improving Psychiatric: No complaints voiced Vital Signs Vital Signs Vital Signs: 07/06/24 11:58 07/06/24 12:10 07/06/24 12:11 Temperature 97.4 F L Temperature Source Temporal Pulse Rate 113 H Respiratory Rate 17 Respiratory Effort Respiratory Depth Respiratory Pattern Blood Pressure 148/91 H Blood Pressure Mean 110 Pulse Ox 96 80 88 Oxygen Delivery Method Room Air Nasal Cannula Oxygen Flow Rate (L/min) 2 07/06/24 12:14 07/06/24 12:19 07/06/24 12:21 Temperature Temperature Source Pulse Rate Respiratory Rate Respiratory Effort Short of Breath Respiratory Depth Shallow Respiratory Pattern Tachypnea Blood Pressure Blood Pressure Mean Pulse Ox 94 94 Oxygen Delivery Method Nasal Cannula Nasal Cannula Nasal Cannula Oxygen Flow Rate (L/min) 93 4 4 07/06/24 13:04 Temperature Temperature Source Pulse Rate 110 H Respiratory Rate 26 H Respiratory Effort Respiratory Depth Respiratory Pattern Tachypnea Blood Pressure Blood Pressure Mean Pulse Ox Oxygen Delivery Method Oxygen Flow Rate (L/min) Weight Weight: 94.3 kg Body Mass Index (BMI) 35.6 Physical Exam Narrative General: Alert, oriented HEENT: Atraumatic, normocephalic Eyes: Anicteric, normal conjunctiva, extraocular movements grossly intact Neck: Supple Respiratory: Slight tachypnea, no overt respiratory distress, diminished at right lung base Cardiovascular: Low-grade sinus tachycardia, heart rate 100 110 GI: Nondistended Extremities: No pitting edema Musculoskeletal: Moving all extremities Neuro: No overt focal neurological deficits Skin: No rashes appreciated Psych: Cooperative Results Lab / Micro Data 07/06/24 12:22 07/06/24 12:22 Labs: Laboratory Results - last 24 hr 07/06/24 12:22: WBC 5.2, RBC 4.23, Hgb 11.1 L, Hct 36.5 L, MCV 86.3, MCH 26.2 L, MCHC 30.4 L, RDW Std Deviation 47.6 H, RDW Coeff of Ja 15.2 H, Plt Count 244, MPV 10.7, Immature Gran % (Auto) 0.400, Neut % (Auto) 48.0, Lymph % (Auto) 41.9 H, [place] % (Auto) 8.1, Eos % (Auto) 1.4, Baso % (Auto) 0.2, Absolute Neuts (auto) 2.5, Absolute Lymphs (auto) 2.16, Nucleated RBC % 0, PT 24.0 H, INR 2.1, APTT 40.8 H, D-Dimer Quant (PE/DVT) 9.70 H*, Sodium 137, Potassium 3.4 L, Chloride 102, Carbon Dioxide 25.0, Anion Gap 10, BUN 10, Creatinine 0.81, Estim Creat Clear Calc 75.05, Est GFR (MDRD) Af Amer 91, Est GFR (MDRD) Non-Af 75, BUN/Creatinine Ratio 12.4, Glucose 124 H, Lactic Acid 2.0, Calcium 9.9, Troponin I High Sens 18, B-Natriuretic Peptide 40.3 Micro: Microbiology 07/06/24 12:30 Mucosa - Nose SARS-CoV-2, Influenza & RSV (PCR) - Final Imaging Radiology Impression Chest CTA 07/06/24 12:31 IMPRESSION: Interval decrease in the amount of bilateral pulmonary embolism as described although residual changes persist. Small right pleural effusion with right basilar atelectasis. One or more dose reduction techniques were used (e.g., Automated exposure control, adjustment of the mA and/or kV according to patient size, use of iterative reconstruction technique). Reading Location: [facility] Assessment & Plan Assessment/Plan (1) Acute hypoxemic respiratory failure: (2) Bilateral pulmonary embolism: PLAN: Plan # Hypoxia with bilateral PEs -Patient with recent saddle PE and thrombectomy with Dr. Yeboah, discharged 07/04/2024 on 10 mg of Eliquis twice daily -CTA with interval decrease in PEs though bilateral PEs are appreciated however unable to tell if this is residual or if there could be additional clot burden -Discussed with Dr. Yeboah, continue heparin drip -Ordered bilateral lower extremity duplex as she did have bilateral lower extremity DVTs and if 1 or both are now not appreciated it is possible that they embolized and caused the symptoms -May need DC on Lovenox on discharge and hematology follow-up as this may be a failure of Eliquis -Vascular consult -Patient COVID-negative but will check for other respiratory viruses in the event this has contributed to her hypoxia and shortness of breath #Hypothyroidism -Continue Synthroid -Will need to follow-up outpatient with repeat thyroid function test given 07/03/2024 TSH was 17 #Hypertension -Home lisinopril had been held, will continue hold at this time #Hypokalemia -Replace -Repeat in the AM #DVT ppx: Lovenox subcu Liza Betancourt, MD Time spent in the patient's overall evaluation, decision-making process, review of diagnostic data, adjustment of management, discussion with other providers, nursing and ancillary staff involved in patient's care documentation, 56 Minutes Charges/Coding Visit Charges Inpatient E&M: 90315 Init Hosp L2
[2024-07-06] MEDS: HEPARIN/D5w 25,000 UNITS 25,000 UNITS/250 ML IV.SOLN. 14 UNITS CONT INF (14:17)
[2024-07-06 14:30] LABS: Reflex Troponin-HS? (from REC) Y
--- NOTE | 2024-07-06 14:31 | VDLE_ITS ---
Reason For Study: HX DVT / PE RIGHT LEFT GSV is normal. GSV is normal. CFV is compressible, spontaneous, phasic, CFV is compressible, spontaneous, phasic, competent and demonstrates normal competent, and demonstrates normal augmentation. augmentation. FV is compressible, spontaneous, phasic, Prox and Mid FV appear compressible. competent and demonstrates normal Distal FV approximately 12 cm above the knee augmentation. appears NONCOMPRESSIBLE. POP V is compressible, spontaneous, and Acute deep vein thrombosis is noted in the phasic. FV. It is dilated and NONCOMPRESSIBLE. T/P Trunk is compressible. Acute deep vein thrombosis is noted in the PTV is compressible. POP V. It is dilated and NONCOMPRESSIBLE. Acute deep vein thrombosis is noted in the Acute deep vein thrombosis is noted in the Per V. It is dilated and NONCOMPRESSIBLE. T/P Trunk. It is dilated and NONCOMPRESSIBLE. Procedure This is a venous duplex using B-mode, color Acute deep vein thrombosis is noted in the flow and spectral Doppler. PTV. It is dilated and NONCOMPRESSIBLE. Exam performed portable in patient room. LT PerV is NONCOMPRESSIBLE. The exam was diagnostic. A preliminary report was called and/or faxed to SALES ACCOUNT DIRECTOR. Compare to study 07/03/2024. VL/Venous Duplex US - Wilfrid Extrem Interpretation Summary Acute deep vein thrombosis noted in the left femoral vein, popliteal vein, tibi operoneal trunk vein, posterior tibial vein, peroneal vein Acute deep vein thrombosis noted in the right peroneal vein. Ordering Physician: Liza Betancourt Referring Physician: Wiliam Kay MD Performed By: Edgardo Goodman RVT
[2024-07-06 15:18] LABS: Troponin-I HS 20 pg/mL (3.0-54.0)
[2024-07-06 16:29] LABS: Reflex Lactate? Y
[2024-07-06] MEDS: Potassium Chloride Oral Tablet 20 MEQ 40 MEQ PO (17:03)
--- NOTE | 2024-07-06 17:42 | CON.PCM.SX_ITS ---
Assessment & Plan Assessment/Plan (1) Bilateral pulmonary embolism: PLAN: -CTA from today and last week reviewed/compared -thrombus in segmental branches; had been present in same branches on initial scan -pulmonary angiogram also reviewed, difficult to determine if thrombus in the smaller branches remained after thrombectomy -possible that acute resp distress was aspiration event -have to consider at least possibility that this was secondary embolic event and/or Eliquis failure -will get limited echo, BTNP -repeat duplex of LE to assess status of her known DVTs -CXR, but may take time to reflect aspiration changes HPI Consult Data Date of Consult: 07/06/24 HPI Narrative HPI Narrative: BHAVANI HALLMAN, is a 69 F who presents with abrupt new SOB beginning this morning about 11 AM. She was sitting reading the paper and had sudden onset nausea with emesis and began coughing, could not catch her breath. She was also flushed/red according to . Upon eval in ED was hypoxic into 80s requiring initially 6L weaning to 2L, tachycardic. She began feeling better over that next hour after arrival and color returned to normal. She had recently been admitted with saddle PE with RV strain and underwent pulmonary thrombectomy 07/03. She was discharged 07/04 with Eliquis, on room air. No missed doses. [facility] Medical History Pulmonary embolism Postoperative abscess Post-menopausal Wears glasses Thyroid disease Pancreatitis Essential hypertension Morbid obesity with BMI of 40.0-44.9, adult Vitamin D deficiency Hypertension Hypothyroidism Home Medications ?Medication ?Instructions ?Recorded ?Last Taken ?Type levothyroxine 200 mcg tablet 200 mcg PO SUMOTUTHFRSA t hyroid 11/06/21 07/06/24 History levothyroxine 200 mcg tablet 400 mcg PO WE thyroid 11/2207/01/24 History lisinopril 20 mg tablet 20 mg PO BID BP 11/06/21 History Held on 07/04/24. Instructions: Until told to restart albuterol sulfate 90 mcg/actuation 2 inh inhalation Q4 H PRN sob 03/26/24 05/23/24 History breath activated powder inhaler (ProAir RespiClick) cholecalciferol (vitamin D3) 125 5,000 unit PO DAILY s upplement 03/26/24 07/05/24 History mcg (5,000 unit) capsule Lactobacillus acidophilus 10 100 mmu cells PO DAILY [facility] 07/02/24 07/06/24 History billion cell capsule (NewFlora) apixaban 5 mg (74 tabs) tablets in See Rx Instructions PO .COMPLEX 07/04/24 07/06/24 Rx a dose pack (Eliquis DVT-PE Treat #74 tabs 30D Start) Allergy/AdvReac Type Severity Reaction Status Date / Time chlorhexidine Allergy Rash Verified 07/06/24 12:16 Penicillins Allergy CHILDHOOD Verified 07/06/24 12:16 ALLERGY psyllium (From Metamucil) Allergy Shortness Verified 07/06/24 12:16 of breath Surgical History History of cholecystectomy (05/06/24) Hx of colonoscopy S/P ERCP H/O section S/P dilatation and curettage Social History household members: spouse current occupational status: employed Smoking Status: Never smoker alcohol intake: never substance use type: does not use ROS Constitutional Constitutional: Denies chills, fever(s), frequent falls, lethargy or weakness Eyes Eyes: Denies blind spots, change in vision or loss of vision ENT HEENT: Denies bleeding gums, hoarseness or sore throat Cardiovascular Cardiovascular: Reports dyspnea at rest and dyspnea on exertion; Denies abdominal pain, bluish discoloration of hand/feet, chest pain with activity, claudication, cold extremities, cyanosis, erythema on extremities, irregular heart rhythm, leg edema, leg ulcers, numbness in extremities or weakness in extremities Respiratory/Chest Respiratory/Chest: Reports cough, shortness of breath at rest and shortness of breath with exertion; Denies excessive phlegm production or wheezing Gastrointestinal Gastrointestinal: Denies anorexia, change in stool character, constipation, diarrhea, melena or rectal bleeding Genitourinary Genitourinary: Denies dysuria or hematuria Musculoskeletal Musculoskeletal: Denies abnormal gait Integumentary Integumentary: Denies erythema, non-healing lesions or wounds Neurologic Neurologic: Denies abnormal speech, focal weakness, headache(s), loss of vision, numbness, paresthesias or sensory deficit Hematologic/Lymphatic Hematologic/Lymphatic: Denies easy bleeding, easy bruising or lymphadenopathy Physical Exam Const alert, oriented x3, no apparent distress and healthy appearing General Appearance: cooperative; Negative for combative or lethargic Orientation / Consciousness: awake Exam Limitations: no limitations HEENT Head and Scalp: normocephalic and atraumatic Eyes EOMs intact bilaterally General Eye: normal appearance of both eyes Neck full ROM General: trachea midline Resp normal respiratory effort and no use of accessory muscles Effort and Inspection: Negative for labored, stridor or audible wheezes Cardio regular rate and regular rhythm Back/Spine Cervical Spine: cervical ROM normal Extremity full ROM, normal capillary refill and no clubbing, cyanosis or edema Skin no rashes or lesions noted and no wounds Neuro oriented x3, CN's II-XII intact bilaterally, no focal motor deficits and no sensory deficits noted Psych thought process normal, cooperative, affect normal, speech normal and activity/motor behavior normal Lab / Micro Data 07/06/24 12:22 07/06/24 12:22 Labs: Laboratory Results - last 24 hr 07/06/24 12:22: WBC 5.2, RBC 4.23, Hgb 11.1 L, Hct 36.5 L, MCV 86.3, MCH 26.2 L, MCHC 30.4 L, RDW Std Deviation 47.6 H, RDW Coeff of Ja 15.2 H, Plt Count 244, MPV 10.7, Immature Gran % (Auto) 0.400, Neut % (Auto) 48.0, Lymph % (Auto) 41.9 H, [place] % (Auto) 8.1, Eos % (Auto) 1.4, Baso % (Auto) 0.2, Absolute Neuts (auto) 2.5, Absolute Lymphs (auto) 2.16, Nucleated RBC % 0, PT 24.0 H, INR 2.1, APTT 40.8 H, D-Dimer Quant (PE/DVT) 9.70 H*, Sodium 137, Potassium 3.4 L, Chloride 102, Carbon Dioxide 25.0, Anion Gap 10, BUN 10, Creatinine 0.81, Estim Creat Clear Calc 75.05, Est GFR (MDRD) Af Amer 91, Est GFR (MDRD) Non-Af 75, BUN/Creatinine Ratio 12.4, Glucose 124 H, Lactic Acid 2.0, Calcium 9.9, Troponin I High Sens 18, B-Natriuretic Peptide 40.3 07/06/24 14:51: Troponin I High Sens 20 Micro: Microbiology 07/06/24 12:30 Mucosa - Nose SARS-CoV-2, Influenza & RSV (PCR) - Final Imaging Radiology Impression Chest CTA 07/06/24 12:31 IMPRESSION: Interval decrease in the amount of bilateral pulmonary embolism as described although residual changes persist. Small right pleural effusion with right basilar atelectasis. One or more dose reduction techniques were used (e.g., Automated exposure control, adjustment of the mA and/or kV according to patient size, use of iterative reconstruction technique). Reading Location: [facility] Charges/Coding Visit Charges Inpatient E&M: 67956 Init Hosp L2
--- NOTE | 2024-07-06 17:54 | ECHOL_ITS ---
Reason For Study: PULMONARY EMBOLISM Procedure This was a limited 2D transthoracic echocardiogram. The study was technically difficult. Exam performed portable in patient room. Left Ventricle Normal LV size. Left ventricular systolic function is normal. The left ventricular ejection fraction is 55 %. No regional wall motion abnormalities noted. Right Ventricle Normal RV size. Normal systolic function. Atria Normal left atrium. Normal right atrium. Tricuspid Valve Normal tricuspid valve. Unable to estimate RV systolic pressure due to inadequate jet, pulmonary artery pressure probably normal. Great Vessels Normal aortic root. Pericardium/Pleural No pericardial effusion. MMode/2D Measurements & Calculations LVIDd: 4.6 cm IVSd: 0.72 cm LAV(MOD-sp4): 29.5 ml LVIDs: 3.1 cm LVPWd: 0.95 cm RVDd: 3.9 cm FS: 33.2 % _ SV(MOD-sp4): 27.7 ml SV(sp4-el): 29.8 ml LVAd ap4: 18.9 cm2 LVLd ap4: 6.0 cm SI(MOD-sp4): 14.1 ml/m2 EDV(MOD-sp4): 48.7 ml EDV(sp4-el): 50.7 ml LVAs ap4: 11.6 cm2 LVLs ap4: 5.4 cm ESV(MOD-sp4): 21.0 ml ESV(sp4-el): 20.9 ml EF(MOD-sp4): 56.9 % EF(sp4-el): 58.8 % _ Ao sinus diam: 3.2 cm LA A4 area: 13.3 cm2 LA dimension(2D): 2.8 cm _ TAPSE: 1.7 cm RA A4 area: 14.8 cm2 Doppler Measurements & Calculations PA V2 max: 105.6 cm/sec ECHO/Echo, Limited Study Interpretation Summary Normal LV size. Left ventricular systolic function is normal. The left ventricular ejection fraction is 55 %. Compared to the previous echo the right ventricular size is much improved with no significant tricuspid regurgitation. Ordering Physician: Bartolo Yeboah Referring Physician: Wiliam Kay MD Performed By: Yuliana Delcid RDCS
[2024-07-06 20:01] LABS: BNP,B-Type NATRIURETIC PEPTIDE 40.6 pg/mL (0-100)
[2024-07-06] MEDS: Ondansetron 4 MG/2 ML Vial IV (20:14)
[2024-07-06 21:38] LABS: Partial Thromboplast Time 163.1 Seconds (24.1-36.2)
[2024-07-07 03:00] VITALS: BP 111/49; PULSE 87; RESP 18; TEMP 36.2; O2SAT 93
[2024-07-07] MEDS: 0.9% Saline Lock 10 ML Syringe IV (04:32)
[2024-07-07] MEDS: Ondansetron 4 MG/2 ML Vial IV (04:32)
[2024-07-07] MEDS: Levothyroxine 100 MCG Tablet 200 MCG PO (05:46)
[2024-07-07 06:21] LABS: Absolute Neutrophil Count 2.8 X10^3/uL (2.0-7.7); Basophil# 0.02 X10^3/uL; Basophil% 0.5 % (0-1); Eosinophil# 0.11 X10^3/uL; Eosinophils% 2.8 % (0-5); Hematocrit 30.9 % (37-47); Hemoglobin 9.5 g/dL (12.0-15.0); Lymphocyte % 17.7 % (19-41); Mean Corp Hgb Conc 30.7 g/dL (32-36); Mean Corpuscular Hgb 26.7 pg (27.0-32.0); Mean Corpuscular Volume 86.8 fL (81-99); Mean Platelet Vol. 10.7 fl (6.2-12.0); Monocyte# 0.31 X10^3/uL; Monocyte% 7.8 % (0-10); NRBC Flagged by Analyzer 0 % (0-5); Neutrophil % 70.7 % (47-70); Platelet Count 179 K/mm3 (150-450); RBC Distribution Width CV 15.6 % (11.6-14.6); RBC Distribution Width SD 49.3 fl (35.1-43.9); Red Blood Count 3.56 M/mm3 (4.2-5.4)
[2024-07-07 06:41] LABS: International Normalized Ratio 1.5; Prothrombin Time (Protime)PT. 18.1 SECONDS (11.7-14.9)
[2024-07-07 06:45] LABS: Anion Gap 6 (5-15); BUN 7 mg/dL (7-18); BUN/Creat Ratio 12.8 RATIO (10-20); Calcium,Total 8.8 mg/dL (8.5-10.1); Chloride 105 mmol/L (98-107); Creatinine, Serum 0.55 mg/dL (0.55-1.02); EST Glomerular Filtration Rate 118 mL/min (>60); Est Glom Filt Rate - Afr Amer 142 mL/min (>60); Estimated Creatinine Clearance 75.17 ml/min; Glucose 91 mg/dL (74-106); Sodium Level 138 mmol/L (136-145)
[2024-07-07 07:22] LABS: Partial Thromboplast Time 43.2 Seconds (24.1-36.2)
[2024-07-07] MEDS: Heparin Injection (Vial) 5,000 UNIT/ML VIAL IV (07:50)
[2024-07-07 08:00] VITALS: BP 107/74; PULSE 85; RESP 18; TEMP 36.6; O2SAT 96
--- NOTE | 2024-07-07 09:20 | RAD_ITS ---
PROCEDURE: CHEST 1 VIEW REASON FOR EXAM: Possible aspiration. TECHNIQUE: Frontal view of the chest. COMPARISON: None FINDINGS: EKG electrodes are seen. There is elevation of the right hemidiaphragm. Right infrahilar infiltrate. Degenerative changes are identified within the thoracic spine. RAD/Chest 1 View IMPRESSION: Elevation of the right hemidiaphragm. Right infrahilar infiltrate. Reading Location: [facility]
--- NOTE | 2024-07-07 09:43 | PCM.PN.HOSP ---
Reason for Visit Reason for Visit: Diagnoses Other pulmonary embolism without acute cor pulmonale (07/06/24) Acute respiratory failure with hypoxia (07/06/24) Subjective Subjective Patient is a 69-year-old lady with recent history of saddle pulmonary embolism for which patient underwent thrombectomy discharged on 07/04/2024 on Eliquis presented to the emergency department with shortness of breath. CTA revealed interval decrease in the PE though bilateral PEs were appreciated. Patient was started on heparin Objective Data Objective Data Vital Signs: Vital Signs Temp Pulse Resp BP Pulse Ox O2 Del Method O2 Flow Rate 97.9 F 85 18 107/74 96 Room Air 2 07/07/24 08:00 07/07/24 08:00 07/07/24 08:00 07/07/24 08:00 07/07/24 08:00 07/07/24 08:00 07/06/24 22:00 Oxygen Flow Rate (L/min) 2 Oxygen Delivery Method Room Air Weight: 92.4 kg Body Mass Index (BMI) 34.9 Intake & Output: Intake and Output for Last 24 Hours 07/05/24 07/06/24 07/07/24 23:59 23:59 23:59 Intake Total 469.47 / 869.47 738.18 / 738.18 Balance 469.47 / 869.47 738.18 / 738.18 Lab / Micro Data 07/07/24 05:41 07/07/24 05:41 Labs: Laboratory Results - last 24 hr 07/06/24 12:22: WBC 5.2, RBC 4.23, Hgb 11.1 L, Hct 36.5 L, MCV 86.3, MCH 26.2 L, MCHC 30.4 L, RDW Std Deviation 47.6 H, RDW Coeff of Ja 15.2 H, Plt Count 244, MPV 10.7, Immature Gran % (Auto) 0.400, Neut % (Auto) 48.0, Lymph % (Auto) 41.9 H, [place] % (Auto) 8.1, Eos % (Auto) 1.4, Baso % (Auto) 0.2, Absolute Neuts (auto) 2.5, Absolute Lymphs (auto) 2.16, Nucleated RBC % 0, PT 24.0 H, INR 2.1, APTT 40.8 H, D-Dimer Quant (PE/DVT) 9.70 H*, Sodium 137, Potassium 3.4 L, Chloride 102, Carbon Dioxide 25.0, Anion Gap 10, BUN 10, Creatinine 0.81, Estim Creat Clear Calc 75.05, Est GFR (MDRD) Af Amer 91, Est GFR (MDRD) Non-Af 75, BUN/Creatinine Ratio 12.4, Glucose 124 H, Lactic Acid 2.0, Calcium 9.9, Troponin I High Sens 18, B-Natriuretic Peptide 40.3 07/06/24 14:51: Troponin I High Sens 20 07/06/24 17:18: Lactic Acid 1.0 07/06/24 19:39: B-Natriuretic Peptide 40.6 07/06/24 20:58: APTT 163.1 H* 07/07/24 05:41: WBC 4.0 L, RBC 3.56 L, Hgb 9.5 L, Hct 30.9 L, MCV 86.8, MCH 26.7 L, MCHC 30.7 L, RDW Std Deviation 49.3 H, RDW Coeff of Ja 15.6 H, Plt Count 179, MPV 10.7, Immature Gran % (Auto) 0.500, Neut % (Auto) 70.7 H, Lymph % (Auto) 17.7 L, [place] % (Auto) 7.8, Eos % (Auto) 2.8, Baso % (Auto) 0.5, Absolute Neuts (auto) 2.8, Absolute Lymphs (auto) 0.70 L, Nucleated RBC % 0, PT 18.1 H, INR 1.5, APTT 43.2 H, Sodium 138, Potassium 4.0, Chloride 105, Carbon Dioxide 27.0, Anion Gap 6, BUN 7, Creatinine 0.55, Estim Creat Clear Calc 75.17, Est GFR (MDRD) Af Amer 142, Est GFR (MDRD) Non-Af 118, BUN/Creatinine Ratio 12.8, Glucose 91, Calcium 8.8 Micro: Microbiology 07/06/24 16:55 Mucosa - Nasopharyngeal Respiratory Panel (PCR) - Final 07/06/24 12:30 Mucosa - Nose SARS-CoV-2, Influenza & RSV (PCR) - Final Radiography Diagnostic Testing: Radiology Impression Chest CTA 07/06/24 12:31 IMPRESSION: Interval decrease in the amount of bilateral pulmonary embolism as described although residual changes persist. Small right pleural effusion with right basilar atelectasis. One or more dose reduction techniques were used (e.g., Automated exposure control, adjustment of the mA and/or kV according to patient size, use of iterative reconstruction technique). Reading Location: [facility] Chest X-Ray 07/07/24 09:20 IMPRESSION: Elevation of the right hemidiaphragm. Right infrahilar infiltrate. Reading Location: [facility] Physical Exam Narrative GENERAL: cooperative HEENT: Atraumatic; normocephalic EYES; Anicteric, Normal Conjunctiva NECK; supple, normal thyroid, RESPIRATORY: Diminished to auscultation CARDIOVASCULAR: Regular S1 S2, GI: soft, normoactive bowel sounds, : No Renal angle tenderness; EXTREMITIES: No edema, no clubbing, MUSCULOSKELETAL: no muscle wasting NEURO: Awake; no lateralizing signs. SKIN: No Rash PSYCH; Flat affect Assessment & Plan Assessment/Plan (1) Acute hypoxemic respiratory failure: (2) Bilateral pulmonary embolism: PLAN: Plan Patient is a 69-year-old lady with recent history of saddle pulmonary embolism for which patient underwent thrombectomy discharged on 07/04/2024 on Eliquis presented to the emergency department with shortness of breath. CTA revealed interval decrease in the PE though bilateral PEs were appreciated. Patient was started on heparin 1. Acute hypoxia Secondary to bilateral pulmonary embolism. Too early to tell whether this was apixaban failure. Patient was started on heparin Case discussed with Dr. Yeboah. Patient was placed on supplemental oxygen titrated to keep saturation greater than 90. 2. Hypothyroidism ? Patient is on levothyroxine home dose continued 3. Hypertension ? Blood pressure controlled, home medications continued with dose adjustment as needed 4. Hypokalemia ? Corrected per protocol repeat labs ordered for monitoring 5. Anemia ? Secondary to chronic disorder monitoring H&H and transfuse if patient becomes symptomatic or hemoglobin falls below 7 6. Class II obesity with BMI of 35 As complicating care weight loss advised 7. DVT prophylaxis The patient already anticoagulated Time spent in the patient's overall evaluation, decision-making process, review of diagnostic data, adjustment of management, discussion with other providers, nursing and ancillary staff involved in patient's care documentation, 50 Minutes Charges/Coding Visit Charges Inpatient E&M: 52715 Subs Hosp L3
[2024-07-07] MEDS: HEPARIN/D5w 25,000 UNITS 25,000 UNITS/250 ML IV.SOLN. 12 UNITS CONT INF (11:27)
[2024-07-07 14:21] LABS: Partial Thromboplast Time 83.7 Seconds (24.1-36.2)
--- NOTE | 2024-07-07 14:26 | CPS ---
patient refused IS, stating she was able to deep breath on her own.
[2024-07-07 14:28] VITALS: BP 112/76; PULSE 87; RESP 18; TEMP 36.6; O2SAT 97
--- NOTE | 2024-07-07 17:56 | PN.SURG_ITS ---
Subjective Subjective Looks, feels much better today. Again on room air, no SOB. Objective Data Objective Data A&O x 3, NAD RRR Resp non labored, no accessory muscle use Vital Signs: Vital Signs Temp Pulse Resp BP Pulse Ox O2 Del Method O2 Flow Rate 97.9 F 87 18 112/76 97 Room Air 2 07/07/24 14:28 07/07/24 14:28 07/07/24 14:28 07/07/24 14:28 07/07/24 14:28 07/07/24 14:28 07/06/24 22:00 Oxygen Flow Rate (L/min) 2 Oxygen Delivery Method Room Air Weight: 203 lb 11.314 oz Body Mass Index (BMI) 34.9 Intake & Output: Intake and Output for Last 24 Hours 07/05/24 07/06/24 07/07/24 23:59 23:59 23:59 Intake Total 469.47 / 869.47 1416.13 / 1416.13 Balance 469.47 / 869.47 1416.13 / 1416.13 Lab / Micro Data 07/07/24 05:41 07/07/24 05:41 Labs: Laboratory Results - last 24 hr 07/06/24 17:18: Lactic Acid 1.0 07/06/24 19:39: B-Natriuretic Peptide 40.6 07/06/24 20:58: APTT 163.1 H* 07/07/24 05:41: WBC 4.0 L, RBC 3.56 L, Hgb 9.5 L, Hct 30.9 L, MCV 86.8, MCH 26.7 L, MCHC 30.7 L, RDW Std Deviation 49.3 H, RDW Coeff of Ja 15.6 H, Plt Count 179, MPV 10.7, Immature Gran % (Auto) 0.500, Neut % (Auto) 70.7 H, Lymph % (Auto) 17.7 L, [place] % (Auto) 7.8, Eos % (Auto) 2.8, Baso % (Auto) 0.5, Absolute Neuts (auto) 2.8, Absolute Lymphs (auto) 0.70 L, Nucleated RBC % 0, PT 18.1 H, INR 1.5, APTT 43.2 H, Sodium 138, Potassium 4.0, Chloride 105, Carbon Dioxide 27.0, Anion Gap 6, BUN 7, Creatinine 0.55, Estim Creat Clear Calc 75.17, Est GFR (MDRD) Af Amer 142, Est GFR (MDRD) Non-Af 118, BUN/Creatinine Ratio 12.8, Glucose 91, Calcium 8.8 07/07/24 13:46: APTT 83.7 H Micro: Microbiology 07/06/24 16:55 Mucosa - Nasopharyngeal Respiratory Panel (PCR) - Final 07/06/24 12:30 Mucosa - Nose SARS-CoV-2, Influenza & RSV (PCR) - Final Radiography Diagnostic Testing: Radiology Impression Venous Doppler Study 07/06/24 14:31 Interpretation Summary Acute deep vein thrombosis noted in the left femoral vein, popliteal vein, tibioperoneal trunk vein, posterior tibial vein, peroneal vein Acute deep vein thrombosis noted in the right peroneal vein. Ordering Physician: Liza Betancourt Referring Physician: Wiliam Kay MD Performed By: Edgardo Goodman Verónica Echocardiogram 07/06/24 17:54 Interpretation Summary Normal LV size. Left ventricular systolic function is normal. The left ventricular ejection fraction is 55 %. Compared to the previous echo the right ventricular size is much improved with no significant tricuspid regurgitation. Ordering Physician: Bartolo Yeboah Referring Physician: Wiliam Kay MD Performed By: Yuliana Delcid, [facility] Chest X-Ray 07/07/24 09:20 IMPRESSION: Elevation of the right hemidiaphragm. Right infrahilar infiltrate. [facility] Assessment & Plan Assessment/Plan (1) Bilateral pulmonary embolism: PLAN: -respiratory status and O2 need resolved -venous duplex shows unchanged DVT which supports Eliquis is effective -suspect thrombus on CTA chest is residual from prior embolism that was not extracted during thrombectomy -agree with plan to resume Eliquis and DC tomorrow if doing well Charges/Coding Visit Charges Inpatient E&M: 28287 Subs Hosp L2
[2024-07-07] MEDS: APIXABAN 5 MG TABLET 10 MG PO (18:30)
[2024-07-07 21:05] VITALS: BP 108/65; PULSE 85; RESP 16; TEMP 36.8; O2SAT 95
[2024-07-08 03:20] VITALS: BP 113/74; PULSE 82; RESP 16; TEMP 36.7; O2SAT 93
[2024-07-08] MEDS: Levothyroxine 100 MCG Tablet 400 MCG PO (05:36)
[2024-07-08 06:47] LABS: Absolute Lymphocyte Count 0.91 X10^3/uL (0.83-4.51); Absolute Neutrophil Count 1.7 X10^3/uL (2.0-7.7); Basophil# 0.01 X10^3/uL; Basophil% 0.3 % (0-1); Eosinophil# 0.25 X10^3/uL; Eosinophils% 7.8 % (0-5); Hematocrit 33.5 % (37-47); Hemoglobin 10.1 g/dL (12.0-15.0); Lymphocyte # 0.91 X10^3/ul (0.83-4.51); Lymphocyte % 28.3 % (19-41); Mean Corp Hgb Conc 30.1 g/dL (32-36); Mean Corpuscular Hgb 26.3 pg (27.0-32.0); Mean Corpuscular Volume 87.2 fL (81-99); Mean Platelet Vol. 9.9 fl (6.2-12.0); Monocyte# 0.34 X10^3/uL; Monocyte% 10.6 % (0-10); NRBC Flagged by Analyzer 0 % (0-5); Neutrophil % 52.7 % (47-70); Platelet Count 205 K/mm3 (150-450); RBC Distribution Width CV 15.9 % (11.6-14.6); RBC Distribution Width SD 49.2 fl (35.1-43.9); Red Blood Count 3.84 M/mm3 (4.2-5.4); White Blood Count 3.2 K/mm3 (4.4-11.0)
[2024-07-08 07:04] LABS: Anion Gap 7 (5-15); BUN 7 mg/dL (7-18); Calcium,Total 9.2 mg/dL (8.5-10.1); Chloride 103 mmol/L (98-107); Creatinine, Serum 0.64 mg/dL (0.55-1.02); EST Glomerular Filtration Rate 98 mL/min (>60); Est Glom Filt Rate - Afr Amer 119 mL/min (>60); Estimated Creatinine Clearance 75.17 ml/min; Glucose 88 mg/dL (74-106); Magnesium 2.1 mg/dL (1.6-2.6); Phosphorus 2.8 mg/dL (2.5-4.9); Potassium 3.8 mmol/L (3.5-5.1); Sodium Level 137 mmol/L (136-145)
[2024-07-08 10:10] VITALS: BP 125/78; PULSE 102; RESP 18; TEMP 36.5; O2SAT 94
[2024-07-08] MEDS: APIXABAN 5 MG TABLET 10 MG PO (10:16)
--- NOTE | 2024-07-08 11:15 | DS.PCM_ITS ---
Providers Date of Admission: 07/06/24 Date of Discharge: 07/08/24 Primary Care Physician: Dr. Wiliam Kay MD Consultations 07/06/24 15:53 Consult: Vascular Surgery Routine Consulting Provider: Bartolo Yeboah Reason for Consult: PEs after recent thrombectomy EMERGENT Consult: No MD Notified: Yes Date Notified: 07/06/24 Time Notified: 14:29 Method of Notification: Verbal Reason For Visit: SOB AND HYPOXIA Diagnosis Discharge Diagnosis (1) Bilateral pulmonary embolism: Status: Acute Code(s): I26.99 - Other pulmonary embolism without acute cor pulmonale Plan Patient is a 69-year-old lady with recent history of saddle pulmonary embolism for which patient underwent thrombectomy discharged on 07/04/2024 on Eliquis presented to the emergency department with shortness of breath. CTA revealed interval decrease in the PE though bilateral PEs were appreciated. Patient was started on heparin 1. Acute hypoxia Secondary to bilateral pulmonary embolism. Too early to tell whether this was apixaban failure. Patient was started on heparin Case discussed with Dr. Yeboah. Patient was placed on supplemental oxygen titrated to keep saturation greater than 90. -Repeat imaging studies did not show any new venous thromboembolism. Patient was discharged home on her previous regimen 2. Hypothyroidism ? Patient is on levothyroxine home dose continued 3. Hypertension ? Blood pressure controlled, home medications continued with dose adjustment as needed 4. Hypokalemia ? Corrected per protocol repeat labs ordered for monitoring 5. Anemia ? Secondary to chronic disorder monitoring H&H and transfuse if patient becomes symptomatic or hemoglobin falls below 7 6. Class II obesity with BMI of 35 As complicating care weight loss advised 7. DVT prophylaxis The patient already anticoagulated 8. Suspected gastritis ? Patient was discharged on PPI and Zofran Time spent in the patient's overall evaluation, decision-making process, review of diagnostic data, adjustment of management, discussion with other providers, nursing and ancillary staff involved in patient's care documentation, 35 Minutes Medications at Discharge Home Medications levothyroxine 200 mcg tablet 200 mcg PO SUMOTUTHFRSA thyroid 11/06/21 levothyroxine 200 mcg tablet 400 mcg PO WE thyroid 11/06/21 lisinopril 20 mg tablet 20 mg PO BID BP 11/06/21 albuterol sulfate 90 mcg/actuation breath activated powder inhaler (ProAir RespiClick) 2 inh inhalation Q4H PRN sob 10/24/24 cholecalciferol (vitamin D3) 125 mcg (5,000 unit) capsule 5,000 unit PO DAILY supplement 03/26/24 Lactobacillus acidophilus 10 billion cell capsule (NewFlora) 100 mmu cells PO DAILY G[employer] [facility] 07/02/24 apixaban 5 mg (74 tabs) tablets in a dose pack ([employer] DVT-PE Treat 30D Start) See Rx Instructions PO .COMPLEX #74 tabs 07/04/24 ondansetron 4 mg disintegrating tablet 4 mg PO Q6H PRN nausea and vomiting #20 tabs 07/08/24 pantoprazole 40 mg tablet,delayed release (Protonix) 40 mg PO DAILY #30 tabs 07/08/24 Physical Exam Narrative GENERAL: cooperative HEENT: Atraumatic; normocephalic EYES; Anicteric, Normal Conjunctiva NECK; supple, normal thyroid, RESPIRATORY: Diminished to auscultation CARDIOVASCULAR: Regular S1 S2, GI: soft, normoactive bowel sounds, : No Renal angle tenderness; EXTREMITIES: No edema, no clubbing, MUSCULOSKELETAL: no muscle wasting NEURO: Awake; no lateralizing signs. SKIN: No Rash PSYCH; Flat affect Weight / BMI Weight Weight: 92.4 kg Body Mass Index (BMI) 34.9 ABG / Lab / Microbiology Data 07/08/24 06:20 07/08/24 06:20 Laboratory: Laboratory Results - last 24 hr 07/07/24 13:46: APTT 83.7 H 07/08/24 06:20: WBC 3.2 L, RBC 3.84 L, Hgb 10.1 L, Hct 33.5 L, MCV 87.2, MCH 26.3 L, MCHC 30.1 L, RDW Std Deviation 49.2 H, RDW Coeff of Ja 15.9 H, Plt Count 205, MPV 9.9, Immature Gran % (Auto) 0.300, Neut % (Auto) 52.7, Lymph % (Auto) 28.3, [place] % (Auto) 10.6 H, Eos % (Auto) 7.8 H, Baso % (Auto) 0.3, A bsolute Neuts (auto) 1.7 L, Absolute Lymphs (auto) 0.91, Nucleated RBC % 0, Sodium 137, Potassium 3.8, Chloride 103, Carbon Dioxide 27.0, Anion Gap 7, BUN 7, Creatinine 0.64, Estim Creat Clear Calc 75.17, Est GFR (MDRD) Af Amer 119, Est GFR (MDRD) Non-Af 98, BUN/Creatinine Ratio 11.0, Glucose 88, Calcium 9.2, Phosphorus 2.8, Magnesium 2.1 Microbiology: Microbiology 07/06/24 16:55 Mucosa - Nasopharyngeal Respiratory Panel (PCR) - Final 07/06/24 12:30 Mucosa - Nose SARS-CoV-2, Influenza & RSV (PCR) - Final Radiography Diagnostic Testing: Radiology Impression Venous Doppler Study 07/06/24 14:31 Interpretation Summary Acute deep vein thrombosis noted in the left femoral vein, popliteal vein, tibioperoneal trunk vein, posterior tibial vein, peroneal vein Acute deep vein thrombosis noted in the right peroneal vein. Ordering Physician: Liza Betancourt Referring Physician: Wiliam Kay MD Performed By: Edgardo Goodman Verónica Echocardiogram 07/06/24 17:54 Interpretation Summary Normal LV size. Left ventricular systolic function is normal. The left ventricular ejection fraction is 55 %. Compared to the previous echo the right ventricular size is much improved with no significant tricuspid regurgitation. Ordering Physician: Bartolo Yeboah Referring Physician: Wiliam Kay MD Performed By: Yuliana Delcid RDCS D/C Instructions Discharge Diet: No restrictions Discharge Activity: Return to Normal Activity Call your doctor if you observe: Fever of 101 or Higher, Shortness of breath, Fainting spells and Chest pain DC O2, CPAP, BIPAP Needs Home O2 Discharge instructions: No Meaningful Use Info Meaningful Use Meaningful Use Diagnoses (Choose all that apply): VTE Ischemic Stroke Statin Dosing Therapy Reference: STATIN DOSE THERAPY REFERENCE: * Patients > 75 years receive moderate or high dose statin therapy. * Patients 75 years or YOUNGER should receive HIGH intensity statin dose unless contraindicated. You will be required to document reason for non-treatment if statin daily dose does not meet guidelines. HIGH DOSE STATIN THERAPY DAILY Atorvastatin > than or = to 40 mg Rosuvastatin > than or = to 20 mg Amlodipine + Atorvastatin > than or = to 2.5/40 mg Ezetimibe + Simvastatin 10/80 mg Simvastatin 80mg VTE Anticoag overlap given w/in hospital stay or rx'd at dc?: No Pt receive overlap for 5 days?: No Reason overlap not ordered, prescribed, or given for 5 days: Treatment Not Indicated Discharge Plan Admission Admit Date/Time: 07/06/24 14:16 Attending Provider: Brennan Arcos Primary Care Provider: Wiliam Kay Consulting Providers: Bartolo Yeboah; Liza Betancourt Discharge Orders/Prescriptions Prescriptions: New ondansetron 4 mg tablet,disintegrating 4 mg PO Q6H PRN (Reason: nausea and vomiting) Qty: 20 0RF pantoprazole [Protonix] 40 mg tablet,delayed release (DR/EC) 40 mg PO DAILY Qty: 30 0RF Continued lisinopril 20 mg tablet 20 mg PO BID Patient Comments: TAKE 1 TABLET BY MOUTH TWICE DAILY levothyroxine 200 mcg tablet 200 mcg PO SUMOTUTHFRSA levothyroxine 200 mcg tablet 400 mcg PO WE NewFlora 10 billion cell capsule 100 mmu cells PO DAILY Eliquis DVT-PE Treat 30D Start 5 mg (74 tabs) tablets,dose pack See Rx Instructions .ROUTE .COMPLEX Qty: 74 0RF Rx Instructions: orally per package directions cholecalciferol (vitamin D3) 125 mcg (5,000 unit) capsule 5,000 unit PO DAILY ProAir RespiClick 90 mcg/actuation aerosol powdr breath activated 2 inh inhalation Q4H PRN (Reason: sob) Referrals / Follow Up: Wiliam Kay MD [Primary Care Provider] - Within 2 Weeks Bartolo Yeboah MD [Med Staff - Active Staff] - Within 2 Weeks Disposition Disposition (needs filled in before D/C Order can be placed): Home, Self Care Charges/Coding Visit Charges Inpatient E&M: 47263 Disch Hosp >30min
--- NOTE | 2024-07-08 11:30 | CASEMGMT ---
AKASH NORMAN chart review: Patient was admitted 07/02-07/04/24 for saddle PE. See AKASH NORMAN assessment from 07/03/24. Patient was discharged to home with Eliquis, family support, and follow-up plans in place. Patient did not qualify for home oxygen at discharge. Patient returned to [facility] ED on 07/06/24 for increased SOB. Patient was admitted for hypoxia related to bilateral PEs. AKASH NORMAN in to discuss readmission and discharge needs with patient. Patient has order for discharge. Patient states she was taking her medications as prescribed including her new Eliquis order. Patient returned prior to follow-up appts which patient states she has scheduled with her PCP tomorrow and with Dr. Yeboah next week. Patient is up independent in room. Patient denies needs or help at discharge. Will monitor for home oxygen. Patient had no further questions or concerns.
[2024-07-08 13:20] VITALS: BP 130/75; PULSE 87; RESP 18; TEMP 37.2; O2SAT 95
[2024-07-08 13:27] VITALS: O2SAT 95; O2SAT 96
--- NOTE | 2024-07-08 16:03 | PHA.DC_ITS ---
Pharmacy [facility] has performed discharge medication reconciliation and counseling for this patient. 1. PANTOPRAZOLE 40MG PO DAILY 2. ONDANSETRON ODT 4MG PO Q6H PRN NAUSEA/VOMITING The patient's discharge medication list was reviewed for discrepancies and discrepancies were resolved. The patient was counseled on the following discharge medications and changes in medications for homegoing were reviewed. The Reason for Use, instructions for use, and potential side effects were reviewed for all new medications. The patient's questions regarding all of their medications were answered. The patient was able to verbally demonstrate an understanding of their discharge medications. Medications at Discharge Home Medications levothyroxine 200 mcg tablet 200 mcg PO SUMOTUTHFRSA thyroid 11/06/21 levothyroxine 200 mcg tablet 400 mcg PO WE thyroid 11/06/21 lisinopril 20 mg tablet 20 mg PO BID BP 11/06/21 albuterol sulfate 90 mcg/actuation breath activated powder inhaler (ProAir RespiClick) 2 inh inhalation Q4H PRN sob 03/26/24 cholecalciferol (vitamin D3) 125 mcg (5,000 unit) capsule 5,000 unit PO DAILY supplement 03/26/24 Lactobacillus acidophilus 10 billion cell capsule (NewFlora) 100 mmu cells PO DAILY [facility] 07/02/24 apixaban 5 mg (74 tabs) tablets in a dose pack (Eliquis DVT-PE Treat 30D Start) See Rx Instructions PO .COMPLEX blood thinner #74 tabs 07/04/24 ondansetron 4 mg disintegrating tablet 4 mg PO Q6H PRN nausea and vomiting #20 t abs 07/08/24 pantoprazole 40 mg tablet,delayed release (Protonix) 40 mg PO DAILY #30 tabs 07/08/24
== END 2024-07-08 15:20 | disposition home or self-care (01) | DRG 175 ==
LOC: ED 14:02 → PCU 14:51
PROVIDERS: Surgery Trauma Surgery; Admitting Provider Internal Medicine; Emergency Provider Emergency Medicine; PCP Family Medicine; Visit Provider Internal Medicine
DX: I26.99 Other pulmonary embolism without acute cor pulmonale (principal); J96.01 Acute respiratory failure with hypoxia; I82.412 Acute embolism and thrombosis of left femoral vein; I82.432 Acute embolism and thrombosis of left popliteal vein; I82.453 Acute embolism and thrombosis of peroneal vein, bilateral; I82.442 Acute embolism and thrombosis of left tibial vein; E03.9 Hypothyroidism, unspecified; I10 Essential (primary) hypertension; D63.8 Anemia in other chronic diseases classified elsewhere; E66.812 Obesity, class 2; E55.9 Vitamin D deficiency, unspecified; E87.6 Hypokalemia; K29.70 Gastritis, unspecified, without bleeding; Z79.890 Hormone replacement therapy; Z79.899 Other long term (current) drug therapy; Z87.19 Personal history of other diseases of the digestive system; Z79.01 Long term (current) use of anticoagulants; Z88.0 Allergy status to penicillin; Z90.49 Acquired absence of other specified parts of digestive tract; Z98.890 Other specified postprocedural states; Z68.35 Body mass index [BMI] 35.0-35.9, adult
CPT/HCPCS: 36415; 71045; 71275; 80048; 83605; 83735; 83880; 84100; 84484; 85025; 85379; 85610; 85730; 87631; 87633; 93005; 93308; 93970; 94640; 99285; Q9967; A4216; J2405

== ENCOUNTER → 2024-09-09 | Outpatient (CLI) | payer OTHER, SELFPAY ==
[2024-09-09 12:26] LABS: Absolute Lymphocyte Count 1.16 X10^3/uL (0.83-4.51); Absolute Neutrophil Count 2.2 X10^3/uL (2.0-7.7); Basophil# 0.05 X10^3/uL; Basophil% 1.2 % (0-1); Eosinophil# 0.38 X10^3/uL; Eosinophils% 9.3 % (0-5); Hematocrit 39.3 % (37-47); Hemoglobin 12.3 g/dL (12.0-15.0); Lymphocyte # 1.16 X10^3/ul (0.83-4.51); Lymphocyte % 28.4 % (19-41); Mean Corp Hgb Conc 31.3 g/dL (32-36); Mean Corpuscular Hgb 28.9 pg (27.0-32.0); Mean Corpuscular Volume 92.3 fL (81-99); Mean Platelet Vol. 10.5 fl (6.2-12.0); Monocyte# 0.26 X10^3/uL; Monocyte% 6.4 % (0-10); NRBC Flagged by Analyzer 0 % (0-5); Neutrophil # 2.23 X10^3/uL (2.7-7.7); Neutrophil % 54.5 % (47-70); Platelet Count 206 K/mm3 (150-450); RBC Distribution Width CV 15.3 % (11.6-14.6); RBC Distribution Width SD 51.5 fl (35.1-43.9); Red Blood Count 4.26 M/mm3 (4.2-5.4); White Blood Count 4.1 K/mm3 (4.4-11.0)
[2024-09-09 14:43] LABS: ALB/GLOB Ratio 1.2 RATIO (0.9-2.4); AST(SGOT) 21 U/L (<=31); Alanine Aminotransfer ALT/SGPT 17 U/L (<=34); Albumin, Serum 3.8 g/dL (3.4-4.8); Alkaline Phosphatase 107 U/L (35-104); Anion Gap 9 (5-15); BUN 30 mg/dL (4-19); BUN/Creat Ratio 33.6 RATIO (10-20); Calcium,Total 9.9 mg/dL (7.6-11.0); Carbon Dioxide 23.2 mmol/L (21.0-32.0); Chloride 107 mmol/L (98-108); Cholesterol 180 mg/dL (<=200); Creatinine, Serum 0.89 mg/dL (0.70-1.20); EST Glomerular Filtration Rate 71 (>60); Globulin 3.2 g/dL (2.2-4.2); Glucose 91 mg/dL (70-99); High Density Lipoprotein 54 mg/dL; Low Density Lipoprotein Calc. 112 mg/dL; Potassium 4.5 mmol/L (3.3-5.1); Sodium Level 139 mmol/L (133-145); Total Bilirubin 0.25 mg/dL (0.00-1.30); Triglycerides 70 mg/dL; Very Low Density Lipoprotein 14 mg/dL (5-40); cholesterol:hdl ratio screen 3.35
[2024-09-09 15:24] LABS: Hemoglobin A1c 5.2 % (<=5.6)
[2024-09-09 17:11] LABS: Iron 73 ug/dL (50-170); Iron Binding Capacity,Total 273 ug/dL (250-450); Iron Binding Capacity,Unsat 200 ug/dL (228-428); Uric Acid 6.9 mg/dL (2.6-6.0)
[2024-09-09 17:13] LABS: Ferritin 133 ng/mL (22-378); Free T3 3.4 pg/mL (2.18-3.98); Thyroid Stim Hormone (TSH) 0.176 uIU/mL (0.300-4.200); Vitamin D,25 Hydroxy 46.7 ng/mL (30-100)
== END | disposition home or self-care (01) ==
PROVIDERS: PCP Family Medicine; Referring Provider Family Medicine; Visit Provider Family Medicine
DX: D64.9 Anemia, unspecified (principal); E03.9 Hypothyroidism, unspecified; M79.672 Pain in left foot; R73.09 Other abnormal glucose; Z13.220 Encounter for screening for lipoid disorders; R60.0 Localized edema
CPT/HCPCS: 80053; 80061; 82306; 82728; 83036; 83540; 83550; 84439; 84443; 84481; 84550; 85025

== ENCOUNTER 2024-11-26 06:15 | Day surgery (SDC) | payer OTHER, SELFPAY ==
--- NOTE | 2024-11-24 16:50 | PAT.ANE_ITS ---
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 When Was Last Pacemaker Check QUESTION #4 FULL TEXT: You/Your Family Experience fever (hyperthermia) with Anesthesia Last Oral Intake Last Oral intake: Last Oral Intake NPO since Meds taken in AM with sips of water? Meds patient instructed to take am of surgery PONV PONV - steam shovel operating engineer: PONV - steam shovel operating engineer Female Yes 11/24/24 14:37 HX of Motion Sickness No 11/24/24 14:37 HX of N/V After Surgery No 11/24/24 14:37 Non-Smoker Yes 11/24/24 14:37 Duration of Surgery greater Yes 11/24/24 14:37 than 60 minutes Number of Risk Factors 3 11/24/24 14:37 PONV Score Moderate Risk 11/24/24 14:37 Height & Weight Height & Weight: Anesthesia: Height & Weight Height 5 ft 4 in 07/06/24 15:41 Respiratory Assessment Respiratory Assessment - steam shovel operating engineer: Respiratory Tract Infection Hx - steam shovel operating engineer Hx Respiratory Tract Infection No 11/24/24 14:37 STOP Sleep Apnea STOP Sleep Apnea - steam shovel operating engineer: STOP Sleep Apnea - steam shovel operating engineer Hx Hypertension Yes: CONTROLLED WITH MED 11/24/24 14:37 Hx Sleep Apnea No 11/24/24 14:37 CPAP BIPAP Do you snore loudly (louder No 11/24/24 14:37 than talking or can be heard Do you often feel tired/ No 11/24/24 14:37 fatigued/ sleepy during daytime? Has anyone observed you stop No 11/24/24 14:37 breathing during sleep? STOP Results Negative 11/24/24 14:37 QUESTION #5 FULL TEXT : Do you snore loudly (louder than talking or can be heard through closed doors)? Tobacco Use History Tobacco Use History - steam shovel operating engineer: Tobacco Use History - steam shovel operating engineer Tobacco Use Smoking Status Never smoker 11/24/24 14:37 Hx Tobacco Use No 11/24/24 14:37 Years Smoking Packs Smoked per Day Smoking Cessation Date was within the last 15 years Hx Smoking Cessation Date Hx Smoking Cessation Counseling Hematologic Medial History Hematologic Hx - steam shovel operating engineer: Hematologic Medical Hx - test lead Hx of Blood Transfusion No 11/24/24 14:37 Hx of Transfusion in last 3 No 11/24/24 14:37 Months Date of Last Transfusion (if within last 3 months) Ever experience any problems No 11/24/24 14:37 with transfusion(s)? Specify any problems Hx of Preganancy in last 3 No 11/24/24 14:37 Months Nurse Filling Out Transfusion DSCHRIBER 11/24/24 14:37 & Questions: Date: 11/24/24 11/24/24 14:37 Time: 14:39 11/24/24 14:37 Patient unable to answer at this time (ie. confused, unrespo /Reproduction History /Reproductive History - steam shovel operating engineer: /Reproductive Hx- steam shovel operating engineer Hx Now No 11/24/24 14:37 Gestational Age (in weeks): EDC: Hx Hx Para Hx Section SAB No 11/24/24 14:37 PFSH Medical History (Updated 11/24/24 @ 14:45 by Shreya Rodarte) Loss of hearing Gout Anemia Asthma Non-smoker History of echocardiogram Pulmonary embolism Acute saddle pulmonary embolism Post-menopausal Wears glasses Thyroid disease Pancreatitis Essential hypertension Morbid obesity with BMI of 40.0-44.9, adult Vitamin D deficiency Home Medications ?Medication ?Instructions ?Recorded ?Last Taken ?Type levothyroxine 200 mcg tablet 200 mcg PO SUMOTUTHFRSA t hyroid 11/06/21 07/06/24 History levothyroxine 200 mcg tablet 300 mcg PO WE thyroid 11/2207/01/24 History lisinopril 20 mg tablet 20 mg PO BID BP 11/06/21 History albuterol sulfate 90 mcg/actuation 2 inh inhalation Q4 H PRN sob 03/26/24 05/23/24 History breath activated powder inhaler (ProAir RespiClick) cholecalciferol (vitamin D3) 125 5,000 unit PO DAILY s upplement 03/26/24 07/05/24 History mcg (5,000 unit) capsule ondansetron 4 mg disintegrating 4 mg PO Q6H PRN nausea and 07/08/24 Unknown Rx tablet vomiting #20 tabs apixaban 5 mg tablet (Eliquis) 5 mg PO BID #180 tabs 0 07/23/24 11/23/24 Rx Allergy/AdvReac Type Severity Reaction Status Date / Time chlorhexidine Allergy Rash Verified 11/24/24 14:34 Penicillins Allergy CHILDHOOD Verified 11/24/24 14:34 ALLERGY psyllium (From Metamucil) Allergy Shortness Verified 11/24/24 14:34 of breath Family History Other Asthma CVA (cerebral vascular accident) Diabetes Hypertension Thyroid disorder Surgical History (Updated 11/24/24 @ 14:45 by Shreya Rodarte) History of thrombectomy History of ERCP History of cholecystectomy (05/06/24) Hx of colonoscopy H/O section S/P dilatation and curettage Social History household members: spouse current occupational status: employed Smoking Status: Never smoker alcohol intake: never substance use type: does not use Audit: Pertinent Findings Pertinent Findings EKG Perinent findings: 07/06/24. Sinus tachycardia 130 bpm. Echo (EF%) pertinent findings: 07/07/24. EF 55%. No aortic stenosis noted. Recommendation Anesthesia Recommendation Anesthesia recommendation: OPTIMIZED for anesthesia
[2024-11-26] VITALS (8 sets, daily range): BP systolic 94–111; BP diastolic 51–76; PULSE 74–78; RESP 16–18; TEMP 36.3–36.5; O2SAT 93–100; BMI 35.3
--- NOTE | 2024-11-26 06:00 | RAD_ITS ---
PROCEDURE: ERCP BILIARY/PANCREAS N/A REASON FOR EXAM: ERCP TECHNIQUE: ERCP BILIARY/PANCREAS. Fluoroscopic services provided. 1 minute and 45 seconds of fluoroscopy. 99.26 mGy. COMPARISON: None FINDINGS: Intraoperative fluoroscopic services provided for ERCP performed by the intervention manager. There is evidence of dilatation of the common bile duct. Filling defects are seen within the distal portions suggestive of choledocholithiasis. RAD/ERCP Biliary/Pancreas IMPRESSION: ERCP. Dilated common bile duct with the choledocholithiasis. Reading Location: [id number]
--- NOTE | 2024-11-26 06:23 | EKG12_ITS ---
Test Reason : P Blood Pressure : */* mmHG Vent. Rate : 77 BPM Atrial Rate : 77 BPM P-R Int : 170 ms QRS Dur : 80 ms QT Int : 360 ms P-R-T Axes : 51 47 55 degrees QTcB Int : 407 ms Normal sinus rhythm Normal ECG When compared with ECG of 06-Jul-2024 12:14, Vent. rate has decreased by [address] elevation now present in Inferior leads Non-specific change in ST segment in Lateral leads Nonspecific T wave abnormality no longer evident in Inferior leads Nonspecific T wave abnormality no longer evident in Lateral leads Confirmed by NENO ALMANZAR, VENESSA ([id number]), school photograph editor AUBREY RUTLEDGE ([id number]) on 12/01/2024 6:49:56 AM Referred By: Wiliam Kay Confirmed By: VENESSA LAZCANO MD
[2024-11-26] MEDS: Lactated Ringers 1,000 ML 15 ML IV (06:47)
--- NOTE | 2024-11-26 07:00 | FLU_PTH ---
PATIENT: BHAVANI HALLMAN LOC: EN U#:[id number] AGE/SX: 69/F ROOM: RE11/26/[address]: Dr. John Orosco DO : 1955 BED: DIS: 11/26/2024 SPEC #: [id number] RECD: 11/26/24 08:59 STATUS: KEVIN SARAI #: [id number] MILLIE: 11/26/24 07:[address]: John Orosco DEPT: CYTOLOGY RECD BY: Nasir Villalobos ENTERED: 11/26/24 09:23 SP TYPE: Fluid OTHR DR: Dr. Wiliam Kay MD Tissues: A - Biliary tract, NOS Procedures: Special Stain Group II Surgery Specimen Level IV Cytospin Fluid HEADER OPERATION: ERCP with stent pull and balloon sweep PRE-OP DIAGNOSIS: Choledocholithiasis TISSUE SUBMITTED: A- Biliary stent for cytology DIAGNOSIS CYTOLOGY A. Biliary stent (cytospin, cellblock): - No malignant cells identified. CYTOLOGY STUDY Slides are reviewed. CYTOLOGY GROSS A. Received is a stent labeled with the patient's name and and designated per the requisition as Biliary stent. Submitted for cytology and cell block preparation. Mr 11/26/2024 CPT: 53655 ,95401
--- NOTE | 2024-11-26 07:00 | COLBX_PTH ---
PATIENT: BHAVANI HALLMAN LOC: EN U#:[id number] AGE/SX: 69/F ROOM: RE11/26/[address]: Dr. John Orosco DO : 1955 BED: DIS: 11/26/2024 SPEC #: [id number] RECD: 11/26/24 08:59 STATUS: KEVIN REMadi #: [id number] MILLIE: 11/26/24 07:[address]: John Orosoc DEPT: SURGICAL PATHOLOGY RECD BY: Nasir Villalobos ENTERED: 11/26/24 09:23 SP TYPE: COLON BX OT DR: Dr. Wiliam Kay MD Tissues: A - Sigmoid colon biopsy Procedures: Surgery Specimen Level IV HEADER OPERATION: ERCP with stent pull and balloon sweep PRE-OP DIAGNOSIS: Choledocholithiasis TISSUE SUBMITTED: A- Sigmoid polyp biopsy MICROSCOPIC DIAGNOSIS A. Sigmoid colon, polyp, biopsy: - Hyperplastic polyp. MICROSCOPIC DESCRIPTION Slides are reviewed. GROSS DESCRIPTION A. Received in fixative is one container labeled with the patient's name and designated Sigmoid polyp biopsy. The specimen consists of one irregular fragment of light razo soft tissue that measures 0.5 cm. The specimen is totally submitted in one cassette. GREG/ 11/26/2024 CPT:69687
--- NOTE | 2024-11-26 07:01 | PCM.PRE.AN2 ---
ASA Classification* ASA Classification ASA Classification: 2 Assessment & Plan Anesthesia* Anesthesia Assessment Anesthesia Assessment: Discussed sedation and/or anesthesia options, risks, benefits, and alternatives with patient/parents/legal guardian/POA. Questions invited. The patient/parents/legal guardian/POA seems to understand and agrees to proceed with anesthesia plan. Reviewed the physical assessment, medical history, allergy history and patient home medications list prior to surgery/procedure/anesthetic and documented any changes. Performed airway and anesthesia risk assessments. Anesthesia Type Anesthesia Type: MAC History Source History Obtained from:: Patient and Chart Anesthesia Focused Assessment* Temperature: 97.5 F Pulse Rate: 77 Blood Pressure: 95/55 Respiratory Rate: 18 Pulse Ox: 93 Oxygen Delivery Method: Room Air Airway Assessment Mouth opens: >3 cm Mallampati Score: III Teeth Condition: Caps/Crowns (Patient has a couple of caps. They are tight.) and Missing (1 missing bottom right molar. Rest are tight.) Neck Range of motion (ROM): Limited ROM (Slight decrease in extension) Labs Anesthesia Preop lab: CBC WBC 4.1 K/mm3 (4.4-11.0) L 09/09/24 09:57 09/09/24 RBC 4.26 M/mm3 (4.2-5.4) 09/09/24 09:57 09/09/24 Hgb 12.3 g/dL (12.0-15.0) 09/09/24 09:57 09/09/24 Hct 39.3 % (37-47) 09/09/24 09:57 09/09/24 Plt Count 206 K/mm3 (150-450) 09/09/24 09:57 09/09/24 CHEMISTRY Potassium 4.5 mmol/L (3.3-5.1) 09/09/24 09:57 09/09/24 Sodium 139 mmol/L (133-145) 09/09/24 09:57 09/09/24 Magnesium 2.1 mg/dL (1.6-2.6) 07/08/24 06:20 07/08/24 Phosphorus 2.8 mg/dL (2.5-4.9) 07/08/24 06:20 07/08/24 BUN 30 mg/dL (4-19) H 09/09/24 09:57 09/09/24 Creatinine 0.89 mg/dL (0.70-1.20) 09/09/24 09:57 09/09/24 Glucose 91 mg/dL (70-99) 09/09/24 09:57 09/09/24 TSH 0.176 uIU/mL (0.300-4.200) L 09/09/24 09:57 09/09/24 COAG PT 18.1 SECONDS (11.7-14.9) H 07/07/24 05:41 07/07/24 Pre-Assessment Diagnosis/Proposed Procedure Planned Operative Procedure(s): ERCP/CSCOPE Anesthesia History 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 When Was Last Pacemaker Check QUESTION #4 FULL TEXT: You/Your Family Experience fever (hyperthermia) with Anesthesia Last Oral Intake Last Oral intake: Last Oral Intake NPO since 02:00 11/26/24 06:38 Meds taken in AM with sips of No 11/26/24 06:38 water? Meds patient instructed to take am of surgery Any additional information?: Yes NPO since: 02:00 (Patient finished prep at 2 AM.) Meds taken in AM with sips of water?: No PONV PONV - digital production artist: PONV - digital production artist Female Yes 11/24/24 14:37 HX of Motion Sickness No 11/24/24 14:37 HX of N/V After Surgery No 11/24/24 14:37 Non-Smoker Yes 11/24/24 14:37 Duration of Surgery greater Yes 11/24/24 14:37 than 60 minutes Number of Risk Factors 3 11/24/24 14:37 PONV Score Moderate Risk 11/24/24 14:37 Height & Weight Height & Weight: Anesthesia: Height & Weight Height 5 ft 4 in 11/26/24 06:38 Weight: 93.44 kg 11/26/24 06:38 Body Mass Index (BMI) 35.3 11/26/24 06:38 Respiratory Assessment Respiratory Assessment - digital production artist: Respiratory Tract Infection Hx - digital production artist Hx Respiratory Tract Infection No 11/24/24 14:37 STOP Sleep Apnea STOP Sleep Apnea - digital production artist: STOP Sleep Apnea - digital production artist Hx Hypertension Yes: CONTROLLED WITH MED 11/24/24 14:37 Hx Sleep Apnea No 11/24/24 14:37 CPAP BIPAP Do you snore loudly (louder No 11/24/24 14:37 than talking or can be heard Do you often feel tired/ No 11/24/24 14:37 fatigued/ sleepy during daytime? Has anyone observed you stop No 11/24/24 14:37 breathing during sleep? STOP Results Negative 11/24/24 14:37 QUESTION #5 FULL TEXT : Do you snore loudly (louder than talking or can be heard through closed doors)? Tobacco Use History Tobacco Use History - digital production artist: Tobacco Use History - digital production artist Tobacco Use Smoking Status Never smoker 11/24/24 14:37 Hx Tobacco Use No 11/24/24 14:37 Years Smoking Packs Smoked per Day Smoking Cessation Date was within the last 15 years Hx Smoking Cessation Date Hx Smoking Cessation Counseling Hematologic Medial History Hematologic Hx - digital production artist: Hematologic Medical Hx - manager care management Hx of Blood Transfusion No 11/24/24 14:37 Hx of Transfusion in last 3 No 11/24/24 14:37 Months Date of Last Transfusion (if within last 3 months) Ever experience any problems No 11/24/24 14:37 with transfusion(s)? Specify any problems Hx of Preganancy in last 3 No 11/24/24 14:37 Months Nurse Filling Out Transfusion DSCHRIBER 11/24/24 14:37 & Questions: Date: 11/24/24 11/24/24 14:37 Time: 14:39 11/24/24 14:37 Patient unable to answer at this time (ie. confused, unrespo /Reproduction History /Reproductive History - digital production artist: /Reproductive Hx- digital production artist Hx Now No 11/24/24 14:37 Gestational Age (in weeks): EDC: Hx Hx Para Hx Section SAB No 11/24/24 14:37 Active Medications Active Medications: Current Medications Generic Name Dose Route Start Last Admin Trade Name Freq PRN Reason Stop Dose Admin Lactated Ringer's 1,000 mls @ 15 mls/hr 11/26/24 06:30 11/26/24 06:47 IV 15 mls/hr .Q48H LYRIC Administration PFSH Medical History Loss of hearing Gout Anemia Asthma Non-smoker History of echocardiogram Pulmonary embolism Acute saddle pulmonary embolism Post-menopausal Wears glasses Thyroid disease Pancreatitis Essential hypertension Morbid obesity with BMI of 40.0-44.9, adult Vitamin D deficiency Home Medications ?Medication ?Instructions ?Recorded ?Last Taken ?Type levothyroxine 200 mcg tablet 200 mcg PO SUMOTUTHFRSA thyroid 11/06/21 11/24/24 History levothyroxine 200 mcg tablet 300 mcg PO WE thyroid 11/06/21 11/25/24 History lisinopril 20 mg tablet 20 mg PO BID BP 11/06/21 11/25/24 History albuterol sulfate 90 mcg/actuation 2 inh inhalation Q4H PRN sob 03/26/24 05/23/24 History breath activated powder inhaler (ProAir RespiClick) cholecalciferol (vitamin D3) 125 5,000 unit PO DAILY supplement 03/26/24 11/24/24 History mcg (5,000 unit) capsule ondansetron 4 mg disintegrating 4 mg PO Q6H PRN nausea and 07/08/24 Unknown Rx tablet vomiting #20 tabs apixaban 5 mg tablet (Eliquis) 5 mg PO BID #180 tabs 07/23/24 11/22/24 Rx Allergy/AdvReac Type Severity Reaction Status Date / Time chlorhexidine Allergy Rash Verified 11/26/24 06:31 Penicillins Allergy CHILDHOOD Verified 11/26/24 06:31 ALLERGY psyllium (From Metamucil) Allergy Shortness Verified 11/26/24 06:31 of breath Family History Other Asthma CVA (cerebral vascular accident) Diabetes Hypertension Thyroid disorder Surgical History History of thrombectomy History of ERCP History of cholecystectomy (05/06/24) Hx of colonoscopy H/O section S/P dilatation and curettage Social History household members: spouse current occupational status: employed Smoking Status: Never smoker alcohol intake: never substance use type: does not use Review of Systems (Anesthesia) ROS Narrative System reviewed and no additional complaints, except as documented.
--- NOTE | 2024-11-26 07:37 | PCM.HP.STD ---
[facility] - General General Date of Service: 11/26/24 Chief Complaint: ERCP with stent removal and colonoscopy for screening purposes HPI Narrative BHAVANI HALLMAN, is a 69 F who presents as an outpatient today for repeat ERCP with stent removal. She had a ERCP back in May 2024 for which had shown she had multiple choledocholithiasis. She has stones removed and a temporary stent placed. She comes back for removal today. She also is here for screening colonoscopy. She had a colonoscopy 10 years ago. She has no history of polyps. [facility] Medical History Loss of hearing Gout Anemia Asthma Non-smoker History of echocardiogram Pulmonary embolism Acute saddle pulmonary embolism Post-menopausal Wears glasses Thyroid disease Pancreatitis Essential hypertension Morbid obesity with BMI of 40.0-44.9, adult Vitamin D deficiency Home Medications ?Medication ?Instructions ?Recorded ?Last Taken ?Type levothyroxine 200 mcg tablet 200 mcg PO SUMOTUTHFRSA thyroid 11/06/21 11/24/24 History levothyroxine 200 mcg tablet 300 mcg PO WE thyroid 11/06/21 11/25/24 History lisinopril 20 mg tablet 20 mg PO BID BP 11/06/21 11/25/24 History albuterol sulfate 90 mcg/actuation 2 inh inhalation Q4H PRN sob 03/26/24 05/23/24 History breath activated powder inhaler (ProAir RespiClick) cholecalciferol (vitamin D3) 125 5,000 unit PO DAILY supplement 03/26/24 11/24/24 History mcg (5,000 unit) capsule ondansetron 4 mg disintegrating 4 mg PO Q6H PRN nausea and 07/08/24 Unknown Rx tablet vomiting #20 tabs apixaban 5 mg tablet (Eliquis) 5 mg PO BID #180 tabs 07/23/24 11/22/24 Rx Allergy/AdvReac Type Severity Reaction Status Date / Time chlorhexidine Allergy Rash Verified 11/26/24 06:31 Penicillins Allergy CHILDHOOD Verified 11/26/24 06:31 ALLERGY psyllium (From Metamucil) Allergy Shortness Verified 11/26/24 06:31 of breath Family History Other Asthma CVA (cerebral vascular accident) Diabetes Hypertension Thyroid disorder Surgical History History of thrombectomy History of ERCP History of cholecystectomy (05/06/24) Hx of colonoscopy H/O section S/P dilatation and curettage Social History household members: spouse current occupational status: employed Smoking Status: Never smoker alcohol intake: never substance use type: does not use ROS Constitutional Constitutional: Denies fatigue, fever(s), poor appetite, weight gain or weight loss Gastrointestinal Gastrointestinal: Denies belching, bloating, change in bowel habits, change in stool character, chewing difficulty, coffee ground emesis, constipation, cramping, diarrhea, dyspepsia, dysphagia, early satiety, excessive flatus, fecal incontinence, heartburn, hematemesis, hematochezia, hemorrhoids, loose stools, melena, nausea, odynophagia, rectal bleeding, tenesmus, vomiting or weight changes Vital Signs Vital Signs Vital Signs: 11/26/24 06:33 11/26/24 06:38 11/26/24 07:14 Temperature 97.5 F L 97.5 F L Temperature Source Temporal Pulse Rate 77 77 Respiratory Rate 18 18 Respiratory Pattern Normal Blood Pressure 95/55 L 95/55 L Blood Pressure Mean 68 Blood Pressure Source Monitor Blood Pressure Position Semi-Fowlers Blood Pressure Location Left Arm Pulse Ox 93 93 Oxygen Delivery Method Room Air Room Air Weight Weight: 206 lb Body Mass Index (BMI) 35.3 Physical Exam Narrative GENERAL: cooperative HEENT: Atraumatic; normocephalic EYES; Anicteric, Normal Conjunctiva NECK; supple, normal thyroid, RESPIRATORY: Diminished to auscultation CARDIOVASCULAR: Regular S1 S2, GI: soft, normoactive bowel sounds, : No Renal angle tenderness; EXTREMITIES: No edema, no clubbing, MUSCULOSKELETAL: no muscle wasting NEURO: Awake; no lateralizing signs. SKIN: No Rash PSYCH; Flat affect Assessment & Plan Assessment/Plan (1) Encounter for screening for malignant neoplasm of colon: PLAN: She was explained alternatives, risk, benefits including not withstanding bleeding, infection, sepsis, perforation, need for emergent urgent . She will have an ASA of 3. (2) Choledocholithiasis:
--- NOTE | 2024-11-26 08:26 | OP.ERCP_ITS ---
Patient Name: Evonne Burt Procedure Date: 11/26/2024 7:49 AM Date of : 1955 Age: 69 Procedure: ERCP Indications: Bile duct stone(s), Biliary stent removal Providers: John Orosco DO Medicines: Monitored Anesthesia Care Patient Profile: This is a 69 year old female. Refer to note in patient chart for documentation of history and physical. Patient has symptoms of acute right upper quadrant abdominal pain and acute jaundice. This patient has no history of surgical alteration of the upper digestive tract anatomy. Complications: No immediate complications. Procedure: Pre-Anesthesia Assessment: - Prior to the procedure, a History and Physical was performed, and patient medications and allergies were reviewed. The patient is competent. The risks and benefits of the procedure and the sedation options and risks were discussed with the patient. All questions were answered and informed consent was obtained. Patient identification and proposed procedure were verified in the pre-procedure area. Mental Status Examination: alert and oriented. Airway Examination: normal oropharyngeal airway and neck mobility. Respiratory Examination: clear to auscultation. CV Examination: normal. Prophylactic Antibiotics: The patient does not require prophylactic antibiotics. Prior Anticoagulants: The patient has taken no anticoagulant or antiplatelet agents. ASA Grade Assessment: II - A patient with mild systemic disease. After reviewing the risks and benefits, the patient was deemed in satisfactory condition to undergo the procedure. The anesthesia plan was to use monitored anesthesia care (MAC). Immediately prior to administration of medications, the patient was re-assessed for adequacy to receive sedatives. The heart rate, respiratory rate, oxygen saturations, blood pressure, adequacy of pulmonary ventilation, and response to care were monitored throughout the procedure. The physical status of the patient was re-assessed after the procedure. After obtaining informed consent, the scope was passed under direct vision. Throughout the procedure, the patient's blood pressure, pulse, and oxygen saturations were monitored continuously. The Duodenoscope was introduced through the mouth, and advanced to the duodenum and used to inject contrast into the bile duct. The ERCP was accomplished without difficulty. The patient tolerated the procedure well. Scope In: 8:05:14 AM Scope Out: 8:20:05 AM Total Procedure Duration Time 0 hours 14 minutes 51 seconds Findings: The brewery worker film was normal. The esophagus was successfully intubated under direct vision. The scope was advanced to a normal major papilla in the descending duodenum without detailed examination of the pharynx, larynx and associated structures, and upper GI tract. The upper GI tract was grossly normal. The bile duct was deeply cannulated with the short-nosed traction sphincterotome. Contrast was injected. I personally interpreted the bile duct images. There was brisk flow of contrast through the ducts. Image quality was adequate. Contrast extended to the entire biliary tree. A cholecystectomy had been performed. Placement of a long 0.025 inch Jagwire into the biliary tree was attempted. This passed successfully. A 5 mm biliary sphincterotomy was made with a traction (standard) sphincterotome using ERBE electrocautery. There was no post-sphincterotomy bleeding. The biliary tree was swept with a 12 mm balloon starting at the bifurcation, left intrahepatic duct(s) and right intrahepatic duct(s). Sludge was swept from the duct. All stones were removed. One stent was removed from the biliary tree using a snare and sent for cytology. The stent was found to be partially occluded via the water column test. Impression: - The patient has had a cholecystectomy. - Choledocholithiasis was found. Complete removal was accomplished by biliary sphincterotomy and balloon extraction. - A biliary sphincterotomy was performed. - The biliary tree was swept. - One stent was removed from the biliary tree. Procedure Code(s): --- Professional --- 62102, Endoscopic retrograde cholangiopancreatography (ERCP); with removal of foreign body(s) or stent(s) from biliary/pancreatic duct(s) 08605, Endoscopic retrograde cholangiopancreatography (ERCP); with removal of calculi/debris from biliary/pancreatic duct(s) 56846, Endoscopic retrograde cholangiopancreatography (ERCP); with sphincterotomy/papillotomy 08336, 26, Endoscopic catheterization of the biliary ductal system, radiological supervision and interpretation CPT copyright 2021 [employer]. All rights reserved. The codes documented in this report are preliminary and upon rough and truing machine operator review may be revised to meet current compliance requirements. John Orosco DO 11/26/2024 8:25:18 AM This report has been signed electronically. Number of Addenda: 0 Note Initiated On: 11/26/2024 7:49 AM
--- NOTE | 2024-11-26 08:26 | OP.CCLET_ITS ---
11/26/2024 Bryan Kay [address] [place] [address] Re : ERCP procedure for Evonne Carmel Dear Dr. Kay This procedure was performed on November. My impressions and recommendations are as follows: Impressions : - The patient has had a cholecystectomy. - Choledocholithiasis was found. Complete removal was accomplished by biliary sphincterotomy and balloon extraction. - A biliary sphincterotomy was performed. - The biliary tree was swept. - One stent was removed from the biliary tree. Recommendations : My findings are described in the full procedure note, which is enclosed. If I can be of further assistance, please feel free to contact me at . Sincerely, John Orosco, 11/26/2024 8:25:18 AM This report has been signed electronically.
--- NOTE | 2024-11-26 08:53 | OP.COLON_ITS ---
Patient Name: Evonne Burt Procedure Date: 11/26/2024 8:23 AM Date of : 1955 Age: 69 Procedure: Colonoscopy Indications: Screening for colorectal malignant neoplasm Providers: John Orosco DO Medicines: Monitored Anesthesia Care Patient Profile: This is a 69 year old female. Refer to note in patient chart for documentation of history and physical. Patient has symptoms of acute right upper quadrant abdominal pain and acute jaundice. This patient has no history of surgical alteration of the upper digestive tract anatomy. Last Colonoscopy: several years ago. Complications: No immediate complications. Procedure: Pre-Anesthesia Assessment: - Prior to the procedure, a History and Physical was performed, and patient medications and allergies were reviewed. The patient is competent. The risks and benefits of the procedure and the sedation options and risks were discussed with the patient. All questions were answered and informed consent was obtained. Patient identification and proposed procedure were verified in the pre-procedure area. Mental Status Examination: alert and oriented. Airway Examination: normal oropharyngeal airway and neck mobility. Respiratory Examination: clear to auscultation. CV Examination: normal. Prophylactic Antibiotics: The patient does not require prophylactic antibiotics. Prior Anticoagulants: The patient has taken no anticoagulant or antiplatelet agents. ASA Grade Assessment: II - A patient with mild systemic disease. After reviewing the risks and benefits, the patient was deemed in satisfactory condition to undergo the procedure. The anesthesia plan was to use monitored anesthesia care (MAC). Immediately prior to administration of medications, the patient was re-assessed for adequacy to receive sedatives. The heart rate, respiratory rate, oxygen saturations, blood pressure, adequacy of pulmonary ventilation, and response to care were monitored throughout the procedure. The physical status of the patient was re-assessed after the procedure. After I obtained informed consent, the scope was passed under direct vision. Throughout the procedure, the patient's blood pressure, pulse, and oxygen saturations were monitored continuously. The colonoscope was introduced through the anus and advanced to the cecum, identified by appendiceal orifice and ileocecal valve. The colonoscopy was performed without difficulty. The patient tolerated the procedure well. The quality of the bowel preparation was adequate. The ileocecal valve, appendiceal orifice, and rectum were photographed. Scope In: 8:34:11 AM Scope Withdrawal Time 0 hours 8 minutes 47 seconds Scope Out: 8:46:21 AM Total Procedure Duration Time 0 hours 12 minutes 10 seconds Findings: The perianal and digital rectal examinations were normal. An 8 mm polyp was found in the sigmoid colon. The polyp was sessile. The polyp was removed with a jumbo cold forceps. Resection and retrieval were complete. Verification of patient identification for the specimen was done. Estimated blood loss was minimal. A few small and large-mouthed diverticula were found in the recto-sigmoid colon and sigmoid colon. The exam was otherwise without abnormality on direct and retroflexion views. Impression: - One 8 mm polyp in the sigmoid colon, removed with a jumbo cold forceps. Resected and retrieved. - Diverticulosis in the recto-sigmoid colon and in the sigmoid colon. - The examination was otherwise normal on direct and retroflexion views. Recommendation: - Discharge patient to home. - Resume previous diet. - Continue present medications. - Await pathology results. - Repeat colonoscopy in 5 years for surveillance. Procedure Code(s): --- Professional --- 82774, Colonoscopy, flexible; with biopsy, single or multiple CPT copyright 2021 [employer]. All rights reserved. The codes documented in this report are preliminary and upon health education assistant review may be revised to meet current compliance requirements. John Orosco DO 11/26/2024 8:53:21 AM This report has been signed electronically. Number of Addenda: 0 Note Initiated On: 11/26/2024 8:23 AM
--- NOTE | 2024-11-26 08:53 | OP.CCLET_ITS ---
11/26/2024 Bryan Kay [address] [place] [address] Re : Colonoscopy procedure for Evonneamalia Burt Dear Dr. Kay This procedure was performed on November. My impressions and recommendations are as follows: Impressions : - One 8 mm polyp in the sigmoid colon, removed with a jumbo cold forceps. Resected and retrieved. - Diverticulosis in the recto-sigmoid colon and in the sigmoid colon. - The examination was otherwise normal on direct and retroflexion views. Recommendations : - Discharge patient to home. - Resume previous diet. - Continue present medications. - Await pathology results. - Repeat colonoscopy in 5 years for surveillance. My findings are described in the full procedure note, which is enclosed. If I can be of further assistance, please feel free to contact me at . Sincerely, John Orosco, 11/26/2024 8:53:21 AM This report has been signed electronically.
--- NOTE | 2024-11-26 09:01 | PCM.POST.ANE ---
Anesthesia: Postop Eval I Current Vital Signs Temperature: 97.7 F Pulse Rate: 75 Blood Pressure: 94/57 Respiratory Rate: 18 Pulse Ox: 99 Assessment Airway patent: Yes Spontaneous unlabored respirations: Yes nausea: No Vomiting: No Anesthesia Complication: No Fluid Hydration Crystalloid volume administer (ml): 1,000 Total IV fluid infused: 1,000 Progress Note Anesthesia document: Postop Eval 1 completed: Yes
--- NOTE | 2024-11-26 12:07 | POSTOPAN2_ITS ---
Anesthesia Postop Eval I Sum Postop Eval Completion status Anesthesia document: Postop Eval 1 completed: Yes Anesthesia Postop Eval I Summary Anesthesia Postop Eval I Summary: Anesthesia Postop Eval I: Assessment Summary Airway patent Yes 11/26/24 09:01 ELECTRIC CELL TENDER.TNES Spontaneous unlabored Yes 11/26/24 09:01 ELECTRIC CELL TENDER.TNES respirations Mental status nausea No 11/26/24 09:01 ELECTRIC CELL TENDER.TNES Vomiting No 11/26/24 09:01 ELECTRIC CELL TENDER.TNES Anesthesia Postop Eval I: Fluid Summary Crystalloid volume administer 1,000 11/26/24 09:01 ELECTRIC CELL TENDER.TNES (ml) Colloids volume administered ( ml) Blood Product volume administered (ml) Total IV fluid infused 1,000 11/26/24 09:01 ELECTRIC CELL TENDER.TNES Anesthesia Postop Eval I: Summary Notes Anesthesia Complication No 11/26/24 09:01 ELECTRIC CELL TENDER.TNES Anesthesia Complication Comment: Post-operative progress note Anesthesia: Postop Eval II Evaluation Mental status: Awake Pain Level: 0 nausea: No Vomiting: No
--- NOTE | 2024-11-26 12:07 | PCM.POSTANE2 ---
Anesthesia Postop Eval I Sum Postop Eval Completion status Anesthesia document: Postop Eval 1 completed: Yes Anesthesia Postop Eval I Summary Anesthesia Postop Eval I Summary: Anesthesia Postop Eval I: Assessment Summary Airway patent Yes 11/26/24 09:01 JAVASCRIPT UI [email or web address] Spontaneous unlabored Yes 11/26/24 09:01 JAVASCRIPT UI [email or web address].TNES respirations Mental status nausea No 11/26/24 09:01 JAVASCRIPT UI [email or web address].TNES Vomiting No 11/26/24 09:01 JAVASCRIPT UI [email or web address].TNES Anesthesia Postop Eval I: Fluid Summary Crystalloid volume administer 1,000 11/26/24 09:01 JAVASCRIPT UI DEVELOPER.TNES (ml) Colloids volume administered ( ml) Blood Product volume administered (ml) Total IV fluid infused 1,000 11/26/24 09:01 JAVASCRIPT UI [email or web address].TNES Anesthesia Postop Eval I: Summary Notes Anesthesia Complication No 11/26/24 09:01 JAVASCRIPT UI [email or web address].TNES Anesthesia Complication Comment: Post-operative progress note Anesthesia: Postop Eval II Evaluation Mental status: Awake Pain Level: 0 nausea: No Vomiting: No
== END 2024-11-26 09:52 | disposition home or self-care (01) ==
LOC: EN 06:17 → AC 06:18
PROVIDERS: PCP Family Medicine; Referring Provider Family Medicine; Visit Provider Internal Medicine Gastroenterology
PROC: (CPT 43260; principal; 2024-11-26 06:40)
PROC: 0DJD8ZZ Inspection of Lower Intestinal Tract, Via Natural or Artificial Opening Endoscopic (ICD-10-PCS; CPT 45378; 2024-11-26 06:40)
DX: Z12.11 Encounter for screening for malignant neoplasm of colon (principal); K57.30 Diverticulosis of large intestine without perforation or abscess without bleeding; K63.5 Polyp of colon; I10 Essential (primary) hypertension; Z86.711 Personal history of pulmonary embolism; K80.50 Calculus of bile duct without cholangitis or cholecystitis without obstruction; Z46.59 Encounter for fitting and adjustment of other gastrointestinal appliance and device; J45.909 Unspecified asthma, uncomplicated; Z79.890 Hormone replacement therapy; Z79.899 Other long term (current) drug therapy; Z90.49 Acquired absence of other specified parts of digestive tract; Z79.01 Long term (current) use of anticoagulants
CPT/HCPCS: 45380; 43262; 43275; 43264; 74330; 76000; 88108; 88305; 88313; 93005; J2405

== ENCOUNTER → 2024-12-02 | Outpatient (CLI) | payer OTHER, SELFPAY | END | disposition home or self-care (01) | LOC: MTLAB 09:28 | PROVIDERS: PCP Family Medicine; Referring Provider Family Medicine; Visit Provider Family Medicine | DX: E03.9 Hypothyroidism, unspecified (principal) | CPT/HCPCS: 36415; 84439; 84443 ==

== ENCOUNTER → 2025-04-28 | Outpatient (CLI) | payer OTHER, SELFPAY ==
[2025-04-28 09:49] LABS: Ionized Calcium Order ORDER TUBE
[2025-04-28 10:41] LABS: PTHIN 54 pg/mL (11-61)
[2025-04-28 11:01] LABS: AST(SGOT) 18 U/L (<=31); Alanine Aminotransfer ALT/SGPT 15 U/L (<=34); Albumin, Serum 4.0 g/dL (3.4-4.8); Alkaline Phosphatase 106 U/L (35-104); Anion Gap 8 (5-15); BUN 26 mg/dL (4-19); BUN/Creat Ratio 26.8 RATIO (10-20); Calcium,Total 9.5 mg/dL (7.6-11.0); Carbon Dioxide 26.4 mmol/L (21.0-32.0); Chloride 104 mmol/L (98-108); Globulin 3.1 g/dL (2.2-4.2); Glucose 94 mg/dL (70-99); Magnesium 2.3 mg/dL (1.5-2.2); Potassium 4.7 mmol/L (3.3-5.1); Vitamin D,25 Hydroxy 43.7 ng/mL (30-100)
== END | disposition home or self-care (01) ==
LOC: MFPLAB 08:48
PROVIDERS: PCP Family Medicine; Visit Provider Family Medicine
DX: E03.9 Hypothyroidism, unspecified (principal); M81.0 Age-related osteoporosis without current pathological fracture; R60.0 Localized edema
CPT/HCPCS: 36415; 80053; 82306; 82330; 83735; 83970; 84439; 84443

== ENCOUNTER → 2025-04-28 | Outpatient (CLI) | payer OTHER, SELFPAY ==
--- NOTE | 2025-04-28 07:30 | BI_ITS ---
EXAM: SCRN MAMM (CAD)W/JARRETT BILAT DATE: 04/28/2025 CLINICAL HISTORY: F, Age 70 y/o , ANNUAL No family history. TECHNIQUE: Procedure Code: [id number] Modality: MG Procedure: SCRN MAMM (CAD)W/JARRETT BILAT COMPARISON: Prior exam(s) dated April 27, 2024.. FINDINGS: TISSUE DENSITY: The breasts are almost entirely fatty. Bilateral Breast Mammographic Findings: No significant masses, calcifications or other abnormalities are identified. Stable 7 mm well-defined nodule in the upper lateral aspect of the right breast suggestive of a small intramammary lymph node. Stable fat containing axillary lymph nodes. No suspicious masses, areas of developing architectural distortion, or suspicious calcifications. There has been no significant interval change. BI/SCRN MAMM (CAD)W/JARRETT BILAT IMPRESSION: Stable bilateral screening mammogram. OVERALL FINAL ASSESSMENT BI-RADS 2: BENIGN RECOMMENDATION: Routine annual follow-up in 1 Year Additional Recommendation none A letter with findings and recommendations will be mailed to the patient. Reading Location: [place] [id number]
== END | disposition home or self-care (01) ==
PROVIDERS: PCP Family Medicine; Referring Provider Family Medicine; Visit Provider Family Medicine
DX: Z12.31 Encounter for screening mammogram for malignant neoplasm of breast (principal)
CPT/HCPCS: 77063; 77067

== ENCOUNTER → 2025-05-12 | Outpatient (CLI) | payer OTHER, SELFPAY ==
--- NOTE | 2025-05-12 10:17 | VDLE_ITS ---
Reason For Study Reason For Study: F/U DVT RIGHT LEFT GSV is normal. GSV is normal. CFV is compressible, spontaneous, phasic, competent CFV is compressible, spontaneous, phasic, competent, and demonstrates normal augmentation. and demonstrates normal augmentation. FV is compressible, spontaneous, phasic, competent FV is compressible, spontaneous, phasic, competent and demonstrates normal augmentation. and demonstrates normal augmentation. POP V is compressible, spontaneous, phasic, competent POP V is compressible, spontaneous, phasic, competent and demonstrates normal augmentation. and demonstrates normal augmentation. T/P Trunk is compressible. T/P Trunk is partially compressible with bright PTV is compressible. intraluminal echoes consistent with Chronic DVT. RT PerV is compressible. Venous flow noted with color. Procedure PTV is compressible. This is a venous duplex using B-mode, color flow and LT PerV is compressible. spectral Doppler. Exam performed in department. Compared to 07/07/2024. 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 Deep veins of the right lower extremity are patent and compressible segmentally . There is no evidence of right lower extremity deep vein thrombosis. The bilateral great saphenous veins appear maguire nt and compressible segmentally. Ordering Physician: Livia Davey Referring Physician: Wiliam Kay MD Performed By: Shivani French RVT
== END | disposition home or self-care (01) ==
LOC: CVS 09:40
PROVIDERS: PCP Family Medicine; Referring Provider Surgery Trauma Surgery; Visit Provider Surgery Trauma Surgery
DX: I82.419 Acute embolism and thrombosis of unspecified femoral vein (principal); I82.439 Acute embolism and thrombosis of unspecified popliteal vein; I26.99 Other pulmonary embolism without acute cor pulmonale
CPT/HCPCS: 93970